=== PATIENT | female | born 1990 | race Caucasian/White ===

== ENCOUNTER 2019-05-12 16:12 | Emergency (ER) | payer SELFPAY ==
--- OUTSIDE RECORDS SUMMARY | 2019-05-12 16:14 | XMS REPORT ---
:1990 Author Organization [facility] Address [address] [place] [address] Care Team Providers Name Role Phone Unavailable Unavailable Unavailable Problems This patient has no known problems. Allergies, Adverse Reactions, Alerts This patient has no known allergies or adverse reactions. Medications This patient has no known medications. Encounters Start End Encounter Admission Attending Care Care Encounter Date/Time Date/Time Type Type Clinicians Facility Department ID 2018-11-29 2018-11-29 Emergency E [id number] 16:42:00 16:42:00
--- NOTE | 2019-05-12 18:08 | ER ---
Nurse's Notes [facility] Name: Mini Marin Age: 28 yrs Sex: Female : 1990 Arrival Date: 05/12/2019 Time: 16:16 Bed 8 Private MD: Diagnosis: Acute bronchitis, unspecified Presentation: 05/11 16:36 Chief complaint: Patient states: sore throat, body aches, fatigue and subjective fever ss x 2-3 days. Coronavirus screen: The patient has NOT traveled to a country currently being monitored by the [facility] within the last 14 days. Proceed with normal triage procedures. Ebola Screen: Patient denies exposure to infectious person. Patient denies travel to an Ebola-affected area in the 21 days before illness onset. Initial Sepsis Screen: Does the patient meet any 2 criteria? No. Patient's initial sepsis screen is negative. Does the patient have a suspected source of infection? No. Patient's initial sepsis screen is negative. Risk Assessment: Do you want to hurt yourself or someone else? Patient reports no desire to harm self or others. 16:36 Method Of Arrival: Ambulatory ss 16:36 Acuity: DANIEL 4 ss 16:36 Note coworker recently diagnosed for the flu. ss Historical: - Allergies: 16:39 NSAIDS; ss 16:39 Ceclor; ss 16:39 Sulfa (Sulfonamide Antibiotics); ss - Home Meds: 16:39 Lexapro Oral [Active]; ss - PMHx: 16:39 Anxiety; Depression; ss - PSHx: 16:39 Gastric Bypass; Cholecystectomy; ss - Immunization history:: Adult Immunizations up to date. - Social history:: Smoking status: Patient reports the use of cigarette tobacco products, denies chronic smoking, but will smoke occasionally. Screenin:05 Abuse screen: Denies threats or abuse. Denies injuries from another. Nutritional ph screening: No deficits noted. Tuberculosis screening: No symptoms or risk factors identified. Fall Risk None identified. Assessment: 17:04 General: Appears in no apparent distress. comfortable, Behavior is calm, cooperative, ph appropriate for age, Reports fever for 2-3 days. Pain: Complains of pain in body aches. Neuro: Level of Consciousness is awake, alert, obeys commands, Oriented to person, place, time, situation. Cardiovascular: Capillary refill < 3 seconds in bilateral fingers Patient's skin is warm and dry. Respiratory: Airway is patent Respiratory effort is even, unlabored. EENT: Reports nasal congestion pain when swallowing. Derm: Skin is intact, is healthy with good turgor, Skin is pink, warm \T\ dry. Musculoskeletal: Circulation, motion, and sensation intact. Range of motion: intact in all extremities. Vital Signs: 16:35 BP 116 / 80; Pulse 67; Resp 16; Temp 98.1(O); Pulse Ox 100% on R/A; Weight 58.06 kg; Height 5 ft. 2 in. (157.48 cm); Pain 6/10; 16:35 Body Mass Index 23.41 (58.06 kg, 157.48 cm) ED Course: 16:16 Patient arrived in ED. mr 16:19 [facility]C [facility]. snw 16:19 Harvinder Alfredo MD is Attending Physician. snw 16:35 Sheridan Newell, RN is Primary Nurse. ph 16:35 Arm band placed on right wrist. ss 16:38 Triage completed. ss 17:05 Patient has correct armband on for positive identification. Bed in low position. Call ph light in reach. Side rails up X 1. Pulse ox on. NIBP on. Door closed. Noise minimized. Warm blanket given. 17:10 Flu and/or RSV swab sent to lab. Strep swab sent to lab. em1 Administered Medications: No medications were administered Outcome: 18:07 Discharge ordered by . snw 18:48 Patient left the ED. ph Signatures: Christiana Navarro FNP-C STRIPER MACHINE-Csnw Kenia OatesGarrick em1 Marisol Panda, RN RN Sheridan Newell RN RN ph
--- NOTE | 2019-05-12 18:08 | EDPHYS ---
Physician Documentation [facility] Name: Mnii Marin Age: 28 yrs Sex: Female : 1990 Arrival Date: 05/12/2019 Time: 16:16 Bed 8 Private MD: ED Physician Harvinder Alfredo HPI: 05/11 17:05 This 28 yrs old Female presents to ER via Ambulatory with complaints of Flu snw Symptoms. 17:05 The patient or guardian reports cough, with no sputum, flu symptoms, arthralgias, snw low-grade fever, myalgias. Onset: The symptoms/episode began/occurred acutely. Associated signs and symptoms: Pertinent positives: fever, nausea, rhinorrhea, sore throat. Severity of symptoms: At their worst the symptoms were moderate. The patient has not experienced similar symptoms in the past, but friend has similar symptoms, coworker dx with influenza. The patient has not recently seen a physician. Historical: - Allergies: 16:39 NSAIDS; ss 16:39 Ceclor; ss 16:39 Sulfa (Sulfonamide Antibiotics); ss - Home Meds: 16:39 Lexapro Oral [Active]; ss - PMHx: 16:39 Anxiety; Depression; ss - PSHx: 16:39 Gastric Bypass; Cholecystectomy; ss - Immunization history:: Adult Immunizations up to date. - Social history:: Smoking status: Patient reports the use of cigarette tobacco products, denies chronic smoking, but will smoke occasionally. ROS: 16:55 Constitutional: Positive for body aches, fatigue, fever, malaise. snw 17:00 Eyes: Negative for injury, pain, redness, and discharge. snw 17:00 Neck: Negative for injury, pain, and swelling, Cardiovascular: Negative for chest pain, palpitations, and edema. 17:00 Back: Negative for injury and pain, : Negative for injury, bleeding, discharge, and swelling, MS/Extremity: Negative for injury and deformity, Skin: Negative for injury, rash, and discoloration, Neuro: Negative for headache, weakness, numbness, tingling, and seizure, Psych: Negative for depression, anxiety, suicide ideation, homicidal ideation, and hallucinations. 17:00 ENT: Positive for nasal discharge, sinus congestion, sore throat. 17:00 Respiratory: Positive for cough, with no reported sputum. 17:00 Abdomen/GI: Positive for nausea, Negative for vomiting. Exam: 16:55 Constitutional: This is a well developed, well nourished patient who is awake, alert, snw and in no acute distress. Head/Face: Normocephalic, atraumatic. Eyes: Pupils equal round and reactive to light, extra-ocular motions intact. Lids and lashes normal. Conjunctiva and sclera are non-icteric and not injected. Cornea within normal limits. Periorbital areas with no swelling, redness, or edema. ENT: Nares patent. Clear nasal discharge, no septal abnormalities noted. Tympanic membranes are normal and external auditory canals are clear. Oropharynx with mild redness, no swelling, or masses, exudates, or evidence of obstruction, uvula midline. Mucous membranes moist. Neck: Trachea midline, no thyromegaly or masses palpated, and no cervical lymphadenopathy. Supple, full range of motion without nuchal rigidity, or vertebral point tenderness. No Meningismus. Chest/axilla: Normal chest wall appearance and motion. Nontender with no deformity. No lesions are appreciated. Cardiovascular: Regular rate and rhythm with a normal S1 and S2. No gallops, murmurs, or rubs. Normal PMI, no JVD. No pulse deficits. Respiratory: Lungs have equal breath sounds bilaterally, clear to auscultation and percussion. No rales, rhonchi or wheezes noted. No increased work of breathing, no retractions or nasal flaring. Abdomen/GI: Soft, non-tender, with normal bowel sounds. No distension or tympany. No guarding or rebound. No evidence of tenderness throughout. Back: No spinal tenderness. No costovertebral tenderness. Full range of motion. Skin: Warm, dry with normal turgor. Normal color with no rashes, no lesions, and no evidence of cellulitis. MS/ Extremity: Pulses equal, no cyanosis. Neurovascular intact. Full, normal range of motion. Neuro: Awake and alert, GCS 15, oriented to person, place, time, and situation. Cranial nerves II-XII grossly intact. Motor strength 5/5 in all extremities. Sensory grossly intact. Cerebellar exam normal. Normal gait. Psych: Awake, alert, with orientation to person, place and time. Behavior, mood, and affect are within normal limits. Vital Signs: 16:35 BP 116 / 80; Pulse 67; Resp 16; Temp 98.1(O); Pulse Ox 100% on R/A; Weight 58.06 kg; ss Height 5 ft. 2 in. (157.48 cm); Pain 6/10; 16:35 Body Mass Index 23.41 (58.06 kg, 157.48 cm) ss MDM: 16:42 Patient medically screened. snw 18:08 Data reviewed: vital signs, nurses notes. Data interpreted: Pulse oximetry: on room air snw is 100 %. Interpretation: normal. Counseling: I had a detailed discussion with the patient and/or guardian regarding: the historical points, exam findings, and any diagnostic results supporting the discharge/admit diagnosis, lab results, the need for outpatient follow up, to return to the emergency department if symptoms worsen or persist or if there are any questions or concerns that arise at home. Special discussion: Based on the history and exam findings, there is no indication for further emergent testing or inpatient evaluation. I discussed with the patient/guardian the need to see the primary care provider for further evaluation of the symptoms. 03 16:42 Order name: Flu; Complete Time: 18:08 snw 05/11 16:42 Order name: Strep; Complete Time: 17:41 snw 05/11 17:33 Order name: Throat Culture EDMS Administered Medications: No medications were administered Disposition: 18:30 Co-signature as Attending Physician, Harvinder Alfredo MD I agree with the assessment and kdr plan of care. Disposition: 05/12/19 18:07 Discharged to Home. Impression: Acute bronchitis, unspecified. - Condition is Stable. - Discharge Instructions: Acute Bronchitis, Adult, Rehydration, Adult. - Prescriptions for Zyrtec 10 mg Oral Tablet - take 1 tablet by ORAL route once daily As needed; 20 tablet. Tessalon Perles 100 mg Oral Capsule - take 1 capsule by ORAL route every 8 hours As needed; 15 capsule. Prednisone 20 mg Oral Tablet - take 2 tablet by ORAL route once daily for 5 days; 10 tablet. - Work release form, Medication Reconciliation Form, Thank You Letter, Antibiotic Education, Prescription Opioid Use form. - Follow up: Private Physician; When: 2 - 3 days; Reason: Recheck today's complaints, Continuance of care, Re-evaluation by your physician. Follow up: Emergency Department; When: As needed; Reason: Worsening of condition. Signatures: Dispatcher [employer] EDMS Harvinder Alfredo MD MD [facility] Christiana Navarro, ADAMA-Barbra GALAN-Marisol Castro, RN RN ss Sheridan Newell RN RN ph Corrections: (The following items were deleted from the chart) 18:48 18:07 05/12/2019 18:07 Discharged to Home. Impression: Acute bronchitis, unspecified. ph Condition is Stable. Discharge Instructions: Acute Bronchitis, Adult, Rehydration, Adult. Prescriptions for Zyrtec 10 mg Oral Tablet - take 1 tablet by ORAL route once daily As needed; 20 tablet, Tessalon Perles 100 mg Oral Capsule - take 1 capsule by ORAL route every 8 hours As needed; 15 capsule, Prednisone 20 mg Oral Tablet - take 2 tablet by ORAL route once daily for 5 days; 10 tablet. and Forms are Work release form, Medication Reconciliation Form, Thank You Letter, Antibiotic Education, Prescription Opioid Use. Follow up: Private Physician; When: 2 - 3 days; Reason: Recheck today's complaints, Continuance of care, Re-evaluation by your physician. Follow up: Emergency Department; When: As needed; Reason: Worsening of condition. snw
[2019-05-12 18:57] VITALS: BP 116/80; TEMP 98.1; O2SAT 100
== END 2019-05-12 18:48 | disposition home or self-care (01) ==
LOC: ER 16:12
DX: J20.9 Acute bronchitis, unspecified (principal); Z88.2 Allergy status to sulfonamides; Z88.6 Allergy status to analgesic agent; F41.8 Other specified anxiety disorders; F17.210 Nicotine dependence, cigarettes, uncomplicated
CPT/HCPCS: 87070; 87081; 87804; 99283

== ENCOUNTER 2019-06-10 11:02 | Emergency (ER) | payer SELFPAY ==
--- OUTSIDE RECORDS SUMMARY | 2019-06-10 11:07 | XMS REPORT ---
:1990 [facility] Address [address] [place] [address] Care Team Providers Name Role Phone Unavailable Unavailable Unavailable Problems This patient has no known problems. Allergies, Adverse Reactions, Alerts This patient has no known allergies or adverse reactions. Medications This patient has no known medications. Encounters Start End Encounter Admission Attending Care Care Encounter Date/Time Date/Time Type Type Clinicians Facility Department ID 2018-11-29 2018-11-29 Emergency E [id number] 16:42:00 16:42:00
[2019-06-10 11:32] LABS: Absolute Lymphocytes (CBC) 1.4 K/uL (0.7-4.9); Basophils % 0.6 % (0-1.3); Hematocrit 28.9 % (36.0-45.0); MPV 9.1 fL (7.6-11.3); RBC Red Blood Cell Count 4.45 M/uL (3.86-4.86)
[2019-06-10 11:53] LABS: ALT/SGPT 25 U/L (12-78); AST/SGOT 28 U/L (15-37); Albumin 2.8 g/dL (3.4-5.0); Alkaline Phosphatase 104 U/L (45-117); BUN Blood Urea Nitrogen 9 mg/dL (7-18); Bicarbonate 29 mmol/L (21-32); Bilirubin Direct 0.1 mg/dL (0-0.2); Bilirubin Total 0.2 mg/dL (0.2-1.0); Glucose Level 79 mg/dL (74-106); Lipase 94 U/L (73-393); Potassium 3.5 mmol/L (3.5-5.1); Protein, Total 7.1 g/dL (6.4-8.2); Sodium Level 140 mmol/L (136-145)
[2019-06-10 12:16] LABS: Urine Blood NEGATIVE (NEG); Urine Glucose NEGATIVE (NEG); Urine Protein NEGATIVE (NEG)
[2019-06-10] MEDS ORDERED: ONDANSETRON 4 MG/2 ML VIAL ONE ×2 (12:16→15:47)
[2019-06-10] MEDS ORDERED: MORPHINE 4 MG/ML SYR ONE ×2 (12:16→15:47)
[2019-06-10 12:22] LABS: Urine Bacteria 20-50 /HPF (<20); Urine RBC <5 /HPF (NONE SEEN)
[2019-06-10 12:23] LABS: Urine Culture Reflex Order NOT NEEDED
[2019-06-10 12:49] LABS: Platelet Estimate ADEQ; Urine White Blood Cell Casts OK
[2019-06-10 12:50] LABS: Anisocytosis 2+; Blood Morphology Comment NOTED (NOT SEEN); Hypochromasia 2+; Ovalocytes 1+; Rouleau NOTED
--- NOTE | 2019-06-10 13:59 | RAD REPORT ---
EXAM DESCRIPTION: CTAbdomen Pelvis W Contrast - 06/10/2019 1:46 pm CLINICAL HISTORY: Abdominal pain. RLQ Abd Pain;Abd pain COMPARISON: No comparisons TECHNIQUE: Biphasic CT imaging of the abdomen and pelvis was performed with 100 ml non-ionic IV cont rast. All CT scans are performed using dose optimization technique as appropriate and may include automated exposure control or mA/KV adjustment according to patient size. FINDINGS: The lung bases are clear.Cholecystectomy. Postsurgical changes of a gastric bypass noted. The liver, spleen, pancreas, adrenal glands and kidneys are within normal limits. No bowel obstruction, free air, free fluid or abscess. The appendix is normal. No evidence of signi ficant lymphadenopathy. No suspicious bony findings. IMPRESSION: No acute intra-abdominal or pelvic finding.
--- NOTE | 2019-06-10 15:58 | ER ---
Nurse's Notes [facility] Name: Mini Marin Age: 28 yrs Sex: Female : 1990 Arrival Date: 06/10/2019 Time: 11:04 Bed 14 Private MD: Diagnosis: Abdominal and pelvic pain Presentation: 06/09 11:08 Chief complaint: Patient states: RLQ sharp, stabbing abdominal pain since yesterday jl7 morning; tried to have intercourse last night and it made me cry out in pain and it's just getting worse. I feel like maybe it's my ovaries or something. Denies fever, denies respiratory symptoms. Coronavirus screen: Patient denies fever greater than 100.4F, cough, shortness of breath, or difficulty breathing. Proceed with normal triage process. Ebola Screen: No symptoms or risks identified at this time. Initial Sepsis Screen: Does the patient meet any 2 criteria? No. Patient's initial sepsis screen is negative. Does the patient have a suspected source of infection? No. Patient's initial sepsis screen is negative. Risk Assessment: Do you want to hurt yourself or someone else? Patient reports no desire to harm self or others. Onset of symptoms was June 09, 2019. 11:08 Method Of Arrival: Ambulatory jl7 11:08 Acuity: DANIEL 3 jl7 Triage Assessment: 11:11 General: Appears in no apparent distress. uncomfortable, Behavior is calm, cooperative, jl7 appropriate for age. Pain: Complains of pain in right lower quadrant Pain currently is 7 out of 10 on a pain scale. at worst was 10 out of 10 on a pain scale. GI: Last BM was June 08, 2019. Reports nausea, Patient currently denies diarrhea, vomiting. 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 - Social history:: Smoking status: Patient reports the use of cigarette tobacco products, denies chronic smoking, but will smoke occasionally. Screenin:19 Abuse screen: Denies threats or abuse. Nutritional screening: No deficits noted. tw2 Tuberculosis screening: No symptoms or risk factors identified. Fall Risk None identified. Assessment: 11:20 General: Appears uncomfortable, slender, well groomed, Behavior is calm, cooperative, tw2 appropriate for age. Pain: Complains of pain in abdomen and right lower quadrant. Neuro: Level of Consciousness is awake, alert, obeys commands, Oriented to person, place, time, situation. Cardiovascular: Heart tones S1 S2 Patient's skin is warm and dry. Respiratory: Airway is patent Respiratory effort is even, unlabored, Respiratory pattern is regular, symmetrical, Breath sounds are clear bilaterally. GI: Abdomen is flat, Bowel sounds present X 4 quads. Abd is soft X 4 quads Reports upper abdominal pain, nausea. : No signs and/or symptoms were reported regarding the genitourinary system. EENT: No signs and/or symptoms were reported regarding the EENT system. Derm: No signs and/or symptoms reported regarding the dermatologic system. Musculoskeletal: Range of motion: intact in all extremities. 12:39 Reassessment: Patient appears in no apparent distress at this time. No changes from tw2 previously documented assessment. Patient and/or family updated on plan of care and expected duration. Pain level reassessed. Patient is alert, oriented x 3, equal unlabored respirations, skin warm/dry/pink. 13:35 Reassessment: No changes from previously documented assessment. Patient and/or family ll1 updated on plan of care and expected duration. Pain level reassessed. Patient is alert, oriented x 3, equal unlabored respirations, skin warm/dry/pink. 14:35 Reassessment: Patient appears in no apparent distress at this time. No changes from ll1 previously documented assessment. Patient and/or family updated on plan of care and expected duration. Pain level reassessed. Patient is alert, oriented x 3, equal unlabored respirations, skin warm/dry/pink. Vital Signs: 11:08 BP 115 / 93; Pulse 99; Resp 19; Temp 98.7; Pulse Ox 100% ; Weight 62.14 kg; Pain 7/10; jl7 11:27 BP 120 / 79; Pulse 88; Resp 17; Pulse Ox 98% on R/A; tw2 12:39 BP 116 / 78; Pulse 86; Resp 17; Pulse Ox 100% on R/A; tw2 13:00 BP 123 / 84; Pulse 79; Resp 17; Pulse Ox 100% ; ll1 14:12 BP 114 / 80; Pulse 70; Resp 17; Pulse Ox 100% ; ll1 15:24 BP 106 / 68; Pulse 88; Resp 17; Pulse Ox 99% ; ll1 16:00 BP 117 / 46; Pulse 71; Resp 17; Pulse Ox 100% ; ll1 16:15 Temp 98.4; Pain 4/10; ll1 ED Course: 11:04 Patient arrived in ED. mr 11:10 Triage completed. jl7 11:11 Neno Julian PA is PHCP. jr8 11:11 Rebekah Garcia MD is Attending Physician. jr8 11:11 Arm band placed on right wrist. jl7 11:12 Bed in low position. Call light in reach. tw2 11:18 Rebeka Tang, YURIY is Primary Nurse. tw2 11:25 Urine collected: clean catch specimen, clear. dh3 11:30 Initial lab(s) drawn, by tx, sent to lab. Inserted saline lock: 20 gauge in right dh3 antecubital area, using aseptic technique. Blood collected. 13:45 CT Abd/Pelvis - PO and IV Contrast In Process Unspecified. EDMS 15:37 US Transvaginal Study (Probe) In Process Unspecified. EDMS 15:57 Paresh Kumar MD is Referral Physician. jr8 16:15 No provider procedures requiring assistance completed. IV discontinued, intact, ll1 bleeding controlled, No redness/swelling at site. Pressure dressing applied. Administered Medications: 12:16 Drug: Zofran (Ondansetron) 4 mg Route: IVP; Site: right antecubital; tw2 15:45 Follow up: Response: No adverse reaction ll1 12:16 Drug: morphine 4 mg Route: IVP; Site: right antecubital; tw2 15:45 Follow up: Response: No adverse reaction; RASS: Alert and Calm (0) ll1 15:49 Drug: morphine 4 mg {Note: RASS 0.} Route: IVP; Site: right antecubital; ll1 16:10 Follow up: Response: No adverse reaction; RASS: Alert and Calm (0) ll1 15:49 Drug: Zofran (Ondansetron) 4 mg Route: IVP; Site: right antecubital; ll1 18:52 Follow up: Response: No adverse reaction ll1 Outcome: 15:57 Discharge ordered by . marlon 16:18 Patient left the ED. ll1 16:29 Discharged to home ambulatory, with family. ll1 16:29 Condition: stable 16:29 Discharge instructions given to patient, Instructed on discharge instructions, follow up and referral plans. medication usage, Demonstrated understanding of instructions, follow-up care, medications, Prescriptions given X 1. Signatures: Dispatcher [employer] EDTN ИванKenia mr IeshaNeno PA PA jr8 Rebeka Tang, RN RN tw2 Rome Elizabeth RN RN jl7 Gina López 3 Allen Godoy, RN RN ll1
--- NOTE | 2019-06-10 15:58 | EDPHYS ---
Physician Documentation [facility] Name: Mini Marin Age: 28 yrs Sex: Female : 1990 Arrival Date: 06/10/2019 Time: 11:04 Bed 14 Private MD: ED Physician Rebekah Garcia HPI: 06/09 11:32 This 28 yrs old Female presents to ER via Ambulatory with complaints of jr8 Abdominal Pain. 11:32 The patient presents with abdominal pain right lower quadrant. Onset: The jr8 symptoms/episode began/occurred acutely, yesterday. The symptoms do not radiate. Associated signs and symptoms: Pertinent positives: nausea. The symptoms are described as stabbing. Modifying factors: The symptoms are alleviated by nothing, the symptoms are aggravated by movement, pressure. Severity of pain: At its worst the pain was moderate in the emergency department the pain is unchanged. The patient has not experienced similar symptoms in the past. The patient has not recently seen a physician. 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 - Social history:: Smoking status: Patient reports the use of cigarette tobacco products, denies chronic smoking, but will smoke occasionally. ROS: 11:32 Eyes: Negative for injury, pain, redness, and discharge, ENT: Negative for injury, jr8 pain, and discharge, Neck: Negative for injury, pain, and swelling, Cardiovascular: Negative for chest pain, palpitations, and edema, Respiratory: Negative for shortness of breath, cough, wheezing, and pleuritic chest pain, Back: Negative for injury and pain, MS/Extremity: Negative for injury and deformity, Skin: Negative for injury, rash, and discoloration, Neuro: Negative for headache, weakness, numbness, tingling, and seizure. 11:32 Abdomen/GI: Positive for abdominal pain, nausea, Negative for vomiting, diarrhea, constipation, abdominal cramps, abdominal distension. Exam: 11:32 Eyes: Pupils equal round and reactive to light, extra-ocular motions intact. Lids and jr8 lashes normal. Conjunctiva and sclera are non-icteric and not injected. Cornea within normal limits. Periorbital areas with no swelling, redness, or edema. ENT: Nares patent. No nasal discharge, no septal abnormalities noted. Tympanic membranes are normal and external auditory canals are clear. Oropharynx with no redness, swelling, or masses, exudates, or evidence of obstruction, uvula midline. Mucous membranes moist. Neck: Trachea midline, no thyromegaly or masses palpated, and no cervical lymphadenopathy. Supple, full range of motion without nuchal rigidity, or vertebral point tenderness. No Meningismus. Cardiovascular: Regular rate and rhythm with a normal S1 and S2. No gallops, murmurs, or rubs. Normal PMI, no JVD. No pulse deficits. Respiratory: Lungs have equal breath sounds bilaterally, clear to auscultation and percussion. No rales, rhonchi or wheezes noted. No increased work of breathing, no retractions or nasal flaring. Back: No spinal tenderness. No costovertebral tenderness. Full range of motion. Skin: Warm, dry with normal turgor. Normal color with no rashes, no lesions, and no evidence of cellulitis. MS/ Extremity: Pulses equal, no cyanosis. Neurovascular intact. Full, normal range of motion. Neuro: Awake and alert, GCS 15, oriented to person, place, time, and situation. Cranial nerves II-XII grossly intact. Motor strength 5/5 in all extremities. Sensory grossly intact. Cerebellar exam normal. Normal gait. 11:32 Abdomen/GI: Inspection: abdomen appears normal, Bowel sounds: active, all quadrants, Palpation: soft, in all quadrants, moderate abdominal tenderness, in the right lower quadrant, voluntary guarding, is elicited in the right lower quadrant, involuntary guarding, is not appreciated, no appreciated organomegaly, Indicators: McBurney's point is tender, Ratliff's sign is negative, Rovsing's sign is negative, Obturator sign is negative, Psoas sign is positive, Liver: tenderness, is not appreciated. Vital Signs: 11:08 BP 115 / 93; Pulse 99; Resp 19; Temp 98.7; Pulse Ox 100% ; Weight 62.14 kg; Pain 7/10; jl7 11:27 BP 120 / 79; Pulse 88; Resp 17; Pulse Ox 98% on R/A; tw2 12:39 BP 116 / 78; Pulse 86; Resp 17; Pulse Ox 100% on R/A; tw2 13:00 BP 123 / 84; Pulse 79; Resp 17; Pulse Ox 100% ; ll1 14:12 BP 114 / 80; Pulse 70; Resp 17; Pulse Ox 100% ; ll1 15:24 BP 106 / 68; Pulse 88; Resp 17; Pulse Ox 99% ; ll1 16:00 BP 117 / 46; Pulse 71; Resp 17; Pulse Ox 100% ; ll1 16:15 Temp 98.4; Pain 4/10; ll1 MDM: 11:18 Patient medically screened. jr8 15:52 Data reviewed: vital signs, nurses notes, lab test result(s), radiologic studies, CT jr8 scan, ultrasound. Data interpreted: Pulse oximetry: on room air is 99 %. Interpretation: normal. Counseling: I had a detailed discussion with the patient and/or guardian regarding: the historical points, exam findings, and any diagnostic results supporting the discharge/admit diagnosis, lab results, radiology results, the need for outpatient follow up, a family practitioner, to return to the emergency department if symptoms worsen or persist or if there are any questions or concerns that arise at home. Response to treatment: the patient's symptoms have mildly improved after treatment. Special discussion: Based on the patient's Hx, exam, and Dx evaluation, there is no indication for emergent surgery or inpatient Tx. It is understood by the patient/guardian that if the Sx's persist or worsen they need to return immediately for re-evaluation. ED course: Discussed with patient if pain gets worse to come back. No signs for torsion, PID, bowel process, appendicitis, or other surgically emergent findings. Labs stable. Nothing to indicate pain that she is feeling. Could be muscle. Recommend close observation and return precautions. If worse to come back. Patient good with this . ED course: Checked EXPEDITER SERVICE ORDER. Patient on Buprenorphine-Naloxone. High risk. Will not prescribe pain medication . 06/09 11:19 Order name: Basic Metabolic Panel; Complete Time: 12:29 8 06/09 11:19 Order name: CBC with Diff; Complete Time: 13:27 jr8 06/09 11:19 Order name: Creatinine for Radiology; Complete Time: 12:29 8 06/09 11:19 Order name: Hepatic Function; Complete Time: 12:29 8 06/09 11:19 Order name: Lipase; Complete Time: 12:29 06/09 11:19 Order name: Urine Microscopic Only; Complete Time: 12:29 8 06/09 11:32 Order name: CT Abd/Pelvis - PO and IV Contrast; Complete Time: 14:07 rust 06/09 11:41 Order name: Urine Dipstick--Ancillary (enter results); Complete Time: 12:29 mo 06/09 11:41 Order name: Urine --Ancillary (enter results); Complete Time: 12:29 mo 06/09 12:50 Order name: CBC Smear Scan; Complete Time: 13:27 [facility] 06/09 14:15 Order name: US Transvaginal Study (Probe); Complete Time: 16:07 rust 06/09 11:19 Order name: IV Saline Lock; Complete Time: 11:38 06/09 11:19 Order name: Labs collected and sent; Complete Time: 11:38 06/09 11:19 Order name: Urine Test (obtain specimen); Complete Time: 11:38 rust 06/09 11:19 Order name: Urine Dipstick-Ancillary (obtain specimen); Complete Time: 11:38 Administered Medications: 12:16 Drug: Zofran (Ondansetron) 4 mg Route: IVP; Site: right antecubital; tw2 15:45 Follow up: Response: No adverse reaction ll1 12:16 Drug: morphine 4 mg Route: IVP; Site: right antecubital; tw2 15:45 Follow up: Response: No adverse reaction; RASS: Alert and Calm (0) ll1 15:49 Drug: morphine 4 mg {Note: RASS 0.} Route: IVP; Site: right antecubital; ll1 16:10 Follow up: Response: No adverse reaction; RASS: Alert and Calm (0) ll1 15:49 Drug: Zofran (Ondansetron) 4 mg Route: IVP; Site: right antecubital; ll1 18:52 Follow up: Response: No adverse reaction 1 Disposition: 16:21 Co-signature as Attending Physician, Rebekah Garcia MD. ma2 Disposition: 06/10/19 15:57 Discharged to Home. Impression: Abdominal and pelvic pain. - Condition is Stable. - Discharge Instructions: Abdominal Pain, Adult. - Prescriptions for Zofran 4 mg Oral Tablet - take 1 tablet by ORAL route every 12 hours As needed; 20 tablet. - Medication Reconciliation Form, Thank You Letter, Antibiotic Education, Prescription Opioid Use form. - Follow up: Paresh Kumar MD; When: 5 - 6 days; Reason: Recheck today's complaints, Continuance of care, Re-evaluation by your physician. - Problem is new. - Symptoms have improved. Signatures: Dispatcher [employer] EDMS Neno Julian PA PA jr8 Rebeka Tang RN RN tw2 Rome Elizabeth RN RN jl7 Rebekah Garcia MD MD ma2 Allen Godoy RN RN ll1 Corrections: (The following items were deleted from the chart) 16:18 15:57 06/10/2019 15:57 Discharged to Home. Impression: Abdominal and pelvic pain. ll1 Condition is Stable. Forms are Medication Reconciliation Form, Thank You Letter, Antibiotic Education, Prescription Opioid Use. Follow up: Paresh Kumar; When: 5 - 6 days; Reason: Recheck today's complaints, Continuance of care, Re-evaluation by your physician. Problem is new. Symptoms have improved. jr8
--- NOTE | 2019-06-10 16:05 | RAD REPORT ---
EXAM DESCRIPTION: US - Transvaginal Study Probe - 06/10/2019 3:37 pm CLINICAL HISTORY: r/o torsion ;Abd pain Pelvic pain. COMPARISON: No comparisons FINDINGS: The uterus is normal in size, shape and echotexture. The uterus measures 7.9 x 5.7 x 4.4 c m. The endometrial stripe measures 8 mm, normal. Both ovaries are normal in size, shape and echotexture. The right ovary measures 1.9 x 2.7 x 1.8 cm. The left ovary measures 2.1 x 2.8 x 3.1 cm. No ovarian or parovarian lesions. No adnexal masses. Normal Doppler blood flow was demonstrated to both ovaries. No significant pelvic ascites. IMPRESSION: Unremarkable study.
[2019-06-10 16:27] VITALS: TEMP 98.7
[2019-06-10 16:36] VITALS: BP 117/46; O2SAT 100
== END 2019-06-10 16:18 | disposition home or self-care (01) ==
LOC: ER 11:02
DX: R10.2 Pelvic and perineal pain (principal); F17.210 Nicotine dependence, cigarettes, uncomplicated; F34.1 Dysthymic disorder; Z88.2 Allergy status to sulfonamides; Z88.6 Allergy status to analgesic agent; Z88.8 Allergy status to other drugs, medicaments and biological substances
CPT/HCPCS: 36415; 74177; 76830; 80048; 80076; 81003; 81015; 81025; 83690; 85025; 96374; 96375; 99284; J2405; Q9967

== ENCOUNTER 2019-10-09 07:05 | Emergency (ER) | payer SELFPAY ==
--- OUTSIDE RECORDS SUMMARY | 2019-10-09 07:07 | XMS REPORT | Clinical Summary ---
:1990 Author Organization [facility] [employer] Address [address] [place] [address] Care Team Providers Name Role Phone Asked, Pcp Primary Care Provider Unavailable Allergies Active Allergy Reactions Severity Noted Date Comments Cefaclor 12/07/2016 Sulfa (Sulfonamide Antibiotics) 7 Medications Medication Sig Dispensed Refills Start Date End Date Status traMADol (ULTRAM) 50 Take 1 tablet (50 15 tablet 0 10/05/2018 10/10/2018 mg tablet mg total) by mouth every 6 (six) hours as needed for moderate pain for up to 15 doses. penicillin v Take 1 tablet 28 tablet 0 10/05/2018 10/12/2018 E xpired potassium (VEETID) (500 mg total) by 500 MG tablet mouth 4 (four) times a day for 7 days. Active Problems Not on file Encounters Date Type Specialty Care Team Description 03/27/2019 Emergency Emergency Medicine Jhoan Wing MD after 10/08/2018 Family History Medical History Relation Name Comments Diabetes Father Hypertension Father No Known Problems Mother Relation Name Status Comments Father Mother Social History Tobacco Use Types Packs/Day Years Used Date Never Smoker Smokeless Tobacco: Never Used Alcohol Use Drinks/Week oz/Week Comments No Sex Assigned at Date Recorded Not on file Job Start Date Occupation Industry Not on file Not on file Not on file Travel History Travel Start Travel End No recent travel history available. 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[employer] Pulse 87 03/27/2019 2:22 PM [employer]IDENT [employer]PERATING OFFICER Temperature 36.4 C (97.5 F) 03/27/2019 2:22 PM [employer]IDENT [employer]IE[employer]PERATING OFFICER Respiratory Rate 15 03/27/2019 2:22 PM [employer]IDENT [employer]IE[employer]PERATING OFFICER Oxygen Saturation 100% 03/27/2019 2:22 PM [employer]IDENT [employer]PER[employer] OFFICER Inhaled Oxygen Concentration - - Weight - - Height 154.9 cm (5' 1") 03/27/2019 2:29 PM [employer]IDENT [employer]PERATING OFFIC[employer] Body Mass Index - - Plan of Treatment Health Maintenance Due Date Last Done Comments CERVICAL CANCER SCREENING 2009 INFLUENZA VACCINE 10/09/2019 Results Not on fileafter 10/08/2018
--- OUTSIDE RECORDS SUMMARY | 2019-10-09 07:09 | XMS REPORT | Continuity of Care Document ---
:1990 Author Organization [facility] Care Team Providers Name Role Phone [facility] Unavailable Un available Problems Problem Status Onset Classification Date Comments Sourc e Date Reported STOMACH PAINS Active [facility] Panic attacks Active Problem 11/16/2013 eCW: John Ochoa MD Palpitations Active Problem 11/16/2013 eCW: Maggie Ochoa MD Low Back Pain Active Problem 11/16/2013 eCW: John Ochoa MD anxiety Active Problem 11/16/2013 eCW: Fabrice ie Don york MD generalized GERD Active Diagnosis 12/03/2012 eCW: Fabrice ie (gastroesophagea Safia montoya MD l reflux disease) Medications Medication Details Route Status Patient Ordering Order Source Instructions Provider Date Xanax 1 tablet Orally Active 0.25 MG Orally Ochoa eCW: daily as needed 014 John Ochoa MD BusPIRone HCl 1 tablet Orally Active 15 MG Orally Ochoa eCW: Twice a day 014 John Ochoa MD Robaxin 1 tablet Orally Active 500 mg Orally Ochoa eCW: TID for spasm 014 John Ochoa MD BuSpar 1 tablet orally Active 15 mg orally Ochoa eCW: BID 013 John Ochoa MD Xanax 1 tablet Orally Active 0.25 MG Orally Ochoa eCW: every 8 hours 013 John as needed MD Don potassium 40 mEq, PO No Longer [facility] chloride 20 Route: PO, Active 012 Hospital mEq oral Drug form: tablet, ERTAB, extended ONCE, release Priority: STAT, Start date: 06/27/11 9:29:00, Stop date: 06/27/11 9:29:00 NS (Bolus) IV 1,000 mL, IV No Longer [facility] 1,000 mL Rate: Active 012 Hospital 1,000 ml/hr, Infuse over: 1 hr, Route: IV, Dosing Weight 87 kg, Total Volume: 1,000, Start date: 06/27/11 8:57:00, Duration: 30 day, Stop date: 07/27/11 8:56:00 K-Dur 20 40 mEq, 30 PO No Longer [facility] mL, Route: [address] PO, Drug form: ERTAB, ONCE, Start date: 06/27/11 8:56:00, Stop date: 06/27/11 8:56:00 ondansetron 4 mg, 2 IVP No Longer [facility] mL, Route: [address] IVP, Drug form: INJ, ONCE, Priority: STAT, Start date: 06/27/11 7:24:00, Stop date: 06/27/11 7:24:00 Saline Flush 5 ml, IVP No Longer [facility] 0.9% Route: [address] IVP, Drug Form: INJ, PRN, PRN Line Flush, Start date: 06/27/11 7:24:00, Duration: 30 day, Stop date: 07/27/11 7:23:00 Sodium 1,000 mL, [facility] Chloride 0.9% Rate: [address] (Bolus) IV 1,000 1,000 mL ml/hr, Infuse over: 1 hr, Route: IV, Dosing Weight 87.7 kg, Total Volume: 1,000, Bolus Dose, Priority: STAT, Start date: 06/27/11 7:24:00, Duration: 1 doses or times, Stop date: 06/27/11 8:23:00 NuvaRing 1 ring Vaginal Active 0.12-0.015 Ochoa eCW: MG/24HR Vaginal John Ochoa MD Vitamin D 1 tablet Orally Active 1000 UNIT Ochoa eCW: Orally Once a John Ochoa MD Vitamin B-12 1 tablet Orally Active 1000 MCG Orally Ochoa eC W: Once a day John Ochoa MD Allergies, Adverse Reactions, Alerts Substance Category Reaction Severity Reaction Status Date Comments S ource type Reported Cephalexin Adverse Info Not Adverse Active eC W: Reaction Available Reaction 4 Fabrice Ochoa MD [facility] drug Allergy Active [facility] Immunizations No Data Provided for This Section Results Order Name Results Value Reference Date Interpretation Comments Eve rce Range CHEMISTRY U Preg Negative Negative 06/26 Normal [facility] (06/27/2011 08:24:00) [facility] URINALYSIS UA RBC 0-2 /HPF 0 - 2 06/26 Normal [facility] (06/27/2011 08:24:00) [facility] URINALYSIS UA Sq Epi Occasional /LPF Few 06/26 Normal [facility] (06/27/2011 08:24:00) [facility] URINALYSIS UA WBC 0-2 /HPF None Seen 06/26 Normal [facility] (06/27/2011 08:24:00) [facility] URINALYSIS UA Bacteria None Seen None Seen 06/26 Normal [facility] (06/27/2011 08:24:00) [facility] URINALYSIS Micro? Performed 06/26 Normal [facility] (06/27/2011 08:24:00) [facility] URINALYSIS UA Protein Negative Negative 06/26 Normal [facility] (06/27/2011 08:24:00) [facility] URINALYSIS UA Glucose Negative Negative 06/26 Normal [facility] (06/27/2011 08:24:00) [facility] URINALYSIS UA Spec Grav <=1.030 06/26 NA [facility] /2011 Hospital URINALYSIS UA pH 6.0 5.0 - 8.0 06/26 Normal [facility] URINALYSIS UA Ketones 15 mg/dL Negative 06/26 ABN [facility] *ABN* /2011 [facility] (06/27/2011 08:24:00) URINALYSIS UA Color Yellow Yellow 06/26 NA [facility] *NA* /2011 [facility] (06/27/2011 08:24:00) URINALYSIS UA Turbidity Clear Clear 06/26 Normal [facility] (06/27/2011 08:24:00) [facility] URINALYSIS UA Nitrite Negative Negative 06/26 Normal [facility] (06/27/2011 08:24:00) [facility] URINALYSIS UA Bili Negative Negative 06/26 NA [facility] *NA* [facility] (06/27/2011 08:24:00) URINALYSIS UA 0.2 0.1 - 1.0 06/26 Normal [facility] Urobilinogen /2011 Hospital URINALYSIS UA Leuk Est Negative Negative 06/26 Normal [facility] (06/27/2011 08:24:00) /2011 [facility] URINALYSIS UA Blood Small Negative 06/26 ABN [facility] *ABN* /2011 Hospital (06/27/2011 08:24:00) Microbiolog Culture: 06/26 [facility] CHEMISTRY Lipase Lvl 107 73 - 393 06/26 Normal [facility] CHEMISTRY Amylase Lvl 33 25 - 115 06/26 Normal [facility] CHEMISTRY Globulin 3.5 2.0 - 4.0 06/26 Normal [facility] CHEMISTRY B/C Ratio 11 6 - 25 06/26 Normal [facility] CHEMISTRY AGAP 11.3 10.0 - 06/26 Normal [facility] 20.0 [facility] CHEMISTRY A/G Ratio 1.1 0.7 - 1.6 06/26 Normal [facility] CHEMISTRY Alk Phos 59 39 - 136 06/26 Normal [facility] CHEMISTRY Calcium Lvl 9.6 8.5 - 10.5 06/26 Normal [facility] CHEMISTRY Chloride Lvl 109 95 - 109 06/26 Normal [facility] CHEMISTRY CO2 26 24 - 32 06/26 Normal [facility] CHEMISTRY ALT 31 0 - 65 06/26 Normal [facility] CHEMISTRY Total 7.2 6.4 - 8.4 06/26 Normal [facility] CHEMISTRY Albumin Lvl 3.7 3.5 - 5.0 06/26 Normal [facility] CHEMISTRY Glucose Lvl 80 70 - 99 06/26 Normal <sup>1</sup>I K at nterpretive Hospital Data: Adult reference range values reflect the clinical guidelines of the [place] [employer]. CHEMISTRY BUN 9 7 - 22 06/26 Normal [facility] CHEMISTRY Creatinine 0.8 0.5 - 1.4 06/26 Normal [facility] CHEMISTRY Potassium 3.3 3.5 - 5.1 06/26 LOW [facility] CHEMISTRY Sodium Lvl 143 135 - 145 06/26 Normal [facility] CHEMISTRY AST 12 0 - 37 06/26 Normal [facility] /2011 Hospital CHEMISTRY Bili Total 0.5 0.2 - 1.3 06/26 Normal [facility] /2011 Hospital HEMATOLOGY INR 1.02 0.85 - 06/26 Normal <sup>2</sup>I [facility] 1.17 /2011 n[facility] Hospital Data: RECOMMENDED RANGES FOR PROTIME INR: 2.0-3.0 for most medical and surgical thromboemboli c states. 2.5-3.5 for artificial heart valves and recurrent embolism. INR SHOULD BE USED ONLY FOR PATIENTS ON STABLE ANTICOAGULANT THERAPY. HEMATOLOGY PTT 31.2 22.9 - 06/26 Normal <sup>3</sup>I [facility] 35.8 /2011 [facility] Data: Heparin Therapeutic Range: 57 - 92 Seconds HEMATOLOGY PT 13.4 12.0 - 06/26 Normal [facility] 14.7 /2011 Hospital HEMATOLOGY RDW 13.3 11.5 - 06/26 Normal [facility] 14.5 /2011 Hospital HEMATOLOGY MCHC 34.3 32.0 - 06/26 Normal [facility] 36.0 /2011 Hospital HEMATOLOGY MCH 28.6 27.0 - 06/26 Normal [facility] 31.0 /2011 Hospital HEMATOLOGY Platelet 181 133 - 450 06/26 Normal [facility] /2011 Hospital HEMATOLOGY MPV 10.2 7.4 - 10.4 06/26 Normal [facility] /2011 Hospital HEMATOLOGY Hgb 13.7 12.0 - 06/26 Normal [facility] 16.0 /2011 Hospital HEMATOLOGY Hct 40.0 36.0 - 06/26 Normal [facility] 48.0 /2011 Hospital HEMATOLOGY MCV 83.4 81.0 - 06/26 Normal [facility] 99.0 /2011 Hospital HEMATOLOGY RBC 4.80 4.20 - 06/26 Normal [facility] 5.40 /2011 Hospital HEMATOLOGY WBC 5.3 3.7 - 10.4 06/26 Normal [facility] /2011 Hospital HEMATOLOGY Eosinophils 0.1 0.0 - 0.5 06/26 Normal [facility] # /2011 Hospital HEMATOLOGY Lymphocytes 1.7 1.0 - 5.5 06/26 Normal [facility] # /2011 Hospital HEMATOLOGY Monocytes # 0.3 0.0 - 0.8 06/26 Normal [facility] /2011 Hospital HEMATOLOGY Basophils # 0.0 0.0 - 0.2 06/26 Normal [facility] /2011 Hospital HEMATOLOGY Monocytes 5.8 2.0 - 12.0 06/26 Normal [facility] /2011 Hospital HEMATOLOGY Eosinophils 1.2 0.0 - 4.0 06/26 Normal MH [facility] /2011 [facility] HEMATOLOGY Segs 60.7 45.0 - 06/26 Normal [facility] 75.0 /2011 [facility] HEMATOLOGY Lymphocytes 32.2 20.0 - 06/26 Normal MH [facility] 40.0 /2011 [facility] HEMATOLOGY Basophils 0.1 0.0 - 1.0 06/26 Normal MH [facility] /2011 [facility] HEMATOLOGY Segs-Bands # 3.2 1.5 - 8.1 06/26 Normal [facility] /2011 Hospital Pathology Reports No Data Provided for This Section Diagnostic Reports No Data Provided for This Section Consultation Notes No Data Provided for This Section Discharge Summaries No Data Provided for This Section History and Physicals No Data Provided for This Section Vital Signs Vital Sign Value Date Comments Source Weight 156 10/21/2013 eCW: John montoya MD Height 62 10/21/2013 eCW: John montoya MD Heart Rate 88 10/21/2013 eCW: John montoya MD Diastolic (mm Hg) 86 10/21/2013 eCW: Orlando Ochoa MD Systolic (mm Hg) 120 10/21/2013 eCW: John Ochoa MD Weight 152 11/27/2012 eCW: John montoya MD Height 62 11/27/2012 eCW: John montoya MD Heart Rate 83 11/27/2012 eCW: John montoya MD Diastolic (mm Hg) 84 11/27/2012 eCW: Orlando Ochoa MD Systolic (mm Hg) 110 11/27/2012 eCW: John Ochoa MD Weight 87.727 06/27/2011 [facility] Height 157.48 cm 06/27/2011 [facility] Encounters Location Location Encounter Encounter Reason Attending ADM DC Stat us Source Details Type Number For Provider Date Date Visit [facility] [id number] STOMACH PEDRO 06/26 06/26 Activ e [facility] Unknown [id number] 11/27 11/27 eCW: MD Don -[id number] /2012 [facility] [id number] MD John Ochoa Unknown [id number] 11/27 11/27 eCW: MD Don [id number] /[facility] [id number] MD John Ochoa CHK/UP [id number] 10/21 10/21 eCW: MD Don [id number] /[facility] [id number] MD Don Procedures No Data Provided for This Section Assessment and Plan No Data Provided for This Section Plan of Care No Data Provided for This Section Social History Social History Date Source Social History ElementQualifiersDate Reported 10/21/2013 eCW: John Ochoa MD Tobacco Use: . Are you a: former smoker, How many ye ars smoked? 1, How many packs per day? .2 Oct 21, 2013 Alcohol: . never Oct 21, 2013 Family History Value Date Source QualifierDescriptionCommentDate Reported 11/16/2013 eCW: John Ochoa MD Father type II diabetes, hypertension Oct 21, 2013 QualifierDescriptionCommentDate Reported 12/03/2012 eCW: John Ochoa MD Father type II diabetes, hypertension Nov 27, 2012 Advance Directives No Data Provided for This Section Functional Status No Data Provided for This Section
--- OUTSIDE RECORDS SUMMARY | 2019-10-09 07:10 | XMS REPORT | Continuity of Care Document ---
:1990 Author Organization [facility] Address [address] [place] [address] Care Team Providers Name Role Phone OTHER, NAME IN NOTES Primary Care Physician Unavailable Allergies, Adverse Reactions, Alerts Allergen Type Severity Reaction Last Verified Status Updated Sulfa Allergy Unknown July 26, No Active Antibiotics 2019 ([id number]) Medications No known medications. Problems No problem information available. Procedures No procedure information available. Relevant Diagnostic Tests and/or Laboratory Data No known relevant diagnostic tests and/or laboratory data. Health Concerns Health Concerns may be documented in an alternate section. Chief Complaint and Reason for Visit Chief Complaint General Complaint Reason for Visit [id number] Encounters Encounter Location(s) Arrival/Admit Date Discharge/Depart Date Provider(s) Departed Clancy July 27, 2019 July 27, 2019 4:24pm ELVIN STACY, Emergency Room [facility] 3:29pm KAYA Rodriguez MD Ctr Assessments No Assessments Information Available Functional Status No Functional Status information available Goals Goals may be documented in an alternate section. Immunizations No Immunization Information Available Mental Status No Mental Status Information Available Medical Equipment No Medical Equipment Information available Plan of Treatment rx, see DDS or oromaxillary surgeon/manager internet Future Tests Future scheduled test information is unavailable Pending Tests Pending diagnostic test information is unavailable Future Visits Future appointment information is unavailable Referrals to Other Providers Reason for Referral Start Provider Provider Contact Provider Address Referral Date Information OTHER, ENTER NAME IN NOTES Future Procedures Future procedure information is unavailable Future Medications Future medication information is unavailable Patient Instructions Temporomandibular Joint Syndrome Social History Smoking Status Status Date of Observation Never smoked tobacco (finding) July 27, 2019 3:34pm Observation Status Observation Response Date of Response Hx Physical Abuse No July 27, 2019 3:34p m Assigned Sex Female Vital Signs Vital Reading Result Collection Date/Time Weight 138 [lb_av] July 27, 2019 3:34p m BMI (Body Mass Index) 25.2 kg/m2 July 27, 2019 3:3 4pm
--- OUTSIDE RECORDS SUMMARY | 2019-10-09 07:10 | XMS REPORT | Continuity of Care Document ---
:1990 Author Organization Formerly [facility] t Address [address] [place] [address] Care Team Providers Name Role Phone Asked, Pcp Primary Care Physician Unavailable Maciej DE LUNA, Guillermo Attending Clinician Problems Condition Condition Condition Status Onset Resolution Last Treating Co mments Source Name Details Category Date Date Treatment Clinician Date STOMACH Diagnosis Active 2012-06-18 Me moria PAINS 4-19 10:30:00 l STOMACH 07:00: Tarun PAINS 00 Active 06/27/2011 [facility] Panic Problem Active 2013-11-16 Memor ia attacks 02:28:14 l Panic Tarun attacks Active Problem 11/16/2013 eCW: John Ochoa MD Palpitatio Problem Active 2013-11-16 M emoria ns 02:28:14 l [place] Palpitatio ns Active Problem 4 eCW: John Ochoa MD Low Back Problem Active 2013-11-16 Mem oria Pain 02:28:14 l Low Back Neo n Pain Active Problem 11/16/2013 eCW: John Ochoa MD anxiety Problem Active 2013-11-16 Andrea hao disorder, 02:28:14 l generalize anxiety Her tripp d disorder, generalize d Active Problem 11/16/2013 eCW: John Ochoa MD GERD Diagnosis Active 2012-12-03 Mem oria (gastroeso 04:12:17 l phageal GERD Tarun reflux (gastroeso disease) phageal reflux disease) Active Diagnosis 12/03/2012 eCW: John Ochoa MD Allergies, Adverse Reactions, Alerts Allergy Allergy Status Severity Reaction(s) Onset Inactive Treating Comm ents Source Name Type Date Date Clinician Sulfa Propensi Active 2016-03 [place] (Sulfona ty to 0-25 Methodi mide adverse 00:00: st Antibiot reaction 00 ics) s to drug Cefaclor Propensi Active [place] to 9-30 Methodi adverse 00:00: st reaction 00 s to drug Cephalex Cephalex Active Info Not Andrea hao in in Available 10-21 l 00:00: Tarun 00 Ceclor Ceclor Active Memoria l Tarun Family History Family Member Diagnosis Comments Start Date Stop Date Source Natural father Diabetes [facility]odist Natural father Hypertension [employer] [facility] Natural mother No Known Problems [facility] Unknown Family Family History 2012-12-03 2012-12-03 Memori al [place] Member 04:12:17 04:12:17 Social History Social Habit Start Date Stop Date Quantity Comments Source Sex Assigned At [employer] [place] M ethodist Alcohol intake 2019-03-27 2019-03-27 Current [facility]odist 00:00:00 00:00:00 non-drinker of alcohol (finding) TobaccoUse: 2013-10-21 2013-10-21 [facility] 00:00:00 00:00:00 Smoking Status Start Date Stop Date Source Never smoker [facility] Medications Ordered Filled Start Stop Current Ordering Indication Dosage Frequency Signature Comments Components Source Medication Medication Date Date Medication? Clinician (SIG) Name Name penicillin 2019- No 500mg Q.25D Take 1 [place] potassium 10-0505 tablet Metho di (VEETID) 00:00: 23:59 ([address] 500 MG 00 :00 total) by tablet mouth 4 (four) times a day for 7 days. traMADol 2019- No 50mg Q6H Take 1 [place] (ULTRAM) 50 10-0503 tablet (50 M ethodi mg tablet 00:00: 23:59 mg total) st 00 :00 by mouth every 6 (six) hours as needed for moderate pain for up to 15 doses. NuvaRing Yes John 1 ring Memor ia 11-16 Ochoa l 02:28: Tarun 14 Xanax Yes Pachie 1 tablet Memori a 8-14 Ochoa l 00:00: BusPIRone Yes [place] 1 tablet Me moria HCl 8-14 Ochoa l 00:00: Robaxin Yes [place] 1 tablet Andrea hao 8-14 Ochoa l 00:00: Vitamin D Yes [place]achie 1 tablet Me moria 9-26 Ochoa l 04:12: 17 Vitamin Yes [place]achie 1 tablet Andrea hao B-12 9-26 Ochoa l 04:12: BuSpar Yes [place]achie 1 tablet Memor ia 6-25 Ochoa l 00:00: Xanax Yes Pachie 1 tablet Memori a 1-17 Ochoa l 00:00: potassium No Mahad 40 mEq, Me moria chloride 20 4-19 Sapp Route: PO, l mEq oral 14:29: [place]ms[place] Drug form: H ermann tablet, 00 ERTAB, extended ONCE, release Priority: STAT, Start date: 06/27/11 9:29:00, Stop date: 06/27/11 9:29:00 NS (Bolus) No Mahad 1,000 mL, Memoria IV 1,000 mL 4-19 Sapp Rate: l 13:57: Imsais 1,000 Tarun 00 ml/hr, Infuse over: 1 hr, Route: IV, Dosing Weight 87 kg, Total Volume: 1,000, Start date: 06/27/11 8:57:00, Duration: 30 day, Stop date: 07/27/11 8:56:00 K-Dur 20 No Mahad 40 mEq, 30 Memoria 4-19 Sapp mL, Route: l 13:56: Imsais PO, Drug [place] 00 form: ERTAB, ONCE, Start date: 06/27/11 8:56:00, Stop date: 06/27/11 8:56:00 ondansetron No Mahad 4 mg, 2 Memoria 4-19 Sapp mL, Route: l 12:24: [place] IVP, Drug Neo n 00 form: INJ, ONCE, Priority: STAT, Start date: 06/27/11 7:24:00, Stop date: 06/27/11 7:24:00 Saline 2012-0 No Mahad 5 ml, Memoria Flush 0.9% 06-26 Sapp Route: l 12:24: Imsais IVP, Drug Neo n 00 Form: INJ, PRN, PRN Line Flush, Start date: 06/27/11 7:24:00, Duration: 30 day, Stop date: 07/27/11 7:23:00 Sodium 2012-0 No Mahad 1,000 mL, Mem oria Chloride 06-26 Sapp Rate: l 0.9% 12:24: Imsais 1,000 Tarun (Bolus) IV 00 ml/hr, 1,000 mL Infuse over: 1 hr, Route: IV, Dosing Weight 87.7 kg, Total Volume: 1,000, Bolus Dose, Priority: STAT, Start date: 06/27/11 7:24:00, Duration: 1 doses or times, Stop date: 06/27/11 8:23:00 Vital Signs Vital Name Observation Time Observation Value Comments Source Body height 2019-03-27 14:29:00 154.9 cm [place] [facility] Systolic blood 2019-03-27 14:22:31 137 mm[Hg] [place] [facility] pressure Diastolic blood 2019-03-27 14:22:31 82 mm[Hg] [facility] on [facility] pressure Heart rate 2019-03-27 14:22:31 87 /min [facility] Body temperature 2019-03-27 14:22:31 36.39 Samira [facility] Respiratory rate 2019-03-27 14:22:31 15 /min [facility] Oxygen saturation in 2019-03-27 14:22:31 100 /min [facility] Arterial blood by Pulse oximetry Weight 2013-10-21 18:30:00 [facility] [place] Height 2013-10-21 18:30:00 [facility] Tarun Heart Rate 2013-10-21 18:30:00 [facility] [place] Diastolic (mm Hg) 2013-10-21 18:30:00 [facility] orial [place] Systolic (mm Hg) 2013-10-21 18:30:00 Andrea rial [place] Weight 2012-11-27 14:15:00 [facility] Tarun Height 2012-11-27 14:15:00 [facility] Tar[place] Heart Rate 2012-11-27 14:15:00 [facility] [place] Diastolic (mm Hg) 2012-11-27 14:15:00 Mem orial [place] Systolic (mm Hg) 2012-11-27 14:15:00 Andrea nikia Tarun Weight 2011-06-27 12:09:00 [facility] [place] Height 2011-06-27 12:09:00 157.48 cm [facility] Procedures This patient has no known procedures. Plan of Care Planned Activity Planned Date Details Comments Source Future Scheduled 2019-10-09 INFLUENZA VACCINE [place] [facility] Test 00:00:00 [code = INFLUENZA VACCINE] Future Scheduled 2009 Screening for [facility] Test 00:00:00 malignant neoplasm of cervix (procedure) [code = 001274810] Encounters Start End Encounter Admission Attending Care Care Encounter Source Date/Time Date/Time Type Type Clinicians Facility Department ID 2018-11-29 2018-11-29 Emergency E [facility] [id number] Memoria 16:42:00 16:42:00 l [facility] 2013-10-21 2013-10-21 Outpatient John Lopez SErnie [id number] [facility]inic 13:30:00 13:30:00 MD Don Ochoa MD alWo bee [facility] 2012-11-27 2012-11-27 Outpatient John Lopez S. [id number] eClinic 09:15:00 09:15:00 MD Don Ochoa MD alWo [facility] Results Test Description Test Time Test Comments Results Result Sour e Comments CHEMISTRY 2011-06-27 Negative [facility] 13:24:00 (06/27/2011 [place] 08:24:00) URINALYSIS 2011-06-27 0-2 /HPF [facility] 13:24:00 (06/27/2011 [place] 08:24:00) URINALYSIS 2011-06-27 Occasional /LPF [facility] 13:24:00 (06/27/2011 Tarun 08:24:00) URINALYSIS 2011-06-27 0-2 /HPF [facility] 13:24:00 (06/27/2011 [place] 08:24:00) URINALYSIS 2011-06-27 None Seen [facility] 13:24:00 (06/27/2011 [place] 08:24:00) URINALYSIS 2011-06-27 Performed [facility] 13:24:00 (06/27/2011 [place] 08:24:00) URINALYSIS 2011-06-27 Negative [facility] 13:24:00 (06/27/2011 [place] 08:24:00) URINALYSIS 2011-06-27 Negative [facility] 13:24:00 (06/27/2011 [place] 08:24:00) URINALYSIS 2011-06-27 13:24:00 Test Item Value Reference Range Interpretation Comme nts UA pH (test code = UA pH) 6.0 1 5.0-8.0 N [facility] ZyrtitkHIZIATXIIZ0459-00-54 13:24:0015 mg/dL *ABN*(06/27/2011 08:24:00) [facility] NofsmimRZDRDRMAOJ8554-99-69 13:24:00Yellow *NA*(06/27/2011 08:24:00) [facility] AfanthcTQDBVQPOYB5716-83-05 13:24:00Clear (06/27/2011 08:24:00)[facility] AxndysxPVDVBVJKNM2762-18-80 13:24:00Negative (06/27/2011 08:24:00)[facility] SvntvmhHRQJIZUNGC7185-59-38 13:24:00Negative *NA*(06/27/2011 08:24:00)[facility] EvvhdnoUPQCIPAGRZ3590-40-02 13:24:000.2[facility] FfwftwoQLJABUPFOT7646-44-59 13:24:00Negative (06/27/2011 08:24:00)[facility] XqdkdriZUXCVWEOAC2183-92-19 13:24:00Small *ABN*(06/27/2011 08:24:00)[facility] VoxttqjGOPABPEQM1958-61-34 12:30:26975Tnonjcwv AhvulthMUSRODHIV9396-62-29 12:30:0033[facility] [place] VBGBNTUAT1517-50-66 12:30:003.5[facility] JlsksjcZFZTCQRKS1737-44-80 12:30:0011 [facility] DxovgltAOOHGIDDG5762-81-82 12:30:0011.3[facility] HermannCHEMISTRY 2011-06-27 12:30:001.1[facility] LiskakmPZTTCUURE0290-16-90 12:30:0059[facility] NvlgdetAKAXIDWVW6073-58-66 12:30:009.6[facility] AgcwconTEUVVSASA9338-52-07 12:30:54879Dzfkpuib GzyveubYKZWVVIXD8923-01-56 12:30:0026[facility] [place] WWLLTUIDJ6787-82-20 12:30:0031[facility] VhlwynwWVEGNFOAK0561-46-03 12:30:007.2 Memorial LggbfwiHUCMJGUJE7172-91-77 12:30:003.7[facility] HermannCHEMISTRY 2011-06-27 12:30:0080[facility] FfeuovbSDEBYRBHN2453-49-60 12:30:009[facility] KgxfmrgIVUZDHDXY2687-38-39 12:30:000.8[facility] AwiltqsYGXWOGOIA4545-83-79 12:30:003.3[facility] QnnfpeaSFQBTCPVT3644-75-48 12:30:13180Vxxlszgc [place] LNPYUGAQU2901-67-01 12:30:0012[facility] GzfeqrbBTGJUNNAF0105-81-76 12:30:000.5 [facility] GcqwvmbICPFYQLEBW1303-17-31 12:30:001.02[facility] HermannHEMATOLOGY 2011-06-27 12:30:00 Test Item Value Reference Range Interpretation Comments PTT (test code = PTT) 31.2 s 22.9-35.8 N [facility] EdykabjEHVTLIKJPF8206-66-26 12:30:00 Test Item Value Reference Range Interpretation Comments PT (test code = PT) 13.4 s 12.0-14.7 N [facility] LbymprnPYPCEFKJAJ5480-09-09 12:30:0013.3[facility] HermannHEMATOLOGY 2011-06-27 12:30:0034.3[facility] UlpvggtZXANJABQZV6562-46-14 12:30:00 Test Item Value Reference Range Interpretation Comments MCH (test code = MCH) 28.6 pg 27.0-31.0 N [facility] SmvvyouALXSISGTRM4084-81-10 12:30:20309Ozqsuaqv HermannHEMATOLOGY 2011-06-27 12:30:0010.2[facility] KtrwkxeSKGIIUTDOI8622-26-53 12:30:0013.7[facility] EqhztdjUNHNIGISZP4532-10-46 12:30:0040.0[facility] TcapicfUKKPPYMANO3379-96-80 12:30:0083.4[facility] UejasehQBOWJOUCPU1754-09-57 12:30:004.80[facility] [place] IMKRNEAKBP3514-55-86 12:30:005.3[facility] CqvjpbzZIBWDEERUC0277-33-46 12:30:000.1 Memorial HrrsamjHSKHGIMBHA3756-47-89 12:30:001.7[facility] HermannHEMATOLOGY 2011-06-27 12:30:000.3[facility] ByrahnxTTTRYPMNHY5617-69-03 12:30:000.0[facility] OjulmlwUOIOSRHNAW0288-13-52 12:30:005.8[facility] FjctamfSOHQFYYAIV9366-29-13 12:30:001.2[facility] TagzwhcLMZUGKWWAX4631-40-66 12:30:0060.7[facility] [place] IMSKIQQMFK1070-21-01 12:30:0032.2[facility] EvnzqxeVLTSCSRYIE7946-77-50 12:30:00 0.1[facility] EyrxnxfCAPMWBKUVK2802-23-29 12:30:003.2[facility] [place]
[2019-10-09 07:42] LABS: Absolute Lymphocytes (CBC) 1.8 K/uL (0.7-4.9); Basophils % 0.7 % (0-1.3); MPV 9.3 fL (7.6-11.3); RBC Red Blood Cell Count 4.69 M/uL (3.86-4.86)
[2019-10-09 07:58] LABS: ALT/SGPT 24 U/L (12-78); AST/SGOT 25 U/L (15-37); Albumin 3.1 g/dL (3.4-5.0); Alkaline Phosphatase 85 U/L (45-117); BUN Blood Urea Nitrogen 5 mg/dL (7-18); Bicarbonate 29 mmol/L (21-32); Bilirubin Direct 0.2 mg/dL (0-0.2); Bilirubin Total 0.4 mg/dL (0.2-1.0); Glucose Level 89 mg/dL (74-106); Lipase 76 U/L (73-393); Potassium 3.4 mmol/L (3.5-5.1); Protein, Total 7.4 g/dL (6.4-8.2); Sodium Level 140 mmol/L (136-145)
[2019-10-09] MEDS ORDERED: ONDANSETRON 4 MG/2 ML VIAL ONE (08:11)
[2019-10-09] MEDS ORDERED: MAGNE/ALUM HYDROXD 30 ML UCUP ONE (08:11)
[2019-10-09] MEDS ORDERED: PANTOPRAZOLE 40 MG INJ ONE (08:11)
[2019-10-09] MEDS ORDERED: LIDOCAINE VISCOUS 2% SOLN 15 ML UDC ONE (08:11)
[2019-10-09] MEDS ORDERED: MORPHINE 4 MG/ML SYR ONE (09:26)
--- NOTE | 2019-10-09 11:11 | RAD REPORT ---
EXAM DESCRIPTION: CTAbdomen Pelvis W Contrast - 10/09/2019 10:32 am CLINICAL HISTORY: Abdominal pain. César n Y history with ulcer..Epigastric pain ;Abd pain COMPARISON: Abdomen Pelvis W Contrast dated 06/10/2019 TECHNIQUE: Biphasic CT imaging of the abdomen and pelvis was performed with 100 ml non-ionic IV cont rast. All CT scans are performed using dose optimization technique as appropriate and may include automated exposure control or mA/KV adjustment according to patient size. FINDINGS: The lung bases are clear.Cholecystectomy clips. Postsurgical changes seen about the stomac h. The liver, spleen, pancreas, adrenal glands and kidneys are within normal limits. Slightly prominent common bile duct is seen measuring 9 mm. This appears unchanged since comparative study. No bowel obstruction, free air, free fluid or abscess. The appendix is normal. No evidence of signi ficant lymphadenopathy. No suspicious bony findings. IMPRESSION: No acute intra-abdominal or pelvic finding. If further assessment of the biliary tree is clinically desired, consider followup MRCP evaluation.
--- NOTE | 2019-10-09 11:19 | EDPHYS ---
Physician Documentation [facility] Name: Mini Marin Age: 29 yrs Sex: Female : 1990 Arrival Date: 10/09/2019 Time: 07:07 Bed 17 Private MD: None, None ED Physician Thomas Kim HPI: 10/08 08:12 This 29 yrs old Female presents to ER via Ambulatory with complaints of jr8 Abdominal Pain. 08:12 The patient presents with abdominal pain in the epigastric area. Onset: The jr8 symptoms/episode began/occurred acutely, yesterday. The symptoms do not radiate. Associated signs and symptoms: Pertinent positives: nausea. The symptoms are described as stabbing. Modifying factors: The symptoms are alleviated by nothing, the symptoms are aggravated by nothing. Severity of pain: At its worst the pain was moderate. It is unknown whether or not the patient has had similar symptoms in the past. The patient has not recently seen a physician. 08:13 Patient with history of Marginal ulceration from César n Y surgery in past and status jr8 post cholecystectomy. Stated that she started with epigastric pain yesterday that is getting worse. Currently off PPIs for about a year now. Has had no problems since gallbladder removal . Historical: - Allergies: 07:16 Ceclor; ss 07:16 NSAIDS; ss 07:16 Sulfa (Sulfonamide Antibiotics); ss - PMHx: 07:16 Anxiety; Depression; ss - PSHx: 07:16 Gastric Bypass; Cholecystectomy; ss - Immunization history:: Adult Immunizations up to date. - Social history:: Smoking status: Patient denies any tobacco usage or history of. ROS: 08:12 Eyes: Negative for injury, pain, redness, and discharge, ENT: Negative for injury, jr8 pain, and discharge, Neck: Negative for injury, pain, and swelling, Cardiovascular: Negative for chest pain, palpitations, and edema, Respiratory: Negative for shortness of breath, cough, wheezing, and pleuritic chest pain, Back: Negative for injury and pain, MS/Extremity: Negative for injury and deformity, Skin: Negative for injury, rash, and discoloration, Neuro: Negative for headache, weakness, numbness, tingling, and seizure. 08:12 Abdomen/GI: Positive for abdominal pain, nausea, Negative for vomiting, diarrhea, constipation, abdominal cramps, abdominal distension, anorexia, dysphagia, hematemesis, black/tarry stool, rectal pain, rectal bleeding, bowel incontinence, flatulence. Exam: 08:12 Eyes: Pupils equal round and reactive to light, extra-ocular motions intact. Lids and jr8 lashes normal. Conjunctiva and sclera are non-icteric and not injected. Cornea within normal limits. Periorbital areas with no swelling, redness, or edema. ENT: Nares patent. No nasal discharge, no septal abnormalities noted. Tympanic membranes are normal and external auditory canals are clear. Oropharynx with no redness, swelling, or masses, exudates, or evidence of obstruction, uvula midline. Mucous membranes moist. Neck: Trachea midline, no thyromegaly or masses palpated, and no cervical lymphadenopathy. Supple, full range of motion without nuchal rigidity, or vertebral point tenderness. No Meningismus. Cardiovascular: Regular rate and rhythm with a normal S1 and S2. No gallops, murmurs, or rubs. Normal PMI, no JVD. No pulse deficits. Respiratory: Lungs have equal breath sounds bilaterally, clear to auscultation and percussion. No rales, rhonchi or wheezes noted. No increased work of breathing, no retractions or nasal flaring. Back: No spinal tenderness. No costovertebral tenderness. Full range of motion. Skin: Warm, dry with normal turgor. Normal color with no rashes, no lesions, and no evidence of cellulitis. MS/ Extremity: Pulses equal, no cyanosis. Neurovascular intact. Full, normal range of motion. Neuro: Awake and alert, GCS 15, oriented to person, place, time, and situation. Cranial nerves II-XII grossly intact. Motor strength 5/5 in all extremities. Sensory grossly intact. Cerebellar exam normal. Normal gait. 08:12 Abdomen/GI: Inspection: abdomen appears normal, Bowel sounds: active, all quadrants, Palpation: soft, in all quadrants, moderate abdominal tenderness, in the epigastric area, mass, is not appreciated, rebound tenderness, is not appreciated, voluntary guarding, is not appreciated, involuntary guarding, is not appreciated, no appreciated organomegaly, Indicators: McBurney's point is not tender, Ratliff's sign is negative, Rovsing's sign is negative, Liver: tenderness, is not appreciated. Vital Signs: 07:13 BP 139 / 86; Pulse 86; Resp 18; Temp 98.5(O); Pulse Ox 100% on R/A; Weight 63.96 kg; ss Height 5 ft. 2 in. (157.48 cm); Pain 9/10; 08:15 BP 116 / 80; Pulse 81; Resp 16; Pulse Ox 99% on R/A; hb 09:15 BP 119 / 83; Pulse 83; Resp 15; Pulse Ox 100% on R/A; Pain 8/10; hb 10:39 BP 124 / 65; Pulse 62; Resp 16; Pulse Ox 100% ; ah 11:31 BP 105 / 73; Pulse 65; Resp 15; Pulse Ox 98% ; ah 07:13 Body Mass Index 25.79 (63.96 kg, 157.48 cm) ss MDM: 07:09 Patient medically screened. jr8 11:17 Data reviewed: vital signs, nurses notes, lab test result(s), radiologic studies, CT jr8 scan. Data interpreted: Pulse oximetry: on room air is 100 %. Interpretation: normal. Counseling: I had a detailed discussion with the patient and/or guardian regarding: the historical points, exam findings, and any diagnostic results supporting the discharge/admit diagnosis, lab results, radiology results, the need for outpatient follow up, a family practitioner, a hand tacker, to return to the emergency department if symptoms worsen or persist or if there are any questions or concerns that arise at home. Response to treatment: the patient's symptoms have mildly improved after treatment. Special discussion: Based on the patient's Hx, exam, and Dx evaluation, there is no indication for emergent surgery or inpatient Tx. It is understood by the patient/guardian that if the Sx's persist or worsen they need to return immediately for re-evaluation. ED course: Will start patient back on PPI and to have her f/u with GI for endoscopy. Counseled on dietary modifications for now as well. If worse knows to come back . 10/08 07:17 Order name: Basic Metabolic Panel 8 10/08 07:17 Order name: CBC with Diff 10/08 07:17 Order name: Hepatic Function; Complete Time: 08:10/08 07:17 Order name: Lipase; Complete Time: 08:10/08 07:18 Order name: Basic Metabolic Panel; Complete Time: 08:01 EDMS 10/08 09:26 Order name: Urine Dipstick--Ancillary (enter results) 10/08 07:17 Order name: IV Saline Lock; Complete Time: 07:33 [facility] 10/08 07:17 Order name: Labs collected and sent; Complete Time: 07:33 8 10/08 08:04 Order name: CT Abd/Pelvis - PO and IV Contrast; Complete Time: 11:16 [facility] 10/08 09:26 Order name: Urine --Ancillary (enter results) 10/08 09:10 Order name: Urine Test (obtain specimen); Complete Time: 09:25 8 10/08 09:10 Order name: Urine Dipstick-Ancillary (obtain specimen); Complete Time: 09:25 Administered Medications: 08:07 Drug: GI Cocktail without - (Maalox Suspension 30 ml, Lidocaine Liquid 2 % 15 hb ml) Route: PO; 09:00 Follow up: Response: No adverse reaction hb 08:07 Drug: Zofran (Ondansetron) 4 mg Route: IVP; Site: right antecubital; hb 09:00 Follow up: Response: No adverse reaction hb 08:08 Drug: ProTONIX 40 mg Route: IVP; Site: right antecubital; hb 09:00 Follow up: Response: No adverse reaction hb 09:18 Drug: morphine 4 mg Route: IVP; Site: right antecubital; hb Disposition: 10/09/19 11:18 Discharged to Home. Impression: Epigastric pain, Gastritis and duodenitis. - Condition is Stable. - Discharge Instructions: Abdominal Pain, Adult, Peptic Ulcer. - Prescriptions for pantoprazole 40 mg Oral tablet,delayed release (DR/EC) - take 1 tablet by ORAL route once daily; 30 tablet. Tylenol- Codeine #3 300-30 mg Oral Tablet - take 2 tablets by ORAL route every 6 hours As needed; 12 tablet. Zofran 4 mg Oral Tablet - take 1 tablet by ORAL route every 12 hours As needed; 20 tablet. - Medication Reconciliation Form, Thank You Letter, Antibiotic Education, Prescription Opioid Use form. - Follow up: Mahad Cordoba MD; When: 2 - 3 days; Reason: Recheck today's complaints, Continuance of care, Re-evaluation by your physician. - Problem is new. - Symptoms have improved. Addendum: 10/14/2019 03:24 Co-signature as Attending Physician, Thomas Kim MD. m Signatures: Dispatcher [employer] EDMarisol Felix, RN RN Neno Van PA PA [id number] Kamryn Lanza RN RN Naida Desai RN RN Thomas Kim MD MD [email or web address] Corrections: (The following items were deleted from the chart) 10/08 11:33 11:18 10/09/2019 11:18 Discharged to Home. Impression: Epigastric pain; Gastritis and ah duodenitis. Condition is Stable. Forms are Medication Reconciliation Form, Thank You Letter, Antibiotic Education, Prescription Opioid Use. Follow up: Mahad Cordoba; When: 2 - 3 days; Reason: Recheck today's complaints, Continuance of care, Re-evaluation by your physician. Problem is new. Symptoms have improved. jr8
--- NOTE | 2019-10-09 11:19 | ER ---
Nurse's Notes [facility] Name: Mini Marin Age: 29 yrs Sex: Female : 1990 Arrival Date: 10/09/2019 Time: 07:07 Bed 17 Private MD: None, None Diagnosis: Epigastric pain;Gastritis and duodenitis Presentation: 10/08 07:13 Chief complaint: Patient states: RUQ pain that began 1.5 days ago. Pt reports it feels ss similar to when she had a gallbladder and would have "attacks". Denies N/V/D. Coronavirus screen: Client denies travel out of the [place] in the last 14 days. At this time, the client does not indicate any symptoms associated with coronavirus-19. Ebola Screen: Patient denies exposure to infectious person. Patient denies travel to an Ebola-affected area in the 21 days before illness onset. Initial Sepsis Screen: Does the patient meet any 2 criteria? No. Patient's initial sepsis screen is negative. Does the patient have a suspected source of infection? No. Patient's initial sepsis screen is negative. Risk Assessment: Do you want to hurt yourself or someone else? Patient reports no desire to harm self or others. Onset of symptoms was October 08, 2019. 07:13 Method Of Arrival: Ambulatory ss 07:13 Acuity: DANIEL 3 ss Historical: - Allergies: 07:16 Ceclor; ss 07:16 NSAIDS; ss 07:16 Sulfa (Sulfonamide Antibiotics); ss - PMHx: 07:16 Anxiety; Depression; ss - PSHx: 07:16 Gastric Bypass; Cholecystectomy; ss - Immunization history:: Adult Immunizations up to date. - Social history:: Smoking status: Patient denies any tobacco usage or history of. Screenin:31 Abuse screen: Denies threats or abuse. Denies injuries from another. Nutritional hb screening: No deficits noted. Tuberculosis screening: No symptoms or risk factors identified. Fall Risk None identified. Assessment: 07:31 General: Appears in no apparent distress. Pain: Pain currently is 9 out of 10 on a pain hb scale. Neuro: Level of Consciousness is awake, alert, obeys commands, Oriented to person, place, time, situation. Cardiovascular: Capillary refill < 3 seconds Patient's skin is warm and dry. Respiratory: Respiratory effort is even, unlabored, Respiratory pattern is regular, symmetrical. GI: Reports upper abdominal pain, nausea. : No signs and/or symptoms were reported regarding the genitourinary system. EENT: No signs and/or symptoms were reported regarding the EENT system. Derm: Skin is pink, warm \\T\\ dry. Musculoskeletal: No signs and/or symptoms reported regarding the musculoskeletal system. 09:00 Reassessment: Ambulated to bathroom without assistance with steady gait. Urine specimen hb provided. Assisted back to bed. Bed locked in low position. Call light within reach. 09:28 Reassessment: Pt reports pain 8/10, LINDA Lazcano notified, morphine administered as ordered. hb 10:35 Reassessment: Pt returned from radiology at this time via WC. ah 10:39 Reassessment: Pt states that pain is better at this time. No needs voiced. 11:31 Reassessment: Pt given discharge instructions and education on prescriptions. pt voiced understanding. Vital Signs: 07:13 BP 139 / 86; Pulse 86; Resp 18; Temp 98.5(O); Pulse Ox 100% on R/A; Weight 63.96 kg; ss Height 5 ft. 2 in. (157.48 cm); Pain 9/10; 08:15 BP 116 / 80; Pulse 81; Resp 16; Pulse Ox 99% on R/A; hb 09:15 BP 119 / 83; Pulse 83; Resp 15; Pulse Ox 100% on R/A; Pain 8/10; hb 10:39 BP 124 / 65; Pulse 62; Resp 16; Pulse Ox 100% ; ah 11:31 BP 105 / 73; Pulse 65; Resp 15; Pulse Ox 98% ; ah 07:13 Body Mass Index 25.79 (63.96 kg, 157.48 cm) ED Course: 07:07 Patient arrived in ED. mr 07:07 None, None is Private Physician. mr 07:09 Neno Julian PA is PHCP. jr8 07:09 Thomas Kim MD is Attending Physician. jr8 07:16 Triage completed. ss 07:16 Arm band placed on right wrist. ss 07:29 Marisol Panda, YURIY is Primary Nurse. ss 07:30 Initial lab(s) drawn, by me, sent to lab. Inserted saline lock: 20 gauge in right dh3 antecubital area, using aseptic technique. Blood collected. 07:31 Kamryn Lanza, RN is Primary Nurse. 07:31 Patient has correct armband on for positive identification. Placed in gown. Bed in low hb position. Call light in reach. Side rails up X 1. 09:27 Urine Dipstick--Ancillary (enter results) Sent. hb 09:27 Urine --Ancillary (enter results) Sent. hb 10:19 Radiology exam delayed due to test not completed at this time. diana 10:31 CT Abd/Pelvis - PO and IV Contrast In Process Unspecified. EDRI 10:36 CT completed. Patient tolerated procedure well. Patient moved back from CT. diana 11:18 Mahad Cordoba MD is Referral Physician. [facility] 11:32 No provider procedures requiring assistance completed. IV discontinued, intact, ah bleeding controlled, No redness/swelling at site. Pressure dressing applied. Administered Medications: 08:07 Drug: GI Cocktail without - (Maalox Suspension 30 ml, Lidocaine Liquid 2 % 15 hb ml) Route: PO; 09:00 Follow up: Response: No adverse reaction hb 08:07 Drug: Zofran (Ondansetron) 4 mg Route: IVP; Site: right antecubital; hb 09:00 Follow up: Response: No adverse reaction hb 08:08 Drug: ProTONIX 40 mg Route: IVP; Site: right antecubital; hb 09:00 Follow up: Response: No adverse reaction hb 09:18 Drug: morphine 4 mg Route: IVP; Site: right antecubital; hb Outcome: 11:18 Discharge ordered by MD. mason 11:32 Discharged to home ambulatory. 11:32 Condition: good 11:32 Discharge instructions given to patient, Instructed on discharge instructions, follow up and referral plans. medication usage, Demonstrated understanding of instructions, follow-up care, medications, Prescriptions given X 3. 11:33 Patient left the ED. Signatures: Dispatcher [employer] [facility] Kenia OatesMarisol, RN RN Neno Julian PA PA jr8 Kamryn Lanza, RN YURIY Gina L[facility]pez [facility] Smiley Faria md Naida Gibbons, RN RN
[2019-10-09 11:49] VITALS: TEMP 98.5
[2019-10-09 11:54] VITALS: BP 105/73; O2SAT 98
[2019-10-09 12:12] LABS: Blood Morphology Comment NOTED (NOT SEEN); Hypochromasia 2+; Ovalocytes 2+; Platelet Estimate DECR; Platelets, Giant PRESENT; White Blood Cell Scan OK
[2019-10-09 13:23] LABS: Urine Blood NEGATIVE (NEG); Urine Glucose NEGATIVE (NEG); Urine Protein NEGATIVE (NEG); Urine Specific Gravity 1.015 (1.005-1.030); Urine pH 5.5 (5.0-7.0)
== END 2019-10-09 11:33 | disposition home or self-care (01) ==
LOC: ER 07:05
DX: K29.70 Gastritis, unspecified, without bleeding (principal); K29.80 Duodenitis without bleeding; Z98.84 Bariatric surgery status; Z88.1 Allergy status to other antibiotic agents; Z88.2 Allergy status to sulfonamides; Z88.6 Allergy status to analgesic agent
CPT/HCPCS: 36415; 74177; 80048; 80076; 81003; 81025; 83690; 85025; 96374; 96375; 99284; C9113; J2405; Q9967

== ENCOUNTER 2019-10-26 02:37 | Emergency (ER) | payer SELFPAY ==
--- OUTSIDE RECORDS SUMMARY | 2019-10-26 02:38 | XMS REPORT | Clinical Summary ---
:1990 Author Organization [facility] Address [address] [place] [address] Care Team Providers Name Role Phone Asked, Pcp Primary Care Provider Unavailable Allergies Active Allergy Reactions Severity Noted Date Comments Cefaclor 12/07/2016 Sulfa (Sulfonamide Antibiotics) 7 Medications No known medications Active Problems Not on file Encounters Date Type Specialty Care Team Description 03/27/2019 Emergency Emergency Medicine Jhoan Wing MD after 10/25/2018 Family History Medical History Relation Name Comments [...] Comments Blood Pressure 137/82 03/27/2019 2:22 PM CODING COMPLIANCE SPECIALIST Pulse 87 03/27/2019 2:22 PM CODING COMPLIANCE SPECIALIST Temperature 36.4 C (97.5 F) 03/27/2019 2:22 PM CODING COMPLIANCE SPECIALIST Respiratory Rate 15 03/27/2019 2:22 PM CODING COMPLIANCE SPECIALIST Oxygen Saturation 100% 03/27/2019 2:22 PM CODING COMPLIANCE SPECIALIST Inhaled Oxygen Concentration - - Weight - - Height 154.9 cm (5' 1") 03/27/2019 2:29 PM CODING COMPLIANCE SPECIALIST Body Mass Index - - Plan of Treatment Health Maintenance Due Date Last Done Comments CERVICAL CANCER SCREENING 2009 INFLUENZA VACCINE 11/09/2019 Results Not on fileafter 10/25/2018
--- OUTSIDE RECORDS SUMMARY | 2019-10-26 02:40 | XMS REPORT | Continuity of Care Document ---
:1990 Author Organization [employer] Care Team Providers Name Role Phone [employer] Unavailable Un available Problems Problem Status Onset [...] mg orally Ochoa eCW: BID 013 John Ochao MD Xanax 1 tablet Orally Active 0.25 [...] PO No Longer Imsais Kathrine mL, Route: [address] PO, Drug form: ERTAB, ONCE, Start date: 06/27/11 8:56:00, Stop date: 06/27/11 8:56:00 ondansetron 4 mg, 2 IVP No Longer Imsais Kathrine mL, Route: [address] IVP, Drug form: INJ, ONCE, Priority: STAT, Start date: 06/27/11 7:24:00, Stop date: 06/27/11 7:24:00 Saline Flush 5 ml, IVP No Longer Imsais Kathrine 0.9% Route: [address] IVP, Drug Form: INJ, PRN, PRN Line Flush, Start date: 06/27/11 7:24:00, Duration: 30 day, Stop date: 07/27/11 7:23:00 Sodium 1,000 mL, [facility] Chloride 0.9% Rate: [address] (Bolus) IV 1,000 1,000 mL ml/hr, [...] Reaction Available Reaction 4 Fabrice Ochoa MD [facility] drug Allergy Active MH Kathrine allergy Hospital [...] mg/dL Negative 06/26 ABN Kathrine *ABN* /2011 [facility] (06/27/2011 08:24:00) URINALYSIS UA Color Yellow Yellow 06/26 NA Kathrine *NA* /2011 [facility] (06/27/2011 08:24:00) URINALYSIS UA Turbidity Clear Clear 06/26 Normal Kathrine (06/27/2011 08:24:00) Ho spital URINALYSIS UA Nitrite Negative Negative 06/26 Normal Kathrine (06/27/2011 08:24:00) Ho spital URINALYSIS UA Bili Negative Negative 06/26 NA Kathrine *NA* [facility] (06/27/2011 08:24:00) URINALYSIS UA 0.2 0.1 [...] values reflect the clinical guidelines of the [place] [employer]. CHEMISTRY BUN 9 7 - [...] 1.2 0.0 - 4.0 06/26 Normal MH Kathrien /2011 [facility] HEMATOLOGY Segs 60.7 45.0 - 06/26 Normal MH Kathrine 75.0 /2011 [facility] HEMATOLOGY Lymphocytes 32.2 20.0 - 06/26 Normal MH Kathrine 40.0 /2011 [facility] HEMATOLOGY Basophils 0.1 0.0 - 1.0 06/26 Normal MH Kathirne /2011 [facility] HEMATOLOGY Segs-Bands # 3.2 1.5 - [...] Provider Date Date Visit NAHED Kathrine Emergency [id number] STOMACH PEDRO 06/26 06/26 Activ e NAHED Kathrine PAINS IMSAIS /2011 [facility] Unknown [id number] 11/27 11/27 eCW: MD Don -[id number] /2012 [facility] [id number] MD John Ochoa Unknown [id number] 11/27 11/27 eCW: MD Don -[id number] /[facility] [id number] MD John Ochoa CHK/UP [id number] 10/21 10/21 eCW: MD Don -[id number] /2013 [facility] [id number] MD Don Procedures No Data Provided for [...]
--- OUTSIDE RECORDS SUMMARY | 2019-10-26 02:40 | XMS REPORT | Continuity of Care Document ---
:1990 Author Organization [facility] t Address [address] [place] [address] Care Team Providers Name Role Phone Asked, Pcp Primary Care Physician Unavailable Maciej DE LUNA, Guillermo Attending Clinician Problems Condition Condition Condition Status Onset Resolution Last Treating Co mments Source Name Details Category Date Date Treatment Clinician Date STOMACH Diagnosis Active 2012-06-18 Me moria PAINS 4-19 10:30:00 l STOMACH 07:00: Tarun PAINS 00 Active 06/27/2011 [facility] Panic Problem Active 2013-11-16 Memor ia attacks 02:28:14 l Panic [place] attacks Active Problem 11/16/2013 eCW: John Ochoa MD Palpitatio Problem Active 2013-11-16 M emoria ns 02:28:14 l Tarun Palpitatio ns Active Problem 4 eCW: John [...] Mem oria (gastroeso 04:12:17 l phageal GERD [place] reflux (gastroeso disease) phageal reflux disease) Active Diagnosis 12/03/2012 eCW: Jhon Ochoa MD Allergies, Adverse Reactions, Alerts Allergy Allergy Status Severity Reaction(s) Onset Inactive Treating Comm ents Source Name Type Date Date Clinician Sulfa Propensi Active 2016-03 Adair (Sulfona ty to 0-25 Methodi mide adverse 00:00: st Antibiot reaction 00 ics) s to drug Cefaclor Propensi Active [place] ty to 9-30 Methodi adverse 00:00: st reaction 00 s to drug Cephalex Cephalex Active Info Not Andrea hao in in Available 10-21 l 00:00: Ceclor Ceclor Active Memoria l Tarun Family History Family Member Diagnosis Comments Start Date Stop Date Source Natural father Diabetes [facility] Natural father Hypertension Adair Jainism Natural mother No Known Problems Lavelle tripp Jainism Unknown Family Family History 2012-12-03 2012-12-03 Memori al Tarun Member 04:12:17 04:12:17 Social History Social Habit Start Date Stop Date Quantity Comments Source Sex Assigned At [facility]ist Alcohol intake 2019-03-27 2019-03-27 [facility] 00:00:00 non-drinker of alcohol (finding) TobaccoUse: 2013-10-21 2013-10-21 [facility] 00:00:00 00:00:00 Smoking Status Start Date Stop Date Source Never smoker [facility] Medications Ordered Filled Start Stop Current Ordering Indication Dosage Frequency Signature Comments Components Source Medication Medication Date Date Medication? Clinician (SIG) Name Name NuWooing Yes Pachie 1 ring Memor ia 11-16 Ochoa l 02:28: Xanax Yes Pachie 1 tablet Memori a 10-21 Ochoa l 00:00: BusPIRone Yes Pachie 1 tablet Me moria HCl 10-21 Ochoa l 00:00: Robaxin Yes Pachie 1 tablet Andrea hao 10-21 Ochoa l 00:00: Vitamin D Yes Pachie 1 tablet Me moria 12-03 Ochoa l 04:12: Vitamin Yes Pachie 1 tablet Andrea hao B-12 12-03 Ochoa l 04:12: BuSpar Yes Pachie 1 tablet Memor ia 6-25 Ochoa l 00:00: Tarun 00 Xanax Yes Pachie 1 tablet Memori a 1-17 Ochoa l 00:00: [place] 00 potassium No Mahad 40 mEq, Me moria chloride 20 4-19 Sapp Route: PO, l mEq oral 14:29: Imsais Drug form: H ermann tablet, 00 ERTAB, extended ONCE, release Priority: STAT, Start date: 06/27/11 9:29:00, Stop date: 06/27/11 9:29:00 NS (Bolus) No Mahad 1,000 mL, Memoria IV 1,000 mL 4-19 Sapp Rate: l 13:57: Imsais 1,000 [place] 00 ml/hr, Infuse over: 1 hr, Route: IV, Dosing Weight 87 kg, Total Volume: 1,000, Start date: 06/27/11 8:57:00, Duration: 30 day, Stop date: 07/27/11 8:56:00 K-Dur 20 No Mahad 40 mEq, 30 Memoria 4-19 Sapp mL, Route: l 13:56: Imsais PO, Drug Roll[place] 00 form: ERTAB, ONCE, Start date: 06/27/11 8:56:00, Stop date: 06/27/11 8:56:00 ondansetron No Mahad 4 mg, 2 Memoria 4-19 Sapp mL, Route: l 12:24: Imsais IVP, Drug Neo n 00 form: INJ, ONCE, Priority: STAT, Start date: 06/27/11 7:24:00, Stop date: 06/27/11 7:24:00 Saline No Mahad 5 ml, Memoria Flush 0.9% 4-19 Sapp Route: l 12:24: Imsais IVP, Drug Neo n 00 Form: INJ, PRN, PRN Line Flush, Start date: 06/27/11 7:24:00, Duration: 30 day, Stop date: 07/27/11 7:23:00 Sodium No Mahad 1,000 mL, Mem oria Chloride 4-19 Sapp Rate: l 0.9% 12:24: Imsais 1,000 Tarun (Bolus) IV 00 ml/hr, 1,000 mL Infuse over: 1 hr, Route: IV, Dosing Weight 87.7 kg, Total Volume: 1,000, Bolus Dose, Priority: STAT, Start date: 06/27/11 7:24:00, Duration: 1 doses or times, Stop date: 06/27/11 8:23:00 Vital Signs Vital Name Observation Time Observation Value Comments Source Body height 2019-03-27 14:29:00 154.9 cm Doe Jainism Systolic blood 2019-03-27 14:22:31 137 mm[Hg] Evelinato n Jainism pressure Diastolic blood 2019-03-27 14:22:31 82 mm[Hg] Evelinat on Jainism pressure Heart rate 2019-03-27 14:22:31 87 /min Adair Jainism Body temperature 2019-03-27 14:22:31 36.39 Samira [place] Jainism Respiratory rate 2019-03-27 14:22:31 15 /min [place] Jainism Oxygen saturation in 2019-03-27 14:22:31 100 /min Adair Jainism Arterial blood by Pulse oximetry Weight 2013-10-21 18:30:00 [facility] [place]un Height 2013-10-21 18:30:00 [facility] [place] Heart Rate 2013-10-21 18:30:00 [facility] Tarun Diastolic (mm Hg) 2013-10-21 18:30:00 Mem orial Tarun Systolic (mm Hg) 2013-10-21 18:30:00 Andrea rial Tarun Weight 2012-11-27 14:15:00 [facility] [place] Height 2012-11-27 14:15:00 [facility] [place] Heart Rate 2012-11-27 14:15:00 [facility] [place] Diastolic (mm Hg) 2012-11-27 14:15:00 Mem orial [place] Systolic (mm Hg) 2012-11-27 14:15:00 Andrea rial Tarun Weight 2011-06-27 12:09:00 [facility] [place] Height 2011-06-27 12:09:00 [facility] This patient has no known procedures. Plan of Care Planned Activity Planned Date Details Comments Source Future Scheduled 2019-11-09 INFLUENZA VACCINE Evelinato n Jainism Test 00:00:00 [code = INFLUENZA VACCINE] Future Scheduled 2009 Screening for [facility] Test 00:00:00 malignant neoplasm of cervix (procedure) [code = 513355392] Encounters Start End Encounter Admission Attending Care Care Encounter Source Date/Time Date/Time Type Type Clinicians Facility Department ID 2018-11-29 2018-11-29 Emergency E [facility] [id number] Memoria 16:42:00 16:42:00 thais Chisholm Memchristine l 2013-10-21 2013-10-21 Outpatient John HermanErnie Avinajorge S. [id number] eClinic 13:30:00 13:30:00 MD [facility] 2012-11-27 2012-11-27 Outpatient John HermanErnie Avinajorge S. [id number] eClinic 09:15:00 09:15:00 MD Don Ochoa MD [facility] Results Test Description Test Time Test Comments Results Result [facility] e Comments CHEMISTRY 2011-06-27 Negative Memorial 13:24:00 (06/27/2011 Tarun 08:24:00) URINALYSIS 2011-06-27 0-2 /HPF Memorial 13:24:00 (06/27/2011 [place] 08:24:00) URINALYSIS 2011-06-27 Occasional /LPF Memorial 13:24:00 (06/27/2011 [place] 08:24:00) URINALYSIS 2011-06-27 0-2 /HPF Memorial 13:24:00 (06/27/2011 Tarun 08:24:00) URINALYSIS 2011-06-27 None Seen Memorial 13:24:00 (06/27/2011 [place] 08:24:00) URINALYSIS 2011-06-27 Performed Memorial 13:24:00 (06/27/2011 [place] 08:24:00) URINALYSIS 2011-06-27 Negative Memorial 13:24:00 (06/27/2011 Tarun 08:24:00) URINALYSIS 2011-06-27 Negative Memorial 13:24:00 (06/27/2011 Tarun 08:24:00) URINALYSIS 2011-06-27 13:24:00 Test Item Value Reference Range Interpretation Comme nts UA pH (test code = UA pH) 6.0 1 5.0-8.0 N [facility]EMYMI0761-83-19 13:24:0015 mg/dL *ABN*(06/27/2011 08:24:00) Memorial FwtjcyiQXLLNAIMSX2670-73-24 13:24:00Yellow *NA*(06/27/2011 08:24:00) Memorial SsmlsybHHVEAXLDYF8440-15-97 13:24:00Clear (06/27/2011 08:24:00)[facility] QmmaktrVWVMNRWDDS6932-34-63 13:24:00Negative (06/27/2011 08:24:00)[facility] MjitfneZXSNCLIVEA0600-85-42 13:24:00Negative *NA*(06/27/2011 08:24:00)[facility] NccjnvuNCNGTPUMSG8010-31-24 13:24:000.2[facility] YqcsnfwZZGRFQOJSE1457-77-16 13:24:00Negative (06/27/2011 08:24:00)[facility] MmhdvhyAATLPKWCTX1562-45-13 13:24:00Small *ABN*(06/27/2011 08:24:00)[facility] GbtiwsfFKYUMSQDM0547-45-38 12:30:93332Qpooavtv SbuhikkXNEVQCDFZ2995-80-70 12:30:0033[facility] Tarun RDTYAXNDJ2212-40-04 12:30:003.5[facility] ZlbzibeXHXKBQVDX0011-13-69 12:30:0011 Memorial HuranctYEOGOFHIX0348-83-92 12:30:0011.3[facility] HermannCHEMISTRY 2011-06-27 12:30:001.1[facility] XjgtwxdRVABJPEZH1238-39-84 12:30:0059[facility] PaxjmupCEFCPOSTF8899-80-75 12:30:009.6[facility] JyvtoftKDCBTYOJD1996-38-27 12:30:37921Qriwbivz SvsvpsbIZBXWUQXS8666-92-00 12:30:0026[facility] Tarun AMZLTGTGJ0455-31-77 12:30:0031[facility] QsgqjudFNWOGMCAJ5077-66-24 12:30:007.2 Memorial BxipdxqPLJFMNJHU3026-56-61 12:30:003.7[facility] HermannCHEMISTRY 2011-06-27 12:30:0080[facility] UetklmiOKXVWQCZQ5573-17-52 12:30:009[facility] UwuzlmqLDDXWPCQO6800-36-92 12:30:000.8[facility]orial VpgugmeQEFRXQNBB0518-48-83 12:30:003.3[facility]orial BdzoqzsQXQBSXXDV3119-26-05 12:30:47872Barlhlcf [place] CIVXYHTJX6383-65-12 12:30:0012[facility] XvosuhdTCITRLIQG5696-37-03 12:30:000.5 Memorial HkvktinJAUFQFTSTQ8576-18-88 12:30:001.02[facility] HermannHEMATOLOGY 2011-06-27 12:30:00 Test Item Value Reference Range Interpretation Comments PTT (test code = PTT) 31.2 s 22.9-35.8 N [facility] RgpfzffKPPCKBPEFV6213-46-56 12:30:00 Test Item Value Reference Range Interpretation Comments PT (test code = PT) 13.4 s 12.0-14.7 N Memorial VokagrmTOJNMPLMHD6130-90-63 12:30:0013.3[facility] HermannHEMATOLOGY 2011-06-27 12:30:0034.3[facility] WynshofDPZFJOVEYY5796-31-80 12:30:00 Test Item Value Reference Range Interpretation Comments MCH (test code = MCH) 28.6 pg 27.0-31.0 N [facility] GlzhihoVLTTEKATNW0941-33-42 12:30:30749Tyayqsse HermannHEMATOLOGY 2011-06-27 12:30:0010.2[facility] HeuageePOTHHZQFTI6887-81-79 12:30:0013.7[facility] VvmjgumOPZUUCUWHF2589-61-07 12:30:0040.0[facility] FmqmdfxWAIGESTQAZ4123-74-21 12:30:0083.4[facility] TajurfhFRDMJDKTNJ3140-02-87 12:30:004.80[facility] [place] JKPBOHOUFP2140-78-61 12:30:005.3[facility] YwfyiyrCIZFTOFFOV0759-58-20 12:30:000.1 Memorial PtoyyydAOUVBGUOVU2902-53-18 12:30:001.7[facility] HermannHEMATOLOGY 2011-06-27 12:30:000.3[facility] GsptaziGVMHJMUPGR2156-60-14 12:30:000.0[facility] XuqmsazULFDOKMZFW5268-92-85 12:30:005.8[facility] KqmrvxjCIOIVELRAV1732-90-86 12:30:001.2[facility] VeshnaxQHBRWKXBIB3612-37-42 12:30:0060.7[facility] [place] NTKUMZJUIM2484-42-44 12:30:0032.2[facility] FlrqoclPBIETQNETW5270-99-79 12:30:00 0.1[facility] NkjheouNPTMBLFTKH1599-30-71 12:30:003.2[facility] [place]
[2019-10-26] MEDS ORDERED: NA CHLORIDE 0.9% 1,000 ML ONE (03:07)
[2019-10-26] MEDS ORDERED: ONDANSETRON 4 MG/2 ML VIAL ONE ×2 (03:07→03:56)
[2019-10-26] MEDS ORDERED: FAMOTIDINE 20 MG/2 ML VIAL IV ONE (03:14)
[2019-10-26] MEDS ORDERED: MORPHINE 4 MG/ML SYR ONE (03:14)
[2019-10-26 03:24] LABS: ALT/SGPT 64 U/L (12-78); AST/SGOT 33 U/L (15-37); Albumin 3.4 g/dL (3.4-5.0); Alkaline Phosphatase 128 U/L (45-117); BUN Blood Urea Nitrogen 9 mg/dL (7-18); Bicarbonate 25 mmol/L (21-32); Bilirubin Direct 0.1 mg/dL (0-0.2); Bilirubin Total 0.3 mg/dL (0.2-1.0); Glucose Level 108 mg/dL (74-106); Lipase 128 U/L (73-393); Potassium 3.4 mmol/L (3.5-5.1); Protein, Total 7.6 g/dL (6.4-8.2); Sodium Level 144 mmol/L (136-145)
[2019-10-26 03:32] LABS: Absolute Lymphocytes (CBC) 0.6 K/uL (0.7-4.9); Basophils % 0.4 % (0-1.3); Hematocrit 27.6 % (36.0-45.0); Lymphocytes % 11.5 % (15.3-44.8); MPV 10.7 fL (7.6-11.3); RBC Red Blood Cell Count 4.41 M/uL (3.86-4.86)
[2019-10-26] MEDS ORDERED: MORPHINE 2 MG/ML SYR ONE (03:36)
[2019-10-26] MEDS ORDERED: NA CHLORIDE 0.9% 500 ML ONE (04:07)
[2019-10-26] MEDS ORDERED: NS KCL 20MEQ 1,000 ML IV ONE (04:07)
[2019-10-26 04:35] LABS: Blood Morphology Comment NOTED (NOT SEEN); Hypochromasia 1+; Ovalocytes 2+; Platelet Estimate ADEQ
[2019-10-26] MEDS ORDERED: PROMETHAZINE INJ 25 MG/ML AMP ONE ×2 (04:37→04:56)
[2019-10-26] MEDS ORDERED: NA CHLORIDE 0.9% 50 ML IV ONE (04:37)
--- NOTE | 2019-10-26 06:00 | ER ---
Nurse's Notes [facility] Name: Mini Marin Age: 29 yrs Sex: Female : 1990 Arrival Date: 10/26/2019 Time: 02:39 Bed 14 Private MD: Diagnosis: Abdominal tenderness;Anemia, unspecified;Hypokalemia;Noninfective gastroenteritis and colitis, unspecified Presentation: 10/25 02:46 Chief complaint: Patient states: i have abdominal pain and vomiting since morning. mg2 Coronavirus screen: Client denies travel out of the [place] in the last 14 days. vomiting. Ebola Screen: No symptoms or risks identified at this time. Initial Sepsis Screen: Does the patient meet any 2 criteria? No. Patient's initial sepsis screen is negative. Does the patient have a suspected source of infection? No. Patient's initial sepsis screen is negative. Risk Assessment: Do you want to hurt yourself or someone else? Patient reports no desire to harm self or others. Onset of symptoms was October 25, 2019. 02:46 Method Of Arrival: Ambulatory mg2 02:46 Acuity: DANIEL 3 mg2 Triage Assessment: 02:49 General: Appears in no apparent distress. comfortable, Behavior is calm, cooperative. mg2 Pain: Complains of pain in abdomen. EENT: No signs and/or symptoms were reported regarding the EENT system. Neuro: Level of Consciousness is awake, alert, obeys commands, Oriented to person, place, time, situation. Cardiovascular: Capillary refill < 3 seconds Patient's skin is warm and dry. Respiratory: Airway is patent Respiratory effort is even, unlabored, Respiratory pattern is regular, symmetrical. GI: Pt is actively vomiting Reports lower abdominal pain, upper abdominal pain. : No signs and/or symptoms were reported regarding the genitourinary system. Derm: Skin is intact, is healthy with good turgor, Skin is pink, warm \T\ dry. normal. Musculoskeletal: Circulation, motion, and sensation intact. Capillary refill < 3 seconds. 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 - Social history:: Smoking status: Patient denies any tobacco usage or history of. Patient/guardian denies using alcohol, street drugs, IV drugs. Screenin:50 Abuse screen: Denies threats or abuse. Denies injuries from another. Nutritional mg2 screening: No deficits noted. Tuberculosis screening: No symptoms or risk factors identified. Fall Risk IV access (20 points). Assessment: 02:50 General: see triage assessment. mg2 04:00 Reassessment: Patient and/or family updated on plan of care and expected duration. Pain mt2 level reassessed. Patient is alert, oriented x 3, equal unlabored respirations, skin warm/dry/pink. Patient states symptoms have not improved. General: Appears distressed, uncomfortable, Behavior is agitated. GI: Bowel sounds present X 4 quads. Abdomen is tender to palpation Reports nausea. 05:00 Reassessment: Patient and/or family updated on plan of care and expected duration. Pain mt2 level reassessed. Patient is alert, oriented x 3, equal unlabored respirations, skin warm/dry/pink. PT CONT TO DRY HEAVE. UNABLE TO TOLERATE PO CONTRAST. MD AWARE. Patient states symptoms have not improved. General: Appears distressed, uncomfortable, Behavior is agitated. Pain: Complains of pain in abdomen Pain currently is 5 out of 10 on a pain scale. 06:26 Reassessment: Patient and/or family updated on plan of care and expected duration. Pain mt2 level reassessed. Patient is alert, oriented x 3, equal unlabored respirations, skin warm/dry/pink. Patient denies pain at this time. General: Appears in no apparent distress. Behavior is cooperative. Pain: Denies pain. Vital Signs: 02:46 Pulse 88; Resp 18; Temp 98.8; Pulse Ox 100% on R/A; Weight 62.14 kg; Height 5 ft. 2 in. mg2 (157.48 cm); Pain 10/10; 03:00 BP 125 / 87; mg2 04:00 BP 129 / 101; Pulse 91; Resp 19; Pulse Ox 97% on R/A; Pain 10/10; mt2 05:00 BP 127 / 83; Pulse 94; Resp 19; Pulse Ox 97% on R/A; Pain 5/10; mt2 06:27 BP 129 / 75; Pulse 71; Resp 16; Temp 98.0(O); Pulse Ox 99% on R/A; Pain 0/10; mt2 02:46 Body Mass Index 25.06 (62.14 kg, 157.48 cm) mg2 ED Course: 02:39 Patient arrived in ED. mr 02:45 Jared Zarate, RN is Primary Nurse. mg2 02:48 Triage completed. mg2 02:49 Arm band placed on. mg2 02:50 Patient has correct armband on for positive identification. mg2 02:50 Inserted saline lock: 20 gauge in right antecubital area, using aseptic technique. ds4 Blood collected. 02:56 Ascencion Ojeda MD is Attending Physician. tessa 03:14 No provider procedures requiring assistance completed. IV discontinued, intact, mg2 bleeding controlled, No redness/swelling at site. Pressure dressing applied. 03:14 Inserted saline lock: 20 gauge in left antecubital area, using aseptic technique. mg2 04:22 Radiology exam delayed due to Patient nauseous and unable to drink oral contrast. Given kw1 a second dose of Zofran to help with nausea. Check back in [address] Ojeda. 05:37 Abdomen In Process Unspecified. EDMS 05:59 Paresh Kumar MD is Referral Physician. tessa Administered Medications: 02:59 Drug: Zofran (Ondansetron) 4 mg Route: IVP; Site: right antecubital; mg2 03:43 Follow up: Response: No adverse reaction mg2 03:02 Drug: NS 0.9% 1000 ml Route: IV; Rate: 1 bolus; Site: right antecubital; mg2 06:00 Follow up: Response: No adverse reaction; IV Status: Completed infusion mt2 03:13 Drug: morphine 2 mg Route: IVP; Site: left antecubital; mg2 03:14 Drug: Pepcid 20 mg Route: IVP; Site: left antecubital; mg2 03:43 Follow up: Response: No adverse reaction mg2 03:27 Drug: morphine 2 mg Route: IVP; Site: left antecubital; mg2 03:52 Follow up: Response: No adverse reaction mg2 03:48 Drug: Zofran (Ondansetron) 4 mg Route: IVP; Site: left antecubital; mg2 04:33 Follow up: Response: No adverse reaction; Nausea unchanged mt2 03:49 Not Given (Duplicate Order): Zofran (Ondansetron) 4 mg IVP once; over 2 minutes mg2 04:00 Drug: NS 0.9% 500 ml Route: IV; Rate: bolus; Site: left antecubital; mg2 06:29 Follow up: Response: No adverse reaction; IV Status: Completed infusion mt2 04:00 Drug: NS 0.9% with KCl 20 mEq/L 1000 ml Route: IV; Rate: 500 ml/hr; Site: left mg2 antecubital; 06:28 Follow up: Response: No adverse reaction; IV Status: Completed infusion mt2 04:33 Drug: Phenergan 12.5 mg Route: IVP; Site: left antecubital; mt2 05:24 Follow up: Response: No adverse reaction; Nausea unchanged mt2 04:49 Drug: Phenergan 12.5 mg Route: IVP; Site: left antecubital; mg2 05:24 Follow up: Response: No adverse reaction; Nausea unchanged mt2 Outcome: 05:59 Discharge ordered by MD. zarate 06:28 Discharged to home ambulatory. mt2 06:28 Condition: good 06:28 Discharge instructions given to patient, Instructed on discharge instructions, follow up and referral plans. medication usage, Demonstrated understanding of instructions, follow-up care, medications, Prescriptions given X 4. 06:29 Patient left the ED. mt2 Signatures: Dispatcher [employer] EDAscencion Fowler MD MD cha Rivera, Mary mr Eriberto Robles4 Bushra Bangura1 Jared Zarate RN RN mg2 Deanna Potter RN RN mt2
--- NOTE | 2019-10-26 06:00 | EDPHYS ---
Physician Documentation [facility] Name: Mini Marin Age: 29 yrs Sex: Female : 1990 Arrival Date: 10/26/2019 Time: 02:39 Bed 14 Private MD: OLIVER Physician Ascencion Ojeda HPI: 10/25 03:02 This 29 yrs old Female presents to ER via Ambulatory with complaints of tessa Abdominal Pain, Vomiting. 03:02 The patient presents to the emergency department with nausea, vomiting, abdominal pain, tessa of the right upper quadrant, left upper quadrant, right lower quadrant and left lower quadrant. Onset: The symptoms/episode began/occurred 1 day(s) ago. Possible causes: unknown. The symptoms are aggravated by nothing. The symptoms are alleviated by nothing. Associated signs and symptoms: The patient has no apparent associated signs or symptoms. Severity of symptoms: At their worst the symptoms were moderate in the emergency department the symptoms are unchanged. The patient has not experienced similar symptoms in the past. 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 - Social history:: Smoking status: Patient denies any tobacco usage or history of. Patient/guardian denies using alcohol, street drugs, IV drugs. ROS: 03:03 Constitutional: Negative for fever, chills, and weight loss, Eyes: Negative for injury, tessa pain, redness, and discharge, ENT: Negative for injury, pain, and discharge, Neck: Negative for injury, pain, and swelling, Cardiovascular: Negative for chest pain, palpitations, and edema, Respiratory: Negative for shortness of breath, cough, wheezing, and pleuritic chest pain, Back: Negative for injury and pain, : Negative for injury, bleeding, discharge, and swelling, MS/Extremity: Negative for injury and deformity, Skin: Negative for injury, rash, and discoloration, Neuro: Negative for headache, weakness, numbness, tingling, and seizure, Psych: Negative for depression, anxiety, suicide ideation, homicidal ideation, and hallucinations, Allergy/Immunology: Negative for hives, rash, and allergies, Endocrine: Negative for neck swelling, polydipsia, polyuria, polyphagia, and marked weight changes, Hematologic/Lymphatic: Negative for swollen nodes, abnormal bleeding, and unusual bruising. 03:03 Abdomen/GI: Positive for abdominal pain, nausea and vomiting. Exam: 03:03 Constitutional: This is a well developed, well nourished patient who is awake, alert, tessa and in no acute distress. Head/Face: Normocephalic, atraumatic. Eyes: Pupils equal round and reactive to light, extra-ocular motions intact. Lids and lashes normal. Conjunctiva and sclera are non-icteric and not injected. Cornea within normal limits. Periorbital areas with no swelling, redness, or edema. ENT: Nares patent. No nasal discharge, no septal abnormalities noted. Tympanic membranes are normal and external auditory canals are clear. Oropharynx with no redness, swelling, or masses, exudates, or evidence of obstruction, uvula midline. Mucous membranes moist. Neck: Trachea midline, no thyromegaly or masses palpated, and no cervical lymphadenopathy. Supple, full range of motion without nuchal rigidity, or vertebral point tenderness. No Meningismus. Chest/axilla: Normal chest wall appearance and motion. Nontender with no deformity. No lesions are appreciated. Cardiovascular: Regular rate and rhythm with a normal S1 and S2. No gallops, murmurs, or rubs. Normal PMI, no JVD. No pulse deficits. Respiratory: Lungs have equal breath sounds bilaterally, clear to auscultation and percussion. No rales, rhonchi or wheezes noted. No increased work of breathing, no retractions or nasal flaring. Back: No spinal tenderness. No costovertebral tenderness. Full range of motion. Female : Normal external genitalia. Skin: Warm, dry with normal turgor. Normal color with no rashes, no lesions, and no evidence of cellulitis. MS/ Extremity: Pulses equal, no cyanosis. Neurovascular intact. Full, normal range of motion. Neuro: Awake and alert, GCS 15, oriented to person, place, time, and situation. Cranial nerves II-XII grossly intact. Motor strength 5/5 in all extremities. Sensory grossly intact. Cerebellar exam normal. Normal gait. 03:03 Abdomen/GI: Inspection: abdomen appears normal, Bowel sounds: normal, Palpation: mild abdominal tenderness, in all quadrants, Liver: no appreciated palpable abnormalities, Hernia: not appreciated. 03:03 Skin: Appearance: Color: pale, Temperature: normal temperature, Moisture: normal moisture, petechiae, not noted, ecchymosis, not noted, flushing, not noted, diaphoresis is not appreciated. Vital Signs: 02:46 Pulse 88; Resp 18; Temp 98.8; Pulse Ox 100% on R/A; Weight 62.14 kg; Height 5 ft. 2 in. mg2 (157.48 cm); Pain 10/10; 03:00 BP 125 / 87; mg2 04:00 BP 129 / 101; Pulse 91; Resp 19; Pulse Ox 97% on R/A; Pain 10/10; mt2 05:00 BP 127 / 83; Pulse 94; Resp 19; Pulse Ox 97% on R/A; Pain 5/10; mt2 06:27 BP 129 / 75; Pulse 71; Resp 16; Temp 98.0(O); Pulse Ox 99% on R/A; Pain 0/10; mt2 02:46 Body Mass Index 25.06 (62.14 kg, 157.48 cm) mg2 MDM: 02:56 Patient medically screened. tessa 03:04 Data reviewed: vital signs, nurses notes, lab test result(s), radiologic studies, CT tessa scan. 03:50 Differential diagnosis: Nonspecific abd pain, gastritis, pancreatitis, gastroenteritis, tessa bowel obstruction. Data interpreted: classroom monitor: rate is 88 beats/min, rhythm is regular, Pulse oximetry: on room air is 100 %. 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 ED course: improved, labs discussed, follow up emphasized . 05:35 Medication response: morphine markedly relieved the patient's pain. Symptoms have tessa improved, Awaiting: CT scan results, pt refused to drink, despite Zofran and phenergan. 10/25 02:48 Order name: Basic Metabolic Panel; Complete Time: 03:47 mg2 10/25 02:48 Order name: CBC with Diff; Complete Time: 05:24 mg2 10/25 02:48 Order name: Hepatic Function; Complete Time: 03:47 mg2 10/25 02:48 Order name: Lipase; Complete Time: 03:47 mg2 10/25 03:37 Order name: Manual Differential; Complete Time: 05:24 EDMS 10/25 05:37 Order name: Urine Dipstick--Ancillary (enter results) 10/25 05:18 Order name: Abdomen EDMS 10/25 05:37 Order name: Urine --Ancillary (enter results) 10/25 02:48 Order name: IV Saline Lock; Complete Time: 02:53 mg2 10/25 02:48 Order name: Labs collected and sent; Complete Time: 02:53 mg2 Administered Medications: 02:59 Drug: Zofran (Ondansetron) 4 mg Route: IVP; Site: right antecubital; mg2 03:43 Follow up: Response: No adverse reaction mg2 03:02 Drug: NS 0.9% 1000 ml Route: IV; Rate: 1 bolus; Site: right antecubital; mg2 06:00 Follow up: Response: No adverse reaction; IV Status: Completed infusion mt2 03:13 Drug: morphine 2 mg Route: IVP; Site: left antecubital; mg2 03:14 Drug: Pepcid 20 mg Route: IVP; Site: left antecubital; mg2 03:43 Follow up: Response: No adverse reaction mg2 03:27 Drug: morphine 2 mg Route: IVP; Site: left antecubital; mg2 03:52 Follow up: Response: No adverse reaction mg2 03:48 Drug: Zofran (Ondansetron) 4 mg Route: IVP; Site: left antecubital; mg2 04:33 Follow up: Response: No adverse reaction; Nausea unchanged mt2 03:49 Not Given (Duplicate Order): Zofran (Ondansetron) 4 mg IVP once; over 2 minutes mg2 04:00 Drug: NS 0.9% 500 ml Route: IV; Rate: bolus; Site: left antecubital; mg2 06:29 Follow up: Response: No adverse reaction; IV Status: Completed infusion mt2 04:00 Drug: NS 0.9% with KCl 20 mEq/L 1000 ml Route: IV; Rate: 500 ml/hr; Site: left mg2 antecubital; 06:28 Follow up: Response: No adverse reaction; IV Status: Completed infusion mt2 04:33 Drug: Phenergan 12.5 mg Route: IVP; Site: left antecubital; mt2 05:24 Follow up: Response: No adverse reaction; Nausea unchanged mt2 04:49 Drug: Phenergan 12.5 mg Route: IVP; Site: left antecubital; mg2 05:24 Follow up: Response: No adverse reaction; Nausea unchanged mt2 Disposition: 10/26/19 05:59 Discharged to Home. Impression: Abdominal tenderness, Anemia, unspecified, Hypokalemia, Noninfective gastroenteritis and colitis, unspecified. - Condition is Stable. - Discharge Instructions: Abdominal Pain, Adult, Anemia, Nonspecific, Potassium Content of Foods, Abdominal Pain, Adult, [id number], Hypokalemia. - Prescriptions for Pepcid 20 mg Oral Tablet - take 1 tablet by ORAL route every 12 hours for 10 days; 20 tablet. Zofran 4 mg Oral Tablet - take 1 tablet by ORAL route every 12 hours As needed; 20 tablet. Phenergan 25 mg Rectal Suppository - insert 1 suppository by RECTAL route every 6 hours As needed; 12 suppository. Bentyl 20 mg Oral Tablet - take 1 tablet by ORAL route every 6 hours As needed; 20 tablet. - Medication Reconciliation Form, Thank You Letter, Antibiotic Education, Prescription Opioid Use form. - Follow up: Private Physician; When: 2 - 3 days; Reason: Recheck today's complaints, Continuance of care, Re-evaluation by your physician. Follow up: Paresh Kumar; When: 2 - 3 days; Reason: Recheck today's complaints, Continuance of care, Re-evaluation by your physician. - Problem is new. - Symptoms have improved. Signatures: Dispatcher [employer] EDTX Ascencion Ojeda MD MD cha Gardose, Michele, RN RN mg2 Deanna Potter RN RN mt2 Corrections: (The following items were deleted from the chart) 05:18 03:01 Abdomen Pelvis W Con+CT.RAD.BRZ ordered. EDMS EDMS 06:04 05:52 Abdomen Pelvis W Con+CT.RAD.BRZ ordered. EDTX EDMS 06:29 05:59 10/26/2019 05:59 Discharged to Home. Impression: Abdominal tenderness; Anemia, mt2 unspecified; Hypokalemia; Noninfective gastroenteritis and colitis, unspecified. Condition is Stable. Discharge Instructions: Abdominal Pain, Adult, Anemia, Nonspecific, Potassium Content of Foods, Abdominal Pain, Adult, [id number], Hypokalemia. Prescriptions for Pepcid 20 mg Oral Tablet - take 1 tablet by ORAL route every 12 hours for 10 days; 20 tablet, Zofran 4 mg Oral Tablet - take 1 tablet by ORAL route every 12 hours As needed; 20 tablet, Phenergan 25 mg Rectal Suppository - insert 1 suppository by RECTAL route every 6 hours As needed; 12 suppository. and Forms are Medication Reconciliation Form, Thank You Letter, Antibiotic Education, Prescription Opioid Use. Follow up: Private Physician; When: 2 - 3 days; Reason: Recheck today's complaints, Continuance of care, Re-evaluation by your physician. Follow up: Paresh Kumar; When: 2 - 3 days; Reason: Recheck today's complaints, Continuance of care, Re-evaluation by your physician. Problem is new. Symptoms have improved. tessa
[2019-10-26 06:38] VITALS: BP 129/75; TEMP 98; O2SAT 99
[2019-10-26 07:41] LABS: Urine Blood NEGATIVE (NEG); Urine Glucose NEGATIVE (NEG); Urine Protein NEGATIVE (NEG); Urine Specific Gravity 1.025 (1.005-1.030); Urine pH 6.5 (5.0-7.0)
--- NOTE | 2019-10-26 17:23 | RAD REPORT ---
EXAM DESCRIPTION: CT ABDOMEN AND PELVIS WITHOUT CONTRAST CLINICAL HISTORY: ABD PAIN COMPARISON: 10/09/2011 TECHNIQUE: CT of the abdomen and pelvis without IV contrast. Evaluation of the solid organs and vasc ulature is suboptimal due to lack of IV contrast. Oral contrast administered. FINDINGS: Lung Bases: The visualized lung bases are clear. Bones: Mild degenerative endplate spondylosis. Abdomen: Liver: The liver has normal size and density. Gallbladder: Prior cholecystectomy. Spleen, Pancreas, and Adrenal Glands: The spleen, pancreas, and adrenal glands are unremarkable. Kidneys: The kidneys have normal size without evidence of hydronephrosis. No obstructing ureteral taat culi. Vasculature: The aorta and IVC have normal caliber and position. Stomach: Prior gastric bypass. Other: No free intraperitoneal air. No free fluid or lymphadenopathy. Pelvis: Bladder: Urinary bladder is unremarkable. Bowel: No dilated loops of large or small bowel. Mild wall thickening of the transverse colon. Appendix: Normal appendix. Pelvis: Uterus is not enlarged. IMPRESSION: 1. Mild wall thickening of the transverse colon. This could be seen with nonspecific col itis or may be related to under distention. This exam was performed according to our departmental dose-optimization program, which includes autom ated exposure control, adjustment of the mA and/or kV according to patient size and/or use of iterati ve reconstruction technique. Electronically signed by: Dav Cardoso 10/26/2019 5:50 AM CDT Due to temporary technical issues with the PACS/Fluency reporting system, reports are being signed by the in house radiologist without review as a courtesy to ensure prompt reporting. The interpreting r adiologist is fully responsible for the content of the report.
== END 2019-10-26 06:29 | disposition home or self-care (01) ==
LOC: ER 02:37
DX: K52.9 Noninfective gastroenteritis and colitis, unspecified (principal); E87.6 Hypokalemia; D64.9 Anemia, unspecified; F41.8 Other specified anxiety disorders; Z88.2 Allergy status to sulfonamides; Z88.6 Allergy status to analgesic agent
CPT/HCPCS: 36415; 74176; 80048; 80076; 81003; 81025; 83690; 85025; J2270; J2405; J2550; J7030; J7040

== ENCOUNTER 2020-03-14 09:37 | Emergency (ER) | payer OTHER, SELFPAY ==
--- OUTSIDE RECORDS SUMMARY | 2020-03-14 09:48 | XMS REPORT | Clinical Summary ---
:1990 Author Organization [facility] Address [address] [place] [address] Care Team Providers Name Role Phone Asked, Pcp Primary Care Provider Unavailable Allergies Active Allergy Reactions Severity Noted Date Comments Cefaclor 12/07/2016 Sulfa (Sulfonamide Antibiotics) 7 Medications No known medications Active Problems Not on file Encounters Date Type Specialty Care Team Description 03/27/2019 Emergency Emergency Medicine Jhoan Wing MD after 03/14/2019 Surgical History Surgery Date Site/Laterality Comments CHOLECYSTECTOMY YOLIS-EN-Y PROCEDURE Medical History Medical History Date Comments History of transfusion Family History Medical History Relation Name Comments Diabetes Father Hypertension Father No Known Problems Mother Relation Name Status Comments Father Mother Social History Tobacco Use Types Packs/Day Years Used Date Never Smoker Smokeless Tobacco: Never Used Alcohol Use Drinks/Week oz/Week Comments No Sex Assigned at Date Recorded Not on file Last Filed Vital Signs Vital Sign Reading Time Taken Comments Blood Pressure 137/82 03/27/2019 2:22 PM COACH Pulse 87 03/27/2019 2:22 PM COACH Temperature 36.4 C (97.5 F) 03/27/2019 2:22 PM COACH Respiratory Rate 15 03/27/2019 2:22 PM COACH Oxygen Saturation 100% 03/27/2019 2:22 PM COACH Inhaled Oxygen Concentration - - Weight - - Height 154.9 cm (5' 1") 03/27/2019 2:29 PM COACH Body Mass Index - - Plan of Treatment Health Maintenance Due Date Last Done Comments COVID-19 VACCINE (#1) 2004 CERVICAL CANCER SCREENING 2009 INFLUENZA VACCINE 10/09/2019 Results Not on fileafter 03/14/2019
--- OUTSIDE RECORDS SUMMARY | 2020-03-14 09:49 | XMS REPORT | Continuity of Care Document ---
:1990 Author Organization [facility] t Address [address] [place] [address] Care Team Providers Name Role Phone Asked, Pcp Primary Care Physician Unavailable Guillermo Wing MD Attending Clinician Problems Condition Condition Condition Status Onset Resolution Last Treating Co mments Source Name Details Category Date Date Treatment Clinician Date STOMACH Diagnosis Active 2012-06-18 Me moria PAINS 4-19 10:30:00 l STOMACH 07:00: [place] PAINS 00 Active 06/27/2011 [facility] Panic Problem Active 2013-11-16 Memor ia attacks [...] Mem oria (gastroeso 04:12:17 l phageal GERD [place] reflux (gastroeso disease) phageal reflux disease) Active Diagnosis 12/03/2012 eCW: John Ochoa MD Allergies, Adverse Reactions, Alerts Allergy Allergy Status Severity Reaction(s) Onset Inactive Treating Comm ents Source Name Type Date Date Clinician Sulfa Propensi Active 2016-03 [place] (Sulfona ty to 0-25 Methodi mide adverse 00:00: st Antibiot reaction 00 ics) s to drug Cefaclor Propensi Active [place] ty to 9-30 Methodi adverse 00:00: st reaction 00 s to drug Cephalex Cephalex Active Info Not Andrea hao in in Available 10-21 l 00:00: [place] 00 Ceclor Ceclor Active Santhosh Mcneil Family History Family Member Diagnosis Comments Start Date Stop Date Source Natural father Diabetes [facility] thodi Natural father Hypertension [place] [facility] Natural mother No Known Problems Lavelle roslynn Amish Unknown Family Family History 2012-12-03 2012-12-03 Doretha Tovar Member 04:12:17 04:12:17 Social History Social Habit Start Date Stop Date Quantity Comments Source Sex Assigned At [facility] ethodist Tobacco use and 2019-03-27 2019-03-27 Never used [facility] ethodist exposure 00:00:00 00:00:00 Alcohol intake 2019-03-27 2019-03-27 Current [facility] thodist 00:00:00 00:00:00 non-drinker of alcohol (finding) TobaccoUse: 2013-10-21 2013-10-21 [facility] yudy 00:00:00 00:00:00 Smoking Status Start Date Stop Date Source Never smoker [place] Methodis t Medications Ordered Filled Start Stop Current Ordering Indication Dosage Frequency Signature Comments Components Source Medication Medication Date Date Medication? Clinician (SIG) Name Name NuvaRing Yes Pachie 1 ring Memor ia 11-16 Ochoa l 02:28: [place] 14 Xanax Yes [place]achie 1 tablet Memori a 8-14 Ochoa l 00:00: [place] 00 BusPIRone Yes Pachie 1 tablet Me moria HCl 8-14 Ochoa l 00:00: Robaxin Yes [place]achie 1 tablet Andrea hao 8-14 Ochoa l 00:00: Vitamin D Yes Pachie 1 tablet Me moria 9-26 Ochoa l 04:12: Vitamin Yes Pachie 1 [...] 4-19 Sapp Rate: l 13:57: Imsais 1,000 [place] 00 ml/hr, Infuse over: 1 hr, Route: IV, Dosing Weight 87 kg, Total Volume: 1,000, Start date: 06/27/11 8:57:00, Duration: 30 day, Stop date: 07/27/11 8:56:00 K-Dur 20 No Mahad 40 mEq, 30 Memoria 4-19 Sapp mL, Route: l 13:56: Imsais PO, Drug [place] 00 form: ERTAB, ONCE, Start date: 06/27/11 8:56:00, Stop date: 06/27/11 8:56:00 ondansetron No Mahad 4 mg, 2 Memoria 4-19 Sapp mL, Route: l 12:24: Imsais IVP, Drug Neo n 00 form: INJ, ONCE, Priority: STAT, Start date: 06/27/11 7:24:00, Stop date: 06/27/11 7:24:00 Saline 2012-0 No Mahad 5 ml, Memoria Flush 0.9% -19 Sapp Route: l 12:24: Imsais IVP, Drug Neo n 00 Form: INJ, PRN, PRN Line Flush, Start date: 06/27/11 7:24:00, Duration: 30 day, Stop date: 07/27/11 7:23:00 Sodium 2012-0 No Mahad 1,000 mL, Mem oria Chloride - Sapp Rate: l 0.9% 12:24: Imsais 1,000 [place] (Bolus) IV 00 ml/hr, 1,000 mL Infuse over: 1 hr, Route: IV, Dosing Weight 87.7 kg, Total Volume: 1,000, Bolus Dose, Priority: STAT, Start date: 06/27/11 7:24:00, Duration: 1 doses or times, Stop date: 06/27/11 8:23:00 Vital Signs Vital Name Observation Time Observation Value Comments Source Body height 2019-03-27 14:29:00 154.9 cm [place] [facility] Systolic blood 2019-03-27 14:22:31 137 mm[Hg] Evelinato n Amish pressure Diastolic blood 2019-03-27 14:22:31 82 mm[Hg] Bill on Amish pressure Heart rate 2019-03-27 14:22:31 87 /min [facility] Body temperature 2019-03-27 14:22:31 36.39 Samira Evelina ton Amish Respiratory rate 2019-03-27 14:22:31 15 /min Evelina ton Amish Oxygen saturation in 2019-03-27 14:22:31 100 /min [facility] Arterial blood by Pulse oximetry Weight 2013-10-21 18:30:00 [facility] [place] Height 2013-10-21 18:30:00 [facility] [place] Heart Rate 2013-10-21 18:30:00 [facility] [place] Diastolic (mm Hg) 2013-10-21 18:30:00 Mem orial [place] Systolic (mm Hg) 2013-10-21 18:30:00 Andrea rial [place] Weight 2012-11-27 14:15:00 [facility] [place] Height 2012-11-27 14:15:00 [facility] [place] Heart Rate 2012-11-27 14:15:00 [facility] [place] Diastolic (mm Hg) 2012-11-27 14:15:00 Mem orial [place] Systolic (mm Hg) 2012-11-27 14:15:00 Andrea rial [place] Weight 2011-06-27 12:09:00 [facility] [place] Height 2011-06-27 12:09:00 157.48 cm [facility] Procedures This patient has no known procedures. Plan of Care Planned Activity Planned Date Details Comments Source Future Scheduled 2019-10-09 INFLUENZA VACCINE [place] Test 00:00:00 [code = INFLUENZA VACCINE] Future Scheduled 2009 Screening for [facility] thodist Test 00:00:00 malignant neoplasm of cervix (procedure) [code = 968386217] Future Scheduled 2004 COVID-19 VACCINE Doe [facility]ish Test 00:00:00 (#1) [code = COVID-19 VACCINE (#1)] Encounters Start End Encounter Admission Attending Care Care Encounter Source Date/Time Date/Time Type Type Clinicians Facility Department ID 2018-11-29 2018-11-29 Emergency E [facility] KM [id number] Memoria 16:42:00 16:42:00 thais [place] Memoria l 2013-10-21 2013-10-21 Outpatient John SErnie Lopez S. [id number] Memoria 13:30:00 13:30:00 MD Don Ochoa MD l [facility] [place] 2012-11-27 2012-11-27 Outpatient John S. Pachie S. [id number] Memoria 09:15:00 09:15:00 MD Don Ochoa MD l [facility] [place] Results Test Description Test Time Test Comments Results Result Sourc e Comments CHEMISTRY 2011-06-27 Negative [facility] 13:24:00 (06/27/2011 [place] 08:24:00) URINALYSIS 2011-06-27 0-2 /HPF [facility] 13:24:00 (06/27/2011 [place] 08:24:00) URINALYSIS 2011-06-27 Occasional /LPF [facility] 13:24:00 (06/27/2011 [place] 08:24:00) URINALYSIS 2011-06-27 0-2 /HPF [facility] 13:24:00 (06/27/2011 [place] 08:24:00) URINALYSIS 2011-06-27 None Seen [facility] 13:24:00 (06/27/2011 [place] 08:24:00) URINALYSIS 2011-06-27 Performed [facility] 13:24:00 (06/27/2011 [place] 08:24:00) URINALYSIS 2011-06-27 Negative [facility] 13:24:00 (06/27/2011 [place] 08:24:00) URINALYSIS 2011-06-27 Negative [facility] 13:24:00 (06/27/2011 [place] 08:24:00) URINALYSIS 2011-06-27 13:24:00 Test Item Value Reference Range Interpretation Comme nts UA pH (test code = UA pH) 6.0 1 5.0-8.0 N [facility] VihdaqbXVXHLQDNHG5240-98-81 13:24:0015 mg/dL *ABN*(06/27/2011 08:24:00) [facility] MmzekktDYVIXCKMUR6999-41-41 13:24:00Yellow *NA*(06/27/2011 08:24:00) [facility] KbduiknPNUBMKXBZO7777-04-12 13:24:00Clear (06/27/2011 08:24:00)[facility] LrwssocIKRJVJTOIF0159-89-42 13:24:00Negative (06/27/2011 08:24:00)[facility] DyokmchEKKHAQWLMG9439-12-29 13:24:00Negative *NA*(06/27/2011 08:24:00)[facility] DhnyatpPSVMVZGDUB0778-34-68 13:24:000.2[facility]orial MvavediDBMCLXYOTN8783-60-26 13:24:00Negative (06/27/2011 08:24:00)[facility] EnrntbtVBZQYTBLBP4370-99-00 13:24:00Small *ABN*(06/27/2011 08:24:00)[facility] MxypiqgMNQBRVCZR9572-17-78 12:30:69599Dzlhpvns NrldohbKMTDXXLRQ3927-12-38 12:30:0033[facility] [place] TMURWEADH8079-72-55 12:30:003.5[facility] UndvymtIZCKVIFVM6329-76-14 12:30:0011 [facility] PjsyavkZLMHUKGDT0122-57-36 12:30:0011.3[facility] HermannCHEMISTRY 2011-06-27 12:30:001.1[facility] EbcpfuoVVTFICWRE0148-09-11 12:30:0059[facility] JuuuetwMYPJXZYTY1939-81-53 12:30:009.6[facility]orial NpelfxuQCFHVMQVX8843-85-95 12:30:46282Qoefmgkz WiudqkzOLWKNGXOA0132-12-07 12:30:0026[facility] [place] AVLICTEMU7475-23-73 12:30:0031[facility] WuqbpyfMXUHNNVJK9628-85-61 12:30:007.2 Memorial NzpxjwvGYCIJNMJM3251-87-92 12:30:003.7[facility] HermannCHEMISTRY 2011-06-27 12:30:0080[facility] LnhutxeKXTQILUKX7245-76-95 12:30:009[facility] XtgowieSANWTPGGM2981-76-43 12:30:000.8[facility]orial VvcceapZXTDQWUKC6636-56-19 12:30:003.3[facility]orial JrmfplaYZUHHGJAP2241-20-54 12:30:81477Lmgukgad [place] LQJNPNNBX1852-70-57 12:30:0012[facility] VrlhwynPTACMTZXZ6704-35-31 12:30:000.5 Memorial PrlsqevZITNLYLMJF9038-23-79 12:30:001.02[facility] HermannHEMATOLOGY 2011-06-27 12:30:00 Test Item Value Reference Range Interpretation Comments PTT (test code = PTT) 31.2 s 22.9-35.8 N [facility] OsqjlucVXUWTXPCNO3152-15-52 12:30:00 Test Item Value Reference Range Interpretation Comments PT (test code = PT) 13.4 s 12.0-14.7 N [facility] NmdemgjAKWJRAXVBG5915-18-48 12:30:0013.3[facility] HermannHEMATOLOGY 2011-06-27 12:30:0034.3[facility]orial SbzmuorEYFTQEIKBI4592-83-01 12:30:00 Test Item Value Reference Range Interpretation Comments MCH (test code = MCH) 28.6 pg 27.0-31.0 N [facility] FhnyaeiTWBPBYZXFX9024-52-26 12:30:90740Epydvgsj HermannHEMATOLOGY 2011-06-27 12:30:0010.2[facility]orial UswyqjlZGCIMXNVLS1652-78-42 12:30:0013.7[facility] OhjxlmaRNVMMKIKVD1510-87-09 12:30:0040.0[facility]orial HemhvioVHEGWVYCAZ3363-44-85 12:30:0083.4Memorial VztzhvcOFTDOQOENR1254-56-96 12:30:004.80[facility] [place] ABNEBCFCXZ7273-76-29 12:30:005.3[facility]orial RggvmmpJEKRQNXOSD7128-27-35 12:30:000.1 Memorial UdbpddtLJZBRYQWXT4078-30-38 12:30:001.7[facility] HermannHEMATOLOGY 2011-06-27 12:30:000.3[facility]orial HgmtfnbQMPCHFHTTC3926-63-38 12:30:000.0[facility] QnjtygjANOWPAYFID0580-19-52 12:30:005.8[facility]orial KrjvoogPQOGNGSWLE9681-89-51 12:30:001.2[facility] QcjubbbRCBPKCRMWS5545-49-83 12:30:0060.7[facility] [place] BSUXAHXKYD2085-92-48 12:30:0032.2[facility] LwnsxbfTECOCVRBFI7361-61-74 12:30:00 0.1[facility]orial ZannqlbRWOTQLPJOG6982-60-46 12:30:003.2[facility] [place]
--- OUTSIDE RECORDS SUMMARY | 2020-03-14 09:49 | XMS REPORT | Continuity of Care Document ---
:1990 Author Organization [facility] Care Team Providers Name Role Phone [facility] Unavailable Un available Problems Problem Status Onset Classification Date Comments Sourc e Date Reported STOMACH PAINS Active [facility] Panic attacks Active Problem 11/16/2013 eCW: John Ochoa MD Palpitations Active Problem 11/16/2013 eCW: Maggie Ochoa MD Low Back Pain Active Problem 11/16/2013 eCW: John Ochoa MD anxiety Active Problem 11/16/2013 eCW: Don Reza MD generalized GERD Active Diagnosis 12/03/2012 eCW: Fabrice ie (gastroesophagea Safia montoya MD l reflux disease) Medications Medication Details Route Status Patient Ordering Order Source Instructions Provider Date Xanax 1 tablet Orally Active 0.25 MG Orally Ocoha eCW: daily as needed 014 John Ochoa [...] 1 tablet Orally Active 0.25 MG Orally [facility] eCW: every 8 hours 013 John as needed MD Don potassium 40 mEq, PO No Longer Imsais MH [facility] chloride 20 Route: PO, Active 012 [...] PO No Longer Imsais [place] mL, Route: [address] PO, Drug form: ERTAB, ONCE, Start date: 06/27/11 8:56:00, Stop date: 06/27/11 8:56:00 ondansetron 4 mg, 2 IVP No Longer Imsais [place] mL, Route: [address] IVP, Drug form: INJ, ONCE, Priority: STAT, Start date: 06/27/11 7:24:00, Stop date: 06/27/11 7:24:00 Saline Flush 5 ml, IVP No Longer Imsais [place] 0.9% Route: [address] IVP, Drug Form: INJ, PRN, PRN Line Flush, Start date: 06/27/11 7:24:00, Duration: 30 day, Stop date: 07/27/11 7:23:00 Sodium 1,000 mL, [facility] Chloride 0.9% Rate: [address] (Bolus) IV 1,000 1,000 mL ml/hr, [...] Reaction Available Reaction 4 Fabrice Ochoa MD Ceclor drug Allergy Active [facility] allergy [facility] Immunizations No Data Provided for This [...] Spec Grav <=1.030 06/26 NA Kathrine /2011 [facility] URINALYSIS UA pH 6.0 5.0 - 8.0 06/26 Normal [facility] URINALYSIS UA Ketones 15 mg/dL Negative 06/26 ABN Kathrine *ABN* /2011 [facility] (06/27/2011 08:24:00) URINALYSIS UA Color Yellow Yellow 06/26 NA Kathrine *NA* /2011 [facility] (06/27/2011 08:24:00) URINALYSIS UA Turbidity Clear Clear 06/26 Normal [place] (06/27/2011 08:24:00) [facility]ital URINALYSIS UA Nitrite Negative Negative 06/26 Normal [place] (06/27/2011 08:24:00) [facility]ital URINALYSIS UA Bili Negative Negative 06/26 NA [place] *NA* [facility] (06/27/2011 08:24:00) URINALYSIS UA 0.2 0.1 [...] values reflect the clinical guidelines of the [place] [employer]. CHEMISTRY BUN 9 7 - [...] - 4.0 06/26 Normal MH Kathrine /2011 [facility] HEMATOLOGY Segs 60.7 45.0 - 06/26 Normal MH Kathrine 75.0 /2011 [facility] HEMATOLOGY Lymphocytes 32.2 20.0 - 06/26 Normal MH [facility] 40.0 /2011 Hospital HEMATOLOGY Basophils 0.1 0.0 - 1.0 06/26 Normal MH Kathrine /2011 [facility] HEMATOLOGY Segs-Bands # 3.2 1.5 - [...] [facility] 157.48 [facility] 06/27/2011 [facility] Encounters Location Location Encounter Encounter Reason Attending ADM DC Stat us Source Details Type Number For Provider Date Date Visit NAHED [facility] [id number] STOMACH PEDRO 06/26 06/26 Activ e NAHED [facility] PAINS IMSAIS /2011 [facility] Unknown [id number] 11/27 11/27 eCW: MD Don -[id number] /2012 [facility] [id number] MD John Ochoa Unknown [id number] 11/27 11/27 eCW: MD Don -[id number] /[facility] [id number] MD John Ochoa [facility] [id number] 10/21 10/21 eCW: MD Don -[id number] /[facility] [id number] MD Don Procedures No Data Provided for [...]
--- OUTSIDE RECORDS SUMMARY | 2020-03-14 09:50 | XMS REPORT | Continuity of Care Document ---
:1990 Author Care Team Providers Name Role Phone MD MELIA Primary Care Physician Allergies, Adverse Reactions, Alerts Allergen Type Severity Reaction Last Verified Status Updated Sulfa Allergy Unknown July 26 Active Antibiotics 2019 ([id number]) Medications No known medications. Problems No problem information available. Procedures No procedure information available. Relevant Diagnostic Tests and/or Laboratory Data No known relevant diagnostic tests and/or laboratory data. Health Concerns Health Concerns may be documented in an alternate section. Advance Directives Advance Directive Response Recorded Date/Time Advance Directive on File No January 12, 2020 9:16pm Chief Complaint and Reason for Visit Chief Complaint General Complaint Reason for Visit [id number] Encounters Encounter Location(s) Arrival/Admit Date Discharge/Depart Date Provider(s) Departed [place] January 12, 2020 January 12, 2020 SYDNEY MENDIETA WASALONZO [facility] 9:10pm 10:04pm Ctr Assessments No Assessments Information Available Functional Status No Functional Status information available Goals Goals may be documented in an alternate section. Immunizations No Immunization Information Available Mental Status No Mental Status Information Available Medical Equipment No Medical Equipment Information available Insurance Providers Guarantor Nydia Marin Address [address] [place] [address] [facility] [address] Contact Info. Home Phone: Payer Policy Id Coverage Id Subscriber's Subscriber Id Effective E xpiration Name Date Date Self Pay Ronni Marin Nydia Plan of Treatment Future Tests Future scheduled test information is unavailable Pending Tests Test Name Date ordered Coronavirus COVID-19 PCR ([place]) January 12, 2020 9:38 pm Future Visits Future appointment information is unavailable Referrals to Other Providers Reason for Referral Start Provider Provider Contact Provider Address Referral Date Information OTHER, ENTER NAME IN NOTES Future Procedures Future procedure information is unavailable Future Medications Future medication information is unavailable Patient Instructions Upper Respiratory Infection, Adult, Easy -to-Read COVID-19 Frequently Asked Questions Social History Smoking Status Status Date of Observation Never smoked tobacco (finding) January 12, 2020 9:16 pm Observation Status Observation Response Date of Response Hx Physical Abuse No January 12, 2020 9 :16pm Assigned Sex Female Vital Signs No vital signs result information available.
[2020-03-14] MEDS ORDERED: ONDANSETRON 4 MG/2 ML VIAL ONE (10:24)
[2020-03-14] MEDS ORDERED: NA CHLORIDE 0.9% 500 ML ONE (10:25)
[2020-03-14] MEDS ORDERED: DICYCLOMINE HCL 10 MG CAP ONE (10:25)
[2020-03-14] MEDS ORDERED: ACETAMINOPHEN 500 MG TAB ONE (10:25)
[2020-03-14 10:27] LABS: Basophils % 0.9 % (0-1.3); Hematocrit 23.8 % (36.0-45.0); Lymphocytes % 22.7 % (15.3-44.8); MPV 9.7 fL (7.6-11.3); RBC Red Blood Cell Count 4.01 M/uL (3.86-4.86)
[2020-03-14 10:40] LABS: Urine Blood NEGATIVE (NEG); Urine Glucose NEGATIVE (NEG); Urine Protein NEGATIVE (NEG); Urine pH 5.5 (5.0-7.0)
[2020-03-14 10:58] LABS: Urine RBC NONE SEEN /HPF (NONE SEEN)
[2020-03-14 10:59] LABS: Urine Bacteria <20 /HPF (<20)
[2020-03-14 11:32] LABS: BUN Blood Urea Nitrogen 9 mg/dL (7-18); Bicarbonate 26 mmol/L (21-32); Glucose Level 88 mg/dL (74-106); HCG, Quantitative 85529 mIU/mL (1-3); Potassium 3.6 mmol/L (3.5-5.1); Sodium Level 137 mmol/L (136-145)
--- NOTE | 2020-03-14 12:11 | RAD REPORT ---
EXAM DESCRIPTION: US - 1St Trimest Single 1St Fetus - 03/14/2020 11:57 am CLINICAL HISTORY: with pelvic pain COMPARISON: None. FINDINGS: The uterus measures 10 x 6 x 7 centimeters. A normal appearing gestational sac is present within the endometrium. Within this is a yolk sac and pole with a crown-rump length 9 millimet ers. Cardiac activity 161 beats per minute Right and left ovary appear normal. The right and left adnexa unremarkable. No significant free fluid is seen. IMPRESSION: Single live intrauterine with an estimated gestational age 7 weeks 0 days RAAD 10/27/2020
[2020-03-14 12:22] LABS: Anisocytosis SLIGHT; Blood Morphology Comment NOTED (NOT SEEN); Elliptocytes 2+; Hypochromasia 2+; Platelet Estimate ADEQ; Poikilocytosis 2+; White Blood Cell Scan OK (OK)
[2020-03-14] MEDS ORDERED: NA CHLORIDE 0.9% 250 ML ONE (12:56)
[2020-03-14 13:01] LABS: RBC Red Blood Cell Count 4.03 M/uL (3.86-4.86)
[2020-03-14 13:43] LABS: Ferritin 1.5 ng/mL (8-388); Transferrin 321 mg/dL (200-360)
[2020-03-14 14:04] LABS: Iron < 5.0 ug/dL (50-170)
--- NOTE | 2020-03-14 15:07 | EDPHYS ---
Physician Documentation [facility] Name: Mini Marin Age: 29 yrs Sex: Female : 1990 Arrival Date: 03/14/2020 Time: 09:39 Bed 8 Private MD: ED Physician Ascencion Ojeda HPI: 03/14 10:00 This 29 yrs old Female presents to ER via Ambulatory with complaints of cp Abdominal Cramping, 8 Weeks . 10:00 The patient presents to the emergency department with abdominal pain, of the lower cp abdomen, that started yesterday, described as crampy, nausea. 10:00 The estimated gestational age is 8 weeks. course: care: private OB cp physician, Leakage of Fluid: none appreciated. Previous pregnancies: in previous pregnancies patient has had vaginal delivery, no complications. Associated signs and symptoms: Pertinent negatives: dysuria, fever, vaginal bleeding, vaginal discharge, vomiting. 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 - Social history:: Smoking status: Patient denies any tobacco usage or history of. ROS: 10:05 Constitutional: Negative for fever. cp 10:05 Eyes: Negative for injury, pain, redness, and discharge. cp 10:05 Cardiovascular: Negative for chest pain, palpitations. 10:05 Respiratory: Negative for cough, shortness of breath, wheezing. 10:05 Abdomen/GI: Positive for nausea, abdominal cramps, of the lower abdomen, Negative for vomiting, diarrhea, constipation. 10:05 : Negative for urinary symptoms, vaginal bleeding, vaginal discharge. 10:05 All other systems are negative. Exam: 10:10 Constitutional: The patient appears in no acute distress, alert, awake, well developed, cp well nourished. 10:10 Head/Face: Normocephalic, atraumatic. cp 10:10 Eyes: Periorbital structures: appear normal, Conjunctiva: normal, no exudate, no injection, Sclera: no appreciated abnormality, Lids and lashes: appear normal, bilaterally. 10:10 ENT: External ear(s): are unremarkable, Nose: is normal, Mouth: Lips: moist, Oral mucosa: moist, Posterior pharynx: Airway: no evidence of obstruction, patent. 10:10 Neck: ROM/movement: is normal, is supple, without pain, no range of motions limitations. 10:10 Chest/axilla: Inspection: normal, Palpation: is normal, no crepitus, no tenderness. 10:10 Cardiovascular: Rate: normal, Rhythm: regular. 10:10 Respiratory: the patient does not display signs of respiratory distress, Respirations: normal, no use of accessory muscles, no retractions, labored breathing, is not present, Breath sounds: are clear throughout, no decreased breath sounds, no stridor, no wheezing. 10:10 Abdomen/GI: Inspection: abdomen appears normal, Bowel sounds: active, all quadrants, Palpation: soft, in all quadrants, mild abdominal tenderness, in the right lower quadrant and left lower quadrant, rebound tenderness, is not appreciated, voluntary guarding, is not appreciated, involuntary guarding, is not appreciated. 10:10 Back: CVA tenderness, is absent. 10:10 Neuro: Orientation: to person, place \T\ time. Mentation: is normal, Motor: moves all fours, strength is normal. Vital Signs: 09:47 BP 115 / 71; Pulse 84; Resp 18; Pulse Ox 100% ; Weight 68.49 kg; Height 5 ft. 2 in. sv (157.48 cm); Pain 6/10; 11:18 BP 103 / 67; Pulse 65; Resp 17 S; Pulse Ox 100% on R/A; jd3 12:10 BP 108 / 53 Supine; Pulse 64; jd3 12:10 BP 107 / 65 Sitting; Pulse 64; jd3 12:10 BP 106 / 69 Standing; Pulse 67; Resp 16 S; Pulse Ox 99% on R/A; jd3 13:15 BP 107 / 58; Pulse 64; Resp 17 S; Pulse Ox 100% on R/A; jd3 14:36 BP 106 / 60; Pulse 72; Resp 16 S; Pulse Ox 100% on R/A; jd3 15:25 BP 113 / 67; Pulse 62; Resp 17 S; Pulse Ox 99% on R/A; jd3 09:47 Body Mass Index 27.62 (68.49 kg, 157.48 cm) sv MDM: 09:43 Patient medically screened. tessa 12:33 Physician consultation: Cecilio Jennings MD was called at 12:25, was contacted at 12:25, regarding consult, patient's condition, wants patient to be given 1 unit of blood and discharge patient for f/u in clinic. 15:05 Data reviewed: vital signs, nurses notes, lab test result(s), radiologic studies, cp ultrasound, I have discussed the patient's presentation/case with the attending Emergency Department Physician; and as a result, I will discharge patient. 15:05 Counseling: I had a detailed discussion with the patient and/or guardian regarding: the cp historical points, exam findings, and any diagnostic results supporting the discharge/admit diagnosis, lab results, radiology results, the need for outpatient follow up, an OB/Gyne specialist, to return to the emergency department if symptoms worsen or persist or if there are any questions or concerns that arise at home. 03/14 10:01 Order name: Quantitative Hcg; Complete Time: 11:36 cp 03/14 11:36 Interpretation: HCGQ [id number]; Reviewed. cp 03/14 10:01 Order name: Basic Metabolic Panel; Complete Time: 11:36 cp 03/14 10:01 Order name: CBC with Diff; Complete Time: 15:08 cp 03/14 10:50 Interpretation: Normal except: HGB 7.0; HCT 23.8; MCV 59.3; MCH 17.5; MCHC 29.6; PLT cp 133; RDW 18.4. 03/14 10:01 Order name: Urine Microscopic Only; Complete Time: 11:25 cp 03/14 10:23 Order name: Urine Dipstick--Ancillary (enter results); Complete Time: 10:50 bd 03/14 10:23 Order name: Urine --Ancillary (enter results); Complete Time: 10:50 bd 03/14 12:22 Order name: CBC Smear Scan; Complete Time: 15:08 EDMS 03/14 12:30 Order name: Ferritin; Complete Time: 15:08 cp 03/14 12:30 Order name: B12; Complete Time: 15:08 cp 03/14 12:30 Order name: Retic Count; Complete Time: 15:08 cp 03/14 10:01 Order name: Urine Test (obtain specimen); Complete Time: 10:30 cp 03/14 10:01 Order name: IV Saline Lock; Complete Time: 10:21 cp 03/14 10:01 Order name: Labs collected and sent; Complete Time: 10:21 cp 03/14 10:01 Order name: NPO; Complete Time: 10:07 cp 03/14 10:01 Order name: Urine Dipstick-Ancillary (obtain specimen); Complete Time: 10:30 cp 03/14 11:57 Order name: 1St Trimest Single 1St Fetus; Complete Time: 12:12 EDMS 03/14 12:30 Order name: TIBC; Complete Time: 15:08 cp 03/14 12:36 Order name: Type and Screen EDMS 03/14 12:37 Order name: Bb Add On bd 03/14 12:38 Order name: Packed RBC Leukored EDMS 03/14 13:15 Order name: ABO/RH no charge; Complete Time: 15:08 EDMS 03/14 11:25 Order name: Orthostatics; Complete Time: 12:16 cp 03/14 13:55 Order name: Transfuse; Complete Time: 14:38 cp Administered Medications: 10:20 Drug: Bentyl 20 mg Route: PO; jd3 11:20 Follow up: Response: No adverse reaction jd3 10:21 Drug: Tylenol 1000 mg Route: PO; jd3 11:20 Follow up: Response: No adverse reaction jd3 10:21 Drug: NS 0.9% 500 ml Route: IV; Rate: bolus; Site: right antecubital; jd3 11:20 Follow up: Response: No adverse reaction; IV Status: Completed infusion; IV Intake: jd3 500ml 10:21 Drug: Zofran (Ondansetron) 4 mg Route: IVP; Site: right antecubital; jd3 11:20 Follow up: Response: No adverse reaction jd3 Disposition: 03/15 06:53 Co-signature as Attending Physician, Ascencion Ojeda MD I agree with the assessment and tessa plan of care. Disposition: 03/14/20 15:06 Discharged to Home. Impression: related conditions, unspecified, first trimester, Lower abdominal pain, unspecified, Iron deficiency anemia. - Condition is Stable. - Discharge Instructions: Abdominal Pain During , Iron Deficiency Anemia, Adult, Iron-Rich Diet, Nausea, Adult. - Prescriptions for Diclegis 10- 10 mg Oral tablet,delayed release (DR/EC) - take 1 tablet by ORAL route as directed before each meal and 2 tablets at bedtime; 60 tablet. Ferrous Sulfate 325 mg (65 mg Iron) Oral Tablet - take 1 tablet by ORAL route every 12 hours; 60 tablet. - Medication Reconciliation Form, Thank You Letter, Antibiotic Education, Prescription Opioid Use form. - Follow up: Cecilio Jennings MD; When: 1 - 2 days; Reason: Recheck today's complaints. - Problem is new. - Symptoms have improved. Signatures: Dispatcher [employer] EDMS Ayanna Painter RN RN Ascencion Obregon MD MD cha Page, Corey, PA PA cp Ceferino Lazo RN RN jd3 Corrections: (The following items were deleted from the chart) 03/14 10:24 10:24 Urine Dipstick-Ancillary ordered. EDNJ EDMS 10:24 10:24 Urine --Ancillary ordered. EDNJ EDMS 11:57 11:25 Transvaginal Ob+US.RAD.BRZ ordered. EDMS EDMS 12:36 10:02 ABO/RH TYPING+BB.LAB.BRZ ordered. EDMS EDMS 12:36 11:25 ABO/RH TYPING+BB.LAB.BRZ reviewed. cp EDMS 12:36 12:29 TYPE AND SCREEN+BB.LAB.BRZ ordered. EDNJ EDMS 15:09 15:06 03/14/2020 15:06 Discharged to Home. Impression: Anemia in chronic diseases cp classified elsewhere; related conditions, unspecified, first trimester; Lower abdominal pain, unspecified. Condition is Stable. Forms are Medication Reconciliation Form, Thank You Letter, Antibiotic Education, Prescription Opioid Use. Follow up: Cecilio Jennings; When: 1 - 2 days; Reason: Recheck today's complaints. Problem is new. Symptoms have improved. cp 15:26 15:09 03/14/2020 15:06 Discharged to Home. Impression: related conditions, jd3 unspecified, first trimester; Lower abdominal pain, unspecified; Iron deficiency anemia. Condition is Stable. Discharge Instructions: Abdominal Pain During , Anemia, Nonspecific. Prescriptions for Diclegis 10-10 mg Oral tablet,delayed release (DR/EC) - take 1 tablet by ORAL route as directed before each meal and 2 tablets at bedtime; 60 tablet. and Forms are Medication Reconciliation Form, Thank You Letter, Antibiotic Education, Prescription Opioid Use. Follow up: Cecilio Jennings; When: 1 - 2 days; Reason: Recheck today's complaints. Problem is new. Symptoms have improved. cp
--- NOTE | 2020-03-14 15:07 | ER ---
Nurse's Notes [facility] Name: Mini Marin Age: 29 yrs Sex: Female : 1990 Arrival Date: 03/14/2020 Time: 09:39 Bed 8 Private MD: Diagnosis: related conditions, unspecified, first trimester;Lower abdominal pain, unspecified;Iron deficiency anemia Presentation: 03/14 09:47 Chief complaint: Patient states: low abd cramping started this morning. Denies vaginal sv bleeding or urinary symptoms. Pt is about 7.5 weeks . Coronavirus screen: Client denies travel out of the [place] in the last 14 days. At this time, the client does not indicate any symptoms associated with coronavirus-19. Ebola Screen: No symptoms or risks identified at this time. Risk Assessment: Do you want to hurt yourself or someone else? Patient reports no desire to harm self or others. Onset of symptoms was March 14, 2020. 09:47 Method Of Arrival: Ambulatory sv 09:47 Acuity: DANIEL 3 sv 10:29 Initial Sepsis Screen: Does the patient meet any 2 criteria? No. Patient's initial jd3 sepsis screen is negative. Does the patient have a suspected source of infection? No. Patient's initial sepsis screen is negative. Triage Assessment: 09:49 General: Appears in no apparent distress. uncomfortable, well groomed, well developed, sv Behavior is calm, cooperative, appropriate for age. Pain: Complains of pain in suprapubic area Pain currently is 6 out of 10 on a pain scale. Neuro: Level of Consciousness is awake, alert, obeys commands, Oriented to person, place, time, situation, Gait is steady. Respiratory: Respiratory effort is even, unlabored. GI: Reports cramping. : Denies vaginal bleeding. 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 - Social history:: Smoking status: Patient denies any tobacco usage or history of. Screenin:49 Abuse screen: Denies threats or abuse. Denies injuries from another. Nutritional sv screening: No deficits noted. Tuberculosis screening: No symptoms or risk factors identified. Fall Risk None identified. Assessment: 10:27 General: Appears in no apparent distress. uncomfortable, Behavior is calm, cooperative, jd3 appropriate for age. Pain: Complains of pain in abdomen Quality of pain is described as aching, crampy. Neuro: Level of Consciousness is awake, alert, obeys commands, Oriented to person, place, time, situation. Cardiovascular: Denies chest pain, Capillary refill < 3 seconds Patient's skin is warm and dry. Respiratory: Airway is patent Respiratory effort is even, unlabored, Respiratory pattern is regular, symmetrical, Denies cough, shortness of breath. GI: Abdomen is flat, non-distended, Abd is soft and non tender X 4 quads. Reports lower abdominal pain, upper abdominal pain, nausea, Patient currently denies constipation, diarrhea. : Denies burning with urination, discharge, vaginal bleeding. EENT: No signs and/or symptoms were reported regarding the EENT system. Derm: Skin is intact, Skin is dry, Skin is normal, Skin temperature is warm. Musculoskeletal: Circulation, motion, and sensation intact. Range of motion: intact in all extremities. 11:18 Reassessment: Patient appears in no apparent distress at this time. No changes from jd3 previously documented assessment. Patient and/or family updated on plan of care and expected duration. Pain level reassessed. Patient is alert, oriented x 3, equal unlabored respirations, skin warm/dry/pink. 12:10 Reassessment: Patient appears in no apparent distress at this time. Patient and/or jd3 family updated on plan of care and expected duration. Pain level reassessed. Patient is alert, oriented x 3, equal unlabored respirations, skin warm/dry/pink. 13:08 Reassessment: Patient appears in no apparent distress at this time. Patient and/or jd3 family updated on plan of care and expected duration. Pain level reassessed. Patient is alert, oriented x 3, equal unlabored respirations, skin warm/dry/pink. pt reporting anxiety with blood transfusion. verbal reassurance given. pt signed blood consent. 14:15 Reassessment: Patient appears in no apparent distress at this time. Patient and/or jd3 family updated on plan of care and expected duration. Pain level reassessed. Patient is alert, oriented x 3, equal unlabored respirations, skin warm/dry/pink. blood transfusion started. 15:24 Reassessment: Patient appears in no apparent distress at this time. Patient and/or jd3 family updated on plan of care and expected duration. Pain level reassessed. Patient is alert, oriented x 3, equal unlabored respirations, skin warm/dry/pink. pt reported understanding of discharge instructions. even and steady gait upon discharge. Patient states feeling better. Vital Signs: 09:47 BP 115 / 71; Pulse 84; Resp 18; Pulse Ox 100% ; Weight 68.49 kg; Height 5 ft. 2 in. sv (157.48 cm); Pain 6/10; 11:18 BP 103 / 67; Pulse 65; Resp 17 S; Pulse Ox 100% on R/A; jd3 12:10 BP 108 / 53 Supine; Pulse 64; jd3 12:10 BP 107 / 65 Sitting; Pulse 64; jd3 12:10 BP 106 / 69 Standing; Pulse 67; Resp 16 S; Pulse Ox 99% on R/A; jd3 13:15 BP 107 / 58; Pulse 64; Resp 17 S; Pulse Ox 100% on R/A; jd3 14:36 BP 106 / 60; Pulse 72; Resp 16 S; Pulse Ox 100% on R/A; jd3 15:25 BP 113 / 67; Pulse 62; Resp 17 S; Pulse Ox 99% on R/A; jd3 09:47 Body Mass Index 27.62 (68.49 kg, 157.48 cm) sv ED Course: 09:39 Patient arrived in ED. ag3 09:42 Ascencion Castellon PA is PHCP. cp 09:42 Ascencion Ojeda MD is Attending Physician. cp 09:47 Ceferino Lazo RN is Primary Nurse. jd3 09:48 Triage completed. sv 09:49 Arm band placed on. sv 09:49 Patient has correct armband on for positive identification. Bed in low position. sv 10:15 Initial lab(s) drawn, by me, sent to lab. Inserted saline lock: 20 gauge in left kj1 antecubital area, using aseptic technique. Blood collected. 11:57 1St Trimest Single 1St Fetus In Process Unspecified. EDMS 13:56 Bb Add On Sent. sv 15:04 Cecilio Jennings MD is Referral Physician. cp 15:23 No provider procedures requiring assistance completed. IV discontinued, intact, jd3 bleeding controlled, No redness/swelling at site. Pressure dressing applied. Administered Medications: 10:20 Drug: Bentyl 20 mg Route: PO; jd3 11:20 Follow up: Response: No adverse reaction jd3 10:21 Drug: Tylenol 1000 mg Route: PO; jd3 11:20 Follow up: Response: No adverse reaction jd3 10:21 Drug: NS 0.9% 500 ml Route: IV; Rate: bolus; Site: right antecubital; jd3 11:20 Follow up: Response: No adverse reaction; IV Status: Completed infusion; IV Intake: jd3 500ml 10:21 Drug: Zofran (Ondansetron) 4 mg Route: IVP; Site: right antecubital; jd3 11:20 Follow up: Response: No adverse reaction jd3 Intake: 11:20 IV: 500ml; Total: 500ml. jd3 Outcome: 15:06 Discharge ordered by MD. cp 15:23 Discharged to home ambulatory. jd3 15:23 Condition: stable 15:23 Discharge instructions given to patient, Instructed on discharge instructions, follow up and referral plans. medication usage, Demonstrated understanding of instructions, follow-up care, medications, Prescriptions given X 2. 15:26 Patient left the ED. jd3 Signatures: Dispatcher [employer] EDKS Ayanna Painter RN RN sv Page, Corey, PA PA cp Davies, Jonathon, RN RN Leda Ward3 Mariam Mckenna 1
== END 2020-03-14 15:26 | disposition home or self-care (01) ==
LOC: ER 09:37
PROC: 30233N1 Transfusion of Nonautologous Red Blood Cells into Peripheral Vein, Percutaneous Approach (ICD-10-PCS; principal; 2020-03-14)
DX: O99.011 Anemia complicating pregnancy, first trimester (principal); D50.9 Iron deficiency anemia, unspecified; Z3A.01 Less than 8 weeks gestation of pregnancy; Z88.1 Allergy status to other antibiotic agents; Z88.2 Allergy status to sulfonamides; Z88.6 Allergy status to analgesic agent
CPT/HCPCS: 96361; 85025; 80048; 36415; 86900; 86850; 81025; 85044; 86901; 84702; 82728; 82607; 83540; 84466; 76801; 96374; 99284; 36430; P9016; J7050; J7040; J2405; 81003; 81015

== ENCOUNTER 2020-04-18 07:02 | Emergency (ER) | payer OTHER ==
[2020-04-18] MEDS ORDERED: NA CHLORIDE 0.9% 1,000 ML ONE (08:05)
[2020-04-18 08:07] LABS: Absolute Lymphocytes (CBC) 1.4 K/uL (0.7-4.9); Basophils % 0.6 % (0-1.3); Hematocrit 26.6 % (36.0-45.0); Lymphocytes % 19.1 % (15.3-44.8); MPV 10.2 fL (7.6-11.3); RBC Red Blood Cell Count 4.25 M/uL (3.86-4.86)
[2020-04-18 08:23] LABS: ALT/SGPT 20 U/L (12-78); AST/SGOT 13 U/L (15-37); Albumin 2.8 g/dL (3.4-5.0); Alkaline Phosphatase 57 U/L (45-117); BUN Blood Urea Nitrogen 6 mg/dL (7-18); Bicarbonate 26 mmol/L (21-32); Bilirubin Direct < 0.1 mg/dL (0-0.2); Bilirubin Total 0.2 mg/dL (0.2-1.0); Glucose Level 85 mg/dL (74-106); Magnesium 1.8 mg/dL (1.8-2.4); Potassium 3.6 mmol/L (3.5-5.1); Protein, Total 6.7 g/dL (6.4-8.2); Sodium Level 139 mmol/L (136-145); Troponin (Emerg Dept Use Only) < 0.02 ng/mL (0.0-0.045)
[2020-04-18 08:25] LABS: Urine Blood NEGATIVE (NEG); Urine Glucose NEGATIVE (NEG); Urine Protein NEGATIVE (NEG)
[2020-04-18 08:38] LABS: Anisocytosis 2+; Blood Morphology Comment NOTED (NOT SEEN); Platelet Estimate ADEQ; White Blood Cell Scan OK (OK)
[2020-04-18 08:39] LABS: Hypochromasia 1+; Macrocytosis 1+
--- NOTE | 2020-04-18 09:09 | EDPHYS ---
Physician Documentation [facility] Name: Mini Marin Age: 29 yrs Sex: Female : 1990 Arrival Date: 04/18/2020 Time: 07:05 Bed 5 Private MD: OLIVER Physician Ascencion Ojeda HPI: 04/18 09:02 This 29 yrs old Female presents to ER via Ambulatory with complaints of 12 tessa Weeks , Dizziness. 09:02 The patient presents with dizziness, generalized weakness. Onset: The symptoms/episode tessa began/occurred 2 day(s) ago. Context: occurred at home. Modifying factors: The symptoms are alleviated by lying down, the symptoms are aggravated by movement of head, changing position. Associated signs and symptoms: The patient has no apparent associated signs or symptoms. Severity of symptoms: At their worst the symptoms were mild in the emergency department the symptoms have improved. Patient's baseline: Neuro: alert and fully oriented. The patient has not experienced similar symptoms in the past. Historical: - Allergies: 07:16 NSAIDS; hb 07:16 Ceclor; hb 07:16 Sulfa (Sulfonamide Antibiotics); hb - Home Meds: 07:16 Vitamin Oral tab 1 tab once daily [Active]; hb - PMHx: 07:16 Anxiety; Depression; Anemia; hb - PSHx: 07:16 Cholecystectomy; Gastric Bypass; hb - Immunization history:: Adult Immunizations up to date. - Social history:: Smoking status: Patient denies any tobacco usage or history of. - Family history:: not pertinent. ROS: 09:02 Constitutional: Negative for fever, chills, and weight loss, Eyes: Negative for injury, tessa pain, redness, and discharge, ENT: Negative for injury, pain, and discharge, Neck: Negative for injury, pain, and swelling, Cardiovascular: Negative for chest pain, palpitations, and edema, Respiratory: Negative for shortness of breath, cough, wheezing, and pleuritic chest pain, Abdomen/GI: Negative for abdominal pain, nausea, vomiting, diarrhea, and constipation, Back: Negative for injury and pain, : Negative for injury, bleeding, discharge, and swelling, MS/Extremity: Negative for injury and deformity, Skin: Negative for injury, rash, and discoloration, Psych: Negative for depression, anxiety, suicide ideation, homicidal ideation, and hallucinations, Allergy/Immunology: Negative for hives, rash, and allergies, Endocrine: Negative for neck swelling, polydipsia, polyuria, polyphagia, and marked weight changes, Hematologic/Lymphatic: Negative for swollen nodes, abnormal bleeding, and unusual bruising. : Neuro: Positive for dizziness. Exam: : Constitutional: This is a well developed, well nourished patient who is awake, alert, tessa and in no acute distress. Head/Face: Normocephalic, atraumatic. Eyes: Pupils equal round and reactive to light, extra-ocular motions intact. Lids and lashes normal. Conjunctiva and sclera are non-icteric and not injected. Cornea within normal limits. Periorbital areas with no swelling, redness, or edema. ENT: Nares patent. No nasal discharge, no septal abnormalities noted. Tympanic membranes are normal and external auditory canals are clear. Oropharynx with no redness, swelling, or masses, exudates, or evidence of obstruction, uvula midline. Mucous membranes moist. Neck: Trachea midline, no thyromegaly or masses palpated, and no cervical lymphadenopathy. Supple, full range of motion without nuchal rigidity, or vertebral point tenderness. No Meningismus. Chest/axilla: Normal chest wall appearance and motion. Nontender with no deformity. No lesions are appreciated. Cardiovascular: Regular rate and rhythm with a normal S1 and S2. No gallops, murmurs, or rubs. Normal PMI, no JVD. No pulse deficits. Respiratory: Lungs have equal breath sounds bilaterally, clear to auscultation and percussion. No rales, rhonchi or wheezes noted. No increased work of breathing, no retractions or nasal flaring. Abdomen/GI: Soft, non-tender, with normal bowel sounds. No distension or tympany. No guarding or rebound. No evidence of tenderness throughout. Back: No spinal tenderness. No costovertebral tenderness. Full range of motion. Skin: Warm, dry with normal turgor. Normal color with no rashes, no lesions, and no evidence of cellulitis. MS/ Extremity: Pulses equal, no cyanosis. Neurovascular intact. Full, normal range of motion. Neuro: Awake and alert, GCS 15, oriented to person, place, time, and situation. Cranial nerves II-XII grossly intact. Motor strength 5/5 in all extremities. Sensory grossly intact. Cerebellar exam normal. Normal gait. Psych: Awake, alert, with orientation to person, place and time. Behavior, mood, and affect are within normal limits. 09:02 Neuro: Orientation: is normal, appropriate for stated age, no acute changes, Mentation: is normal, appropriate for stated age, no acute changes, Memory: is normal, appropriate for stated age, no acute changes, Cranial nerves: grossly normal, is grossly normal based on the patient's age, no acute changes, Cerebellar function: is grossly normal, is grossly normal based on the patient's age, no acute changes, Motor: is normal, is grossly normal based on the patient's age, no acute changes, moves all fours, Sensation: is normal, no obvious gross deficits, appropriate no acute changes, Gait: is steady, at a normal pace, without difficulty, appropriate for age, Deep tendon reflexes are normal, Babinski testing is normal, seizure activity, is not displayed by the patient. Vital Signs: 07:13 BP 100 / 78; Pulse 89; Resp 16; Temp 97.8; Pulse Ox 100% on R/A; Pain 0/10; hb 09:26 BP 112 / 63; Pulse 80; Resp 14; Pulse Ox 100% on R/A; Pain 0/10; ss MDM: 07:29 Patient medically screened. [facility] 09:10 Differential diagnosis: cardiac arrhythmia, generalized weakness. Data reviewed: vital [facility] signs, nurses notes, lab test result(s), EKG. Data interpreted: monitoring coordinator: rate is 89 beats/min, Pulse oximetry: on room air is 100 %. Test interpretation: by ED physician or midlevel provider: ECG. Counseling: I had a detailed discussion with the patient and/or guardian regarding: the historical points, exam findings, and any diagnostic results supporting the discharge/admit diagnosis, lab results, radiology results, the need for outpatient follow up, for definitive care, an OB/Gyne specialist. 04/18 07:31 Order name: Basic Metabolic Panel [facility] 04/18 07:31 Order name: CBC with Diff [facility] 04/18 07:31 Order name: LFT's [facility] 04/18 07:31 Order name: Magnesium; Complete Time: 09:06 [facility] 04/18 07:31 Order name: Troponin (emerg Dept Use Only); Complete Time: 09:06 [facility] 04/18 07:31 Order name: Urine Culture tessa 04/18 07:31 Order name: EKG; Complete Time: 07:31 tessa 04/18 07:31 Order name: Basic Metabolic Panel; Complete Time: 09:06 EDMS 04/18 07:31 Order name: CBC with Automated Diff; Complete Time: 09:06 EDMS 04/18 07:31 Order name: Liver (Hepatic) Function; Complete Time: 09:06 EDMS 04/18 08:10 Order name: CBC Smear Scan; Complete Time: 09:06 EDMS 04/18 08:20 Order name: Urine Dipstick--Ancillary (enter results); Complete Time: 09:06 bd 04/18 08:20 Order name: Urine --Ancillary (enter results); Complete Time: 09:06 04/18 07:31 Order name: Cardiac monitoring; Complete Time: 08:17 [facility] 04/18 07:31 Order name: EKG - Nurse/Tech; Complete Time: 09:19 [facility] 04/18 07:31 Order name: IV Saline Lock; Complete Time: 08:17 [facility] 04/18 07:31 Order name: Labs collected and sent; Complete Time: 08:17 tessa 04/18 07:31 Order name: O2 Per Protocol; Complete Time: 08:17 [facility] 04/18 07:31 Order name: O2 Sat Monitoring; Complete Time: 08:17 [facility] 04/18 07:31 Order name: FHT's; Complete Time: 09:16 tessa 04/18 07:31 Order name: Urine Dipstick-Ancillary (obtain specimen); Complete Time: 08:16 [facility] Administered Medications: 08:16 Drug: NS 0.9% 1000 ml Route: IV; Rate: 1 bolus; Site: right antecubital; ss 08:30 Follow up: IV Status: Completed infusion; IV Intake: 1000ml ss Disposition: 04/18/20 09:08 Discharged to Home. Impression: Dizziness and giddiness, related conditions, unspecified, first trimester, related conditions, unspecified, second trimester, Anemia, unspecified. - Condition is Stable. - Discharge Instructions: Anemia, Nonspecific, Dizziness, First Trimester of , [id number], First Trimester of , Pelvic Rest, Dizziness, [id number]. - Prescriptions for Vitamin 27- 0.8 mg Oral Tablet - take 1 tablet by ORAL route once daily; 30 tablet. - Medication Reconciliation Form, Thank You Letter, Antibiotic Education, Prescription Opioid Use form. - Follow up: Private Physician; When: 2 - 3 days; Reason: Recheck today's complaints, Continuance of care, Re-evaluation by your physician. - Problem is new. - Symptoms have improved. Signatures: Dispatcher [employer] EDAL Ascencion Ojeda MD MD cha Smirch, Shelby, RN RN Kamryn Lanza RN RN Corrections: (The following items were deleted from the chart) 09:27 09:08 04/18/2020 09:08 Discharged to Home. Impression: Dizziness and giddiness; ss related conditions, unspecified, first trimester; related conditions, unspecified, second trimester; Anemia, unspecified. Condition is Stable. Forms are Medication Reconciliation Form, Thank You Letter, Antibiotic Education, Prescription Opioid Use. Follow up: Private Physician; When: 2 - 3 days; Reason: Recheck today's complaints, Continuance of care, Re-evaluation by your physician. Problem is new. Symptoms have improved. tessa
--- NOTE | 2020-04-18 09:09 | ER ---
Nurse's Notes [facility] Name: Mini Marin Age: 29 yrs Sex: Female : 1990 Arrival Date: 04/18/2020 Time: 07:05 Bed 5 Private MD: Diagnosis: Dizziness and giddiness; related conditions, unspecified, first trimester; related conditions, unspecified, second trimester;Anemia, unspecified Presentation: 04/18 07:13 Chief complaint: Dizziness x 2 days. Hx of anemia + blood transfusions. 12 week hb , RAAD 11/01. Coronavirus screen: At this time, the client does not indicate any symptoms associated with coronavirus-19. Ebola Screen: No symptoms or risks identified at this time. Initial Sepsis Screen: Does the patient meet any 2 criteria? HR > 90 bpm. No. Patient's initial sepsis screen is negative. Does the patient have a suspected source of infection? No. Patient's initial sepsis screen is negative. Risk Assessment: Do you want to hurt yourself or someone else? Patient reports no desire to harm self or others. Onset of symptoms was April 17, 2020. 07:13 Method Of Arrival: Ambulatory hb 07:13 Acuity: DANIEL 3 hb Historical: - Allergies: 07:16 NSAIDS; hb 07:16 Ceclor; hb 07:16 Sulfa (Sulfonamide Antibiotics); hb - Home Meds: 07:16 Vitamin Oral tab 1 tab once daily [Active]; hb - PMHx: 07:16 Anxiety; Depression; Anemia; hb - PSHx: 07:16 Cholecystectomy; Gastric Bypass; hb - Immunization history:: Adult Immunizations up to date. - Social history:: Smoking status: Patient denies any tobacco usage or history of. - Family history:: not pertinent. Screenin:28 Abuse screen: Denies threats or abuse. Denies injuries from another. Nutritional ss screening: No deficits noted. Tuberculosis screening: Never had TB. Fall Risk None identified. Assessment: 07:28 General: Appears comfortable, Behavior is calm, cooperative, quiet, Denies fever, ss feeling ill, fatigue, chills. Pain: Denies pain. Neuro: Level of Consciousness is awake, alert, obeys commands, Oriented to person, place, time, situation, Speech is normal, Facial symmetry appears normal, Pupils are PERRLA, Reports dizziness, since last night/ this morning. Cardiovascular: Capillary refill < 3 seconds is brisk in bilateral fingers. Respiratory: Airway is patent Respiratory effort is even, unlabored, Respiratory pattern is regular, symmetrical, Denies cough, shortness of breath. GI: Abdomen is non-distended, Patient currently denies abdominal pain, diarrhea, nausea, vomiting. : Denies burning with urination, urinary frequency. EENT: Nares are clear Oral mucosa is moist. Derm: Skin is intact, is healthy with good turgor, Skin is dry, Skin is pink, warm \T\ dry. normal. Musculoskeletal: Circulation, motion, and sensation intact. Range of motion: intact in all extremities, Swelling absent. 08:00 Reassessment: Patient appears in no apparent distress at this time. No changes from ss previously documented assessment. Patient and/or family updated on plan of care and expected duration. Pain level reassessed. 09:17 Reassessment: Patient appears in no apparent distress at this time. Patient and/or ss family updated on plan of care and expected duration. Pain level reassessed. Patient is alert, oriented x 3, equal unlabored respirations, skin warm/dry/pink. unable to obtain FHTs. Dr. Ojeda notified and states that patient is okay to go home as it may be too early to here with common doppler. Pt agrees with plan of care and states that they have a hard time in office finding heart tones this early. Patient states feeling better. Vital Signs: 07:13 BP 100 / 78; Pulse 89; Resp 16; Temp 97.8; Pulse Ox 100% on R/A; Pain 0/10; hb 09:26 BP 112 / 63; Pulse 80; Resp 14; Pulse Ox 100% on R/A; Pain 0/10; ss ED Course: 07:05 Patient arrived in ED. cf2 07:15 Triage completed. hb 07:16 Arm band placed on. hb 07:20 Marisol Panda, YURIY is Primary Nurse. ss 07:28 Patient has correct armband on for positive identification. Bed in low position. Call ss light in reach. Pulse ox on. NIBP on. 07:29 Ascencion Ojeda MD is Attending Physician. tessa 07:56 Inserted saline lock: 20 gauge in right antecubital area, using aseptic technique. hb Blood collected. 08:17 Urine collected: clean catch specimen, clear. 09:00 EKG done, by ED staff, reviewed by Ascencion Ojeda MD. [facility] 09:18 No provider procedures requiring assistance completed. IV discontinued, intact, ss bleeding controlled, No redness/swelling at site. Pressure dressing applied. Administered Medications: 08:16 Drug: NS 0.9% 1000 ml Route: IV; Rate: 1 bolus; Site: right antecubital; 08:30 Follow up: IV Status: Completed infusion; IV Intake: 1000ml ss Intake: 08:30 IV: 1000ml; Total: 1000ml. Outcome: 09:08 Discharge ordered by . tessa 09:26 Discharged to home ambulatory. 09:26 Condition: good 09:26 Discharge instructions given to patient, Instructed on discharge instructions, follow up and referral plans. Demonstrated understanding of instructions, follow-up care, Prescriptions given X 1. 09:27 Patient left the ED. Signatures: Ascencion Ojeda MD MD cha Smirch, Shelby RN RN Kamryn Lanza RN RN Gina López [facility] Brandon Gaitan [facility]
[2020-04-18 09:33] VITALS: TEMP 97.8; O2SAT 100
[2020-04-18 09:35] VITALS: BP 112/63
--- OUTSIDE RECORDS SUMMARY | 2020-04-19 02:51 | XMS REPORT | Clinical Summary ---
:1990 Author Organization [facility] Address [address] [place] [address] Care Team Providers Name Role Phone Asked, Pcp Primary Care Provider Unavailable Allergies Active Allergy Reactions Severity Noted Date Comments Cefaclor 12/07/2016 Sulfa (Sulfonamide Antibiotics) 7 Medications No known medications Active Problems Not on file Surgical History Surgery Date Site/Laterality Comments CHOLECYSTECTOMY [...] Not on file Last Filed Vital Signs Not on file Plan of Treatment Health Maintenance Due Date Last Done Comments COVID-19 VACCINE (1 of 2) 2004 HEPATITIS C SCREENING 2006 CERVICAL CANCER SCREENING 2009 INFLUENZA VACCINE 10/09/2019 Results Not on fileafter 04/18/2019
--- OUTSIDE RECORDS SUMMARY | 2020-04-19 02:51 | XMS REPORT | Continuity of Care Document ---
:1990 Author Organization [facility] Care Team Providers Name Role Phone [facility] Unavailable Un available Problems Problem Status Onset [...] 1 tablet Orally Active 15 MG Orally Ocoha eCW: Twice a day 014 John Ochoa MD Robaxin 1 tablet Orally Active 500 mg Orally Ochoa eCW: TID for spasm 014 John Ochoa MD BuSpar 1 tablet orally Active 15 mg orally Ochoa eCW: BID 013 John Ochoa MD Xanax 1 tablet Orally Active 0.25 MG Orally [facility] eCW: every 8 hours 013 John [...] PO No Longer Imsais Kathrine mL, Route: [address] PO, Drug form: ERTAB, ONCE, Start date: 06/27/11 8:56:00, Stop date: 06/27/11 8:56:00 ondansetron 4 mg, 2 IVP No Longer Imsais Kathrine mL, Route: [address] IVP, Drug form: INJ, ONCE, Priority: STAT, Start date: 06/27/11 7:24:00, Stop date: 06/27/11 7:24:00 Saline Flush 5 ml, IVP No Longer Imsais Kathrine 0.9% Route: [address] IVP, Drug Form: INJ, PRN, PRN Line Flush, Start date: 06/27/11 7:24:00, Duration: 30 day, Stop date: 07/27/11 7:23:00 Sodium 1,000 mL, IV [facility] Chloride 0.9% Rate: [address] (Bolus) IV 1,000 1,000 mL ml/hr, [...] Fabrice Ochoa MD Ceclor drug Allergy Active [facility] allergy [facility] Immunizations No Data Provided for This [...] Spec Grav <=1.030 06/26 NA Kathrine /2011 [facility] URINALYSIS UA pH 6.0 5.0 - 8.0 06/26 Normal [facility] URINALYSIS UA Ketones 15 mg/dL Negative 06/26 ABN Kathrine *ABN* /2011 [facility] (06/27/2011 08:24:00) URINALYSIS UA Color Yellow Yellow 06/26 NA Kathrine *NA* /2011 [facility] (06/27/2011 08:24:00) URINALYSIS UA Turbidity Clear Clear 06/26 Normal Kathrine (06/27/2011 08:24:00) [facility] URINALYSIS UA Nitrite Negative Negative 06/26 Normal Kathrine (06/27/2011 08:24:00) [facility] URINALYSIS UA Bili Negative Negative 06/26 NA Kathrine *NA* [facility] (06/27/2011 08:24:00) URINALYSIS UA 0.2 0.1 - 1.0 06/26 Normal Kathrine Urobilinogen /2011 Hospital URINALYSIS UA Leuk Est Negative Negative 06/26 Normal Kathrine (06/27/2011 08:24:00) /2011 [facility] URINALYSIS UA Blood Small Negative 06/26 ABN Kahtrine *ABN* /2011 Hospital (06/27/2011 08:24:00) Microbiolog Culture: [...] values reflect the clinical guidelines of the [place] [employer]. CHEMISTRY BUN 9 7 - [...] - 4.0 06/26 Normal MH Kathrine /2011 [facility] HEMATOLOGY Segs 60.7 45.0 - 06/26 Normal MH Kathrine 75.0 /2011 [facility] HEMATOLOGY Lymphocytes 32.2 20.0 - 06/26 Normal MH Kathrine 40.0 /2011 Hospital HEMATOLOGY Basophils 0.1 0.0 - 1.0 06/26 Normal MH Kathrine /2011 [facility] HEMATOLOGY Segs-Bands # 3.2 1.5 - [...] Provider Date Date Visit NAHED Kathrine Emergency [id number] STOMACH PEDRO 06/26 06/26 Activ e NAHED Kathrine PAINS IMSAIS /2011 [facility] Unknown [id number] 11/27 11/27 eCW: MD Don -[id number] /2012 [facility] [id number] MD John Ochoa Unknown [id number] 11/27 11/27 eCW: MD Don -[id number] /2012 [facility] [id number] MD John Ochoa CHK/UP [id number] 10/21 10/21 eCW: MD Don -[id number] /2013 [facility] [id number] MD Don Procedures No Data Provided for [...]
--- OUTSIDE RECORDS SUMMARY | 2020-04-19 02:52 | XMS REPORT | Summary of Care ---
:1990 Author Organization [facility] Address [address] [place] [id number] Care Team Providers Name Role Phone Pcp, Patient Does Not Have A Primary Care Provider +[id number] 0-0000 Reason for Visit Reason Comments Results lab results Encounter Details Date Type Department Care Team Description 04/12/2020 Telephone [facility] ([facility] results[facility]- [address] [place] [address] [place], [place] [phone] Allergies Active Allergy Reactions Severity Noted Date Comments Cefaclor Unknown - See comments 12/07/2016 Nsaids (Non-Steroidal Nausea and/or Vomiting 1 Anti-Inflammatory Drug) Sulfa (Sulfonamide Antibiotics) Unknown - See comments 01/01/2017 documented as of this encounter (statuses as of 04/13/2020) Medications Medication Sig Dispensed Refills Start Date End Date Status acetaminophen-codeine Take 1 tablet by 0 01/05/2020 Active 300-30 mg tablet mouth every 6 (six) hours as needed. amoxicillin 500 mg Take 500 mg by 0 01/05/2020 Active capsule mouth 3 (three) times daily. chlorhexidine 0.12 % SWISH AND SPIT 0 01/05/2020 Active mouthwash WITH FIFTEEN (15) MLS EVERY 12 HOURS FOR 14 DAYS. ferrous sulfate 325 mg TAKE ONE (1) 0 03/17/2020 Active (65 mg iron) tablet TABLET(S) BY MOUTH EVERY TWELVE HOURS. Take by mouth. 0 Acti ve vits62/FA/om3/dha/epa ( GUMMY ORAL) doxylamine Take by mouth. 0 Act andrew succinate/vit B6 (DICLEGIS ORAL) cholecalciferol, Take 1 tablet by 30 tablet 5 04/10/2020 Active vitamin D3, (VITAMIN mouth daily. D3) 25 mcg (1,000 unit) tabletIndications: Vitamin D deficiency ferrous sulfate (IRON, Take 1 tablet by 60 tablet 5 04/10/2020 Active FERROUS SULFATE,) 325 mouth 2 (two) mg (65 mg iron) times daily. tabletIndications: Anemia of mother in , antepartum ascorbic acid, vitamin Take 1 tablet by 60 tablet 5 04/10/2020 Active C, 500 mg mouth 2 (two) tabletIndications: times daily. Anemia of mother in , antepartum docusate (COLACE) 100 Take 1 capsule 60 capsule 5 04/10/2020 Active mg capsuleIndications: by mouth 2 (two) Anemia of mother in times daily. , antepartum documented as of this encounter (statuses as of 04/13/2020) Active Problems Problem Noted Date Anemia of mother in , antepartum 03/30/2020 History of gastric bypass 03/30/2020 Encounter for supervision of high risk in rst trimester, 03/30/2020 antepartum Missed menses 03/30/2020 Nausea and vomiting, intractability of vomiting not sp ecified, unspecified 03/30/2020 vomiting type Estimated Date of Delivery Comments Yes 10/31/2020 documented as of this encounter (statuses as of 04/13/2020) Social History Tobacco Use Types Packs/Day Years Used Date Former Smoker Cigarettes Quit: 2012 Smokeless Tobacco: Never Used Alcohol Use Drinks/Week oz/Week Comments Never Alcohol Habits Answer Date Recorded How often do you have a drink containing alcohol? Never 03/30/2020 How many drinks containing alcohol do you have on a typical Not asked 03/30/2020 day when you are drinking? How often do you have six or more drinks on one occasion? 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 documented as of this encounter Last Filed Vital Signs Not on filedocumented in this encounter Miscellaneous Notes Telephone Encounter - Ruby Connors MA - 04/13/2020 11:42 AM CSTReturned patient call, informed her of pap smear results. Patient verbalized understanding. Ruby Connors MA 04/13/2020 11:42 AM elephone Encounter - Kenya Cox - 04/12/2020 5:01 PM CSTPt returning nurse call for her lab results documented in this encounter Plan of Treatment Date Type Specialty Care Team Description 04/27/2020 Routine Obstetrics & Gynecology Ron Giordano MD Visit [address] [place] [phone] Health Maintenance Due Date Last Done Comments DTaP,Tdap,and Td Vaccines (1 - 09/17/2007 Tdap) INFLUENZA VACCINE (#1) 2019 Depression Screening 03/30/2021 03/30/2020 PAP SMEAR 03/30/2023 03/30/2020 PNEUMOCOCCAL 0-64 YEARS COMBINED Aged Out No longer eligible based on SERIES patient's age to complete this topic documented as of this encounter Results Not on filedocumented in this encounter Insurance Payer Benefit Plan / Subscriber ID Effective Dates Phone [facility]re [facility] STAR [id number] 2020-Present Medicaid COMM PLAN - MANAGED MEDICAID documented as of this encounter
--- OUTSIDE RECORDS SUMMARY | 2020-04-19 02:52 | XMS REPORT | Continuity of Care Document ---
:1990 Author Organization [facility] t Address [address] [place] [address] Care Team Providers Name Role Phone Asked, Pcp Primary Care Physician Unavailable Pasquale DE LUNA Attending Clinician 2, Lab Attending Clinician Unavailable Doctor Unassigned, Name Attending Clinician Unavailable Problems Condition Condition Condition Status Onset Resolution Last Treating Co mments Source Name Details Category Date Date Treatment Clinician Date STOMACH Diagnosis Active 2012-06-18 Me moria PAINS 4-19 10:30:00 l STOMACH 07:00: Tarun PAINS 00 Active 06/27/2011 [facility] Panic Problem Active 2013-11-16 Memor ia attacks 02:28:14 l Panic Novelty attacks Active Problem 11/16/2013 eCW: John Ochoa MD Palpitatio Problem Active 2013-11-16 M emoria ns 02:28:14 l Novelty Palpitatio ns Active Problem 4 eCW: John [...] Mem oria (gastroeso 04:12:17 l phageal GERD Novelty reflux (gastroeso disease) phageal reflux disease) Active Diagnosis 12/03/2012 eCW: John Ochoa MD Allergies, Adverse Reactions, Alerts Allergy Allergy Status Severity Reaction(s) Onset Inactive Treating Comm ents Source Name Type Date Date Clinician Sulfa Propensi Active 2016-03 [place] (Sulfona ty to 0-25 Methodi mide adverse 00:00: st Antibiot reaction 00 ics) s to drug Cefaclor Propensi Active [place] ty to 9-30 Methodi adverse 00:00: st reaction 00 s to drug Cephalex Cephalex Active Info Not Andrea hao in in Available 10-21 l 00:00: Tarun 00 Ceclor Ceclor Active Santhosh l Tarun Family History Family Member Diagnosis Comments Start Date Stop Date Source Natural father Diabetes [facility] Natural father Hypertension [place] Buddhist Natural mother No Known Problems Lavellevalentine al[place]uer Buddhist Unknown Family Family History 2013-11-16 2013-11-16 Doretha rodríguez Novelty Member 02:28:14 02:28:14 Social History Social Habit Start Date Stop Date Quantity Comments Source Sex Assigned At [facility] ethodist Tobacco use and 2019-03-27 2019-03-27 Never used [facility] ethodist exposure 00:00:00 00:00:00 Alcohol intake 2019-03-27 2019-03-27 Current [facility] 00:00:00 00:00:00 non-drinker of alcohol (finding) TobaccoUse: 2013-10-21 2013-10-21 [facility] 00:00:00 00:00:00 Smoking Status Start Date Stop Date Source Never smoker [place] Methodis t Medications Ordered Filled Start Stop Current Ordering Indication Dosage Frequency Signature Comments Components Source Medication Medication Date Date Medication? Clinician (SIG) Name Name NuvaRing Yes John Beth ring Memor ia 11-16 Ochoa l 02:28: Novelty 14 Xanax Yes Pachie 1 tablet Memori a 8-14 Ochoa l 00:00: BusPIRone Yes Pachie 1 tablet Me moria HCl 8-14 Ochoa l 00:00: Robaxin Yes Pachie 1 tablet Andrea hao 8-14 Ochoa l 00:00: Vitamin D Yes Pachie 1 tablet Me moria 9-26 Ochoa l 04:12: Vitamin Yes Pachie 1 tablet Andrea hao B-12 9-26 Ochoa l 04:12: 17 BuSpar Yes Pachie 1 tablet Memor ia [...] mL, Route: l 13:56: Imsais PO, Drug Novelty 00 form: ERTAB, ONCE, Start date: 06/27/11 [...] No Mahad 1,000 mL, Mem oria Chloride -19 Sapp Rate: l 0.9% 12:24: Imsais 1,000 Tarun (Bolus) IV 00 ml/hr, 1,000 mL Infuse over: 1 hr, Route: IV, Dosing Weight 87.7 kg, Total Volume: 1,000, Bolus Dose, Priority: STAT, Start date: 06/27/11 7:24:00, Duration: 1 doses or times, Stop date: 06/27/11 8:23:00 Vital Signs Vital Name Observation Time Observation Value Comments Source Weight 2013-10-21 18:30:00 [facility] Tarun Height 2013-10-21 18:30:00 [facility] Tar[facility] Heart Rate 2013-10-21 18:30:00 [facility] Novelty Diastolic (mm Hg) 2013-10-21 18:30:00 Mem orial Novelty Systolic (mm Hg) 2013-10-21 18:30:00 Andrea rial Novelty Heart Rate 2012-11-27 14:15:00 [facility] Tarun Diastolic (mm Hg) 2012-11-27 14:15:00 Mem orial Tarun Systolic (mm Hg) 2012-11-27 14:15:00 Andrea rial Tarun Weight 2012-11-27 14:15:00 [facility] [place] Height 2012-11-27 14:15:00 [facility] Tar[place] Weight 2011-06-27 12:09:00 [facility] Novelty Height 2011-06-27 12:09:00 157.48 cm [facility] Novelty Procedures This patient has no known procedures. Plan of Care Planned Activity Planned Date Details Comments Source Future Scheduled 2019-10-09 INFLUENZA VACCINE [facility] n [facility] Test 00:00:00 [code = INFLUENZA VACCINE] Future Scheduled 2009 Screening for Doe Me thodist Test 00:00:00 malignant neoplasm of cervix (procedure) [code = 774732022] Future Scheduled 2006 Hepatitis C Doe Met hodist Test 00:00:00 screening (procedure) [code = 349169470] Future Scheduled 2004 COVID-19 VACCINE (1 [place] [facility] Test 00:00:00 of 2) [code = COVID-19 VACCINE (1 of 2)] Encounters Start End Encounter Admission Attending Care Care Encounter Source Date/Time Date/Time Type Type Clinicians Facility Department ID 2020-04-12 2020-04-12 Telephone Fabiola Giordano [facility] [id number] 00:00:00 00:00:00 Eda [id number] [place] [id number] Professio [phone] nal 134 [facility] 2020-04-07 2020-04-07 Roll Or Tape 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 Operator 2, Adc Lab [facility] [id number] 13:07:55 13:22:55 Visit Eda [id number] [place] [id number] Professio [phone] nal 353 [facility] 2020-03-30 2020-03-30 Orders Doctor ELVIN [id number] 00:00:00 00:00:00 Only Unassigned, CRISTINA [id number] [place] [facility] [phone] [id number] 2018-11-29 2018-11-29 Emergency E [facility] [id number] Memoria 16:42:00 16:42:00 thais plascencia 2013-10-21 2013-10-21 Outpatient John Gray [id number] Memoria 13:30:00 13:30:00 MD Don Ochoa MD l [facility] Novelty 2012-11-27 2012-11-27 Outpatient John Gray [id number] Memoria 09:15:00 09:15:00 MD Don Ochoa MD l [facility] Novelty Results Test Description Test Time Test Comments Results Result Sourc e Comments CHEMISTRY 2011-06-27 Negative Memorial 13:24:00 (06/27/2011 Tarun 08:24:00) URINALYSIS 2011-06-27 0-2 /HPF Memorial 13:24:00 (06/27/2011 Novelty 08:24:00) URINALYSIS 2011-06-27 Occasional /LPF Memorial 13:24:00 (06/27/2011 Tarun 08:24:00) URINALYSIS 2011-06-27 0-2 /HPF Memorial 13:24:00 (06/27/2011 Tarun 08:24:00) URINALYSIS 2011-06-27 None Seen Memorial 13:24:00 (06/27/2011 Novelty 08:24:00) URINALYSIS 2011-06-27 Performed Memorial 13:24:00 (06/27/2011 Tarun 08:24:00) URINALYSIS 2011-06-27 Negative Memorial 13:24:00 (06/27/2011 Novelty 08:24:00) URINALYSIS 2011-06-27 Negative Memorial 13:24:00 (06/27/2011 Tarun 08:24:00) URINALYSIS 2011-06-27 13:24:00 Test Item Value Reference Range Interpretation Comme nts UA pH (test code = UA pH) 6.0 1 5.0-8.0 N [facility] WhcfpheNSIVQGJPXO4527-01-22 13:24:0015 mg/dL *ABN*(06/27/2011 08:24:00) [facility]pc[facility]OTL[facility]DKWKF6605-00-23 13:24:00Yellow *NA*(06/27/2011 08:24:00) [facility]AzbqejvYOJSAJGJKA1376-68-19 13:24:00Clear (06/27/2011 08:24:00)[facility] HospitalRpbokoqHGNIWVMJJM6259-32-70 13:24:00Negative (06/27/2011 08:24:00)[facility] WwdpdpiBLNGIHNJBQ6020-67-95 13:24:00Negative *NA*(06/27/2011 08:24:00)[facility] HospitalSvaqxubPAOOGQBIIM5904-68-99 13:24:000.2[facility] PazmbrgZWFRJDKRYV9068-33-67 13:24:00Negative (06/27/2011 08:24:00)[facility] HospitalLxmtobqDCOFVVBHYQ3494-70-65 13:24:00Small *ABN*(06/27/2011 08:24:00)[facility] HbeqccgEAXGQXHBJP0990-17-45 12:30:0013.7[facility]orial WosvmotPRCQKDMTBK2044-96-55 12:30:0040.0[facility] Novelty BUMHXYEEPM1842-04-04 12:30:0083.4[facility]orial NqqqoaiZMDMAKXFTV9463-81-76 12:30:00 4.80[facility]orial UjbebzdNFGSXJVXXI4648-21-80 12:30:005.3[facility]ann[facility]OLOGY 2011-06-27 12:30:000.1[facility]orial GmmndjtDDGACZJVJK5127-13-31 12:30:001.7[facility]orial KlnptihJLQBNRMYNS5014-85-89 12:30:000.3[facility] AlbosacRILSTGNTNA8118-59-27 12:30:000.0[facility] AdqzescDWQSVOQVRV0710-72-07 12:30:005.8[facility] Tarun HACUPHZQAH8434-35-24 12:30:001.2[facility] GsqzkifADCDVHPSWA2573-26-75 12:30:00 60.7Memorial XbleoicENOLODQHNJ8648-19-73 12:30:0032.2[facility] HermannHEMATOLOGY 2011-06-27 12:30:000.1[facility] QrlbkhhMCIPWEFMOH5251-22-00 12:30:003.2[facility] MbbgtevEXRMAZZNV0937-73-88 12:30:77005Lxfjddmn ElnzkqkFOXVEFBPB3488-80-86 12:30:0033[facility] YiwwgrsLRMTCUMEN0076-45-94 12:30:003.5[facility] Tarun KENEYUNPQ4621-16-00 12:30:0011[facility] SgwkmabSCPTCDPPP5427-96-58 12:30:0011.3 Memorial VjizoxgBUPMBDTQD4922-23-71 12:30:001.1[facility] HermannCHEMISTRY 2011-06-27 12:30:0059[facility] CannlicXDKZHHCIF9832-47-47 12:30:009.6[facility] AvtgiulMCLBBSNWG2984-15-16 12:30:52249Ptppsixm ViyodscWXMHCBYDG7353-80-60 12:30:0026[facility] UrynqomUXJVZQGOC0901-33-16 12:30:0031[facility] Novelty IULVFVJEL3114-21-95 12:30:007.2[facility] NaalrbcEFQBVYPCH0109-36-82 12:30:003.7 Memorial KsbmaeiYNAGGWRFD4950-56-73 12:30:0080[facility] HermannCHEMISTRY 2011-06-27 12:30:009[facility] UtzdqrcJVNVCTTJW2857-23-83 12:30:000.8[facility] CitbgzpMXCANONUO2703-17-98 12:30:003.3[facility]orial AzfsqfbBXSLWFWYF2566-37-48 12:30:30629Ekfpmqwm MbmkcsfKIREPDHAZ1562-24-34 12:30:0012[facility] Tarun TFHUQPSOQ1042-86-23 12:30:000.5[facility] SlyfksvGKYSOGDHBR4266-69-34 12:30:001.02 [facility] IozsdsdNIYJZLBWQY4637-32-38 12:30:00 Test Item Value Reference Range Interpretation Comments PTT (test code = PTT) 31.2 s 22.9-35.8 N [facility] WkvarhfHLJDKEBMAO0358-07-15 12:30:00 Test Item Value Reference Range Interpretation Comments PT (test code = PT) 13.4 s 12.0-14.7 N [facility] NqcxbdkEYESICFOYP3844-76-52 12:30:0013.3[facility]annHEMATOLOGY 2011-06-27 12:30:0034.3Memorial IqhxbgkWSMNQYTZHK7286-93-95 12:30:00 Test Item Value Reference Range Interpretation Comments MCH (test code = MCH) 28.6 pg 27.0-31.0 N [facility] TbptmppUQRDRLEVOE3056-30-23 12:30:01959Whkpqyfn HermannHEMATOLOGY 2011-06-27 12:30:0010.2[facility] Novelty
--- OUTSIDE RECORDS SUMMARY | 2020-04-19 02:52 | XMS REPORT | Summary of Care ---
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 [facility] Fabiola Giordano MD [address] [place] [phone] Bariatric surgery status (Primary Dx); Professional Office 2, Adc Lab Encounter for supervision of high risk p regnancy in first trimester, antepartum; Building Phlebotomy History of gastric bypass Lab Professional Office Building [address] [place] [address] , [address] [place] [address] Allergies Active Allergy Reactions Severity Noted Date Comments Cefaclor Unknown - See comments 12/07/2016 Nsaids (Non-Steroidal Nausea and/or Vomiting 1 Anti-Inflammatory Drug) Sulfa (Sulfonamide Antibiotics) Unknown - See comments 01/01/2017 documented as of this encounter (statuses as of 04/07/2020) Medications Medication Sig Dispensed Refills Start Date [...] 0 Act andrew succinate/vit B6 (DICLEGIS ORAL) documented as of this encounter (statuses as of 04/07/2020) Active Problems Problem Noted Date Anemia of mother in , antepartum 03/30/2020 History of gastric bypass 03/30/2020 Encounter for supervision of high risk in rst trimester, 03/30/2020 antepartum Missed menses 03/30/2020 Nausea and vomiting, intractability of vomiting not sp ecified, unspecified 03/30/2020 vomiting type Estimated Date of Delivery Comments Yes 10/31/2020 documented as of this encounter (statuses as of 04/07/2020) Social History Tobacco Use Types Packs/Day Years [...] with No / Unsure 04/07/2020 1:07 PM SPLITTER HAND someone who was confirmed or suspected to have Coronavirus / COVID-19? documented as of this encounter Last Filed Vital Signs Not on filedocumented in this encounter Nursing Notes Ayanna Orourke L - 04/07/2020 1:15 PM CST Venipuncture collection performed by clean technique on the right anticubitus. Total of 1 attempts were made. Slight pressure and a bandage/dressing were applied to the site(s). The patient experiencedno complications. The following specimens were processed according to instructions and sent to [facility] laboratories per lab order on 04/07/20: LT BLUE SST 8 RED 1 LAV 2 PPT DK GREEN (LiHep) DK GREEN (SodH) PERKINS DK BLUE (K2) DK BLUE (S) ACD Blood Culture NIPT/NTD Patient has been identified by name and was provided with cup, antiseptic towelette, and clean catchinstructions. 2 urine specimen(s) sent. Unpreserved 1 Urine Culture 1 Aptima tube Other urine documented in this encounter Plan of Treatment Date Type Specialty Care Team Description 04/27/2020 Routine Obstetrics & Gynecology Ron Giordano MD Visit [address] [phone] Name Type Priority Associated Diagnoses Order S chedule VITAMIN B12, LEVEL LAB Routine Encounter for supervis ion of Expected: 04/07/2020, high risk in first Expires: 04/07/2021 trimester, antep artum Bariatric surgery status Health Maintenance Due Date Last Done Comments VARICELLA VACCINES (1 of 2 - 1989 2-dose childhood series) SARS-CoV-2 (COVID-19) Vaccine (1 2004 of 2) DTaP,Tdap,and Td Vaccines (1 - 09/17/2007 Tdap) PAP SMEAR 2009 INFLUENZA VACCINE (#1) 2019 Depression Screening 03/30/2021 03/30/2020 PNEUMOCOCCAL 0-64 YEARS COMBINED Aged Out No longer eligible based on SERIES patient's age to complete this topic documented as of this encounter Results Not on filedocumented in this encounter Visit Diagnoses Diagnosis Bariatric surgery status - Primary Encounter for supervision of high risk p regnancy in first trimester, antepartum History of gastric bypass Bariatric surgery status documented in this encounter Insurance Payer Benefit Plan / Subscriber ID Effective Dates Phone Addre ss Type Group [facility] STAR [id number] 2020-Present Medicaid COMM PLAN - MANAGED MEDICAID documented as of this encounter
--- OUTSIDE RECORDS SUMMARY | 2020-04-19 02:52 | XMS REPORT | Summary of Care ---
:1990 Author Organization [facility] Address [address] [place] [address] Care Team Providers Name Role Phone Pcp, Patient Does Not Have A Primary Care Provider +1-000-00 0-0000 Encounter Details Date Type Department Care Team Description 03/30/2020 Orders Only [facility] Doctor Unassigned, No 301 [facility] Name [place] [id number] [place] [address] Allergies Not on Filedocumented as of this encounter (statuses as of 03/30/2020) Medications Not on filedocumented as of this encounter (statuses as of 03/30/2020) Active Problems Not on filedocumented as of this encounter (statuses as of 03/30/2020) Social History Tobacco Use Types Packs/Day Years Used Date Never Assessed Sex Assigned at Date Recorded Not on file documented as of this encounter Last Filed Vital Signs Not on filedocumented in this encounter Plan of Treatment Date Type Specialty Care Team Description 03/30/2020 Initial Obstetrics & Gynecology Ron Giordano MD Visit [address] [place] [phone] Health Maintenance Due Date Last Done Comments VARICELLA VACCINES (1 of 2 - 1989 2-dose childhood series) Depression Screening 2000 DTaP,Tdap,and Td Vaccines (1 - 09/17/2007 Tdap) PAP SMEAR 2009 INFLUENZA VACCINE (#1) 2019 PNEUMOCOCCAL 0-64 YEARS COMBINED Aged Out No longer eligible based on SERIES patient's age to complete this topic documented as of this encounter Procedures Procedure Name Priority Date/Time Associated Diagnosis Comme nts CONSENT/REFUSAL FOR Routine 03/30/2020 10:24 AM DIAGNOSIS AND TREATMENT INSURANCE ASSOCIATE ASSIGNMENT OF BENEFITS Routine 03/30/2020 10:24 AM INSURANCE ASSOCIATE documented in this encounter Results Not on filedocumented in this encounter Insurance Payer Benefit Plan / Subscriber ID Effective Dates Phone Addre ss Type Group [facility] [id number] 2020-Present Medicaid COMM PLAN - MANAGED MEDICAID documented as of this encounter
--- NOTE | 2020-04-19 11:57 | EKG ---
Test Date: 2020-04-18 Test Time: 08:59:57 Ebd Special Education Teacher: WARREN MEASUREMENT RESULTS: Intervals: Rate: 79 NE: 160 QRSD: 72 QT: 392 QTc: 449 Epps: P: 63 NE: 160 QRS: 61 T: 63 INTERPRETIVE STATEMENTS: Normal sinus rhythm Normal ECG No previous ECG available for comparison Electronically Signed On 04-19-20 11:54:06 HOG PUSHER by Ap Da Silva
== END 2020-04-18 09:27 | disposition home or self-care (01) ==
LOC: ER 07:02
DX: O99.011 Anemia complicating pregnancy, first trimester (principal); Z3A.12 12 weeks gestation of pregnancy; Z88.1 Allergy status to other antibiotic agents; Z88.2 Allergy status to sulfonamides; Z88.6 Allergy status to analgesic agent; Z98.84 Bariatric surgery status
CPT/HCPCS: 87088; 85025; 87086; 80048; 36415; 83735; 81025; 80076; 81003; 84484; J7030; 93005; 99284

== ENCOUNTER 2020-12-17 09:07 | Emergency (ER) | payer OTHER ==
[2020-12-17 09:50] LABS: Absolute Lymphocytes (CBC) 1.2 K/uL (0.7-4.9); Basophils % 0.7 % (0-1.3); Lymphocytes % 24.9 % (15.3-44.8); MPV 9.2 fL (7.6-11.3); RBC Red Blood Cell Count 4.55 M/uL (3.86-4.86)
[2020-12-17 09:59] LABS: Protime INR 0.98
[2020-12-17 10:05] LABS: BUN Blood Urea Nitrogen 7 mg/dL (7-18); Bicarbonate 28 mmol/L (21-32); Glucose Level 92 mg/dL (74-106); Potassium 3.5 mmol/L (3.5-5.1); Sodium Level 142 mmol/L (136-145)
[2020-12-17] MEDS ORDERED: MORPHINE 4 MG/ML SYR ONE (10:40)
[2020-12-17] MEDS ORDERED: ONDANSETRON 4 MG/2 ML VIAL ONE (10:40)
--- NOTE | 2020-12-17 10:53 | RAD REPORT ---
EXAM DESCRIPTION: CT - Abdomen Pelvis W Contrast - 12/17/2020 10:30 am CLINICAL HISTORY: lower abd pain, recent tubal surgery, vaginal blee;Abd pain COMPARISON: CT abdomen Pelvis W Contrast dated 10/09/2019; Abdomen Pelvis W Contrast dated 06/10/2019 TECHNIQUE: Biphasic, helical CT imaging of the abdomen and pelvis was performed following 100 ml non -ionic IV contrast. No oral contrast administered. All CT scans are performed using dose optimization technique as appropriate and may include automated exposure control or mA/KV adjustment according to patient size. FINDINGS: No suspicious findings in the lung bases. The liver, spleen, and pancreas show no suspicious findings. Cholecystectomy clips are present. No ab normal biliary tree dilatation. Symmetric renal function is seen with no hydronephrosis or suspicious renal mass. No pyelonephritis o r acute parenchymal process. No adrenal abnormalities. No gastric dilatation or wall thickening. Gastric surgical changes are noted. Moderate stool volume i s present in the colon. No appendicitis findings. An acute primary GI process is not seen. Colonic st ool volume is moderate. Air is present in the subcutaneous fatty tissues in the left mid abdomen. Small amount of air is pre sent within the abdominal wall. This all presumed to be related to laparoscopic access site. Small am ount of free intraperitoneal air is present all well within normal postsurgical limits. Punctate free air collection in the bladder is probably from procedure related bladder catheterization. No pneumatosis. No abscess or surgically emergent finding. No uterine abnormality is identifiable. Ce rvical detail is limited on CT imaging. No primary ovarian significant finding. There is a [address] right ovarian cyst or follicle. No fallopian tube dilatation or hydrosalpinx. No hernia, mass or bulky lymphadenopathy. No suspicious bony findings. IMPRESSION: No uterine, ovarian or adnexal suspicious finding. There is a 17 millimeter right ovaria n cyst or follicle present. Cervix detail is limited on CT imaging. No abscess or surgically emergent finding identified. Left abdominal wall air, left mid abdomen subcutaneous air and intraperitoneal air collections are pr esent all within normal limits for recent surgical procedure.
--- NOTE | 2020-12-17 11:15 | ER ---
Nurse's Notes [facility] Name: Mini Marin Age: 30 yrs Sex: Female : 1990 Arrival Date: 12/17/2020 Time: 09:10 Bed 15 Private MD: Diagnosis: Lower abdominal pain, unspecified;Abnormal uterine and vaginal bleeding, unspecified Presentation: 12/17 09:25 Coronavirus screen: Client denies travel out of the [place] in the last 14 days. Ebola ll1 Screen: Patient denies travel to an Ebola-affected area in the 21 days before illness onset. Risk Assessment: Do you want to hurt yourself or someone else? Patient reports no desire to harm self or others. Onset of symptoms was December 16, 2020. 09:25 Method Of Arrival: Ambulatory ll1 09:25 Acuity: DANIEL 3 ll1 09:25 Initial Sepsis Screen: Does the patient meet any 2 criteria? No. Patient's initial ll1 sepsis screen is negative. Does the patient have a suspected source of infection? Yes: Acute abdominal pain. 10:21 Chief complaint: Patient states: Heavy vaginal bleeding and abd pain for 2 days. Had ll1 "tubal removal" 2 days ago. Had a baby 2 months ago. No fever. Triage Assessment: 09:25 General: Appears uncomfortable, Behavior is calm, cooperative, appropriate for age. ll1 Pain: Complains of pain in abdomen Pain currently is 8 out of 10 on a pain scale. Quality of pain is described as aching, crampy. GI: Abdomen is round Bowel sounds present X 4 quads. Abd is soft and non tender X 4 quads. Reports lower abdominal pain, cramping, nausea. : Reports vaginal bleeding that is heavy flow. 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 - Social history:: Smoking status: Patient denies any tobacco usage or history of. - Family history:: not pertinent. - Hospitalizations: : No recent hospitalization is reported. Screenin:25 Abuse screen: Denies threats or abuse. Nutritional screening: No deficits noted. ll1 Tuberculosis screening: No symptoms or risk factors identified. 10:25 Fall Risk IV access (20 points). Total Hernandez Fall Scale indicates No Risk (0-24 pts). ll1 Assessment: 10:24 Reassessment: No changes from previously documented assessment. Patient and/or family ll1 updated on plan of care and expected duration. Pain level reassessed. to CT via wheelchair.. 11:25 Reassessment: No changes from previously documented assessment. Patient and/or family ll1 updated on plan of care and expected duration. Pain level reassessed. Patient is alert, oriented x 3, equal unlabored respirations, skin warm/dry/pink. 12:09 Reassessment: No changes from previously documented assessment. Patient and/or family ll1 updated on plan of care and expected duration. Pain level reassessed. Patient is alert, oriented x 3, equal unlabored respirations, skin warm/dry/pink. Patient states feeling better. Vital Signs: 09:25 BP 128 / 93; Pulse 82; Resp 17; Temp 98.4; Pulse Ox 100% ; Weight 73.94 kg; Height 5 ll1 ft. 2 in. (157.48 cm); Pain 8/10; 10:23 BP 113 / 81; Pulse 87; Resp 16; Pulse Ox 100% ; ll1 12:09 BP 124 / 87; Pulse 70; Resp 16; Pulse Ox 100% ; Pain 5/10; ll1 09:25 Body Mass Index 29.81 (73.94 kg, 157.48 cm) 1 ED Course: 09:10 Patient arrived in ED. mr 09:18 Chucky Suarez MD is Attending Physician. rn 09:23 Allen Godoy, YURIY is Primary Nurse. ll1 09:23 Arm band placed on Patient placed in an exam room, on a stretcher. ll1 09:25 Triage completed. ll1 09:25 Patient has correct armband on for positive identification. Bed in low position. Call ll1 light in reach. Side rails up X 1. Pulse ox on. NIBP on. 09:25 Inserted saline lock: 20 gauge in right antecubital area, using aseptic technique. ll1 Blood collected. 10:25 No provider procedures requiring assistance completed. ll1 10:30 CT Abd/Pelvis - IV Contrast Only In Process Unspecified. EDMS 12:10 IV discontinued, intact, bleeding controlled, No redness/swelling at site. Pressure ll1 dressing applied. Administered Medications: 10:20 Drug: morphine 4 mg {Note: rass 0.} Route: IVP; Site: right antecubital; ll1 12:10 Follow up: Response: No adverse reaction ll1 10:20 Drug: Zofran (Ondansetron) 4 mg Route: IVP; Site: right antecubital; ll1 12:10 Follow up: Response: No adverse reaction; RASS: Alert and Calm (0) ll1 Outcome: 11:15 Discharge ordered by . rn 12:10 Discharged to home ambulatory. ll1 12:10 Condition: stable 12:10 Discharge instructions given to patient, Instructed on discharge instructions, follow up and referral plans. Demonstrated understanding of instructions, follow-up care. 12:11 Patient left the ED. 1 Signatures: Dispatcher [employer] Kenia Parada Roman, MD MD rn Lewis, Lynsay, RN RN ll1
--- NOTE | 2020-12-17 11:15 | EDPHYS ---
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 09:27 The patient presents with abdominal pain in the lower abdomen. Onset: The rn symptoms/episode began/occurred yesterday. The symptoms do not radiate. Associated signs and symptoms: Pertinent positives: vaginal bleeding, Pertinent negatives: blood in stools, fever, shortness of breath. The symptoms are described as crampy, sharp. Modifying factors: The symptoms are alleviated by nothing, the symptoms are aggravated by movement, touching the area. Severity of pain: At its worst the pain was moderate in the emergency department the pain is unchanged. The patient has not experienced similar symptoms in the past. The patient has been recently seen by a physician:. Patient reports status post tubal surgery, states removal, laparoscopic, 2 days ago. Reports vaginal bleeding that began yesterday and not letting up. Reports about the amount of a heavy menstrual period. Denies any lightheadedness or shortness of breath. Reports lower abdominal pain.. 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 - Social history:: Smoking status: Patient denies any tobacco usage or history of. - Family history:: not pertinent. - Hospitalizations: : No recent hospitalization is reported. ROS: 09:27 Constitutional: Negative for fever, chills, and weight loss, Eyes: Negative for injury, rn pain, redness, and discharge, Neck: Negative for injury, pain, and swelling, Cardiovascular: Negative for chest pain, palpitations, and edema, Respiratory: Negative for shortness of breath, cough, wheezing, and pleuritic chest pain, Abdomen/GI: Positive for lower abdominal pain Back: Negative for injury and pain, : Positive for vaginal bleeding MS/Extremity: Negative for injury and deformity, Skin: Negative for injury, rash, and discoloration, Neuro: Negative for headache, weakness, numbness, tingling, and seizure. Exam: 09:27 Constitutional: This is a well developed, well nourished patient who is awake, alert, rn and in no acute distress. Ambulatory to room without distress Head/Face: Normocephalic, atraumatic. Eyes: Periorbital areas with no swelling, redness, or edema. Cardiovascular: Regular rate and rhythm. No pulse deficits. Respiratory: No increased work of breathing, no retractions or nasal flaring. Abdomen/GI: Soft, mild tenderness suprapubic and left lower quadrant. Skin: Warm, dry MS/ Extremity: Pulses equal, no cyanosis. Neuro: Awake and alert, GCS 15 Vital Signs: 09:25 BP 128 / 93; Pulse 82; Resp 17; Temp 98.4; Pulse Ox 100% ; Weight 73.94 kg; Height 5 ll1 ft. 2 in. (157.48 cm); Pain 8/10; 10:23 BP 113 / 81; Pulse 87; Resp 16; Pulse Ox 100% ; ll1 12:09 BP 124 / 87; Pulse 70; Resp 16; Pulse Ox 100% ; Pain 5/10; ll1 09:25 Body Mass Index 29.81 (73.94 kg, 157.48 cm) ll1 MDM: 09:18 Patient medically screened. rn 11:13 Differential diagnosis: appendicitis, diverticulitis, non-specific abd pain, rn Peritonitis, Ureterolithiasis, Operative infection, postoperative pain, subcutaneous air, seroma. Data reviewed: vital signs, nurses notes, lab test result(s), radiologic studies, CT scan, and as a result, I will discharge patient. Counseling: I had a detailed discussion with the patient and/or guardian regarding: the historical points, exam findings, and any diagnostic results supporting the discharge/admit diagnosis, lab results, radiology results, the need for outpatient follow up, to return to the emergency department if symptoms worsen or persist or if there are any questions or concerns that arise at home. Response to treatment: the patient's symptoms have markedly improved after treatment, and as a result, I will discharge patient. Special discussion: I discussed with the patient/guardian in detail that at this point there is no indication for admission to the hospital. It is understood, however, that if the symptoms persist or worsen the patient needs to return immediately for re-evaluation. ED course: CT without surgically emergent findings. Shows subcutaneous and intraperitoneal air as expected 2 days postop from laparoscopic surgery. Hemoglobin 10.8. Stable vital signs. Patient feels much better. Will call her despatching and receiving clerk tomorrow for follow-up. Return precautions given and understood.. 12/17 09: Order name: CBC with Diff; Complete Time: 10:05 rn 12/17 08: Order name: Basic Metabolic Panel; Complete Time: 10:33 rn 12/17 08: Order name: Protime (+inr); Complete Time: 10: rn 12/17 08:27 Order name: Ptt, Activated; Complete Time: 10: rn 12/17 08:27 Order name: CT Abd/Pelvis - IV Contrast Only; Complete Time: 11:06 rn 12/17 09:27 Order name: IV Start; Complete Time: 09:38 rn Administered Medications: 10:20 Drug: morphine 4 mg {Note: rass 0.} Route: IVP; Site: right antecubital; ll1 12:10 Follow up: Response: No adverse reaction ll1 10:20 Drug: Zofran (Ondansetron) 4 mg Route: IVP; Site: right antecubital; ll1 12:10 Follow up: Response: No adverse reaction; RASS: Alert and Calm (0) ll1 Disposition Summary: 12/17/20 11:15 Discharge Ordered Location: Home rn Problem: new rn Symptoms: have improved rn Condition: Stable rn Diagnosis - Lower abdominal pain, unspecified rn - Abnormal uterine and vaginal bleeding, unspecified rn Followup: rn - With: Private Physician - When: Tomorrow - Reason: Recheck today's complaints, Re-evaluation by your physician Discharge Instructions: - Discharge Summary Sheet rn - Abdominal Pain, Adult rn - Abnormal Uterine Bleeding rn Forms: - Medication Reconciliation Form rn - Thank You Letter rn - Antibiotic consultants intern - Prescription Opioid Use rn Signatures: Dispatcher [employer] EDChucky Srivastava MD MD rn Lewis, Lynsay, RN RN ll1
[2020-12-17 12:30] VITALS: BP 124/87; O2SAT 100
== END 2020-12-17 12:11 | disposition home or self-care (01) ==
LOC: ER 09:07
DX: N93.9 Abnormal uterine and vaginal bleeding, unspecified (principal); R10.30 Lower abdominal pain, unspecified; D64.9 Anemia, unspecified; F41.9 Anxiety disorder, unspecified; F32.A Depression, unspecified; Z98.51 Tubal ligation status; Z98.84 Bariatric surgery status; Z90.49 Acquired absence of other specified parts of digestive tract; Z88.1 Allergy status to other antibiotic agents; Z88.8 Allergy status to other drugs, medicaments and biological substances; Z88.2 Allergy status to sulfonamides
CPT/HCPCS: 85025; 80048; 36415; 85610; 85730; 74177; 96375; 96374; 99284; Q9967; J2405

== ENCOUNTER 2022-10-07 12:01 | Emergency (ER) | payer OTHER ==
--- OUTSIDE RECORDS SUMMARY | 2022-10-07 12:12 | XMS REPORT | Continuity of Care Document ---
:1990 Author Organization [facility] t Address [address] [facility] [place] [address] Care Team Providers Name Role Phone Asked, No Pcp Primary Care Physician Unavailable SOPHIA GIORDANO Attending Clinician Unavailable Oskar Nguyễn Attending Clinician Unavailable Ascencion Clifford RN Attending Clinician Unavailable Only, Ang Db Test Attending Clinician Unavailable Kendall Clark Attending Clinician KENDALL MCNEIL Attending Clinician Unavailable RICKY BERG Attending Clinician Unavailable Ricky Lyon Attending Clinician Zoraida Vega RN Attending Clinician Unavailable ELIZABETH URIBE Attending Clinician Unavailable Elizabeth Uribe MD Attending Clinician Doctor Unassigned, Barton Attending Clinician Unavailable MERLYN CARRILLO Attending Clinician Unavailable Merlyn Carrillo DO Attending Clinician ORALIA HUDSON Attending Clinician Unavailable Oralia Hudson DO Attending Clinician Sophia Giordano MD Attending Clinician Pob, Adc Lab Main Attending Clinician Unavailable Only, Adc Test Attending Clinician Unavailable Nirmal DE LUNA, Martha Caputo Attending Clinician Amanda DE LUNA, Elvin Velasquez Attending Clinician April Zavaleta MD Attending Clinician Brijesh Wetzel MD Attending Clinician 2, Adc Lab Attending Clinician Unavailable Ultrasound, Adc Mfm Attending Clinician Unavailable Belia Bach MD Attending Clinician Dora Attending Clinician Unavailable SOPHIA GIORDANO Admitting Clinician Unavailable Physician, No Primary or Family Admitting Clinician UnavailSophia Loaiza MD Admitting Clinician Martha Kinney MD Admitting Clinician Dora Admitting Clinician Unavailable Payers Payer Name Policy Type Policy Number Effective Date Expiration Date Herman akers [facility] STAR [id number] 2020 00:00:00 Problems Condition Condition Condition Status Onset Resolution Last Treating Co mments Source Name Details Category Date Date Treatment Clinician Date PUD PUD Disease Active Univers (peptic (peptic 5-17 ity of ulcer ulcer 00:00: [place] disease) disease) 00 Medica l Branch Sterilizat Sterilizat Disease Active 2020-03 Overview : Univers ion ion 0-01 Formattin ity of 00:00: g of this 00 note Medical might be Branch different from the original. Added automatic ally from request for surgery [id number] Obesity Obesity Disease Active Univers (BMI (BMI 8-17 ity of 30-39.9) 30-39.9) 00:00: [place] 00 Medical Branch Generalize Generalize Disease Active U nivers d anxiety d anxiety 5-04 ity of disorder disorder 00:00: [place] 00 Medical Branch History of History of Disease Active U nivers blood blood 3-03 it[place] of transfusio transfusio [place] Vitamin D Vitamin D Disease Active Uni vers deficiency deficiency 3-03 it y of 00:00: [place] 00 Medical Branch History of History of Disease Active U nivers gastric gastric 1- ity of bypass bypass 00:00: [place] 00 Medical Branch STOMACH STOMACH Diagnosis Active 2012-06-18 Memoria PAINS PAINS 4-19 10:30:00 l Active 07:00: [place] 06/27/2011 00 [facility] Palpitatio Palpitati Problem Active 2013-11-16 Memoria ns ons Active 02:28:14 l Problem [place] 11/16/2013 eCW: John Ochoa MD Low Back Low Back Problem Active 2013-11-16 Memoria Pain Pain 02:28:14 l Active [place] Problem 11/16/2013 eCW: John Ochoa MD anxiety anxiety Problem Active 2013-11-16 Me moria disorder, disorder, 02:28:14 l generalize generalize He rmann d d Active Problem 11/16/2013 eCW: John Ochoa MD GERD GERD Diagnosis Active 2012-12-03 Mem oria (gastroeso (gastroeso 04:12:17 l phageal phageal [place] reflux reflux disease) disease) Active Diagnosis 12/03/2012 eCW: John Ochoa MD Panic Panic Problem Active 2013-11-16 Memor ia attacks attacks 02:28:14 l Active [place] Problem 11/16/2013 eCW: John Ochoa MD Allergies, Adverse Reactions, Alerts Allergy Allergy Status Severity Reaction(s) Onset Inactive Treating Comm ents Source Name Type Date Date Clinician Sulfa DA Active U UNKNOWN [facility] (Sulfona 3-20 Clear mide 00:00: Evangelista Antibiot 00 Regiona ics) [facility] Nsaids Propensi Active Nausea Univers (Non-Eduardo ty to and/or 1- ity of roidal adverse Vomiting 00:00: [place] Anti-Inf reaction 00 Medica l lammator s Branch y Drug) Nsaids Propensi Active Nausea Univers (Non-Eduardo ty to and/or 1-21 ity of roidal adverse Vomiting 00:00: [place] Anti-Inf reaction 00 Medica l lammator s Branch y Drug) Nsaids Propensi Active Nausea Univers (Non-Eduardo ty to and/or 1-21 ity of roidal adverse Vomiting 00:00: [place] Anti-Inf reaction 00 Medica l lammator s Branch y Drug) NSAIDS Drug Active N/V Univers (NON-EDUARDO Class 1-21 ity of ROIDAL 00:00: [place] ANTI-INF 00 Medical LAMMATOR Branch Y DRUG) Sulfa Propensi Active 2016-03 Methodi (Sulfona ty to 0-25 st mide adverse 00:00: Hospita Antibiot reaction 00 l ics) s to drug Sulfa Propensi Active Hives 2016-03 Univers (Sulfona ty to 0-25 ity of mide adverse 00:00: [place] Antibiot reaction 00 Medica l ics) s Branch Sulfa Propensi Active Hives 2016-03 Univers (Sulfona ty to 0-25 ity of mide adverse 00:00: [place] Antibiot reaction 00 Medica l ics) s Branch SULFA Drug Active Hives 2016-03 Univers (SULFONA Class 0-25 ity of MIDE 00:00: [place] ANTIBIOT 00 Medical ICS) Branch Cefaclor Propensi Active Method i ty to 9-30 st adverse 00:00: Hospita reaction 00 l s to drug Cefaclor Propensi Active Hives Univer s ty to 9-30 ity of adverse 00:00: [place] reaction 00 Medical s Branch CEFACLOR DRUG Active Hives Univers INGREDI 9-30 ity of 00:00: [place] Medical Branch Cephalex Cephalex Active Info Not Andrea hao in in Available 8-14 l 00:00: [place] 00 Ceclor Ceclor Active Memoria l Tarun NO KNOWN Drug Active Univers ALLERGIE Class ity of S [facility] Family History Family Member Diagnosis Comments Start Date Stop Date Source Natural father Diabetes [facility] [place] [facility] Natural father Hypertension [facility] Social History Social Habit Start Date Stop Date Quantity Comments Source History of tobacco Cigarette Smoker University of use [facility] History SDOH University o f Alcohol Comment [facility] ical [place] [facility] Exposure to 2021-10-19 2021-10-29 Not sure University of SARS-CoV-2 (event) 00:00:00 10:15:00 [facility] Tobacco use and 2020-03-30 2020-03-30 Smokeless Universit y of exposure 00:00:00 00:00:00 tobacco non-user [place] Me dical Branch History SDOH 2020-03-30 2020-03-30 1 University o f Alcohol Frequency 00:00:00 00:00:00 [place] M edical Branch History SDOH 2020-03-30 2020-03-30 99 University o f Alcohol Std Drinks 00:00:00 00:00:00 [place] [facility] [place] History SDOH 2020-03-30 2020-03-30 1 University o f Alcohol Binge 00:00:00 00:00:00 [place] Medic al Branch Alcohol intake 2019-03-27 2019-03-27 Current Judaism 00:00:00 00:00:00 non-drinker of Hospital alcohol (finding) History of Social 2018-10-27 2018-10-[address] function 00:00:00 00:00:00 Hospital TobaccoUse: 2013-10-21 2013-10-21 [facility] yudy 00:00:00 00:00:00 [birth year] [facility] 00:00:00 00:00:00 [facility] Smoking Status Start Date Stop Date Source Ex-smoker 2020-03-30 00:00:00 2020-03-30 00:00:00 [facility] Never smoked tobacco [facility] Medications Ordered Filled Start Stop Current Ordering Indication Dosage Frequency Signature Comments Components Source Medication Medication Date Date Medication? Clinician (SIG) Name Name maalox:diph 2021- No 15mL 15 mL, Uni vers enhydrAMINE 07-24-17 Oral, ity of :lidocaine 17:30: 17:28 ONCE, 1 Real as 2 % viscous 00 :00 dose, On Medi tata 1:1:1 Tue Branch ([facility] 07/24/21 at [facility]) 1230, oral Routine suspension 15 mL ondansetron 2021- No 4mg 4 mg, Slow Univers (ZOFRAN 5-17 05-17 IV Push, ity of (PF)) 17:30: 16:51 ONCE, 1 [place] injection 4 00 :00 dose, On Medi tata mg Tue Branch 07/24/21 at 1230, KARL proMETHazin 0 Yes [id number] 25mg Take 1 Univers e 25 mg 5-17 tablet by ity of tablet 00:00: mouth [place] 00 every 6 Medical (six) Branch hours as needed for Nausea and Vomiting (N/V). proMETHazin 0 Yes [id number] 25mg Take 1 Univers e 25 mg 5-17 tablet by ity of tablet 00:00: mouth [place] 00 every 6 Medical (six) Branch hours as needed for Nausea and Vomiting (N/V). proMETHazin 0 Yes [id number] 25mg Take 1 Univers e 25 mg 5-17 tablet by ity of tablet 00:00: mouth [place] 00 every 6 Medical (six) Branch hours as needed for Nausea and Vomiting (N/V). proMETHazin Yes [id number] 25mg Take 1 Univers e 25 mg 5-17 tablet by ity of tablet 00:00: mouth [place] 00 every 6 Medical (six) Branch hours as needed for Nausea and Vomiting (N/V). proMETHazin 0 Yes [id number] 25mg Take 1 Univers e 25 mg 5-17 tablet by ity of tablet 00:00: mouth [place] 00 every 6 Medical (six) Branch hours as needed for Nausea and Vomiting (N/V). proMETHazin Yes [id number] 25mg Take 1 Univers e 25 mg 5-17 tablet by ity of tablet 00:00: mouth [place] 00 every 6 Medical (six) Branch hours as needed for Nausea and Vomiting (N/V). proMETHazin 0 Yes [id number] 25mg Take 1 Univers e 25 mg 5-17 tablet by ity of tablet 00:00: mouth [place] 00 every 6 Medical (six) Branch hours as needed for Nausea and Vomiting (N/V). diazePAM 2020-03- No 5mg 5 mg, Univers (VALIUM) 2-14 12-14 Oral, ity of tablet 5 mg 16:15: 15:12 [place]CE[place] 1 [place] :[place] dose, On Medical Tue Branch 02/20/21 at 1015, KARL HYDROcodone 2020-03- No 1{tbl} 1 tablet, Univers -acetaminop 2-14 12-14 Oral, ity of hen (NORCO 16:15: 15:12 ONCE, 1 Real as 5) 5-325 mg 00 :00 dose, On Medi tata tablet 1 Tue Branch tablet 02/20/21 at 1015, KARL cyclobenzap 2020-03 Yes [id number] 10mg Take 1 Univers rine 10 mg 2-14 tablet by ity of tablet 00:00: mouth 3 (three) Medical times Branch daily as needed for Muscle Spasms. cyclobenzap 2020-03 Yes [id number] 10mg Take 1 Univers rine 10 mg 2-14 tablet by ity of tablet 00:00: mouth 3 (three) Medical times Branch daily as needed for Muscle Spasms. cyclobenzap 2020-03 Yes [id number] 10mg Take 1 Univers rine 10 mg 2-14 tablet by ity of tablet 00:00: mouth 3 (three) Medical times Branch daily as needed for Muscle Spasms. cyclobenzap 2020-03 Yes [id number] 10mg Take 1 Univers rine 10 mg 2-14 tablet by ity of tablet 00:00: mouth 3 (three) Medical times Branch daily as needed for Muscle Spasms. cyclobenzap 2020-03 Yes [id number] 10mg Take 1 Univers rine 10 mg 2-14 tablet by ity of tablet 00:00: mouth 3 (three) Medical times Branch daily as needed for Muscle Spasms. cyclobenzap 2020-03 Yes [id number] 10mg Take 1 Univers rine 10 mg 2-14 tablet by ity of tablet 00:00: mouth 3 (three) Medical times Branch daily as needed for Muscle Spasms. cyclobenzap 2020-03 Yes [id number] 10mg Take 1 Univers rine 10 mg 2-14 tablet by ity of tablet 00:00: mouth 3 (three) Medical times Branch daily as needed for Muscle Spasms. cyclobenzap 2020-03 Yes [id number] 10mg Take 1 Univers rine 10 mg 2-14 tablet by ity of tablet 00:00: mouth 3 (three) Medical times Branch daily as needed for Muscle Spasms. 2020-03 Yes Take by Univer s vits62/FA/o 0-08 mouth. ity of m3/dha/epa 11:15: [place] ( 39 Medical GUMMY ORAL) Branch cyanocobala 2020-03 Yes 1 tablet Un nichole min, 0-08 ity of vitamin 11:15: [place] B-12, 39 Medical (VITAMIN Branch B-12 ORAL) 2020-03 Yes Take by Univer s vits62/FA/o 0-08 mouth. ity of m3/dha/epa 11:15: [place] ( 39 Medical GUMMY ORAL) Branch cyanocobala 2020-03 Yes 1 tablet Un nichole min, 0-08 ity of vitamin 11:15: [place] B-12, 39 Medical (VITAMIN Branch B-12 ORAL) 2020-03 Yes Take by Univer s vits62/FA/o 0-08 mouth. ity of m3/dha/epa 11:15: [place] ( 39 Medical GUMMY ORAL) Branch cyanocobala 2020-03 Yes 1 tablet Un nichole min, 0-08 ity of vitamin 11:15: [place] B-12, 39 Medical (VITAMIN Branch B-12 ORAL) 2020-03 Yes Take by Univer s vits62/FA/o 0-08 mouth. ity of m3/dha/epa 11:15: [place] ( 39 Medical GUMMY ORAL) Branch cyanocobala 2020-03 Yes 1 tablet Un nichole min, 0-08 ity of vitamin 11:15: [place] B-12, 39 Medical (VITAMIN Branch B-12 ORAL) 2020-03 Yes Take by Univer s vits62/FA/o 0-08 mouth. ity of m3/dha/epa 11:15: [place] ( 39 Medical GUMMY ORAL) Branch cyanocobala 2020-03 Yes 1 tablet Un nichole min, 0-08 ity of vitamin 11:15: [place] B-12, 39 Medical (VITAMIN Branch B-12 ORAL) 2020-03 Yes Take by Univer s vits62/FA/o 0-08 mouth. ity of m3/dha/epa 11:15: [place] ( 39 Medical GUMMY ORAL) Branch cyanocobala 2020-03 Yes 1 tablet Un nichole min, 0-08 ity of vitamin 11:15: [place] B-12, 39 Medical (VITAMIN Branch B-12 ORAL) 2020-03 Yes Take by Univer s vits62/FA/o 0-08 mouth. ity of m3/dha/epa 11:15: [place] ( 39 Medical GUMMY ORAL) Branch cyanocobala 2020-03 Yes 1 tablet Un nichole min, 0-08 ity of vitamin 11:15: [place] B-12, 39 Medical (VITAMIN Branch B-12 ORAL) 2020-03 Yes Take by Univer s vits62/FA/o 0-08 mouth. ity of m3/dha/epa 11:15: [place] ( 39 Medical GUMMY ORAL) Branch cyanocobala 2020-03 Yes 1 tablet Un nichole min, 0-08 ity of vitamin 11:15: [place] B-12, 39 Medical (VITAMIN Branch B-12 ORAL) 2020-03 Yes Take by Univer s vits62/FA/o 0-08 mouth. ity of m3/dha/epa 11:15: [place] ( 39 Medical GUMMY ORAL) Branch cyanocobala 2020-03 Yes 1 tablet Un nichole min, 0-08 ity of vitamin 11:15: [place] B-12, 39 Medical (VITAMIN Branch B-12 ORAL) 2020-03 Yes Take by Univer s vits62/FA/o 0-08 mouth. ity of m3/dha/epa 11:15: [place] ( 39 Medical GUMMY ORAL) Branch cyanocobala 2020-03 Yes 1 tablet Un nichole min, 0-08 ity of vitamin 11:15: [place] B-12, 39 Medical (VITAMIN Branch B-12 ORAL) 2020-03 Yes Take by Univer s vits62/FA/o 0-08 mouth. ity of m3/dha/epa 11:15: [place] ( 39 Medical GUMMY ORAL) Branch cyanocobala 2020-03 Yes 1 tablet Un nichole min, 0-08 ity of vitamin 11:15: [place] B-12, 39 Medical (VITAMIN Branch B-12 ORAL) 2020-03 Yes Take by Univer s vits62/FA/o 0-08 mouth. ity of m3/dha/epa 11:15: [place] ( 39 Medical GUMMY ORAL) Branch cyanocobala 2020-03 Yes 1 tablet Un nichole min, 0-08 ity of vitamin 11:15: [place] B-12, 39 Medical (VITAMIN Branch B-12 ORAL) cholecalcif 2020-03- No 1 tablet U nivers yuri, 0-08 10-08 ity of vitamin D3, 10:33: 00:00 [place] 25 mcg 00 :00 Medical (1,000 Branch unit) tablet HYDROcodone 2020-03- No [id number] 1{tbl} Take 1 U nivers -acetaminop 008 10-19 tablet by it y of hen 5-325 00:00: 04:59 mouth [place] mg tablet 00 :00 every 4 Medical (four) Branch hours as needed for Pain (scale 7-10) for up to 10 days. Indication s: acute pain polyethylen Yes [id number] 1{packe Take 1 Univers e glycol 8-27 t} Packet by ity of 3350 00:00: mouth [place] (MIRALAX) 00 daily. Medical 17 gram Branch powder polyethylen Yes [id number] 1{packe Take 1 Univers e glycol 8-27 t} Packet by ity of 3350 00:00: mouth [place] (MIRALAX) 00 daily. Medical 17 gram Branch powder polyethylen Yes [id number] 1{packe Take 1 Univers e glycol 8-27 t} Packet by ity of 3350 00:00: mouth [place] (MIRALAX) 00 daily. Medical 17 gram Branch powder polyethylen Yes [id number] 1{packe Take 1 Univers e glycol 8-27 t} Packet by ity of 3350 00:00: mouth [place] (MIRALAX) 00 daily. Medical 17 gram Branch powder polyethylen Yes [id number] 1{packe Take 1 Univers e glycol 8-27 t} Packet by ity of 3350 00:00: mouth [place] (MIRALAX) 00 daily. Medical 17 gram Branch powder polyethylen Yes [id number] 1{packe Take 1 Univers e glycol 8-27 t} Packet by ity of 3350 00:00: mouth [place] (MIRALAX) 00 daily. Medical 17 gram Branch powder polyethylen Yes [id number] 1{packe Take 1 Univers e glycol 8-27 t} Packet by ity of 3350 00:00: mouth [place] (MIRALAX) 00 daily. Medical 17 gram Branch powder polyethylen 2020-0 Yes [id number] 1{packe Take 1 Univers e glycol 8-27 t} Packet by ity of 3350 00:00: mouth [place] (MIRALAX) 00 daily. Medical 17 gram Branch powder polyethylen 2020-0 Yes [id number] 1{packe Take 1 Univers e glycol 8-27 t} Packet by ity of 3350 00:00: mouth [place] (MIRALAX) 00 daily. Medical 17 gram Branch powder polyethylen 2020-0 Yes [id number] 1{packe Take 1 Univers e glycol 8-27 t} Packet by ity of 3350 00:00: mouth [place] (MIRALAX) 00 daily. Medical 17 gram Branch powder polyethylen 2020-0 Yes [id number] 1{packe Take 1 Univers e glycol 8-27 t} Packet by ity of 3350 00:00: mouth [place] (MIRALAX) 00 daily. Medical 17 gram Branch powder polyethylen 2020-0 Yes [id number] 1{packe Take 1 Univers e glycol 8-27 t} Packet by ity of 3350 00:00: mouth [place] (MIRALAX) 00 daily. Medical 17 gram Branch powder SERTraline 0 Yes [id number] 25mg Take 1 U nivers 25 mg 8-03 tablet by ity of tablet 00:00: mouth [place] 00 daily. Medical Branch SERTraline 0 Yes [id number] 25mg Take 1 U nivers 25 mg 8-03 tablet by ity of tablet 00:00: mouth [place] 00 daily. Medical Branch SERTraline 0 Yes [id number] 25mg Take 1 U nivers 25 mg 8-03 tablet by ity of tablet 00:00: mouth [place] 00 daily. Medical Branch SERTraline 2020-0 Yes [id number] 25mg Take 1 U nivers 25 mg 8-03 tablet by ity of tablet 00:00: mouth [place] 00 daily. Medical Branch SERTraline 0 Yes [id number] 25mg Take 1 U nivers 25 mg 8-03 tablet by ity of tablet 00:00: mouth [place] 00 daily. Medical Branch SERTraline 0 Yes [id number] 25mg Take 1 U nivers 25 mg 8-03 tablet by ity of tablet 00:00: mouth [place] 00 daily. Medical Branch SERTraline 0 Yes [id number] 25mg Take 1 U nivers 25 mg 8-03 tablet by ity of tablet 00:00: mouth [place] 00 daily. Medical Branch SERTraline 0 Yes [id number] 25mg Take 1 U nivers 25 mg 8-03 tablet by ity of tablet 00:00: mouth [place] 00 daily. Medical Branch SERTraline 0 Yes [id number] 25mg Take 1 U nivers 25 mg 8-03 tablet by ity of tablet 00:00: mouth [place] 00 daily. Medical Branch SERTraline Yes [id number] 25mg Take 1 U nivers 25 mg 8-03 tablet by ity of tablet 00:00: mouth [place] 00 daily. Medical Branch SERTraline Yes [id number] 25mg Take 1 U nivers 25 mg 8-03 tablet by ity of tablet 00:00: mouth [place] 00 daily. Medical Branch SERTraline Yes [id number] 25mg Take 1 U nivers 25 mg 8-03 tablet by ity of tablet 00:00: mouth [place] 00 daily. Medical Branch cholecalcif Yes [id number] 1000U Take 1 Univers yuri, 2-01 tablet by ity of vitamin D3, 00:00: mouth [place] (VITAMIN 00 daily. Medical D3) 25 mcg Branch (1,000 unit) tablet ferrous Yes [id number] 325mg Take 1 Un nichole sulfate 2-01 tablet by ity of (IRON, 00:00: mouth 2 [place] FERROUS 00 (two) Medical SULFATE,) times Branch 325 mg (65 daily. mg iron) tablet ascorbic Yes [id number] 500mg Take 1 U nivers acid, 2-01 tablet by ity of vitamin C, 00:00: mouth 2 [place] 500 mg 00 (two) Medical tablet times Branch daily. docusate Yes [id number] 100mg Take 1 U nivers (COLACE) 2-01 capsule by ity o f 100 mg 00:00: mouth 2 [place] capsule 00 (two) Medical times Branch daily. cholecalcif Yes [id number] 1000U Take 1 Univers yuri, 2-01 tablet by ity of vitamin D3, 00:00: mouth [place] (VITAMIN 00 daily. Medical D3) 25 mcg Branch (1,000 unit) tablet ferrous Yes [id number] 325mg Take 1 Un nichole sulfate 2-01 tablet by ity of (IRON, 00:00: mouth 2 [place] FERROUS 00 (two) Medical SULFATE,) times Branch 325 mg (65 daily. mg iron) tablet ascorbic Yes [id number] 500mg Take 1 U nivers acid, 2-01 tablet by ity of vitamin C, 00:00: mouth 2 [place] 500 mg 00 (two) Medical tablet times Branch daily. docusate Yes [id number] 100mg Take 1 U nivers (COLACE) 2-01 capsule by ity o f 100 mg 00:00: mouth 2 [place] capsule 00 (two) Medical times Branch daily. cholecalcif Yes [id number] 1000U Take 1 Univers yuri, 2-01 tablet by ity of vitamin D3, 00:00: mouth [place] (VITAMIN 00 daily. Medical D3) 25 mcg Branch (1,000 unit) tablet ferrous Yes [id number] 325mg Take 1 Un nichole sulfate 2-01 tablet by ity of (IRON, 00:00: mouth 2 [place] FERROUS 00 (two) Medical SULFATE,) times Branch 325 mg (65 daily. mg iron) tablet ascorbic Yes [id number] 500mg Take 1 U nivers acid, 2-01 tablet by ity of vitamin C, 00:00: mouth 2 [place] 500 mg 00 (two) Medical tablet times Branch daily. docusate Yes [id number] 100mg Take 1 U nivers (COLACE) 2-01 capsule by ity o f 100 mg 00:00: mouth 2 [place] capsule 00 (two) Medical times Branch daily. cholecalcif Yes [id number] 1000U Take 1 Univers yuri, 2-01 tablet by ity of vitamin D3, 00:00: mouth [place] (VITAMIN 00 daily. Medical D3) 25 mcg Branch (1,000 unit) tablet ferrous Yes [id number] 325mg Take 1 Un nichole sulfate 2-01 tablet by ity of (IRON, 00:00: mouth 2 [place] FERROUS 00 (two) Medical SULFATE,) times Branch 325 mg (65 daily. mg iron) tablet ascorbic Yes [id number] 500mg Take 1 U nivers acid, 2-01 tablet by ity of vitamin C, 00:00: mouth 2 [place] 500 mg 00 (two) Medical tablet times Branch daily. docusate Yes [id number] 100mg Take 1 U nivers (COLACE) 2-01 capsule by ity o f 100 mg 00:00: mouth 2 [place] capsule 00 (two) Medical times Branch daily. cholecalcif Yes [id number] 1000U Take 1 Univers yuri, 2-01 tablet by ity of vitamin D3, 00:00: mouth [place] (VITAMIN 00 daily. Medical D3) 25 mcg Branch (1,000 unit) tablet ferrous Yes [id number] 325mg Take 1 Un nichole sulfate 2-01 tablet by ity of (IRON, 00:00: mouth 2 [place] FERROUS 00 (two) Medical SULFATE,) times Branch 325 mg (65 daily. mg iron) tablet ascorbic Yes [id number] 500mg Take 1 U nivers acid, 2-01 tablet by ity of vitamin C, 00:00: mouth 2 [place] 500 mg 00 (two) Medical tablet times Branch daily. docusate Yes [id number] 100mg Take 1 U nivers (COLACE) 2-01 capsule by ity o f 100 mg 00:00: mouth 2 [place] capsule 00 (two) Medical times Branch daily. cholecalcif Yes [id number] 1000U Take 1 Univers yuri, 2-01 tablet by ity of vitamin D3, 00:00: mouth [place] (VITAMIN 00 daily. Medical D3) 25 mcg Branch (1,000 unit) tablet ferrous Yes [id number] 325mg Take 1 Un nichole sulfate 2-01 tablet by ity of (IRON, 00:00: mouth 2 [place] FERROUS 00 (two) Medical SULFATE,) times Branch 325 mg (65 daily. mg iron) tablet ascorbic Yes [id number] 500mg Take 1 U nivers acid, 2-01 tablet by ity of vitamin C, 00:00: mouth 2 [place] 500 mg 00 (two) Medical tablet times Branch daily. docusate Yes [id number] 100mg Take 1 U nivers (COLACE) 2-01 capsule by ity o f 100 mg 00:00: mouth 2 [place] capsule 00 (two) Medical times Branch daily. cholecalcif Yes [id number] 1000U Take 1 Univers yuri, 2-01 tablet by ity of vitamin D3, 00:00: mouth [place] (VITAMIN 00 daily. Medical D3) 25 mcg Branch (1,000 unit) tablet ferrous Yes [id number] 325mg Take 1 Un nichole sulfate 2-01 tablet by ity of (IRON, 00:00: mouth 2 [place] FERROUS 00 (two) Medical SULFATE,) times Branch 325 mg (65 daily. mg iron) tablet ascorbic Yes [id number] 500mg Take 1 U nivers acid, 2-01 tablet by ity of vitamin C, 00:00: mouth 2 [place] 500 mg 00 (two) Medical tablet times Branch daily. docusate Yes [id number] 100mg Take 1 U nivers (COLACE) 2-01 capsule by ity o f 100 mg 00:00: mouth 2 [place] capsule 00 (two) Medical times Branch daily. cholecalcif Yes [id number] 1000U Take 1 Univers yuri, 2-01 tablet by ity of vitamin D3, 00:00: mouth [place] (VITAMIN 00 daily. Medical D3) 25 mcg Branch (1,000 unit) tablet ferrous Yes [id number] 325mg Take 1 Un nichole sulfate 2-01 tablet by ity of (IRON, 00:00: mouth 2 [place] FERROUS 00 (two) Medical SULFATE,) times Branch 325 mg (65 daily. mg iron) tablet ascorbic Yes [id number] 500mg Take 1 U nivers acid, 2-01 tablet by ity of vitamin C, 00:00: mouth 2 [place] 500 mg 00 (two) Medical tablet times Branch daily. docusate Yes [id number] 100mg Take 1 U nivers (COLACE) 2-01 capsule by ity o f 100 mg 00:00: mouth 2 [place] capsule 00 (two) Medical times Branch daily. cholecalcif Yes [id number] 1000U Take 1 Univers yuri, 2-01 tablet by ity of vitamin D3, 00:00: mouth [place] (VITAMIN 00 daily. Medical D3) 25 mcg Branch (1,000 unit) tablet ferrous Yes [id number] 325mg Take 1 Un nichole sulfate 2-01 tablet by ity of (IRON, 00:00: mouth 2 [place] FERROUS 00 (two) Medical SULFATE,) times Branch 325 mg (65 daily. mg iron) tablet ascorbic Yes [id number] 500mg Take 1 U nivers acid, 2-01 tablet by ity of vitamin C, 00:00: mouth 2 [place] 500 mg 00 (two) Medical tablet times Branch daily. docusate Yes [id number] 100mg Take 1 U nivers (COLACE) 2-01 capsule by ity o f 100 mg 00:00: mouth 2 [place] capsule 00 (two) Medical times Branch daily. cholecalcif Yes [id number] 1000U Take 1 Univers yuri, 2-01 tablet by ity of vitamin D3, 00:00: mouth [place] (VITAMIN 00 daily. Medical D3) 25 mcg Branch (1,000 unit) tablet ferrous Yes [id number] 325mg Take 1 Un nichole sulfate 2-01 tablet by ity of (IRON, 00:00: mouth 2 [place] FERROUS 00 (two) Medical SULFATE,) times Branch 325 mg (65 daily. mg iron) tablet ascorbic Yes [id number] 500mg Take 1 U nivers acid, 2-01 tablet by ity [place] vitamin C, [place] (two[place] Medical tablet times Branch daily. docusate Yes [id number] 100mg Take 1 U nivers (COLACE) 2-01 capsule by ity o f 100 mg 00:00: mouth 2 [place] capsule 00 (two) Medical times Branch daily. cholecalcif Yes [id number] 1000U Take 1 Univers yuri, 2-01 tablet by ity of vitamin D3, 00:00: mouth [place] (VITAMIN 00 daily. Medical D3) 25 mcg Branch (1,000 unit) tablet ferrous Yes [id number] 325mg Take 1 Un nichole sulfate 2-01 tablet by ity of (IRON, 00:00: mouth 2 [place] FERROUS 00 (two) Medical SULFATE,) times Branch 325 mg (65 daily. mg iron) tablet ascorbic Yes [id number] 500mg Take 1 U nivers acid, 2-01 tablet by ity of vitamin C, 00:00: [place] 500 [place] (two) Medical tablet times Branch daily. docusate Yes [id number] 100mg Take 1 U nivers (COLACE) 2-01 capsule by ity o f 100 mg 00:00: mouth 2 [place] capsule 00 (two) Medical times Branch daily. cholecalcif Yes [id number] 1000U Take 1 Univers yuri, 2- tablet by ity of vitamin D3, 00:00: mouth [place] (VITAMIN 00 daily. Medical D3) 25 mcg Branch (1,000 unit) tablet ferrous Yes [id number] 325mg Take 1 Un nichole sulfate 2- tablet by ity of (IRON, 00:00: mouth 2 [place] FERROUS 00 (two) Medical SULFATE,) times Branch 325 mg (65 daily. mg iron) tablet ascorbic Yes [id number] 500mg Take 1 U nivers acid, 2- tablet by [facility]y of vitamin C, 00:00[place] 500 [place] (two) Medical tablet times Branch daily. docusate Yes [id number] 100mg Take 1 U nivers (COLACE) 2- capsule by ity o f 100 mg 00:00: mouth 2 [place] capsule 00 (two) Medical times Branch daily. vaRing Yes [place] 1 ring Memor ia 11-16 [place] 02:28: vaR Yes [place] 1 ring Mem[facility] ia 11-16 [place] 02:28: vaR Yes [place] 1 ring Mem[facility] ia 11-16 [place] 02:28: vaRing Yes [place] 1 ring Mem[facility] ia 11-16 [place] 02:28: vaRing Yes [place] 1 ring Mem[facility] ia 11-16 [place] 02:28: vaRing Yes [place] 1 ring Mem[facility] ia 11-16 [place] 02:28: vaR Yes [place] 1 ring Mem[facility] ia 11-16 [place] 02:28: vaRing Yes [place] 1 ring Mem[facility] ia 11-16 [place] 02:28: Tar[place] 14 NuvaRing 2014-0 Yes [place] 1 ring Mem[facility] ia 9-09 [place] 02:28: Xanax 2013-0 Yes [place] 1 tablet Memori a 8-14 [place] 00:00: BusPIRone 2013-0 Yes [place] 1 tablet Me moria HCl 8-14 [place] 00:00: Robaxin 2013-0 Yes [place] 1 tablet Andrea hao 8-14 [place] 00:00: Xanax 2013-0 Yes [place] 1 tablet Memori a 8-14 [place] 00:00: BusPIRone 2013-0 Yes [place] 1 tablet Me moria HCl 8-14 [place] 00:00: Robaxin 2013-0 Yes [place] 1 tablet Andrea hao 8-14 [place] 00:00: Xanax 2013-0 Yes [place] 1 tablet Memori a 8-14 [place] 00:00: BusPIRone 2013-0 Yes [place] 1 tablet Me moria HCl 8-14 [place] 00:00: Robaxin 2013-0 Yes [place] 1 tablet Andrea hao 8-14 [place] 00:00: Xanax 2013-0 Yes [place] 1 tablet Memori a 8-14 [place] 00:00: BusPIRone 2013-0 Yes [place] 1 tablet Me moria HCl 8-14 [place] 00:00: Robaxin 2013-0 Yes [place] 1 tablet Andrea hao 8-14 [place] 00:00: Xanax 2013-0 Yes [place] 1 tablet Memori a 8-14 [place] 00:00: BusPIRone 2013-0 Yes [place] 1 tablet Me moria HCl 8-14 [place] 00:00: Robaxin 2013-0 Yes [place] 1 tablet Andrea hao 8-14 [place] 00:00: Xanax 2013-0 Yes [place] 1 tablet Memori a 8-14 [place] 00:00: BusPIRone 2013-0 Yes [place] 1 tablet Me moria HCl 8-14 [place] 00:00: Robaxin 2013-0 Yes [place] 1 tablet Andrea hao 8-14 [place] 00:00: Xanax 2014-0 Yes [place] 1 tablet Memori a 8-14 [place] 00:00: BusPIRone 0 Yes [place] 1 tablet Me moria HCl 8-14 [place] 00:00: Robaxin 0 Yes [place] 1 tablet Andrea hao 8-14 [place] 00:00: Xanax 0 Yes [place] 1 tablet Memori a 8-14 [place] 00:00: BusPIRone 0 Yes [place] 1 tablet Me moria HCl 8-14 [place] 00:00: Robaxin 0 Yes [place] 1 tablet Andrea hao 8-14 [place] 00:00: Xanax 0 Yes [place] 1 tablet Memori a 8-14 [place] 00:00: BusPIRone 0 Yes [place] 1 tablet Me moria HCl 8-14 [place] 00:00: Robaxin 0 Yes [place] 1 tablet Andrea hao 8-14 [place] 00:00: Vitamin D Yes [place] 1 tablet Me moria 9-26 [place] 04:12: Tarun Vitamin Yes [place] 1 tablet Andrea hao B-12 9-26 [place]cho[place] l 04:12: Tarun 17 Vitamin D Yes [place] 1 tablet Me moria 9-26 [place] 04:12: Tarun Vitamin Yes [place]ie 1 tablet Andrea hao B-12 9-26 [place] l 04:12: Tarun Vitamin D Yes [place] 1 tablet Me moria 9-26 [place] l 04:12: Tarun Vitamin Yes [place] 1 tablet Andrea hao B-12 9-26 [place] l 04:12: Tarun 17 Vitamin D Yes [place] 1 tablet Me moria 9-26 [place] l 04:12: Tarun 17 Vitamin D Yes [place]ie 1 tablet Me moria 9-26 [place] l 04:12: Tarun 17 Vitamin Yes [place]ie 1 tablet Andrea hao B-12 9-26 [place] 04:12: Tarun 17 Vitamin Yes [place]ie 1 tablet Andrea hao B-12 9-26 [place] 04:12: Tarun 17 Vitamin D Yes [place] 1 tablet Me moria 9-26 [place] 04:12: Vitamin Yes [place] 1 tablet Andrea hao B-12 -26 [place] 04:12: Vitamin D Yes [place] 1 tablet Me moria 9-26 [place] 04:12: Vitamin Yes [place] 1 tablet Andrea hao B-12 -26 [place] 04:12: Vitamin D Yes [place] 1 tablet Me moria 9-26 [place] 04:12: Vitamin Yes [place] 1 tablet Andrea hao B-12 26 [place] 04:12: Vitamin D Yes [place] 1 tablet Me moria 9-26 [place] 04:12: Vitamin Yes [place] 1 tablet Andrea hao B-12 -26 [place] 04:12: BuSpar Yes [place] 1 tablet Memor ia 6-25 [place] 00:00: BuSpar Yes [place] 1 tablet Memor ia 6-25 [place] 00:00: BuSpar Yes [place] 1 tablet Memor ia 6-25 [place] 00:00: BuSpar Yes [place] 1 tablet Memor ia 6-25 [place] 00:00: BuSpar Yes [place] 1 tablet Memor ia 6-25 [place] 00:00: BuSpar Yes [place] 1 tablet Memor ia 6-25 [place] 00:00: BuSpar Yes [place] 1 tablet Memor ia 6-25 [place] 00:00: BuSpar Yes [place] 1 tablet Memor ia 6-25 [place] 00:00: BuSpar Yes [place] 1 tablet Memor ia 6-25 [place] 00:00: Xanax Yes [place] 1 tablet Memori a 1-17 [place] 00:00: Xanax Yes [place] 1 tablet Memori a 1-17 [place] 00:00: Xanax Yes [place] 1 tablet Memori a 1-17 [place] 00:00: Xanax Yes [place] 1 tablet Memori a 1-17 [place] 00:00: Xanax Yes [place] 1 tablet Memori a 1-17 [place] 00:00: Xanax Yes [place] 1 tablet Memori a 1-17 [place] 00:00: Xanax Yes [place] 1 tablet Memori a 1-17 [place] 00:00: Xanax Yes [place] 1 tablet Memori a 1-17 [place] 00:00: Xanax Yes [place] 1 tablet Memori a 1-17 [place] 00:00: potassium No Mahad 40 mEq, Me moria chloride 20 4-19 Sapp Route: PO, l mEq oral 14:29: Imsais Drug form: H ermann tablet, 00 ERTAB, extended ONCE, release Priority: STAT, Start date: 06/27/11 9:29:00, Stop date: 06/27/11 9:29:00 potassium 0 No Mahad 40 mEq, Me moria chloride 20 4-19 Sapp Route: PO, l mEq oral 14:29: Imsais Drug form: H ermann tablet, 00 ERTAB, extended ONCE, release Priority: STAT, Start date: 06/27/11 9:29:00, Stop date: 06/27/11 9:29:00 potassium 0 No Mahad 40 mEq, Me moria chloride 20 4-19 Sapp Route: PO, l mEq oral 14:29: Imsais Drug form: H ermann tablet, 00 ERTAB, extended ONCE, release Priority: STAT, Start date: 06/27/11 9:29:00, Stop date: 06/27/11 9:29:00 potassium 0 No Mahad 40 mEq, Me moria chloride 20 4-19 Sapp Route: PO, l mEq oral 14:29: Imsais Drug form: H ermann tablet, 00 ERTAB, extended ONCE, release Priority: STAT, Start date: 06/27/11 9:29:00, Stop date: 06/27/11 9:29:00 potassium 0 No Mahad 40 mEq, Me moria chloride 20 4-19 Sapp Route: PO, l mEq oral 14:29: Heroicais Drug form: H ermann tablet, 00 ERTAB, extended ONCE, release Priority: STAT, Start date: 06/27/11 9:29:00, Stop date: 06/27/11 9:29:00 potassium 2011-0 No Mahad 40 mEq, Me moria chloride 20 4-19 Sapp Route: PO, l mEq oral 14:29: Heroicais Drug form: H ermann tablet, 00 ERTAB, extended ONCE, release Priority: STAT, Start date: 06/27/11 9:29:00, Stop date: 06/27/11 9:29:00 potassium 2011-0 No Mahad 40 mEq, Me moria chloride 20 4-19 Sapp Route: PO, l mEq oral 14:29: Heroicais Drug form: H ermann tablet, 00 ERTAB, extended ONCE, release Priority: STAT, Start date: 06/27/11 9:29:00, Stop date: 06/27/11 9:29:00 potassium 2011-0 No Mahad 40 mEq, Me moria chloride 20 - Sapp Route: PO, l mEq oral 14:29: Heroicais Drug form: H ermann tablet, 00 ERTAB, extended ONCE, release Priority: STAT, Start date: 06/27/11 9:29:00, Stop date: 06/27/11 9:29:00 potassium 2011-0 No Mahad 40 mEq, Me moria chloride 20 -19 Sapp Route: PO, l mEq oral 14:29: Heroics Drug form: H ermann tablet, 00 ERTAB, extended ONCE, release Priority: STAT, Start date: 06/27/11 9:29:00, Stop date: 06/27/11 9:29:00 NS (Bolus) No Mahad 1,000 mL, Memoria IV 1,000 mL 06-26 Sapp Rate: l 13:57: Imsais 1,000 Tarun 00 ml/hr, Infuse over: 1 hr, Route: IV, Dosing Weight 87 kg, Total Volume: 1,000, Start date: 06/27/11 8:57:00, Duration: 30 day, Stop date: 07/27/11 8:56:00 NS (Bolus) 2012-0 No Mahad 1,000 mL, Memoria IV 1,000 mL 4-19 Sapp Rate: l 13:57: Imsais 1,000 Vader 00 ml/hr, Infuse over: 1 hr, Route: IV, Dosing Weight 87 kg, Total Volume: 1,000, Start date: 06/27/11 8:57:00, Duration: 30 day, Stop date: 07/27/11 8:56:00 NS (Bolus) 0 No Mahad 1,000 mL, Memoria IV 1,000 mL 4-19 Sapp Rate: l 13:57: Imsais 1,000 Tarun 00 ml/hr, Infuse over: 1 hr, Route: IV, Dosing Weight 87 kg, Total Volume: 1,000, Start date: 06/27/11 8:57:00, Duration: 30 day, Stop date: 07/27/11 8:56:00 NS (Bolus) No Mahad 1,000 mL, Memoria IV 1,000 mL 4-19 Sapp Rate: l 13:57: Imsais 1,000 Vader 00 ml/hr, Infuse over: 1 hr, Route: IV, Dosing Weight 87 kg, Total Volume: 1,000, Start date: 06/27/11 8:57:00, Duration: 30 day, Stop date: 07/27/11 8:56:00 NS (Bolus) No Mahad 1,000 mL, Memoria IV 1,000 mL 4-19 Sapp Rate: l 13:57: Imsais 1,000 Tarun 00 ml/hr, Infuse over: 1 hr, Route: IV, Dosing Weight 87 kg, Total Volume: 1,000, Start date: 06/27/11 8:57:00, Duration: 30 day, Stop date: 07/27/11 8:56:00 NS (Bolus) No Mahad 1,000 mL, Memoria IV 1,000 mL 4-19 Sapp Rate: l 13:57: Imsais 1,000 Tarun 00 ml/hr, Infuse over: 1 hr, Route: IV, Dosing Weight 87 kg, Total Volume: 1,000, Start date: 06/27/11 8:57:00, Duration: 30 day, Stop date: 07/27/11 8:56:00 NS (Bolus) No Mahad 1,000 mL, Memoria IV 1,000 mL 4-19 Sapp Rate: l 13:57: Imsais 1,000 Tarun 00 ml/hr, Infuse over: 1 hr, Route: IV, Dosing Weight 87 kg, Total Volume: 1,000, Start date: 06/27/11 8:57:00, Duration: 30 day, Stop date: 07/27/11 8:56:00 NS (Bolus) No Mahad 1,000 mL, Memoria IV 1,000 mL 4-19 Sapp Rate: l 13:57: Imsais 1,000 Tarun 00 ml/hr, Infuse over: 1 hr, Route: IV, Dosing Weight 87 kg, Total Volume: 1,000, Start date: 06/27/11 8:57:00, Duration: 30 day, Stop date: 07/27/11 8:56:00 NS (Bolus) No Mahad 1,000 mL, Memoria [...] date: 06/27/11 8:56:00, Stop date: 06/27/11 8:56:00 K-Dur 20 No Mahad 40 mEq, 30 Memoria 4-19 Sapp mL, Route: l 13:56: Imsais PO, Drug Vader 00 form: ERTAB, ONCE, Start date: 06/27/11 8:56:00, Stop date: 06/27/11 8:56:00 K-Dur 20 No Mahad 40 mEq, 30 Memoria 4-19 Sapp mL, Route: l 13:56: Imsais PO, Drug Tarun 00 form: ERTAB, ONCE, Start date: 06/27/11 8:56:00, Stop date: 06/27/11 8:56:00 K-Dur 20 No Mahad 40 mEq, 30 Memoria 4-19 Sapp mL, Route: l 13:56: Imsais PO, Drug Tar[place] 00 form: ERTAB, ONCE, Start date: 06/27/11 8:56:00, Stop date: 06/27/11 8:56:00 K-Dur 20 No Mahad 40 mEq, 30 Memoria 4-19 Sapp mL, Route: l 13:56: Imsais PO, Drug Vader 00 form: ERTAB, ONCE, Start date: 06/27/11 8:56:00, Stop date: 06/27/11 8:56:00 K-Dur 20 No Mahad 40 mEq, 30 Memoria 4-19 Sapp mL, Route: l 13:56: Imsais PO, Drug [place] form: ERTAB, ONCE, Start date: 06/27/11 8:56:00, Stop date: 06/27/11 8:56:00 K-Dur No Mahad 40 mEq, 30 Memoria 4-19 Sapp mL, Route: l 13:56: Imsais PO, Drug Tarun 00 form: ERTAB, ONCE, Start date: 06/27/11 8:56:00, Stop date: 06/27/11 8:56:00 K-Dur 20 No Mahad 40 mEq, 30 Memoria 4-19 Sapp mL, Route: l 13:56: Imsais PO, Drug Vader form: ERTAB, ONCE, Start date: 06/27/11 8:56:00, Stop date: 06/27/11 8:56:00 K-Dur No Mahad 40 mEq, 30 Memoria 4-19 [...] doses or times, Stop date: 06/27/11 8:23:00 ondansetron 2012-0 No Mahad 4 mg, 2 Memoria 4-19 [...] Sapp Rate: l 0.9% 12:24: Imsais 1,000 Vader (Bolus) IV 00 ml/hr, 1,000 mL Infuse over: 1 hr, Route: IV, Dosing Weight 87.7 kg, Total Volume: 1,000, Bolus Dose, Priority: STAT, Start date: 06/27/11 7:24:00, Duration: 1 doses or times, Stop date: 06/27/11 8:23:00 ondansetron 2012-0 No Mahad 4 mg, 2 Memoria 4-19 [...] Sapp Rate: l 0.9% 12:24: Imsais 1,000 Vader (Bolus) IV 00 ml/hr, 1,000 mL Infuse over: 1 hr, Route: IV, Dosing Weight 87.7 kg, Total Volume: 1,000, Bolus Dose, Priority: STAT, Start date: 06/27/11 7:24:00, Duration: 1 doses or times, Stop date: 06/27/11 8:23:00 ondansetron 2012-0 No Mahad 4 mg, 2 Memoria 4-19 [...] Sapp Rate: l 0.9% 12:24: Imsais 1,000 Vader (Bolus) IV 00 ml/hr, 1,000 mL Infuse over: 1 hr, Route: IV, Dosing Weight 87.7 kg, Total Volume: 1,000, Bolus Dose, Priority: STAT, Start date: 06/27/11 7:24:00, Duration: 1 doses or times, Stop date: 06/27/11 8:23:00 ondansetron 2012-0 No Mahad 4 mg, 2 Memoria 4-19 [...] doses or times, Stop date: 06/27/11 8:23:00 ondansetron 2012-0 No Mahad 4 mg, 2 Memoria 4-19 [...] Sapp Rate: l 0.9% 12:24: Imsais 1,000 Vader (Bolus) IV 00 ml/hr, 1,000 mL Infuse over: 1 hr, Route: IV, Dosing Weight 87.7 kg, Total Volume: 1,000, Bolus Dose, Priority: STAT, Start date: 06/27/11 7:24:00, Duration: 1 doses or times, Stop date: 06/27/11 8:23:00 ondansetron 2012-0 No Mahad 4 mg, 2 Memoria 4-19 [...] Sapp Rate: l 0.9% 12:24: Imsais 1,000 Vader (Bolus) IV 00 ml/hr, 1,000 mL Infuse over: 1 hr, Route: IV, Dosing Weight 87.7 kg, Total Volume: 1,000, Bolus Dose, Priority: STAT, Start date: 06/27/11 7:24:00, Duration: 1 doses or times, Stop date: 06/27/11 8:23:00 ondansetron 2012-0 No Mahad 4 mg, 2 Memoria 4-19 [...] Sapp Rate: l 0.9% 12:24: Imsais 1,000 Vader (Bolus) IV 00 ml/hr, 1,000 mL Infuse over: 1 hr, Route: IV, Dosing Weight 87.7 kg, Total Volume: 1,000, Bolus Dose, Priority: STAT, Start date: 06/27/11 7:24:00, Duration: 1 doses or times, Stop date: 06/27/11 8:23:00 ondansetron 2012-0 No Mahad 4 mg, 2 Memoria 4-19 [...] Sapp Rate: l 0.9% 12:24: Imsais 1,000 Vader (Bolus) IV 00 ml/hr, 1,000 mL Infuse over: 1 hr, Route: IV, Dosing Weight 87.7 kg, Total Volume: 1,000, Bolus Dose, Priority: STAT, Start date: 06/27/11 7:24:00, Duration: 1 doses or times, Stop date: 06/27/11 8:23:00 Immunizations Ordered Filled Immunization Date Status Comments Sourc e Immunization Name Name TDAP 2020-08-15 Completed [facility] of 00:00:00 [facility] TDAP 2020-08-15 Completed [facility] 00:00:00 [facility] TDAP 2020-08-15 Completed University of 00:00:00 [facility] TDAP 2020-08-15 Completed University of 00:00:00 [facility] TDAP 2020-08-15 Completed [facility] 00:[facility]:00 [facility] [place] TDAP 2020-08-15 Completed University of 00:00:00 [facility] TDAP 2020-08-15 Completed University of 00:00:00 [facility] TDAP 2020-08-15 Completed University of 00:00:00 [facility] TDAP 2020-08-15 Completed University of 00:00:00 [facility] TDAP 2020-08-15 Completed University of 00:00:00 [facility] TDAP 2020-08-15 Completed University of 00:00:00 [facility] TDAP 2020-08-15 Completed University of 00:00:00 [facility] Vital Signs Vital Name Observation Time Observation Value Comments Source Systolic blood 2021-07-24 18:22:27 128 mm[Hg] Univer sity of pressure [facility] Diastolic blood 2021-07-24 18:22:27 84 mm[Hg] Unive rsity of [facility] Heart rate 2021-07-24 18:22:27 76 /min [facility] Respiratory rate 2021-07-24 18:22:27 18 /min [facility] Oxygen saturation in 2021-07-24 18:22:27 97 /min [facility] Arterial blood by [facility] Pulse oximetry Branch Body temperature 2021-07-24 16:00:00 37.44 Samira [facility] Body weight 2021-07-24 16:00:00 78.926 kg [facility] BMI 2021-07-24 16:00:00 31.83 kg/m2 [facility] Systolic blood 2021-02-20 15:02:00 149 mm[Hg] Univer sity of pressure [facility] Diastolic blood 2021-02-20 15:02:00 98 mm[Hg] Unive rsity of pressure [facility] Heart rate 2021-02-20 15:02:00 95 /min [facility] [place] Body temperature 2021-02-20 15:02:00 37.11 Samira Univ ersity of [facility] Respiratory rate 2021-02-20 15:02:00 22 /min Univ ersity of [facility] Body weight 2021-02-20 15:02:00 77.111 kg Universi ty [facility] BMI 2021-02-20 15:02:00 31.09 kg/m2 Universi ty of [facility] Oxygen saturation in 2021-02-20 15:02:00 100 /min [facility] Arterial blood by [facility] Pulse oximetry Branch Systolic blood 2020-12-22 18:11:00 118 mm[Hg] Univer sity of pressure [facility] Diastolic blood 2020-12-22 18:11:00 78 mm[Hg] Unive rsity of pressure [facility] Heart rate 2020-12-22 18:11:00 85 /min [facility] [place] Body temperature 2020-12-22 18:11:00 36.78 Samira Univ ersity of [facility] Respiratory rate 2020-12-22 18:11:00 16 /min Univ ersity of [facility] Body height 2020-12-22 18:11:00 157.5 cm [facility] [place] Body weight 2020-12-22 18:11:00 74.027 kg Universi ty of [facility] BMI 2020-12-22 18:11:00 29.85 kg/m2 [facility] Weight 2013-10-21 18:30:00 [facility] [place] Height 2013-10-21 18:30:00 [facility] [place] Heart Rate 2013-10-21 18:30:00 [facility] [place] Diastolic (mm Hg) 2013-10-21 18:30:00 Mem orial [place] Systolic (mm Hg) 2013-10-21 18:30:00 Anrdea montejo [facility] Weight 2012-11-27 14:15:00 [facility] [place] Height 2012-11-27 14:15:00 [facility] Vader Heart Rate 2012-11-27 14:15:00 [facility] [place] Diastolic (mm Hg) 2012-11-27 14:15:00 Triston Mcneil Systolic (mm Hg) 2012-11-27 14:15:00 Andrea Mcneil Weight 2011-06-27 12:09:00 Mer Mcneil Height 2011-06-27 12:09:00 157.48 cm [facility] Tarun Procedures Procedure Date / Time Performing Clinician Source Performed CONSENT/REFUSAL FOR 2021-10-17 15:01:05 [facility] ASSIGNMENT OF BENEFITS 2021-10-17 15:00:50 Doctor Unassigned, No [facility] Branch LIPASE 2021-07-24 16:50:00 Gerardo [facility] COMP. METABOLIC PANEL 2021-07-24 16:50:00 Merlyn Carrillo [facility] ([id number]) [facility] CBC WITH DIFF 2021-07-24 16:50:00 Gerardo [facility] CONSENT/REFUSAL FOR 2021-07-24 15:54:12 Doctor [facility]igned, [facility] POCT TEST 2021-02-20 15:12:00 Oralia Hudson [facility] URINALYSIS 2021-02-20 15:09:00 Oralia Hudson [facility] CONSENT/REFUSAL FOR 2021-02-20 14:58:42 Doctor Unassigned, [facility] NOTICE OF PRIVACY 2021-02-20 14:58:18 Doctor Unassigned, No [facility] PRACTICES [facility] STERILIZATION CONSENT 2020-12-29 05:01:00 Doctor Unassigned, No [facility] Plan of Care Planned Activity Planned Date Details Comments Source Future Scheduled 2022-08-22 [facility] 19:58:46 [code = INFLUENZA VACCINE] Future Scheduled 2022-08-22 COVID-[address] [facility] Test 19:58:46 (#1) [code = COVID-19 VACCINE (#1)] Future Scheduled 2022-08-22 [facility] Test 19:58:46 malignant neoplasm of cervix (procedure) [code = 442363087] Future Scheduled 2022-08-22 [facility]ZA [facility]ACCINE [facility] 19:58:46 [code = INFLUENZA VACCINE] Future Scheduled 2022-08-22 COVID-[address] [facility] Test 19:58:46 (#1) [code = COVID-19 VACCINE (#1)] Future Scheduled 2022-08-22 [facility] Test 19:58:46 malignant neoplasm of cervix (procedure) [code = 061768434] Future Scheduled 2022-04-19 [facility] Test 02:53:33 malignant neoplasm of cervix (procedure) [code = 828477213] Future Scheduled 2022-04-19 [facility]INE [facility] 02:53:33 [code = INFLUENZA VACCINE] Future Scheduled 2022-04-19 COVID-[address] [facility] Test 02:53:33 (#1) [code = COVID-19 VACCINE (#1)] Future Scheduled 2022-04-19 [facility] Test 02:53:33 malignant neoplasm of cervix (procedure) [code = 687478555] Future Scheduled 2022-04-19 [facility]INE [facility] 02:53:33 [code = INFLUENZA VACCINE] Future Scheduled 2022-04-19 COVID-[address] [facility] Test 02:53:33 (#1) [code = COVID-19 VACCINE (#1)] Encounters Start End Encounter Admission Attending Care Care Encounter Source Date/Time Date/Time Type Type Clinicians Facility Department ID 2021-01-09 Outpatient R SOPHIA GIORDANO [facility] [employer] [id number] Univers 03:14:36 ity [facility] 2021-01-08 Emergency [facility] [id number] Univers 15:59:13 ity [facility] 2021-01-08 Outpatient P [facility]RYN [id number] Univers 14:46:08 ity [facility] 2021-01-08 Outpatient P [facility] [id number] Univers 14:12:29 ity [facility] 2021-01-08 Outpatient P [facility] [id number] Univers 13:59:46 ity [facility] 2021-01-07 Outpatient P [facility] [id number] Univers 18:24:03 ity [facility] 2021-01-07 Outpatient P [facility] [id number] Univers 17:08:11 ity of [facility] 2021-01-07 Outpatient P [facility] CAMRYN [id number] Univers 17:03:46 ity of [facility] 2022-09-02 2022-09-02 Outpatient [facility] [id number] Gab 09:14:15 09:14:15 [id number] F [place] 2022-06-03 2022-06-03 Outpatient [facility] [id number] Gab 15:03:49 15:03:49 [id number] F [place] 2022-05-27 2022-05-27 Emergency EM [place], HCAC[facility] AERS [id number] [facility] 11:01:00 11:55:00 Oskar Lerma [facility] 2021-10-30 2021-10-30 Letter ELVIN Clifford [id number] Univers 00:00:00 00:00:00 (Out) [facility] CRISTINA [id number] it y of [facility] [id number] Real as [id number] [address] 2021-10-29 2021-10-29 Laboratory Only, Ang Db Test [facility] 1.2.8 40.114 [id number] Univers 10:15:00 10:30:00 Only Kendall Mcneil HEALTH [id number] ity of [place] [id number] Real as FILI?BLEA [id number] [address] MEDICAL OFFICE BUILDING 2021-10-29 2021-10-[address] [facility] [id number] Univers 10:15:00 10:23:56 KENDALL johnsony o f [facility] 2021-10-23 2021-10-[address] [facility] [id number] Univers 12:15:00 12:39:28 RICKY ity [facility] 2021-10-23 2021-10-23 Laboratory Only, Ang Db Test [facility] 1.2.8 40.114 [id number] Univers 12:15:00 12:30:00 Only Ricky Berg HEALTH 350.1.13.10 ity of [place] 4.2.7.2.686 Real as FILI?BLEA [phone] [address] MEDICAL OFFICE [facility] 2021-10-18 2021-10-18 Letter ELVIN Vega 1.2.840.114 [id number] Univers 00:00:00 00:00:00 (Out) Zoraida Pate CRISTINA 350.1.13.10 it y of [facility] 4.2.7.2.686 Real as [phone] [facility] [address] [place] 2021-10-17 2021-10-[address] [facility] [id number] Univers 10:00:00 10:27:55 ELIZABETH [facility] 2021-10-17 2021-10-17 Laboratory Only, Ang Db Test [facility] 1.2.8 40.114 [id number] Univers 10:00:00 10:15:00 Only Rony [facility] 350.1.13.10 ity of [place] 4.2.7.2.686 Real as FILI?BLEA [phone] [address] MEDICAL OFFICE [facility] 2021-10-17 2021-10-17 Orders Doctor OCONNOR 1.2.840.114 [id number] Univers 00:00:00 00:00:00 Only Unassigned, CRISTINA 350.1.13.10 ity of [place] [facility] 4.2.7.2.686 Real as [phone] [facility] [address] [place] 2021-07-24 2021-07-24 Emergency X GERARDO [facility] ERT [id number] Univers 11:01:00 13:30:00 MERLYN monroe [facility] 2021-07-24 2021-07-24 Emergency Gerardo [facility] 1.2.840.114 [id number] Univers 11:01:00 13:30:00 Merlyn KENN[place] 350.1.13.10 i ty of [place] [phone] [place] [id number] [place] 2021-02-20 2021-02-20 Emergency X TRISTAN [facility] ERT [id number] Univers 09:05:00 10:57:00 ORALIA monroe [facility] 2021-02-20 2021-02-20 Emergency [facility] 1.2.840.114 [id number] Univers 09:05:00 10:57:00 Oralia ADHIKARI 350.1.13.10 it[place] [phone] [facility] 084 [place] 2021-02-20 2021-02-20 Orders Doctor ELVIN 1.2.840.114 [id number] Univers 00:00:00 00:00:00 Only Unassigned, CRISTINA 350.1.13.10 ity of [facility] 4.2.7.2.686 Real as [phone] [facility] 009 [place] 2020-12-29 2020-12-29 Orders Doctor ELVIN 1.2.840.114 [id number] Univers 00:00:00 00:00:00 Only Unassigned, CRISTINA 350.1.13.10 ity of [facility] 4.2.7.2.686 Real as [id number] [facility] 009 [place] 2020-12-22 2020-12-22 Office Marilyn Giordanon [facility] 1.2.840.114 [id number] Univers 13:00:03 13:38:18 Visit Eda 350.1.13.10 i ty of [place] [facility] [phone] [place] 2020-12-22 2020-12-[address] [facility] [id number] Univers 13:00:00 13:00:00 ity of [facility] 2020-12-15 2020-12-15 Hospital Pasquale Sophia [facility] 1.2.840.114 [id number] Univers 07:33:00 11:13:00 Encounter Eda 350.1.13.10 [place] of [place] [phone] [address] 2020-12-15 2020-12-15 Surgery PasqualeMarilynn [facility] 1.2.840.114 [id number] Univers 08:30:00 10:16:00 Eda 350.1.13.10 i ty [place] [phone] [facility] 020 [place] 2020-12-14 2020-12-[address] [facility] [id number] Univers 13:00:00 13:00:00 ity of [facility] 2020-12-14 2020-12-14 Obstetrician/Gynecologist Saundra, Adc Lab Main [facility] 1.2.8 40.114 [id number] Univers 12:44:27 12:59:27 Visit Sophia Giordano 350.1.13.10 [place] of [place] [phone] [facility] 353 [facility] 2020-12-14 2020-12-14 Laboratory Only, Adc Test [facility] 1.2.840. 114 [id number] Univers 12:43:31 12:58:31 Only Sophia Giordano 350.1.13.10 it[place] [phone] [facility] 353 [place] 2020-12-08 2020-12-08 Routine Sophia Giordano [facility] 1.2.840.114 [id number] Univers 13:49:01 14:51:46 Eda 350.1.13.10 ity of Visit [place] [id number] [facility] 134 [facility] 2020-12-08 2020-12-08 Outpatient R SOPHIA GIORDANO [facility] [id number] Univers 14:00:00 14:00:00 ity of [facility] 2020-11-16 2020-11-16 Outpatient R SOPHIA [facility]ORDANO [facility] [id number] Univers 13:15:00 13:15:00 ity of [facility] 2020-11-15 2020-11-15 Patient Sophia Giordano [facility] Evangelista 1.2.840.114 [id number] Univers 00:00:00 00:00:00 Secure Bala 350.1.13.10 ity of [facility] 4[facility]2.7.2.686 [facility] [phone] [address] 2020-11-03 2020-11-03 Routine Sophia Giordano [facility] 1.2.840.114 [id number] Univers 15:48:48 16:28:54 Eda 350.1.13.10 ity of Visit [place] [id number] [place] 2020-11-03 2020-11-03 Outpatient R [address]OPHIA [facility]ORD[facility] [facility] [id number] Univers 16:00:00 16:00:00 ity of [facility] 2020-11-03 2020-11-03 Patient Sophia Giordano [facility] 1.2.840.114 [id number] Univers 00:00:00 00:00:00 Secure Msg Eda 350.1.13.10 it[place] of [place] [phone] [address] 2020-11-01 2020-11-01 Refill Martha Kinney [facility] 1.2.840.114 [id number] Univers 00:00:00 00:00:00 Cam [place] 350.1.13.10 it y of Pediatric 4.2.7.2.686 [facility] [id number] [address] 2020-10-24 2020-10-25 [facility] Martha Kinney [facility] 1.2.840.114 [id number] Univers 02:06:00 20:15:00 Encounter Harshal Adhikari 350.1.13.10 ity of [place] 4.2.7.2.686 [facility] [id number] [address] 2020-10-24 2020-10-24 Anesthesia Elvin Patel [facility] 1.2.840. 114 [id number] Univers 03:59:00 09:35:00 Event pAril Zavaleta 350.1.13.10 ity of [place] 4.2.7.2.686 [facility] [phone] [address] 2020-10-23 2020-10-23 Laboratory Only, Adc Test [facility] 1.2.840. 114 [id number] Univers 09:52:34 10:07:34 Only Lapjenny, Brijesh Adhikari 350.1.13.10 ity of [place] 4.2.7.2.686 [facility] [phone] [facility] [address] 2020-10-23 2020-10-[address] [facility] [id number] Univers 09:30:00 09:30:00 ity of [facility] 2020-10-23 2020-10-23 Orders Doctor ELVIN 1.2.840.114 [id number] Univers 00:00:00 00:00:00 Only Unassigned, CRISTINA 350.1.13.10 ity of [facility] 4.2.7.2.686 [facility] [id number] [facility] [address] 2020-10-18 2020-10-18 Hospital Sophia Giordano [facility] 1.2.840.114 [id number] Univers 07:55:00 11:20:00 Encounter Eda 350.1.13.10 ity of [place] 4.2.7.2.686 [facility] [phone] [facility] 083 [place] 2020-10-17 2020-10-17 Routine Sophia Giordano [facility] 1.2.840.114 [id number] Univers 09:52:16 10:43:00 Bala 350.1.13.10 i ty of Visit [facility] 4.2.7.2.686 [facility] [id number] [facility] [address] 2020-10-17 2020-10-17 Outpatient R SOPHIA [facility]ORDANO [facility] [id number] Univers 10:00:00 10:00:00 ity of [facility] 2020-10-16 2020-10-16 Hospital Sophia Giordano [facility] 1.2.840.114 [id number] Univers 08:12:00 08:13:00 Encounter Eda 350.1.13.10 ity of [place] 4.2.7.2.686 [facility] [phone] [facility] [address] 2020-10-13 2020-10-13 Patient Sophia Giordano [facility] 1.2.840.114 [id number] Univers 00:00:00 00:00:00 Secure Msg [place] 350.1.13.10 [place] [id number] [address] 2020-10-10 2020-10-10 Obstetrician/Gynecologist 2, Adc Lab [facility] 1.2.840.114 [id number] Univers 14:40:28 14:55:28 Visit Marilyn Giordanon Eda 350.1.13.10 it[place] of [place] [phone] [place] dical nal [address] [place] [address] 2020-10-10 2020-10-10 Routine Sophia Giordano [facility] 1.2.840.114 [id number] Univers 13:01:49 13:53:51 [place] 350.1.13.10 i ty of [place] [facility] [place] [phone] [address] 2020-10-10 2020-10-10 Outpatient R PASQUALE [facility]OPHIA [facility] [id number] Univers 13:00:00 13:00:00 ity of [facility] 2020-10-10 2020-10-10 Orders Doctor ELVIN 1.2.840.114 [id number] Univers 00:00:00 00:00:00 Only Unassigned, CRISTINA 350.1.13.10 ity of [place] [facility] 4.2.7.2.686 Real as [id number] [address] 2020-10-03 2020-10-03 Outpatient R PASQUALE [facility]OPHIA [facility] [id number] Univers 08:00:00 08:00:00 ity of [facility] 2020-09-18 2020-09-18 Outpatient R PASQUALE [facility] [id number] Univers 15:00:00 15:00:00 ity of [facility] 2020-09-14 2020-09-14 Outpatient R PASQUALE [facility] [id number] Univers 13:00:00 13:00:00 ity [facility] 2020-09-01 2020-09-01 Outpatient R PASQUALE [facility] [id number] Univers 14:30:00 14:30:00 ity of [facility] 2020-09-01 2020-09-01 Obstetrician/Gynecologist 2, Adc Lab [facility] 1.2.840.114 [id number] Univers 13:14:16 13:29:16 Visit Sophia Giordano 350.1.13.10 it[place] of [place] [phone] [place] dical nal [address] [facility] 2020-08-28 2020-08-28 Outpatient R SOPHIA [facility]ORD[facility]O [facility] [id number] Univers 11:00:00 11:00:00 ity of [facility] 2020-08-15 2020-08-15 Outpatient R SOPHIA [facility] [id number] Univers 16:00:00 16:00:00 ity of [facility] 2020-08-10 2020-08-10 Obstetrician/Gynecologist 2, [facility] 1.2.840.114 [id number] [facility] 13:06:27 13:21:27 Visit Sophia Giordano 350.1.13.[address] [facility] [place] [phone] [place] dical [place]al [address] [place] [address] 2020-08-10 2020-08-10 Outpatient R SOPHIA [facility]ORD[facility]O [facility] [id number] Univers 13:00:00 13:00:00 ity of [facility] 2020-07-31 2020-07-31 Outpatient R SOPHIA [facility] [id number] Univers 08:15:00 08:15:00 ity of [facility] 2020-07-21 2020-07-[address] [facility] [id number] Univers 08:00:00 08:00:00 ity of [facility] 2020-07-18 2020-07-18 [facility] Sophia Giordano [facility] 1.2.840.114 [id number] Univers 08:06:00 11:20:00 Drew Adhikari 350.1.13.10 it[place] of [place] [phone] [facility] [address] [place] 2020-07-11 2020-07-11 [facility] Sophia Giordano [facility] 1.2.840.114 [id number] Univers 14:33:00 20:35:00 Encounter [place] 350.1.13.10 ity of [place] [phone] [facility] 0[address] [place] 2020-07-11 2020-07-11 Outpatient R SOPHIA [facility] [id number] Univers 13:15:00 13:15:00 ity of [facility] 2020-07-03 2020-07-03 Outpatient R PASQUALE [facility] [id number] Univers 08:15:00 08:15:00 ity of [facility] 2020-06-16 2020-06-16 Obstetrician/Gynecologist Ultrasound, [facility] 1.2 .840.114 [id number] Univers 07:55:44 08:55:44 Visit Belia Bach 350.1.13.[address] [facility] [place]2.[place].2.[place] [facility] [id number] [place] dical [address] 2020-06-16 2020-06-[address] [facility] [id number] Univers 08:00:00 08:00:00 ity of [facility] 2020-06-05 2020-06-05 Outpatient R PASQUALE [facility] [id number] Univers 08:15:00 08:15:00 ity of [facility] 2020-05-26 2020-05-26 Orders Doctor OCONNOR 1.2.840.114 [id number] Univers 00:00:00 00:00:00 Only Unassigned, CRISTINA 350.1.13.10 ity of [place] [facility] 4.2.7.2.686 Real as [id number] [facility] [address] 2020-05-24 2020-05-24 Outpatient Dora [facility] G [id number] 021 [place] 10:58:00 10:58:00 [facility] 2020-05-08 2020-05-08 Outpatient R PASQUALE [facility] [id number] Univers 08:15:00 08:15:00 ity of [facility] 2020-05-08 2020-05-08 Orders Doctor ELVIN 1.2.840.114 [id number] Univers 00:00:00 00:00:00 Only Unassigned, CRISTINA 350.1.13.10 ity of [place] [facility] 4.2.7.2.686 Real as [id number] [address] 2020-04-27 2020-04-27 Outpatient R SOPHIA [facility] [id number] Univers 08:00:00 08:00:00 ity [facility] 2020-04-12 2020-04-12 Sophia Engel [facility] 1.2.840.114 [id number] 00:00:00 00:00:00 [place] 350.1.13.10 [place] 4.2.7.2.686 Professio [phone] [address] 2020-04-12 2020-04-12 Telephone Sophia Giordano [facility] 1.2.840.114 [id number] Univers 00:00:00 00:00:00 [place] 350.1.13.10 i ty of [place] [phone] Wa dical [address] 2020-04-07 2020-04-07 Obstetrician/Gynecologist 2, [facility] 1.2.840.114 [id number] 13:07:55 13:22:55 Visit [place] 350.1.13.10 [place] 4.2.7.2.686 Professio [phone] [address] 2020-04-07 2020-04-07 Obstetrician/Gynecologist 2, [facility] 1.2.840.114 [id number] [facility] 13:07:55 13:22:55 Visit Sophia Giordano 350.1.13.10 ity of [place] 4[place].2.[place] [id number] [place] dic[address] 2020-04-07 2020-04-[address] [facility] [id number] Univers 13:15:00 13:15:00 ity [facility] 2020-03-30 2020-03-30 Outpatient R SOPHIA [facility] [id number] Univers 10:30:00 10:30:00 ity of [facility] 2020-03-30 2020-03-30 Orders Doctor ELVIN 1.2.840.114 [id number] 00:00:00 00:00:00 Only Unassigned, CRISTINA 350.1.13.10 [facility] 4.2.7.2.686 [id number] 009 2020-03-30 2020-03-30 Orders Doctor ELVIN 1.2.840.114 [id number] Univers 00:00:00 00:00:00 Only Unassigned, CRISTINA 350.1.13.10 ity of [facility] 4.2.7.2.686 Real as [id number] [address] 2018-11-29 2018-11-29 Emergency E KM KM 7505 [facility] 16:42:00 16:42:00 thais Chisholm Memoria l 2013-10-21 2013-10-21 CHK/UP nullFlavo Pachie S. [id number] fc-9 Memoria 18:30:00 18:30:00 emil Ochoa MD [id number] l PLLC [id number] Fiona nn [id number] 2013-10-21 2013-10-21 CHK/UP nullFlavo Pachie S. c7d9e4 fc-9 Memoria 18:30:00 18:30:00 emil Ochoa MD [id number] l PLLC [id number] Fiona nn [id number] 2013-10-21 2013-10-21 Outpatient Pachie S. Pachie S. 890 51 Memoria 13:30:00 13:30:00 MD Don Ochoa MD l PLLC PLLC Tarun 2012-11-27 2012-11-27 Unknown nullFlavo Pachie S. 390af2 59-0 Memoria 14:15:00 14:15:00 emil Ochoa MD [id number] l PLLC [id number] Fiona [id number] 2012-11-27 2012-11-27 Unknown nullFlavo Pachie S. 246f26 c0-8 Memoria 14:15:00 14:15:00 emil Ochoa MD [id number] l PLLC [id number] [facility] 05696h 2012-11-27 2012-11-27 Unknown nullFlavo John Gray 246f26 c0-8 Memoria 14:15:00 14:15:00 emil Ochoa MD [id number] l [facility] [id number] [facility] 53333b 2012-11-27 2012-11-27 Unknown nullFlavo John Gray 390af2 59-0 Memoria 14:15:00 14:15:00 emil Ochoa MD [id number] l [facility] [id number] [facility] [id number] 2012-11-27 2012-11-27 Outpatient John Gray [id number] Memoria 09:15:00 09:15:00 MD Don Ochoa MD l [facility] 2011-06-27 2011-06-27 Emergency nullFlavo NAHED Chisholm [id number] [facility] 07:06:00 13:07:00 r 00 thais Mcneil 2011-06-27 2011-06-27 Emergency nullFlavo Kathrine [id number] Memoria 07:06:00 13:07:00 r 00 thais Mcneil Results Test Description Test Time Test Comments Results Result Comments Source VITAMIN D, 25 [place] 2022-06-04 05:21:58 Test Item Value Reference Range Interpretation Comme nts VITAMIN D, 25 OH 11 NG/ML SEE BELOW L EFFECTI VE 03/18/2022, PLEASE NOTE NEW (test code = 4958) METHODOLO GY IS ELECTROCHEMILUMINESCENCE BINDING ASSAY. NOTE: 25-HYDROXYVITAMIN D ASSAY INCLUDES 25-HYDROXYVITAMIN D2 AND D3. INTERPRET SCHUYLER RANGES PEDIATRIC (<17 YEARS) . . . . . . . . . . . NG/ML 20-100ADULT: IN SUFFICIENT . . . . . . . . . . . . . . NG/ML <20 SUBOPTIMAL . . . . . . . . . . . . . . . NG/ML 20-29 OPTIMAL . . . . . . . . . . . . . . . . . NG/ML 30-100 [facility] has importa nt pathology staff changes effective 05/08. New pathology staff will prov александр uninterrupted, excellent patient care an d clinical consultation. See URL: [email or web address] UNLESS OTHERWISE INDIC ATED, ALL TESTING PERFORMED AT [facility] [employer] [address] [place] [address] [id number] AUTOMATIC PRESSER: SHEA HENRIQUEZ M.D. CLIA NUMBER [id number] [facility] [place]. [id number] TSH, THIRD [id number] 05:21:34 Test Item Value Reference Range Interpretation Comments TSH, THIRD GENERATION (test code 3.050 UIU/ML 0.400-4.100 = 2821) LIPID [id number] 03:49:05 Test Item Value Reference Range Interpretation Comments CHOLESTEROL (test 167 MG/DL <200 code = 2210) TRIGLYCERIDES (test 89 MG/DL <150 code = 2232) HDL CHOLESTEROL (test 84 MG/DL >39 code = 2220) CALC LDL CHOL (test 66 MG/DL <100 NOTE: C ALCULATED LDL code = 2237) IS BASED ON JYOTI-MAURICIO METHOD WHICHINCLUDES ADJUSTABLE TRIGLYCERIDE:VL DL CHOLESTEROL RAT IO.THIS FACTOR VARIES B Y MEASURED TRIGLY CERIDE AND NON-HDLCHOL ESTEROL CONCENTRATIONS WITH INCREASED CALCU LATED LDL SEENIN HIGH ER TRIGLYCERIDE OR LOWER NON-HDL SPECIME NS. FOR MOREINFORMATION , SEE CLIENT ANNOUNCE MENT AT [email or web address] [email or web address] RATIO LDL/HDL 0.79 RATIO <3.22 (test code = 2238) COMPREHENSIVE METABOLIC [id number] 03:49:05 Test Item Value Reference Range Interpretation Comments GLUCOSE (test code = 96 MG/DL 70-99 2216) BUN (test code = 7 MG/DL 08-27) CREATININE (test 0.71 MG/DL 0.60-1.30 code = 2214) eGFR (2020 CKD-EPI) 115 >60 (test code = 66647) ML/MIN/1.73 CALC BUN/CREAT (test 10 RATIO 09-04 code = 2235) SODIUM (test code = 138 MEQ/L 867-385 7886) POTASSIUM (test code 3.8 MEQ/L 3.5-5.4 = 2228) CHLORIDE (test code 102 MEQ/L 95-107 = 2215) CARBON DIOXIDE (test 24 MEQ/L 19-31 code = 2206) CALCIUM (test code = 9.2 MG/DL 8.5-10.5 2208) PROTEIN, TOTAL (test 7.0 G/DL 6.1-8.3 code = 222) ALBUMIN (test code = 3.8 G/DL 3.5-5.2 2200) CALC GLOBULIN (test 3.2 G/DL 1.9-3.7 code = 2240) CALC A/G RATIO (test 1.2 RATIO 1.0-2.6 code = 2234) BILIRUBIN, TOTAL <0.2 MG/DL See_Comment [Automated message] (test code = 2206) The syste m which generated this result transmit suzette reference range : <=1.2. The refe rence range was not u sed to interpret th is result as normal/abnormal . ALKALINE PHOSPHATASE 101 U/L 40-114 (test code = 2203) AST (test code = 18 U/L 9-40 2217) ALT (test code = 12 U/L 5-40 2218) CBC W/AUTO DIFF WITH [id number] 02:50:38 Test Item Value Reference Range Interpretation Comments WBC (test code = 6.7 K/UL 3.5-11.0 1001) RBC (test code = 4.84 M/UL 3.80-5.40 1002) HEMOGLOBIN (test code 9.4 G/DL 11.5-15.5 L = 1003) HEMATOCRIT (test code 32.8 % 34.0-45.0 L = 1004) MCV (test code = 67.8 fL 80.0-99.0 L 1005) MCH (test code = 19.4 PG 25.0-33.0 L 1006) MCHC (test code = 28.7 G/DL 31.0-36.0 L 1007) RDW (test code = 15.6 % 11.5-15.0 H 1038) NEUTROPHILS (test 76.7 % code = 1008) LYMPHOCYTES (test 17.4 % code = 1010) MONOCYTES (test code 4.8 % = 1011) EOSINOPHILS (test 0.6 % code = 1012) BASOPHILS (test code 0.4 % = 1013) IMMATURE GRANULOCYTES 0.1 % (test code = 1036) NUCLEATED RBCS (test 0.0 /100 WBC'S See_Comment [Aut omated code = 1065) message] The sy stem which generated this result transmitted reference range : 0.0. The refere nce range was not u sed to interpret th is result as normal/abnormal . PLATELET COUNT (test 254 K/UL 130-400 code = 1015) ABSOLUTE NEUTROPHILS 5.12 K/UL 1.50-7.50 (test code = 1066) ABSOLUTE LYMPHOCYTES 1.16 K/UL 1.00-4.00 (test code = 1067) ABSOLUTE MONOCYTES 0.32 K/UL 0.20-1.00 (test code = 1068) ABSOLUTE EOSINOPHILS 0.04 K/UL 0.00-0.50 (test code = 1040) ABSOLUTE BASOPHILS 0.03 K/UL 0.00-0.20 (test code = 1069) ABS IMMATURE 0.01 K/UL 0.00-0.10 GRANULOCYTES (test code = 1020) ABS NUCLEATED RBCS 0.00 K/UL 0.00-0.11 (test code = 31639) INFLUENZA A B [id number] 11:36:00 Test Item Value Reference Range Interpretation Comments INFLUENZA A POC NEGATIVE NEGATIVE (test code = INFLAAG) INFLUENZA B POC NEGATIVE NEGATIVE Performed by certified (test code = turntable operator at [facility] INFLBAG) CtrID-NOW Influ lida A&B assay is a rapi d molecular in vitro diagno stic test utilizing an is othermal nucleic acidamp lification technology for the qualitative det ectionand discrimination of influenza A and B viral RNA. Coronavirus 2019 nCoV [id number] 11:34:00 Test Item Value Reference Range Interpretation Comments Coronavirus 2019 Negative Negative Performed b y certified nCoV Bedside (gun tester at [facility] code = CtrThe [place] I D NOW [id number]) utilizes isoth ermal [place] EnzymeAmplifica tion Reaction (NEAR) technology in the qualitat ivedetection of infectious d iseases. With NEAR technology,ampl ified target detection is ac hieved with the use offluor escently labeled molecul ar beacons, comparable to P CRtechniques -----Negative r esults should be treat ed as presumptive and , ifinconsistent with clinical signs and symptoms or necessaryfor patient management, margaux uld be tested with an alternativemole cular assay. Negative result s do not preclude [id number]-[id number] tion and should not be u sed as the sole basis forp atient management deci sions. Negative result s should beconsidered in the context of a patient's recent exposures,histo ry, presence of clinical sig ns and symptoms consis tentwith COVID-19. AG STREP GROUP A (THROAT)2022-05-27 11:33:00 Test Item Value Reference Range Interpretation Comments AG STREP GROUP A NEGATIVE Negative Performed b y certified (THROAT) (gun tester at [facility] code = STREPA) CtrID-NOW Str ep-A is a rapid, instrume nt-based, molecular invit ro diagnostic test utilizing isothermal nucleic acidamp lification technology for the qualitative det ection ofStreptococcus pyogenes COMP. METABOLIC PANEL ([id number])2021-07-24 17:14:27 Test Item Value Reference Range Interpretation Comments NA (test code = 136 mmol/L 135-145 7443195677) K (test code = 4.1 mmol/L 3.5-5.0 0551174273) CL (test code = 105 mmol/L 98-108 8437450791) CO2 TOTAL (test code = 25 mmol/L 23-31 3235118902) AGAP (test code = 2-16 7294909989) BUN (test code = 7 mg/dL 7-23 8441548616) GLUCOSE (test code = 74 mg/dL 70-110 0312092340) CREATININE (test code = 0.65 mg/dL 0.50-1.04 9192062148) TOTAL BILI (test code = 0.4 mg/dL 0.1-1.5 9751585992) CALCIUM (test code = 8.7 mg/dL 8.6-10.6 0974170833) T PROTEIN (test code = 6.5 g/dL 6.3-8.2 3265592433) ALBUMIN (test code = 3.8 g/dL 3.5-5.0 5659108425) ALK PHOS (test code = 118 U/L 34-122 0390705145) ALTv (test code = 55 U/L 5-35 H 2-6) AST(SGOT) (test code = 50 U/L 13-40 H 1652540028) eGFR (test code = mL/min/1.73m2 1278893947) JOSH (test code = JOSH) Association of Glomerular Filtration Rate (GFR) and Staging of Kidney Disease* + --+ --+ ------+| GFR (mL/min/1.73 m2) ?| With Kidney Damage ?| ?Without Kidney Damage+ --------+ --------+ +| ?>90 ?| ?Stage one ?| ? Normal ?+ ---+ ---+ -------+| ?60-89 ?| ?Stage two ?| ? Decreased GFR ? + --+ --+ ------+| ?30-59 ?| ?Stage three ?| ? Stage three ? + --+ --+ ------+| ?15-29 ?| ?Stage four ? | ? Stage four ?+ ---+ ---+ -------+| ?<15 (or dialysis) ? ?| ?Stage five ? | ? Stage five ?+ ---+ ---+ -------+ *Each stage assumes the associated GFR level has been in effect for at least three months. ?Stages 1 to 5, with or without kidney disease, indicate chronic kidney disease. Notes: Determination of stages one and two (with eGFR >59mL/min/1.73 m2) requires estimation of kidney damage for at least three months as defined by structural or functional abnormalities of the kidney, manifested by either:Pathological abnormalities or Markers of kidney damage (including abnormalities in the composition of the blood or urine or abnormalities in imaging tests). Lab Interpretation Abnormal (test code = 60214-2) [id number]13[facility]46 Test Item Value Reference Range Interpretation Comments LIPASE (test code = 3107605292) 56 U/L 0-220 Lab Interpretation (test code = Normal 41796-8) [facility] WITH [id number] 17:00:07 Test Item Value Reference Range Interpretation Comments WBC (test code = See_Comment [Automated 3090-2) message] The sy stem which generated this result transmitted reference range : 4.30 - 11.10 10*3/?L. The reference range was not used to interpret this result as normal/abnormal . RBC (test code = See_Comment [Automated 789-8) message] The sy stem which generated this result transmitted reference range : 3.93 - 5.25 10*6/?L. The reference range was not used to interpret this result as normal/abnormal . HGB (test code = 10.3 g/dL 11.6-15.0 L 718-7) HCT (test code = 34.2 % 35.7-45.2 L 4544-3) MCV (test code = 71.5 fL 80.6-95.5 L 787-2) MCH (test code = 21.5 pg 25.9-32.8 L 785-6) MCHC (test code = 30.1 g/dL 31.6-35.1 L 786-4) RDW-SD (test code = 40.9 fL 39.0-49.9 83068-6) RDW-CV (test code = 15.9 % 12.0-15.5 H 788-0) PLT (test code = See_Comment [Automated 777-3) message] The sy stem which generated this result transmitted reference range : 166 - 358 10*3/ ?L. The reference r lucía was not used to interpret this result as normal/abnormal . MPV (test code = 12.0 fL 9.5-12.9 01417-3) NRBC/100 WBC (test See_Comment [Automat ed code = [id number]) message] The system which generated this result transmitted reference range : 0.0 - 10.0 /100 WBCs. The refer ence range was not u sed to interpret th is result as normal/abnormal . NRBC x10^3 (test code <0.01 See_Comment [Auto mated = [id number]) message] The s ystem which generated this result transmitted reference range : 10*3/?L. The reference range was not used to interpret this result as normal/abnormal . GRAN MAT (NEUT) % 74.6 % (test code = 770-8) IMM GRAN % (test code 0.20 % = 6338126865) LYMPH % (test code = 18.4 % 736-9) MONO % (test code = 5.6 % 5905-5) EOS % (test code = 0.6 % 713-8) BASO % (test code = 0.6 % 706-2) GRAN MAT x10^3(ANC) 3.98 10*3/uL 1.88-7.09 (test code = 1289501562) IMM GRAN x10^3 (test <0.03 0.00-0.06 code = 9790834991) LYMPH x10^3 (test code 0.98 10*3/uL 1.32-3.29 L = 731-0) MONO x10^3 (test code 0.30 10*3/uL 0.33-0.92 L = 742-7) EOS x10^3 (test code = 0.03 10*3/uL 0.03-0.39 711-2) BASO x10^3 (test code 0.03 10*3/uL 0.01-0.07 = 704-7) Lab Interpretation Abnormal (test code = 84422-2) [facility] [id number] 15:12:00 Test Item Value Reference Range Interpretation Comments POCT PREG (test code = 1605) NEGATIVE On board controls acceptable with PRESENT C Line (test code = 3574) POCT PREG LOT # (test code = 3575) [id number] POCT PREG TEST DATE (test 04/09/2022 code = 3576) Lab Interpretation (test code = Normal 39527-9) [facility] ResourcesCHEMISTRY2012-04-19 13:24:00 Test Item Value Reference Range Interpretation Comments U Preg (test code = U Negative (06/27/2011 N Preg) 08:24:00) [facility]WwroqplDCCVHEHRBQ9207-48-98 13:24:00 Test Item Value Reference Range Interpretation Comments UA RBC (test 0-2 /HPF See_Comment N [Automated mes jefferson] code = UA RBC) (06/27/2011 The system ich 08:24:00) generated this result transmitted ref erence range: <=2. The reference range was not used to int erpret this result as normal/abnormal . [facility] HospitalBbuwibuPGEEMRVCTK7580-22-34 13:24:00 Test Item Value Reference Range Interpretation Comments UA Sq Epi (test code Occasional /LPF N = UA Sq Epi) (06/27/2011 08:24:00) [facility]FnnypylAZYWBJIHAW6328-03-69 13:24:00 Test Item Value Reference Range Interpretation Comments UA WBC (test code = UA 0-2 /HPF (06/27/2011 N WBC) 08:24:00) [facility] CenterShieidwBWBJCEBTJZ3487-12-92 13:24:00 Test Item Value Reference Range Interpretation Comments UA Bacteria (test code = None Seen (06/27/2011 N UA Bacteria) 08:24:00) [facility] CenterXmuyhotDJQHRBFDYM6997-89-02 13:24:00 Test Item Value Reference Range Interpretation Comments Micro? (test code = Performed (06/27/2011 N Micro?) 08:24:00) [facility] CenterQyqemcmZCRQWXPSUI3570-55-99 13:24:00 Test Item Value Reference Range Interpretation Comments UA Protein (test code Negative (06/27/2011 N = UA Protein) 08:24:00) [facility] CenterIvpmgozMUIVNUYLJN1923-92-29 13:24:00 Test Item Value Reference Range Interpretation Comments UA Glucose (test code Negative (06/27/2011 N = UA Glucose) 08:24:00) [facility] CenterDvzeuanTAOCDQOGDH8297-77-06 13:24:00 Test Item Value Reference Range Interpretation Comments UA Spec Grav (test *NA*(06/27/2011 code = UA Spec Grav) 08:24:00) [facility] CenterUhazajdFTGNVRTVIN0567-36-08 13:24:00 Test Item Value Reference Range Interpretation Comments UA pH (test code = UA pH) 6.0 1 5.0-8.0 N [facility] CenterObyvpdbPKSXBWVLBD0757-43-77 13:24:00 Test Item Value Reference Range Interpretation Comments UA Ketones (test code = 15 mg/dL A UA Ketones) *ABN*(06/27/2011 08:24:00) [facility] CenterSwdmkqoLDKKJUGQDG6943-41-83 13:24:00 Test Item Value Reference Range Interpretation Comments UA Color (test code = Yellow *NA*(06/27/2011 UA Color) 08:24:00) [facility] CenterDxohebhUFSGPGDIMX6011-39-38 13:24:00 Test Item Value Reference Range Interpretation Comments UA Turbidity (test code = Clear (06/27/2011 N UA Turbidity) 08:24:00) [facility] ZgkojnuRGUYQBGQSP9334-60-63 13:24:00 Test Item Value Reference Range Interpretation Comments UA Nitrite (test code Negative (06/27/2011 N = UA Nitrite) 08:24:00) [facility] HospitalOixrwxlHWBGTBKXXZ6437-37-55 13:24:00 Test Item Value Reference Range Interpretation Comments UA Bili (test code = Negative *NA*(06/27/2011 UA Bili) 08:24:00) [facility] HospitalFlicixfUQNEFYVATX6869-02-10 13:24:00 Test Item Value Reference Range Interpretation Comments UA Urobilinogen (test code = UA 0.2 0.1-1.0 N Urobilinogen) [facility] HospitalRjnoybbYRXZNAZVRI2974-53-72 13:24:00 Test Item Value Reference Range Interpretation Comments UA Leuk Est (test Negative (06/27/2011 N code = UA Leuk Est) 08:24:00) [facility] HospitalNymwtlzEMBUDERJFW9282-63-75 13:24:00 Test Item Value Reference Range Interpretation Comments UA Blood (test code = Small *ABN*(06/27/2011 A UA Blood) 08:24:00) [facility] HospitalFlbtyjoNbgdrthqyzdc0946-67-33 13:24:00 Test Item Value Reference Range Interpretation Comments Culture: Urine (test code = Culture: Urine) [facility] HospitalUqalkxrVVUXRCPYL3478-22-76 13:24:00Negative (06/27/2011 08:24:00) [facility] SlikfgqBXGBRDBSXJ9163-26-00 13:24:000-2 /HPF (06/27/2011 08:24:00) [facility] LqwgiikIMFQZEIFLP4612-42-08 13:24:00Occasional /LPF (06/27/2011 08:24:00)[facility] AthbtpzJTGSTADJYG4050-86-58 13:24:000-2 /HPF (06/27/2011 08:24:00)[facility] ZxwlxadYJGRYIXWJK1536-18-86 13:24:00None Seen (06/27/2011 08:24:00)[facility] YtjzkfqFJNKMKHQOD1488-66-47 13:24:00Performed (06/27/2011 08:24:00)[facility] YtcqeyuUGAJVPYBVA5433-69-98 13:24:00Negative (06/27/2011 08:24:00)[facility] EzardcoEDHASWOLFL4848-86-49 13:24:00Negative (06/27/2011 08:24:00)[facility] TkuhkrwJJVDPAWSIY2170-00-47 13:24:00 Test Item Value Reference Range Interpretation Comments UA pH (test code = UA pH) 6.0 1 5.0-8.0 N [facility] HyxrwgtWVCSGMZEZK0785-25-73 13:24:0015 mg/dL *ABN*(06/27/2011 08:24:00) [facility] WvupstgXCNBNFCRWW0522-21-82 13:24:00Yellow *NA*(06/27/2011 08:24:00) [facility] AbzizarSBUFMFBHCS5891-74-48 13:24:00Clear (06/27/2011 08:24:00)[facility] NzlrmcpLLCKKYEFDO8026-13-27 13:24:00Negative (06/27/2011 08:24:00)[facility] XetkfgcTIUGZJBUWY7060-52-94 13:24:00Negative *NA*(06/27/2011 08:24:00)[facility] QdudictVDAVMUOZXH8193-51-16 13:24:000.2[facility] CthsalcDORKXBQOQO0456-77-62 13:24:00Negative (06/27/2011 08:24:00)[facility] TlnhogqQIVCDGJSRE9345-59-81 13:24:00Small *ABN*(06/27/2011 08:24:00)[facility] DyhmpfjFHQYMEGVJ5270-48-55 13:24:00Negative (06/27/2011 08:24:00)[facility] CeemviaBEBFCZHGYG8453-28-51 13:24:000-2 /HPF (06/27/2011 08:24:00)[facility] PawfjggCYKUJZYXEY2275-06-63 13:24:00Occasional /LPF (06/27/2011 08:24:00)[facility] HermannURINALYSIS 2011-06-27 13:24:000-2 /HPF (06/27/2011 08:24:00)[facility] HermannURINALYSIS 2011-06-27 13:24:00None Seen (06/27/2011 08:24:00)[facility] HermannURINALYSIS 2011-06-27 13:24:00Performed (06/27/2011 08:24:00)[facility] HermannURINALYSIS 2011-06-27 13:24:00Negative (06/27/2011 08:24:00)[facility] HermannURINALYSIS 2011-06-27 13:24:00Negative (06/27/2011 08:24:00)[facility] HermannURINALYSIS 2011-06-27 13:24:00 Test Item Value Reference Range Interpretation Comments UA pH (test code = UA pH) 6.0 1 5.0-8.0 N [facility] WtrzgtpGXTIHJZPBK1417-10-88 13:24:0015 mg/dL *ABN*(06/27/2011 08:24:00) [facility] HospitalOlyapwuOSRWCSWCUW7736-54-30 13:24:00Yellow *NA*(06/27/2011 08:24:00) [facility] HospitalIqqopgaYXQLVBQUZS9878-99-50 13:24:00Clear (06/27/2011 08:24:00)[facility] AkndfziBPOMWAKUSH4779-00-73 13:24:00Negative (06/27/2011 08:24:00)[facility] UfdvpzfFMZCHALDGK8752-25-28 13:24:00Negative *NA*(06/27/2011 08:24:00)[facility]PccrcofUOKSLMDRBA3007-52-82 13:24:000.2[facility] JmhinyrXETPFRWWDQ3463-37-10 13:24:00Negative (06/27/2011 08:24:00)[facility] EeuprrrWLIUJGJCFD1292-34-77 13:24:00Small *ABN*(06/27/2011 08:24:00)[facility] HospitalEwzxerkXVTJADXWH5517-07-78 13:24:00 Test Item Value Reference Range Interpretation Comments U Preg (test code = U Negative (06/27/2011 N Preg) 08:24:00) [facility] HospitalAorctloECJDDDADBS8916-01-43 13:24:00 Test Item Value Reference Range Interpretation Comments UA RBC (test 0-2 /HPF See_Comment N [Automated mes jefferson] code = UA RBC) (06/27/2011 The system wh ich 08:24:00) generated this result transmitted ref erence range: <=2. The reference range was not used to int erpret this result as normal/abnormal . [facility]stRqdctxwLBLBALKDYR7729-09-60 13:24:00 Test Item Value Reference Range Interpretation Comments UA Sq Epi (test code Occasional /LPF N = UA Sq Epi) (06/27/2011 08:24:00) [facility] CenterOgrisczYPMGDADFZJ1195-19-46 13:24:00 Test Item Value Reference Range Interpretation Comments UA WBC (test code = UA 0-2 /HPF (06/27/2011 N WBC) 08:24:00) [facility]stQaddcghGFWXNQZRNT5068-90-76 13:24:00 Test Item Value Reference Range Interpretation Comments UA Bacteria (test code = None Seen (06/27/2011 N UA Bacteria) 08:24:00) [facility] CenterWibaekwPMFFNUZUXH7787-02-39 13:24:00 Test Item Value Reference Range Interpretation Comments Micro? (test code = Performed (06/27/2011 N Micro?) 08:24:00) [facility]stGnispbeFWFHPLKQLI2940-54-40 13:24:00 Test Item Value Reference Range Interpretation Comments UA Protein (test code Negative (06/27/2011 N = UA Protein) 08:24:00) [facility]stKaoxdevPFBFUOSAZC9974-84-69 13:24:00 Test Item Value Reference Range Interpretation Comments UA Glucose (test code Negative (06/27/2011 N = UA Glucose) 08:24:00) [facility]stApsghotHNQFSIITYT3381-29-45 13:24:00 Test Item Value Reference Range Interpretation Comments UA Spec Grav (test *NA*(06/27/2011 code = UA Spec Grav) 08:24:00) [facility]stUzilcmmPIATYUKPKX5630-51-45 13:24:00 Test Item Value Reference Range Interpretation Comments UA pH (test code = UA pH) 6.0 1 5.0-8.0 N [facility]stCwahbagEONNDMKLBL2070-75-44 13:24:00 Test Item Value Reference Range Interpretation Comments UA Ketones (test code = 15 mg/dL A UA Ketones) *ABN*(06/27/2011 08:24:00) [facility]stUipwpouVEBJXOEJZE1302-39-99 13:24:00 Test Item Value Reference Range Interpretation Comments UA Color (test code = Yellow *NA*(06/27/2011 UA Color) 08:24:00) [facility] EanujcbPTNLJPJSIE2629-35-93 13:24:00 Test Item Value Reference Range Interpretation Comments UA Turbidity (test code = Clear (06/27/2011 N UA Turbidity) 08:24:00) [facility] HospitalEqvhjbmAPTYPYGPFG5637-40-49 13:24:00 Test Item Value Reference Range Interpretation Comments UA Nitrite (test code Negative (06/27/2011 N = UA Nitrite) 08:24:00) [facility] HospitalNwwfjeiELNIMAKNOX6614-70-09 13:24:00 Test Item Value Reference Range Interpretation Comments UA Bili (test code = Negative *NA*(06/27/2011 UA Bili) 08:24:00) [facility] CenterYmbwqruFDUWTAQYGM9052-05-56 13:24:00 Test Item Value Reference Range Interpretation Comments UA Urobilinogen (test code = UA 0.2 0.1-1.0 N Urobilinogen) [facility] HospitalCjyoviwVSKDVAHFIW6385-34-32 13:24:00 Test Item Value Reference Range Interpretation Comments UA Leuk Est (test Negative (06/27/2011 N code = UA Leuk Est) 08:24:00) [facility] HospitalOzxjthbMWXRKUTBDE4523-74-04 13:24:00 Test Item Value Reference Range Interpretation Comments UA Blood (test code = Small *ABN*(06/27/2011 A UA Blood) 08:24:00) [facility] HospitalDfzrinoGrfxyzzvovnu8504-33-22 13:24:00 Test Item Value Reference Range Interpretation Comments Culture: Urine (test code = Culture: Urine) [facility] HospitalAddcjwbTRVGWOLUK6345-01-95 13:24:00 Test Item Value Reference Range Interpretation Comments U Preg (test code = U Negative (06/27/2011 N Preg) 08:24:00) [facility] HospitalPayoxtuUIWKPPBQDA8098-98-00 13:24:00 Test Item Value Reference Range Interpretation Comments UA RBC (test 0-2 /HPF See_Comment N [Automated mes jefferson] code = UA RBC) (06/27/2011 The system wh ich 08:24:00) generated this result transmitted ref erence range: <=2. The reference range was not used to int erpret this result as normal/abnormal . [facility] CenterVtbjfipMCBVXTASFG1095-91-74 13:24:00 Test Item Value Reference Range Interpretation Comments UA Sq Epi (test code Occasional /LPF N = UA Sq Epi) (06/27/2011 08:24:00) [facility] CenterWusibapXCTESLYLBZ3763-19-16 13:24:00 Test Item Value Reference Range Interpretation Comments UA WBC (test code = UA 0-2 /HPF (06/27/2011 N WBC) 08:24:00) [facility] CenterKtvmpzaQPDTJIPDKS1017-09-92 13:24:00 Test Item Value Reference Range Interpretation Comments UA Bacteria (test code = None Seen (06/27/2011 N UA Bacteria) 08:24:00) [facility] CenterFqlybyuYIMNLNLHFT5938-41-45 13:24:00 Test Item Value Reference Range Interpretation Comments Micro? (test code = Performed (06/27/2011 N Micro?) 08:24:00) [facility] CenterOogxtanDVUPFTBNCP2032-28-56 13:24:00 Test Item Value Reference Range Interpretation Comments UA Protein (test code Negative (06/27/2011 N = UA Protein) 08:24:00) [facility] CenterEyesoghMEJBSLIDUD0579-85-48 13:24:00 Test Item Value Reference Range Interpretation Comments UA Glucose (test code Negative (06/27/2011 N = UA Glucose) 08:24:00) [facility] CenterBljunwuCRBZGUQMPD4166-58-40 13:24:00 Test Item Value Reference Range Interpretation Comments UA Spec Grav (test *NA*(06/27/2011 code = UA Spec Grav) 08:24:00) [facility] CenterWxphctnBERGTLNILL6450-95-14 13:24:00 Test Item Value Reference Range Interpretation Comments UA pH (test code = UA pH) 6.0 1 5.0-8.0 N [facility] CenterGozgomxECZJHDQDLD3161-59-73 13:24:00 Test Item Value Reference Range Interpretation Comments UA Ketones (test code = 15 mg/dL A UA Ketones) *ABN*(06/27/2011 08:24:00) [facility] CenterDrgubokBCBZUUHVHT2589-66-17 13:24:00 Test Item Value Reference Range Interpretation Comments UA Color (test code = Yellow *NA*(06/27/2011 UA Color) 08:24:00) [facility] CenterIeqhfybQDOXLKAIDT0574-98-20 13:24:00 Test Item Value Reference Range Interpretation Comments UA Turbidity (test code = Clear (06/27/2011 N UA Turbidity) 08:24:00) [facility] HospitalRjifaxyBENPHGSNSR9301-01-35 13:24:00 Test Item Value Reference Range Interpretation Comments UA Nitrite (test code Negative (06/27/2011 N = UA Nitrite) 08:24:00) [facility] HospitalCczmzolFGOUFPBRHV9712-81-54 13:24:00 Test Item Value Reference Range Interpretation Comments UA Bili (test code = Negative *NA*(06/27/2011 UA Bili) 08:24:00) [facility] CenterRvbiaknMEVPEGUWQR2219-49-47 13:24:00 Test Item Value Reference Range Interpretation Comments UA Urobilinogen (test code = UA 0.2 0.1-1.0 N Urobilinogen) [facility] CenterIezxnmzZHANBQAALD7871-55-30 13:24:00 Test Item Value Reference Range Interpretation Comments UA Leuk Est (test Negative (06/27/2011 N code = UA Leuk Est) 08:24:00) [facility] HospitalUjlgiclDKDUPDOZBU9162-98-72 13:24:00 Test Item Value Reference Range Interpretation Comments UA Blood (test code = Small *ABN*(06/27/2011 A UA Blood) 08:24:00) [facility] CenterDoftjlrHfkpyizdykwr1197-70-31 13:24:00 Test Item Value Reference Range Interpretation Comments Culture: Urine (test code = Culture: Urine) [facility] CenterBkyeriqXIJSRWGOD6485-70-11 13:24:00 Test Item Value Reference Range Interpretation Comments U Preg (test code = U Negative (06/27/2011 N Preg) 08:24:00) [facility] HospitalEjcvcipUAHOEEHOQX7665-35-13 13:24:00 Test Item Value Reference Range Interpretation Comments UA RBC (test 0-2 /HPF See_Comment N [Automated mes jefferson] code = UA RBC) (06/27/2011 The system [facility] 08:24:00) generated this result transmitted ref erence range: <=2. The reference range was not used to int erpret this result as normal/abnormal . [facility] CenterWbpbufaFGHOZQHYQM7373-08-20 13:24:00 Test Item Value Reference Range Interpretation Comments UA Sq Epi (test code Occasional /LPF N = UA Sq Epi) (06/27/2011 08:24:00) [facility] CenterFazpwrxTSBOUSDFHC4015-77-48 13:24:00 Test Item Value Reference Range Interpretation Comments UA WBC (test code = UA 0-2 /HPF (06/27/2011 N WBC) 08:24:00) [facility] CenterLfeopgnDKVHPIQQBC9280-49-27 13:24:00 Test Item Value Reference Range Interpretation Comments UA Bacteria (test code = None Seen (06/27/2011 N UA Bacteria) 08:24:00) [facility] CenterWdesfvpQNEVVQJLTB0526-18-07 13:24:00 Test Item Value Reference Range Interpretation Comments Micro? (test code = Performed (06/27/2011 N Micro?) 08:24:00) [facility] CenterNasedyuPSADQHOHPT0797-82-31 13:24:00 Test Item Value Reference Range Interpretation Comments UA Protein (test code Negative (06/27/2011 N = UA Protein) 08:24:00) [facility] CenterUxpaoxtXRTGFTFVGO1746-14-89 13:24:00 Test Item Value Reference Range Interpretation Comments UA Glucose (test code Negative (06/27/2011 N = UA Glucose) 08:24:00) [facility] CenterXoarxteKLNRJMWCHS5434-97-52 13:24:00 Test Item Value Reference Range Interpretation Comments UA Spec Grav (test *NA*(06/27/2011 code = UA Spec Grav) 08:24:00) [facility] CenterQeknwxaFRHWDBJLRD1930-38-43 13:24:00 Test Item Value Reference Range Interpretation Comments UA pH (test code = UA pH) 6.0 1 5.0-8.0 N [facility] CenterQxdjildFZBFZQNIHS9579-71-82 13:24:00 Test Item Value Reference Range Interpretation Comments UA Ketones (test code = 15 mg/dL A UA Ketones) *ABN*(06/27/2011 08:24:00) [facility] CenterDkaybyuLDQVNVJOWQ4739-63-81 13:24:00 Test Item Value Reference Range Interpretation Comments UA Color (test code = Yellow *NA*(06/27/2011 UA Color) 08:24:00) [facility] CenterHlemigzDFAWNPZBAJ2182-13-89 13:24:00 Test Item Value Reference Range Interpretation Comments UA Turbidity (test code = Clear (06/27/2011 N UA Turbidity) 08:24:00) [facility] CenterNcfjgbwBEFRSCHSHX4753-66-62 13:24:00 Test Item Value Reference Range Interpretation Comments UA Nitrite (test code Negative (06/27/2011 N = UA Nitrite) 08:24:00) [facility] RboaqtqKXEZLSISLL3077-73-80 13:24:00 Test Item Value Reference Range Interpretation Comments UA Bili (test code = Negative *NA*(06/27/2011 UA Bili) 08:24:00) [facility] QjjwuseNGMCLJROHV1430-04-78 13:24:00 Test Item Value Reference Range Interpretation Comments UA Urobilinogen (test code = UA 0.2 0.1-1.0 N Urobilinogen) [facility]KnmckfiMAOQQBZNSA6329-75-28 13:24:00 Test Item Value Reference Range Interpretation Comments UA Leuk Est (test Negative (06/27/2011 N code = UA Leuk Est) 08:24:00) [facility] DoalvhfNVGOVDDOEU0688-40-62 13:24:00 Test Item Value Reference Range Interpretation Comments UA Blood (test code = Small *ABN*(06/27/2011 A UA Blood) 08:24:00) [facility] HospitalMwkegmjAjygcysprudn8343-47-09 13:24:00 Test Item Value Reference Range Interpretation Comments Culture: Urine (test code = Culture: Urine) [facility] IduznorBKLYVWJZZ0432-11-03 13:24:00Negative (06/27/2011 08:24:00) [facility] EarhelrXIIZFCXJLA2796-63-17 13:24:000-2 /HPF (06/27/2011 08:24:00) [facility] OrheaxmTDQTTUWZAH6484-31-28 13:24:00Occasional /LPF (06/27/2011 08:24:00)[facility] CqwfnmmZXCENTAKSX2418-47-18 13:24:000-2 /HPF (06/27/2011 08:24:00)[facility] WbqdcgxCZHICMALCG9388-82-14 13:24:00None Seen (06/27/2011 08:24:00)[facility] FvyabflUVPKDOAFVT6391-78-59 13:24:00Performed (06/27/2011 08:24:00)[facility] HlvkssdHVNWJOYSUZ7521-92-25 13:24:00Negative (06/27/2011 08:24:00)[facility] HjdsoipEUYPXSBDZK6508-42-26 13:24:00Negative (06/27/2011 08:24:00)[facility] GillttyNQLKHODSWR9523-16-19 13:24:00 Test Item Value Reference Range Interpretation Comments UA pH (test code = UA pH) 6.0 1 5.0-8.0 N [facility] OlofddmOADRWJTJYV2612-66-16 13:24:0015 mg/dL *ABN*(06/27/2011 08:24:00) [facility] QpxwyrlPLUVTQXXEG4316-70-21 13:24:00Yellow *NA*(06/27/2011 08:24:00) [facility] DlznnhyEVCJZCPVVT8203-64-08 13:24:00Clear (06/27/2011 08:24:00)[facility] IkqpxdtFTHFDAIIBP7347-09-64 13:24:00Negative (06/27/2011 08:24:00)[facility] FznedbgTVDNHAWUXZ8002-17-61 13:24:00Negative *NA*(06/27/2011 08:24:00)[facility] WbaxhcyYSMUEALKWU8126-34-49 13:24:000.2[facility] MyrqmtrKTVCRZSDIT2941-43-11 13:24:00Negative (06/27/2011 08:24:00)[facility] AmrfunlZSNOGKAEEJ8532-09-77 13:24:00Small *ABN*(06/27/2011 08:24:00)[facility] [id number] 13:24:00Negative (06/27/2011 08:24:00)[facility] YmkvilpVTVOHRKLZV2763-55-28 13:24:000-2 /HPF (06/27/2011 08:24:00)[facility] TkxyadyBCLEIHOQHA3445-91-19 13:24:00Occasional /LPF (06/27/2011 08:24:00)[facility] 2011-[facility]-27 13:24:000-2 /HPF (06/27/2011 08:24:00)[facility] 2011-06-27 13:24:00None Seen (06/27/2011 08:24:00)[facility] 2011-06-27 13:24:00Performed (06/27/2011 08:24:00)[facility] 2011-06-27 13:24:00Negative (06/27/2011 08:24:00)[facility] 2011-06-27 13:24:00Negative (06/27/2011 08:24:00)[facility] 2011-06-27 13:24:00 Test Item Value Reference Range Interpretation Comments UA pH (test code = UA pH) 6.0 1 5.0-8.0 N [facility] IgsjsxzPGOUOSDMQK4819-21-36 13:24:0015 mg/dL *ABN*(06/27/2011 08:24:00) [facility] DwnbcrkUTQSJHRQJO6382-31-63 13:24:00Yellow *NA*(06/27/2011 08:24:00) [facility] BtmgvnsHEJJDLIEXG3474-90-46 13:24:00Clear (06/27/2011 08:24:00)[facility] UktmciqBLFQJHTPNY1569-46-20 13:24:00Negative (06/27/2011 08:24:00)[facility] YbqtzeaQVELJQUJPW2907-23-53 13:24:00Negative *NA*(06/27/2011 08:24:00)[facility] XdkzzppLCWPVHELLL3339-76-73 13:24:000.2[facility] XcjtzezFRCGEOGOQB2137-48-22 13:24:00Negative (06/27/2011 08:24:00)[facility] QavkfzgHDSHNFVMMU7825-39-59 13:24:00Small *ABN*(06/27/2011 08:24:00)[facility] JvzvfpvCMJRLSUZH7934-97-05 13:24:00Negative (06/27/2011 08:24:00)[facility] CbedaheVGZZHUDAKV1701-90-77 13:24:000-2 /HPF (06/27/2011 08:24:00)[facility] KayddwqVQFYEXPZON5779-77-50 13:24:00Occasional /LPF (06/27/2011 08:24:00)[facility] 2011-[facility]-27 13:24:000-2 /HPF (06/27/2011 08:24:00)[facility]URINALYSIS 2011-06-27 13:24:00None Seen (06/27/2011 08:24:00[facility] 13:24:00Performed (06/27/2011 08:24:00)[facility] 13:24:00Negative (06/27/2011 08:24:00)[facility] 13:24:00Negative (06/27/2011 08:24:00)[facility] 2011-[facility]27 13:24:00 Test Item Value Reference Range Interpretation Comments UA pH (test code = UA pH) 6.0 1 5.0-8.0 N [facility]FvphwkgVLXLDYPBPV0100-06-88 13:24:0015 mg/dL *ABN*(06/27/2011 08:24:00) [facility]UaexvteQYEPRHWCJN2196-30-43 13:24:00Yellow *NA*(06/27/2011 08:24:00) [facility] HospitalOmlqgkbFKTRKSDYEE2779-48-76 13:24:00Clear (06/27/2011 08:24:00)[facility] HospitalShdedmzHFJOAWCIEP4104-06-80 13:24:00Negative (06/27/2011 08:24:00)[facility] HospitalJjwzlclUUHQAAVCHA6509-02-87 13:24:00Negative *NA*(06/27/2011 08:24:00)[facility] HospitalYwtekiaDEWBKUKCTA1397-08-88 13:24:000.2[facility] QdpwcexSGYZZQJDGD7707-87-94 13:24:00Negative (06/27/2011 08:24:00)[facility] FkjtuogRZENIEMAIE3953-36-36 13:24:00Small *ABN*(06/27/2011 08:24:00)[facility] HospitalCvkyrrrBXEWZGDXP1258-60-31 12:30:00 Test Item Value Reference Range Interpretation Comments Lipase Lvl (test code = Lipase Lvl) 107 73-393 N [facility] HospitalRtaswtnYLFDFXTQF6417-93-76 12:30:00 Test Item Value Reference Range Interpretation Comments Amylase Lvl (test code = Amylase Lvl) 33 25-115 N [facility] CenterZozcuajXFHWGOTMI0401-64-97 12:30:00 Test Item Value Reference Range Interpretation Comments Globulin (test code = Globulin) 3.5 2.0-4.0 N [facility] CenterUqhrjmrMTHMAIGND7758-01-31 12:30:00 Test Item Value Reference Range Interpretation Comments B/C Ratio (test code = B/C Ratio) 11 6-25 N [facility] CenterXxybqpaMSUBQJMXK9388-69-57 12:30:00 Test Item Value Reference Range Interpretation Comments AGAP (test code = AGAP) 11.3 10.0-20.0 N [facility] CenterHqpfozuZXXEUVIJY5811-68-18 12:30:00 Test Item Value Reference Range Interpretation Comments A/G Ratio (test code = A/G Ratio) 1.1 0.7-1.6 N [facility] CenterYezyeueGBOMEQYCC9611-26-87 12:30:00 Test Item Value Reference Range Interpretation Comments Alk Phos (test code = Alk Phos) 59 39-136 N [facility] CenterOigptctYVNIFUJMT8543-90-10 12:30:00 Test Item Value Reference Range Interpretation Comments Calcium Lvl (test code = Calcium Lvl) 9.6 8.5-10.5 N [facility] CenterYbnreasXBPCHMKPV2707-79-76 12:30:00 Test Item Value Reference Range Interpretation Comments Chloride Lvl (test code = Chloride Lvl) 109 95-109 N [facility] CenterByfdhxaEOETHEMGE1014-66-72 12:30:00 Test Item Value Reference Range Interpretation Comments CO2 (test code = CO2) 26 24-32 N [facility] CenterDdbnmxmDXLDAFRWW6177-40-12 12:30:00 Test Item Value Reference Range Interpretation Comments ALT (test code = ALT) 31 See_Comment N [Auto mated message] The system which ge nerated this result transmit suzette reference range : <=65. The reference range was not used to interpr et this result as mary l/abnormal. [facility] CenterRgtqojxMZUAMHWGN2753-58-50 12:30:00 Test Item Value Reference Range Interpretation Comments Total Protein (test code = Total 7.2 6.4-8.4 N Protein) [facility] CenterKcpphkvNZTHZSCST7562-26-31 12:30:00 Test Item Value Reference Range Interpretation Comments Albumin Lvl (test code = Albumin Lvl) 3.7 3.5-5.0 N [facility] CenterYopmzvuQSZZEGOBK7959-21-59 12:30:00 Test Item Value Reference Range Interpretation Comments Glucose Lvl (test code = Glucose Lvl) 80 70-99 N [facility] CenterIsdcyzmMFGXNTRIT8552-66-09 12:30:00 Test Item Value Reference Range Interpretation Comments BUN (test code = BUN) 9 7-22 N [facility] CenterKpxgzjgUACKDOJDA6883-58-12 12:30:00 Test Item Value Reference Range Interpretation Comments Creatinine Lvl (test code = Creatinine 0.8 0.5-1.4 N Lvl) [facility] CenterZssnbzgMPMDFUJYS8895-22-09 12:30:00 Test Item Value Reference Range Interpretation Comments Potassium Lvl (test code = Potassium 3.3 3.5-5.1 L Lvl) [facility] CenterEftomjeCIGYBNVHR9105-16-22 12:30:00 Test Item Value Reference Range Interpretation Comments Sodium Lvl (test code = Sodium Lvl) 143 135-145 N [facility] CenterZxeqzzyNDICOTIEK0209-85-80 12:30:00 Test Item Value Reference Range Interpretation Comments AST (test code = AST) 12 See_Comment N [Auto mated message] The system which ge nerated this result transmit suzette reference range : <=37. The reference range was not used to interpr et this result as mary l/abnormal. [facility] CenterLocvgvxEDATDZIQR5446-47-67 12:30:00 Test Item Value Reference Range Interpretation Comments Bili Total (test code = Bili Total) 0.5 0.2-1.3 N [facility]CctovtgALYVBDIMSR3569-55-05 12:30:00 Test Item Value Reference Range Interpretation Comments INR (test code = INR) 1.02 0.85-1.17 N [facility]AtqyytbCWAOZWNQFK7042-44-33 12:30:00 Test Item Value Reference Range Interpretation Comments PTT (test code = PTT) 31.2 s 22.9-35.8 N [facility]MpyhikkQJEWLTWKEF1902-39-26 12:30:00 Test Item Value Reference Range Interpretation Comments PT (test code = PT) 13.4 s 12.0-14.7 N [facility]MifuxckJNFNOVJFMX4802-49-80 12:30:00 Test Item Value Reference Range Interpretation Comments RDW (test code = RDW) 13.3 11.5-14.5 N [facility]HealthTlkdnnnZYRHSWABRL7056-74-00 12:30:00 Test Item Value Reference Range Interpretation Comments MCHC (test code = MCHC) 34.3 32.0-36.0 N [facility]WqdnbnqAVHSOJUPFL8327-48-01 12:30:00 Test Item Value Reference Range Interpretation Comments MCH (test code = MCH) 28.6 pg 27.0-31.0 N [facility]HealthAyoqhzcOMVZCFWMGR1806-21-86 12:30:00 Test Item Value Reference Range Interpretation Comments Platelet (test code = Platelet) 181 133-450 N [facility]HealthDmagyazCWACHVFCVH9323-60-21 12:30:00 Test Item Value Reference Range Interpretation Comments MPV (test code = MPV) 10.2 7.4-10.4 N [facility]HealthHsixuhaCEPPIVFMBF4043-88-21 12:30:00 Test Item Value Reference Range Interpretation Comments Hgb (test code = Hgb) 13.7 12.0-16.0 N [facility]HealthGphekepHPCDIJBNTC3216-42-69 12:30:00 Test Item Value Reference Range Interpretation Comments Hct (test code = Hct) 40.0 36.0-48.0 N [facility]HealthZeaeiakUOEDNMWTFN2829-44-38 12:30:00 Test Item Value Reference Range Interpretation Comments MCV (test code = MCV) 83.4 81.0-99.0 N [facility]IimpestXFJPOJWJOI3328-36-70 12:30:00 Test Item Value Reference Range Interpretation Comments RBC (test code = RBC) 4.80 4.20-5.40 N [facility]HealthNjoigimKIVTBXOSXE2840-66-40 12:30:00 Test Item Value Reference Range Interpretation Comments WBC (test code = WBC) 5.3 3.7-10.4 N [facility]HealthBwaxnprGWZOAYWHBX3594-31-93 12:30:00 Test Item Value Reference Range Interpretation Comments Eosinophils # (test code 0.1 See_Comment N [A utomated message] The = Eosinophils #) system whic h generated this result tra nsmitted reference range : <=0.5. The reference r lucía was not used to int erpret this result as normal/abnormal . [facility]QklxsraQIUPTRDEBO4296-48-61 12:30:00 Test Item Value Reference Range Interpretation Comments Lymphocytes # (test code = Lymphocytes 1.7 1.0-5.5 N #) [facility]OztsykxZLTSPMBAJE4255-56-53 12:30:00 Test Item Value Reference Range Interpretation Comments Monocytes # (test code 0.3 See_Comment N [Aut omated message] The = Monocytes #) system which generated this result tra nsmitted reference range : <=0.8. The reference r lucía was not used to int erpret this result as normal/abnormal . [facility]HealthHwuwxuuWZIRETVDIB5019-41-45 12:30:00 Test Item Value Reference Range Interpretation Comments Basophils # (test code 0.0 See_Comment N [Aut omated message] The = Basophils #) system which generated this result tra nsmitted reference range : <=0.2. The reference r lucía was not used to int erpret this result as normal/abnormal . [facility]AewkweqSQWXBNAWLL2879-19-72 12:30:00 Test Item Value Reference Range Interpretation Comments Monocytes (test code = Monocytes) 5.8 2.0-12.0 N [facility]HealthKwatduyKHTIEJJCSH6316-62-76 12:30:00 Test Item Value Reference Range Interpretation Comments Eosinophils (test code = 1.2 See_Comment N [A utomated message] The Eosinophils) system which ge nerated this result tra nsmitted reference range : <=4.0. The reference r lucía was not used to int erpret this result as normal/abnormal . [facility]HealthAkrubojZTWZYGHUWK1054-45-87 12:30:00 Test Item Value Reference Range Interpretation Comments Segs (test code = Segs) 60.7 45.0-75.0 N [facility]HealthIliuxvcNPVJPCFKCV7590-42-96 12:30:00 Test Item Value Reference Range Interpretation Comments Lymphocytes (test code = Lymphocytes) 32.2 20.0-40.0 N [facility]HealthEtwkjugUNVBMLXWWN0037-59-31 12:30:00 Test Item Value Reference Range Interpretation Comments Basophils (test code = 0.1 See_Comment N [Aut omated message] The Basophils) system which ge nerated this result tra nsmitted reference range : <=1.0. The reference r lucía was not used to int erpret this result as normal/abnormal . [facility]FpsmjblJWIZJMPUGY5349-03-85 12:30:00 Test Item Value Reference Range Interpretation Comments Segs-Bands # (test code = Segs-Bands #) 3.2 1.5-8.1 N [facility] CenterArbastbTSHRUWPRO3312-58-71 12:30:72332Odifbnrp [facility]CHEMISTRY 2011-06-27 12:30:0033[facility] EtbmajkEMGREGDIW2509-70-85 12:30:003.5[facility] EcljjjvOIFMLUJPC6582-44-94 12:30:0011[facility] IbxeuvlCMRTNXHOD6781-83-44 12:30:0011.3[facility] YrdsuooRLAKKQARR2222-87-02 12:30:001.1[facility] PKUMVMZFZ2124-58-56 12:30:0059[facility] HmfacetXISOYNZRO3963-13-62 12:30:009.6 [facility] TcchwwqJHJTIOHVV3975-13-04 12:30:04468Hbvkfbrw [facility]annCHEMISTRY 2011-06-27 12:30:0026[facility] UtxquccBRSLJBKFL3199-02-28 12:30:0031[facility] WqfvilkTSTMNTGMH9245-07-94 12:30:007.2[facility] YitgdfyCMZMBRFND8252-50-55 12:30:003.7[facility] CdlfaztRJLLMNTFK7898-54-36 12:30:0080[facility] JFTFIWDOO5911-49-73 12:30:009[facility] TbkpzsaVKZNPAJSY4002-44-61 12:30:000.8 [facility] UyzasrjNVLOFTTFS5028-78-51 12:30:003.3[facility] HermannCHEMISTRY 2011-06-27 12:30:95167Tlsslpmx BafznuzGYCUYODQT4891-64-49 12:30:0012[facility] RuaiimhBGVMJBOSM1698-27-06 12:30:000.5[facility] GgbzowcQYLXLVQFVP4850-47-01 12:30:001.02[facility] QhasitfKREZNOGBSK0147-99-52 12:30:00 Test Item Value Reference Range Interpretation Comments PTT (test code = PTT) 31.2 s 22.9-35.8 N [facility] BvrjjknCQKQTTJMGB9117-76-88 12:30:00 Test Item Value Reference Range Interpretation Comments PT (test code = PT) 13.4 s 12.0-14.7 N [facility] AxrilhbQZIBVPBMDO9856-27-08 12:30:0013.3[facility] HermannHEMATOLOGY 2011-06-27 12:30:0034.3[facility] CqurrfyPXDRLHJTGE8065-54-80 12:30:00 Test Item Value Reference Range Interpretation Comments MCH (test code = MCH) 28.6 pg 27.0-31.0 N [facility] DrbljreBVLBXGMDTN4912-52-64 12:30:47699Lqkypsyw HermannHEMATOLOGY 2011-06-27 12:30:0010.2[facility] HyogmolFMWOKYZZWS6797-59-02 12:30:0013.7[facility] KlwjtxyDSPYBOFIUE7820-91-70 12:30:0040.0[facility] MntwgtdTPIINLUZTZ1916-32-38 12:30:0083.4[facility] QblbmbaBGLPQVLAYF7636-89-26 12:30:004.80[facility] LQJRCNBWWY3000-20-54 12:30:005.3[facility] FnbzplbFPTUVCCLZA1542-66-17 12:30:000.1 [facility] TffzmuyTIUJZKFZBL4655-81-23 12:30:001.7[facility] HermannHEMATOLOGY 2011-06-27 12:30:000.3[facility] VfvtemqHKTBJCSOKP6813-80-13 12:30:000.0[facility] LqzcoqwJNIZJIQSAO1026-72-58 12:30:005.8[facility] MtoehjgWLMYBEUJDR3878-97-21 12:30:001.2[facility] JakkibdJLIFCLDHDN7582-91-20 12:30:0060.7[facility] UHGBDFTXCY7107-69-86 12:30:0032.2[facility] DqqjjcbIKSUXEXCTN8703-44-48 12:30:00 0.1[facility] VegirbcPIKCLSZCXR1172-41-11 12:30:003.2[facility] HermannCHEMISTRY 2011-06-27 12:30:88810Yamoqcqy HlzhuyfYQIFQXSSJ6998-13-03 12:30:0033[facility] FgxlhicMPOFUKLIK6480-18-69 12:30:003.5[facility] NmnxqdrRKPJQVSBM4297-26-96 12:30:0011[facility] MewpksmQRGKGCHEJ9693-09-65 12:30:0011.3[facility] GCBEKKODJ2305-10-78 12:30:001.1[facility] CzhmbvoDTIHSRJMN6965-97-11 12:30:0059 [facility] ImnrnipUTGWRGNEV2684-87-81 12:30:009.6[facility] HermannCHEMISTRY 2011-06-27 12:30:96027Yocosbvs EawgwfvLMYAYYYCG7394-65-47 12:30:0026[facility] CvadcuuMEDBDHOUT0107-53-48 12:30:0031[facility] LeqvwarVVZJTJLFP7149-77-51 12:30:007.2[facility] WjufhioUNUVKJMLL8385-51-90 12:30:003.7[facility] PUXMEJEQJ5336-41-40 12:30:0080[facility] WivdrobXOKMLIFSP9724-93-55 12:30:009 [facility] DkchqlrVJEKZBJLO1654-74-25 12:30:000.8[facility] HermannCHEMISTRY 2011-06-27 12:30:003.3[facility] FyufarsOVFXRYTWE3259-34-44 12:30:25977Yvqsiycy AwwmakoGLUEGWZLW9174-26-45 12:30:0012[facility] EhskejaVLKRXWWXR4659-90-07 12:30:000.5[facility] ZnvctttHOCJAQKEMB8490-28-84 12:30:001.02[facility] QYMXNGDCBT6532-71-64 12:30:00 Test Item Value Reference Range Interpretation Comments PTT (test code = PTT) 31.2 s 22.9-35.8 N [facility] HepkhpyMLBNNFEZQD2557-57-75 12:30:00 Test Item Value Reference Range Interpretation Comments PT (test code = PT) 13.4 s 12.0-14.7 N [facility] EmpktygGIGIZYLOJO2242-95-64 12:30:0013.3[facility] HermannHEMATOLOGY 2011-06-27 12:30:0034.3[facility] TmislvgGNZKXGQYQG5664-72-19 12:30:00 Test Item Value Reference Range Interpretation Comments MCH (test code = MCH) 28.6 pg 27.0-31.0 N [facility] YqbwqpwDSIIJNHLVQ8662-81-14 12:30:20650Fynisygq HermannHEMATOLOGY 2011-06-27 12:30:0010.2[facility] QgryyzfGRPNEIAJVX6021-50-64 12:30:0013.7[facility] TwrmlezBGOKVBNBEL5880-50-68 12:30:0040.0[facility] YsnndhdYGNKEFBSYB5826-00-49 12:30:0083.4[facility] LbvppoxOGHBLIFMFH4511-80-30 12:30:004.80[facility] VUHPMSJZWN0636-77-14 12:30:005.3[facility] GnnyubaFQLJBTOOOE1912-40-52 12:30:000.1 [facility] CnudqkzJYHZHUKDEP9445-20-23 12:30:001.7[facility] HermannHEMATOLOGY 2011-06-27 12:30:000.3[facility] KhpfmgzCOHOUZERFF5782-91-51 12:30:000.0[facility] PwkiphnTFUTXVMPFA4310-92-84 12:30:005.8[facility] AnugejnUMQOUAMOLG1221-31-55 12:30:001.2[facility] JhcbjjsVJRDRJNSRJ9340-74-18 12:30:0060.7[facility] XIAHMATNCV4104-98-32 12:30:0032.2[facility] VltirvvYSSDLDFGYS6465-75-88 12:30:00 0.1[facility] QnbcgqoOFQLRZUKLJ1972-28-37 12:30:003.2[facility] HermannCHEMISTRY 2011-06-27 12:30:00 Test Item Value Reference Range Interpretation Comments Lipase Lvl (test code = Lipase Lvl) 107 73-393 N [facility] NkoibsrHZDMKLUPG1714-36-27 12:30:00 Test Item Value Reference Range Interpretation Comments Amylase Lvl (test code = Amylase Lvl) 33 25-115 N [facility] AnfmmhcUGEFYESKT9519-53-60 12:30:00 Test Item Value Reference Range Interpretation Comments Globulin (test code = Globulin) 3.5 2.0-4.0 N [facility] ElcmpvpNAPYRHTOE4385-60-76 12:30:00 Test Item Value Reference Range Interpretation Comments B/C Ratio (test code = B/C Ratio) 11 6-25 N [facility] BasikjdFTAIIUGTY1420-84-47 12:30:00 Test Item Value Reference Range Interpretation Comments AGAP (test code = AGAP) 11.3 10.0-20.0 N [facility] CenterMroabipDGRLIQJNI7856-88-61 12:30:00 Test Item Value Reference Range Interpretation Comments A/G Ratio (test code = A/G Ratio) 1.1 0.7-1.6 N [facility] CenterGbkqryvHNLBIETLZ5911-19-77 12:30:00 Test Item Value Reference Range Interpretation Comments Alk Phos (test code = Alk Phos) 59 39-136 N [facility] CenterEcjwgkcTAHFBDXIP1207-26-35 12:30:00 Test Item Value Reference Range Interpretation Comments Calcium Lvl (test code = Calcium Lvl) 9.6 8.5-10.5 N [facility] CenterEpubxhqIYXCTVBBR9918-20-12 12:30:00 Test Item Value Reference Range Interpretation Comments Chloride Lvl (test code = Chloride Lvl) 109 95-109 N [facility] CenterDhpypdoOPEUYONNR4658-70-45 12:30:00 Test Item Value Reference Range Interpretation Comments CO2 (test code = CO2) 26 24-32 N [facility] CenterTpifksrOUORPNQJM3999-91-25 12:30:00 Test Item Value Reference Range Interpretation Comments ALT (test code = ALT) 31 See_Comment N [Auto mated message] The system which ge nerated this result transmit suzette reference range : <=65. The reference range was not used to interpr et this result as mary l/abnormal. [facility] CenterJbgiyuaVKRPVGOJF6134-02-20 12:30:00 Test Item Value Reference Range Interpretation Comments Total Protein (test code = Total 7.2 6.4-8.4 N Protein) [facility] CenterNjvbbkuNLLHXCLLX9618-97-34 12:30:00 Test Item Value Reference Range Interpretation Comments Albumin Lvl (test code = Albumin Lvl) 3.7 3.5-5.0 N [facility] CenterUmxncbkYAUSEGIBR4038-14-85 12:30:00 Test Item Value Reference Range Interpretation Comments Glucose Lvl (test code = Glucose Lvl) 80 70-99 N [facility] CenterYmndqraLRICSNHGO9153-79-85 12:30:00 Test Item Value Reference Range Interpretation Comments BUN (test code = BUN) 9 7-22 N [facility] CenterDpckycaGQXYEBETY8949-93-78 12:30:00 Test Item Value Reference Range Interpretation Comments Creatinine Lvl (test code = Creatinine 0.8 0.5-1.4 N Lvl) [facility] CenterPreymlaRCMWQEHSP6003-26-97 12:30:00 Test Item Value Reference Range Interpretation Comments Potassium Lvl (test code = Potassium 3.3 3.5-5.1 L Lvl) [facility] CenterWracujxHLUWYWGZB7618-52-56 12:30:00 Test Item Value Reference Range Interpretation Comments Sodium Lvl (test code = Sodium Lvl) 143 135-145 N [facility] CenterKvbmgfrTIAQFPYFH3233-03-69 12:30:00 Test Item Value Reference Range Interpretation Comments AST (test code = AST) 12 See_Comment N [Auto mated message] The system which ge nerated this result transmit suzette reference range : <=37. The reference range was not used to interpr et this result as mary l/abnormal. [facility] CenterDepiktiEVJABHARM7729-28-54 12:30:00 Test Item Value Reference Range Interpretation Comments Bili Total (test code = Bili Total) 0.5 0.2-1.3 N [facility]FdamjgcCPKKJYHNHT9581-48-05 12:30:00 Test Item Value Reference Range Interpretation Comments INR (test code = INR) 1.02 0.85-1.17 N [facility]OgufgklDYKHRLRYAY9619-04-59 12:30:00 Test Item Value Reference Range Interpretation Comments PTT (test code = PTT) 31.2 s 22.9-35.8 N [facility]HealthZltfstyBZNTOGBJOI6906-05-67 12:30:00 Test Item Value Reference Range Interpretation Comments PT (test code = PT) 13.4 s 12.0-14.7 N [facility]QkzfclyWZHKCFKVLT1765-32-44 12:30:00 Test Item Value Reference Range Interpretation Comments RDW (test code = RDW) 13.3 11.5-14.5 N [facility]TgrmpfqRBDNFYXQNF8665-16-91 12:30:00 Test Item Value Reference Range Interpretation Comments MCHC (test code = MCHC) 34.3 32.0-36.0 N [facility]HealthFysxyeaMIKFDWXXWN2928-91-79 12:30:00 Test Item Value Reference Range Interpretation Comments MCH (test code = MCH) 28.6 pg 27.0-31.0 N [facility]JzwnpepSGKPJBJXKE8951-53-37 12:30:00 Test Item Value Reference Range Interpretation Comments Platelet (test code = Platelet) 181 133-450 N [facility]HealthZygdmniVGPETTMFJZ2800-78-79 12:30:00 Test Item Value Reference Range Interpretation Comments MPV (test code = MPV) 10.2 7.4-10.4 N [facility]KdnmvecTUKAVCXEJD8952-88-78 12:30:00 Test Item Value Reference Range Interpretation Comments Hgb (test code = Hgb) 13.7 12.0-16.0 N [facility]TwpxjdtFVETHRDHCQ0382-11-52 12:30:00 Test Item Value Reference Range Interpretation Comments Hct (test code = Hct) 40.0 36.0-48.0 N [facility]HealthBslleysIOTJDEEZTS4267-58-53 12:30:00 Test Item Value Reference Range Interpretation Comments MCV (test code = MCV) 83.4 81.0-99.0 N [facility]HwvnpxyQQNVHBONFP2174-12-02 12:30:00 Test Item Value Reference Range Interpretation Comments RBC (test code = RBC) 4.80 4.20-5.40 N [facility]HealthZpztixpNSOVFAHIYS3454-85-10 12:30:00 Test Item Value Reference Range Interpretation Comments WBC (test code = WBC) 5.3 3.7-10.4 N [facility]HealthUzskygeYRSCGGFQEL3572-24-03 12:30:00 Test Item Value Reference Range Interpretation Comments Eosinophils # (test code 0.1 See_Comment N [A utomated message] The = Eosinophils #) system whic h generated this result tra nsmitted reference range : <=0.5. The reference r lucía was not used to int erpret this result as normal/abnormal . [facility]QffvdupTLSWZDSJFS4654-23-36 12:30:00 Test Item Value Reference Range Interpretation Comments Lymphocytes # (test code = Lymphocytes 1.7 1.0-5.5 N #) [facility]RmmpdtaPZTGSSXCXT5072-27-00 12:30:00 Test Item Value Reference Range Interpretation Comments Monocytes # (test code 0.3 See_Comment N [Aut omated message] The = Monocytes #) system which generated this result tra nsmitted reference range : <=0.8. The reference r lucía was not used to int erpret this result as normal/abnormal . [facility]HealthRcukjoyUWFJLRDDAY2057-69-96 12:30:00 Test Item Value Reference Range Interpretation Comments Basophils # (test code 0.0 See_Comment N [Aut omated message] The = Basophils #) system which generated this result tra nsmitted reference range : <=0.2. The reference r lucía was not used to int erpret this result as normal/abnormal . [facility]MilqvwjJQCPLEAWLM7086-21-67 12:30:00 Test Item Value Reference Range Interpretation Comments Monocytes (test code = Monocytes) 5.8 2.0-12.0 N [facility]HealthNueyspsTYONZSVYOR2829-64-43 12:30:00 Test Item Value Reference Range Interpretation Comments Eosinophils (test code = 1.2 See_Comment N [A utomated message] The Eosinophils) system which ge nerated this result tra nsmitted reference range : <=4.0. The reference r lucía was not used to int erpret this result as normal/abnormal . [facility]CtfcnkvADIDSNARZP7832-54-01 12:30:00 Test Item Value Reference Range Interpretation Comments Segs (test code = Segs) 60.7 45.0-75.0 N [facility]esgoxpKCFNHJJNPD8287-26-67 12:30:00 Test Item Value Reference Range Interpretation Comments Lymphocytes (test code = Lymphocytes) 32.2 20.0-40.0 N [facility]ppgbSZAFKMONJK5543-56-61 12:30:00 Test Item Value Reference Range Interpretation Comments Basophils (test code = 0.1 See_Comment N [Aut omated message] The Basophils) system which ge nerated this result tra nsmitted reference range : <=1.0. The reference r lucía was not used to int erpret this result as normal/abnormal . [facility]clndl[facility]ZX[facility]UCOU0784-39-86 12:30:00 Test Item Value Reference Range Interpretation Comments Segs-Bands # (test code = Segs-Bands #) 3.2 1.5-8.1 [facility]CV[facility]SIEX8884-46-20 12:30:00 Test Item Value Reference Range Interpretation Comments Lipase Lvl (test code = Lipase Lvl) 107 73-393 N [facility]ShormjwIQINGFLFU6182-77-86 12:30:00 Test Item Value Reference Range Interpretation Comments Amylase Lvl (test code = Amylase Lvl) 33 25-115 N [facility] CenterHxctjiwDIRHDVYLZ6648-50-28 12:30:00 Test Item Value Reference Range Interpretation Comments Globulin (test code = Globulin) 3.5 2.0-4.0 N [facility] CenterMrllbpiXUHBKJWRP1381-04-17 12:30:00 Test Item Value Reference Range Interpretation Comments B/C Ratio (test code = B/C Ratio) 11 6-25 N [facility] CenterXyfdvqvIHXDKFVFD2795-68-08 12:30:00 Test Item Value Reference Range Interpretation Comments AGAP (test code = AGAP) 11.3 10.0-20.0 N [facility] [id number] 12:30:00 Test Item Value Reference Range Interpretation Comments A/G Ratio (test code = A/G Ratio) 1.1 0.7-1.6 [facility]QsrgpoqBMUAZHCIY4110-04-82 12:30:00 Test Item Value Reference Range Interpretation Comments Alk Phos (test code = Alk Phos) 59 39-136 N [facility] CenterYcaifypJXINNWCZJ7295-43-73 12:30:00 Test Item Value Reference Range Interpretation Comments Calcium Lvl (test code = Calcium Lvl) 9.6 8.5-10.5 N [facility] CenterHmmdkzkZZFRJVCXV2536-95-06 12:30:00 Test Item Value Reference Range Interpretation Comments Chloride Lvl (test code = Chloride Lvl) 109 95-109 N [facility] CenterFkocdgpHHICKZYAB4551-26-43 12:30:00 Test Item Value Reference Range Interpretation Comments CO2 (test code = CO2) 26 24-32 N [facility] CenterHjujusfSOFSXMQVK7047-40-69 12:30:00 Test Item Value Reference Range Interpretation Comments ALT (test code = ALT) 31 See_Comment N [Auto mated message] The system which ge nerated this result transmit suzette reference range : <=65. The reference range was not used to interpr et this result as mary l/abnormal. [facility] CenterAxrvjjhQOABDJDSG6465-95-94 12:30:00 Test Item Value Reference Range Interpretation Comments Total Protein (test code = Total 7.2 6.4-8.4 N Protein) [facility] CenterTikkigsNVAARLQOQ9795-98-44 12:30:00 Test Item Value Reference Range Interpretation Comments Albumin Lvl (test code = Albumin Lvl) 3.7 3.5-5.0 N [facility] CenterKchfmlcPGZZPUQLH3978-68-37 12:30:00 Test Item Value Reference Range Interpretation Comments Glucose Lvl (test code = Glucose Lvl) 80 70-99 N [facility] CenterJrxqmoqUOBIBBSAZ8280-67-01 12:30:00 Test Item Value Reference Range Interpretation Comments BUN (test code = BUN) 9 7-22 N [facility] CenterGornotiDTLCGVWPE1669-69-15 12:30:00 Test Item Value Reference Range Interpretation Comments Creatinine Lvl (test code = Creatinine 0.8 0.5-1.4 N Lvl) [facility] CenterRihyrwkJJOFHKFZZ9050-49-51 12:30:00 Test Item Value Reference Range Interpretation Comments Potassium Lvl (test code = Potassium 3.3 3.5-5.1 L Lvl) [facility] CenterKgbqrpeVRFQYHOXK7355-39-89 12:30:00 Test Item Value Reference Range Interpretation Comments Sodium Lvl (test code = Sodium Lvl) 143 135-145 N [facility] CenterGfgeyioYXHTLNLCL0919-99-31 12:30:00 Test Item Value Reference Range Interpretation Comments AST (test code = AST) 12 See_Comment N [Auto mated message] The system which ge nerated this result transmit suzette reference range : <=37. The reference range was not used to interpr et this result as mary l/abnormal. [facility] CenterSjjyxdzUPIKMJBKE6043-99-99 12:30:00 Test Item Value Reference Range Interpretation Comments Bili Total (test code = Bili Total) 0.5 0.2-1.3 N [facility]anyqaRDXTBWQKAP7485-56-57 12:30:00 Test Item Value Reference Range Interpretation Comments INR (test code = INR) 1.02 0.85-1.17 N [facility]WmracnrFGBBSIAAKA0400-86-49 12:30:00 Test Item Value Reference Range Interpretation Comments PTT (test code = PTT) 31.2 s 22.9-35.8 N [facility]GttvbezAHOIJQCUWS3026-86-56 12:30:00 Test Item Value Reference Range Interpretation Comments PT (test code = PT) 13.4 s 12.0-14.7 N [facility]DxhdeiqABRHFSYMHD0903-41-66 12:30:00 Test Item Value Reference Range Interpretation Comments RDW (test code = RDW) 13.3 11.5-14.5 N [facility]BenfzyhSFLCITQPUA9725-77-49 12:30:00 Test Item Value Reference Range Interpretation Comments MCHC (test code = MCHC) 34.3 32.0-36.0 N [facility]NhbqjupYAQPYEVHPO9971-38-12 12:30:00 Test Item Value Reference Range Interpretation Comments MCH (test code = MCH) 28.6 pg 27.0-31.0 N [facility]MqlqwclSRVICDUIXM4438-65-39 12:30:00 Test Item Value Reference Range Interpretation Comments Platelet (test code = Platelet) 181 133-450 N [facility]IidvvtfAYPHJUGYOJ6597-82-68 12:30:00 Test Item Value Reference Range Interpretation Comments MPV (test code = MPV) 10.2 7.4-10.4 N [facility]EsvpnhyIWYNLMHTDH9008-68-29 12:30:00 Test Item Value Reference Range Interpretation Comments Hgb (test code = Hgb) 13.7 12.0-16.0 N [facility]EepxwgfJCMCCHBHCC5853-66-89 12:30:00 Test Item Value Reference Range Interpretation Comments Hct (test code = Hct) 40.0 36.0-48.0 N [facility]UxnibngTSFZCLVZLE7968-26-02 12:30:00 Test Item Value Reference Range Interpretation Comments MCV (test code = MCV) 83.4 81.0-99.0 N [facility]GremliiOWAORPVVAE0389-79-34 12:30:00 Test Item Value Reference Range Interpretation Comments RBC (test code = RBC) 4.80 4.20-5.40 N [facility]HealthLmoziloPRZNCSDSZS1216-40-64 12:30:00 Test Item Value Reference Range Interpretation Comments WBC (test code = WBC) 5.3 3.7-10.4 N [facility]FbvckswRSPIMAUNCX9598-71-40 12:30:00 Test Item Value Reference Range Interpretation Comments Eosinophils # (test code 0.1 See_Comment N [A utomated message] The = Eosinophils #) system whic h generated this result tra nsmitted reference range : <=0.5. The reference r lucía was not used to int erpret this result as normal/abnormal . [facility]MiadgihDLZFTPVOMO9424-19-93 12:30:00 Test Item Value Reference Range Interpretation Comments Lymphocytes # (test code = Lymphocytes 1.7 1.0-5.5 N #) [facility]UnmfzjrWQIKTTNTZI5968-52-18 12:30:00 Test Item Value Reference Range Interpretation Comments Monocytes # (test code 0.3 See_Comment N [Aut omated message] The = Monocytes #) system which generated this result tra nsmitted reference range : <=0.8. The reference r lucía was not used to int erpret this result as normal/abnormal . [facility]NzjhvboZDUOUZIQUD0089-89-39 12:30:00 Test Item Value Reference Range Interpretation Comments Basophils # (test code 0.0 See_Comment N [Aut omated message] The = Basophils #) system which generated this result tra nsmitted reference range : <=0.2. The reference r lucía was not used to int erpret this result as normal/abnormal . [facility]YivbsyvWTPTDLPKQQ1471-43-07 12:30:00 Test Item Value Reference Range Interpretation Comments Monocytes (test code = Monocytes) 5.8 2.0-12.0 N [facility]UrfwtobVUHMGSYVOU2148-08-64 12:30:00 Test Item Value Reference Range Interpretation Comments Eosinophils (test code = 1.2 See_Comment N [A utomated message] The Eosinophils) system which ge nerated this result tra nsmitted reference range : <=4.0. The reference r lucía was not used to int erpret this result as normal/abnormal . [facility]KwcdhpsVGEKENMRZX1171-43-43 12:30:00 Test Item Value Reference Range Interpretation Comments Segs (test code = Segs) 60.7 45.0-75.0 N [facility]GosousxJQLWNTHPJX2163-13-52 12:30:00 Test Item Value Reference Range Interpretation Comments Lymphocytes (test code = Lymphocytes) 32.2 20.0-40.0 N [facility]HealthTgojibuRFMSXSNKKC8200-25-70 12:30:00 Test Item Value Reference Range Interpretation Comments Basophils (test code = 0.1 See_Comment N [Aut omated message] The Basophils) system which ge nerated this result tra nsmitted reference range : <=1.0. The reference r lucía was not used to int erpret this result as normal/abnormal . [facility]HealthTtycallERBUYSHBUT4599-80-46 12:30:00 Test Item Value Reference Range Interpretation Comments Segs-Bands # (test code = Segs-Bands #) 3.2 1.5-8.1 N [facility] CenterAszonkhNDFPHOFRL7570-93-21 12:30:00 Test Item Value Reference Range Interpretation Comments Lipase Lvl (test code = Lipase Lvl) 107 73-393 N [facility] CenterQwopckwLZJIGMNKK8317-27-22 12:30:00 Test Item Value Reference Range Interpretation Comments Amylase Lvl (test code = Amylase Lvl) 33 25-115 N [facility] CenterZyllvanKCJHEATUZ0342-49-23 12:30:00 Test Item Value Reference Range Interpretation Comments Globulin (test code = Globulin) 3.5 2.0-4.0 N [facility] CenterPeppixaPTGEXLDQS4982-10-93 12:30:00 Test Item Value Reference Range Interpretation Comments B/C Ratio (test code = B/C Ratio) 11 6-25 N [facility] CenterWupfaavHRDIWTAMX1695-18-80 12:30:00 Test Item Value Reference Range Interpretation Comments AGAP (test code = AGAP) 11.3 10.0-20.0 N [facility] CenterWdsbawrGEDHLABNA7668-86-21 12:30:00 Test Item Value Reference Range Interpretation Comments A/G Ratio (test code = A/G Ratio) 1.1 0.7-1.6 N [facility] CenterHiemecmISGDCUHPU9554-42-16 12:30:00 Test Item Value Reference Range Interpretation Comments Alk Phos (test code = Alk Phos) 59 39-136 N [facility] CenterMwjwiogTQNTADOIB0981-32-09 12:30:00 Test Item Value Reference Range Interpretation Comments Calcium Lvl (test code = Calcium Lvl) 9.6 8.5-10.5 N [facility] CenterIhmqcbiQKIWMYWNX0743-30-55 12:30:00 Test Item Value Reference Range Interpretation Comments Chloride Lvl (test code = Chloride Lvl) 109 95-109 N [facility] CenterVpyqycwQXWOYZZRM5387-06-46 12:30:00 Test Item Value Reference Range Interpretation Comments CO2 (test code = CO2) 26 24-32 N [facility] CenterBvcaoifREATILQGZ9189-39-62 12:30:00 Test Item Value Reference Range Interpretation Comments ALT (test code = ALT) 31 See_Comment N [Auto mated message] The system which ge nerated this result transmit suzette reference range : <=65. The reference range was not used to interpr et this result as mary l/abnormal. [facility] CenterKtoakxcAACNHJDFD8466-52-17 12:30:00 Test Item Value Reference Range Interpretation Comments Total Protein (test code = Total 7.2 6.4-8.4 N Protein) [facility] CenterMrfhqhrYXTRMDHOV1252-58-38 12:30:00 Test Item Value Reference Range Interpretation Comments Albumin Lvl (test code = Albumin Lvl) 3.7 3.5-5.0 N [facility] CenterLhtobhyZEZHHDTFH4599-20-15 12:30:00 Test Item Value Reference Range Interpretation Comments Glucose Lvl (test code = Glucose Lvl) 80 70-99 N [facility] CenterHzeroxcWRSOMTUZN3680-54-91 12:30:00 Test Item Value Reference Range Interpretation Comments BUN (test code = BUN) 9 7-22 N [facility] CenterWlfjrwfAAIKLWMGP3754-65-10 12:30:00 Test Item Value Reference Range Interpretation Comments Creatinine Lvl (test code = Creatinine 0.8 0.5-1.4 N Lvl) [facility] CenterLqrmuuvWTOHCKPKH1758-42-13 12:30:00 Test Item Value Reference Range Interpretation Comments Potassium Lvl (test code = Potassium 3.3 3.5-5.1 L Lvl) [facility] CenterGewaxdpEGBQBDSPK3106-24-68 12:30:00 Test Item Value Reference Range Interpretation Comments Sodium Lvl (test code = Sodium Lvl) 143 135-145 N [facility] CenterDlvjxrzIRHEWANNH3213-37-62 12:30:00 Test Item Value Reference Range Interpretation Comments AST (test code = AST) 12 See_Comment N [Auto mated message] The system which ge nerated this result transmit suzette reference range : <=37. The reference range was not used to interpr et this result as mary l/abnormal. [facility] CenterFimyasvDQWQIDJTZ9286-74-36 12:30:00 Test Item Value Reference Range Interpretation Comments Bili Total (test code = Bili Total) 0.5 0.2-1.3 N [facility]GdyvqtqUKGTHWLLXB2536-75-76 12:30:00 Test Item Value Reference Range Interpretation Comments INR (test code = INR) 1.02 0.85-1.17 N [facility]OqlmhpcHONOIMMLWQ2911-76-03 12:30:00 Test Item Value Reference Range Interpretation Comments PTT (test code = PTT) 31.2 s 22.9-35.8 N [facility]MbgcjztBCUTKSCEFM3961-87-66 12:30:00 Test Item Value Reference Range Interpretation Comments PT (test code = PT) 13.4 s 12.0-14.7 N [facility]IdjuyefLUQNSIPABL5412-98-72 12:30:00 Test Item Value Reference Range Interpretation Comments RDW (test code = RDW) 13.3 11.5-14.5 N [facility]KbyawgmNWUUUYEHOV7279-87-18 12:30:00 Test Item Value Reference Range Interpretation Comments MCHC (test code = MCHC) 34.3 32.0-36.0 N [facility]LcpsulfHTJDBYVHPW4926-78-62 12:30:00 Test Item Value Reference Range Interpretation Comments MCH (test code = MCH) 28.6 pg 27.0-31.0 N [facility]HealthTrbmocuIESGUMVANV8281-66-90 12:30:00 Test Item Value Reference Range Interpretation Comments Platelet (test code = Platelet) 181 133-450 N [facility]FkbgkffLVZMUFHRUP2752-28-80 12:30:00 Test Item Value Reference Range Interpretation Comments MPV (test code = MPV) 10.2 7.4-10.4 N [facility]YqqyjzbPOWMMGJODN6362-30-39 12:30:00 Test Item Value Reference Range Interpretation Comments Hgb (test code = Hgb) 13.7 12.0-16.0 N [facility]UlemstdNDZUMXFCHW5845-82-82 12:30:00 Test Item Value Reference Range Interpretation Comments Hct (test code = Hct) 40.0 36.0-48.0 N [facility]JhnzvurZKHZYAXAMD7666-98-99 12:30:00 Test Item Value Reference Range Interpretation Comments MCV (test code = MCV) 83.4 81.0-99.0 N [facility]DbjvvukYEXAHTXPGN7217-38-86 12:30:00 Test Item Value Reference Range Interpretation Comments RBC (test code = RBC) 4.80 4.20-5.40 N [facility]LwbacscOKXBJGJVVI3381-10-03 12:30:00 Test Item Value Reference Range Interpretation Comments WBC (test code = WBC) 5.3 3.7-10.4 N [facility]LlyavyaDCOYDOCVOM1877-57-01 12:30:00 Test Item Value Reference Range Interpretation Comments Eosinophils # (test code 0.1 See_Comment N [A utomated message] The = Eosinophils #) system whic h generated this result tra nsmitted reference range : <=0.5. The reference r lucía was not used to int erpret this result as normal/abnormal . [facility]HdcfkxqMAILWFXSIL8301-90-12 12:30:00 Test Item Value Reference Range Interpretation Comments Lymphocytes # (test code = Lymphocytes 1.7 1.0-5.5 N #) [facility]NgowkosMYSOYHOKSA6186-06-55 12:30:00 Test Item Value Reference Range Interpretation Comments Monocytes # (test code 0.3 See_Comment N [Aut omated message] The = Monocytes #) system which generated this result tra nsmitted reference range : <=0.8. The reference r lucía was not used to int erpret this result as normal/abnormal . [facility]IfpwtaxQQCDVTMMLJ7024-43-83 12:30:00 Test Item Value Reference Range Interpretation Comments Basophils # (test code 0.0 See_Comment N [Aut omated message] The = Basophils #) system which generated this result tra nsmitted reference range : <=0.2. The reference r lucía was not used to int erpret this result as normal/abnormal . [facility]EvgssfaSHIAINKFXL2018-13-56 12:30:00 Test Item Value Reference Range Interpretation Comments Monocytes (test code = Monocytes) 5.8 2.0-12.0 N [facility]BsfceyyXFRIOHOURD9379-94-12 12:30:00 Test Item Value Reference Range Interpretation Comments Eosinophils (test code = 1.2 See_Comment N [A utomated message] The Eosinophils) system which ge nerated this result tra nsmitted reference range : <=4.0. The reference r lucía was not used to int erpret this result as normal/abnormal . [facility]SqkxntgZZAFGOHHJX2276-86-59 12:30:00 Test Item Value Reference Range Interpretation Comments Segs (test code = Segs) 60.7 45.0-75.0 N [facility]UaoriigYANGRSPZNL0780-84-54 12:30:00 Test Item Value Reference Range Interpretation Comments Lymphocytes (test code = Lymphocytes) 32.2 20.0-40.0 N [facility]QasdmypRVITNKIXQA6851-79-46 12:30:00 Test Item Value Reference Range Interpretation Comments Basophils (test code = 0.1 See_Comment N [Aut omated message] The Basophils) system which ge nerated this result tra nsmitted reference range : <=1.0. The reference r lucía was not used to int erpret this result as normal/abnormal . [facility]JfbwpevGIVRQTYUWK2425-66-60 12:30:00 Test Item Value Reference Range Interpretation Comments Segs-Bands # (test code = Segs-Bands #) 3.2 1.5-8.1 N [facility] NontrzoLDAXTEJFWF4081-44-40 12:30:92427Ktyxnluz HermannHEMATOLOGY 2011-06-27 12:30:0010.2[facility] OuxpvriYNFCSSHIPI1893-34-40 12:30:0013.7[facility] IlibccnAVKCGUEYJI4380-46-49 12:30:0040.0[facility] HgsvzpvCSWWOWCNNK5513-51-14 12:30:0083.4[facility] DafnvwhETMYGLIBTI2928-00-81 12:30:004.80[facility] QIOOTAVDQF0782-34-73 12:30:005.3[facility] AnqwsnaRCSDAZHKGQ3529-12-23 12:30:000.1 [facility] GmjexgxTJPUQXNIEC5598-48-79 12:30:001.7[facility]annHEMATOLOGY 2011-06-27 12:30:000.3[facility] WzynbhwGFWYYYBGEZ9319-02-52 12:30:000.0[facility] BaswnzrJKIIFYUXYC5145-85-26 12:30:005.8[facility] DzcstwsQDKIRCYQHG9125-83-11 12:30:001.2[facility] XxekfgmZBXNGAFSJJ8303-86-29 12:30:0060.7[facility] SGVIVZWFZT6887-49-02 12:30:0032.2[facility] AzssmluBHHCMBFUHR2167-30-44 12:30:00 0.1[facility] AbfljksJZUCRZKUMT9985-05-39 12:30:003.2[facility] HermannCHEMISTRY 2011-06-27 12:30:55301Pvjwfzwm TmuiqtpCUEBQGSMM2952-05-17 12:30:0033[facility] OzizdjeBMVENAKVK7679-13-49 12:30:003.5[facility] UgazwzkSIDOLPIWF8714-81-47 12:30:0011[facility] YiphoxrEGEUGCSIU6374-97-75 12:30:0011.3[facility] LZOFVRTCX0173-17-85 12:30:001.1[facility] GiakizsMSMEEJDOB9722-36-26 12:30:0059 [facility] ZhgpzjqXNGQGCMUS4333-72-41 12:30:009.6[facility] HermannCHEMISTRY 2011-06-27 12:30:91517Irymdisi IpslgthSDRVFJASA2402-13-82 12:30:0026[facility] GzuwccvMLAUJXIIU9676-66-74 12:30:0031[facility] XtypjdpPOIUZJJAG4804-25-92 12:30:007.2[facility] DamhgauPMQWVHFNY8294-60-12 12:30:003.7[facility] MNMCBEYGE6072-24-20 12:30:0080[facility] JvmqbldRCFVOCOXM5425-39-11 12:30:009 [facility] FiadszaTIJFLQQLE2719-04-16 12:30:000.8[facility] HermannCHEMISTRY 2011-06-27 12:30:003.3[facility] RpgvwhaGOHFBTMBT0619-41-63 12:30:88523Egxynjof WywplozBCOGLYQAE1420-63-52 12:30:0012[facility] LllnzrxBXDVOOKFF8749-87-60 12:30:000.5[facility] LlzxlscBQMPHEKFUW2539-84-38 12:30:001.02[facility] HHVSEXVRJU4942-97-63 12:30:00 Test Item Value Reference Range Interpretation Comments PTT (test code = PTT) 31.2 s 22.9-35.8 N [facility] QgmbphuPMLMIFNCNO6035-35-95 12:30:00 Test Item Value Reference Range Interpretation Comments PT (test code = PT) 13.4 s 12.0-14.7 N [facility] VkavnhgCRGMRXTQNI9069-73-74 12:30:0013.3[facility]annHEMATOLOGY 2011-06-27 12:30:0034.3[facility] SkxdodlWTBEHNHFBT8483-63-90 12:30:00 Test Item Value Reference Range Interpretation Comments MCH (test code = MCH) 28.6 pg 27.0-31.0 N [facility] JuiocmiYGRCFEAOAX5017-35-83 12:30:04702Hldxxpcz HermannHEMATOLOGY 2011-06-27 12:30:0010.2[facility] PewwhckUDGNSEITUD8924-11-98 12:30:0013.7[facility] EkskrwgXKPLYHZXJC9815-97-93 12:30:0040.0[facility] RrxvxezOBERLWZBVZ0166-65-47 12:30:0083.4[facility] PgnmaaiIAZSZQMQEZ7647-99-03 12:30:004.80[facility] NCGEJHKMDQ9904-05-03 12:30:005.3[facility] FpvdjsqWMCEMCLIDO7586-68-08 12:30:000.1 [facility] OcnnvzcCDJSXWZHGJ6534-15-48 12:30:001.7[facility]annHEMATOLOGY 2011-06-27 12:30:000.3[facility] FbnczodZGRXFEOEBB4331-96-08 12:30:000.0[facility] YbfaipaDKPCRKRZXE0467-14-68 12:30:005.8[facility] NtcisvfACOQTZVHRU4605-93-27 12:30:001.2[facility] BvjlubjYIZWHXRWMC2410-67-12 12:30:0060.7[facility] FRUMFVCSRS5155-64-95 12:30:0032.2[facility] QqszxifRUFPFTCONF9614-09-38 12:30:00 0.1[facility] NbdjdpoKSDBDKOANU6097-48-13 12:30:003.2[facility] HermannCHEMISTRY 2011-06-27 12:30:92039Ibbdfaxh VnmdrjxAKZXJYJEV0101-69-33 12:30:0033[facility] UzjstujJXUNAAOUR8781-99-14 12:30:003.5[facility] OspvgkcOXWNQXQXT4147-46-33 12:30:0011[facility] LxjipkxQGIYHHLAL8492-05-83 12:30:0011.3[facility] URFYFXMDA3337-20-70 12:30:001.1[facility] JnfmonqPCHSFZEXG5894-91-95 12:30:0059 [facility] DwnymsjOHGJIBEMW8579-35-60 12:30:009.6[facility] HermannCHEMISTRY 2011-06-27 12:30:67095Ewvbhszy UqnrvzyNYFEQGQNP1759-71-35 12:30:0026[facility] CphxdteEZBSGAHTP7746-05-16 12:30:0031[facility] OglylbzHTLKQGGYX8634-62-77 12:30:007.2[facility] JlvjxdqCBLKULAMJ7698-33-28 12:30:003.7[facility] QOIXYYYOV0722-88-21 12:30:0080[facility] UprfznmHHPLLMNGR3202-72-75 12:30:009 [facility] MfdqxsyHYMHSIGMS9265-79-72 12:30:000.8[facility] HermannCHEMISTRY 2011-06-27 12:30:003.3[facility] XyqyyvhOSPODEUNF6096-28-04 12:30:30552Erkjjelt TizcxnyAUSHMZCWI2104-09-18 12:30:0012[facility] WwtvuvjCBOLSYEYT2201-69-83 12:30:000.5[facility] SmelutqIVSNKCTPQG2217-83-81 12:30:001.02[facility] AXVTRGSFAM0917-82-94 12:30:00 Test Item Value Reference Range Interpretation Comments PTT (test code = PTT) 31.2 s 22.9-35.8 N [facility] XdhkjbyIRTONYKOAD1220-56-16 12:30:00 Test Item Value Reference Range Interpretation Comments PT (test code = PT) 13.4 s 12.0-14.7 N [facility] GotnbydRMJGXZEHUJ5848-38-64 12:30:0013.3[facility]annHEMATOLOGY 2011-06-27 12:30:0034.3[facility] WyahonxIGTWGIEPDB3332-80-35 12:30:00 Test Item Value Reference Range Interpretation Comments MCH (test code = MCH) 28.6 pg 27.0-31.0 N [facility] UaflsnoCRIFNWUWEG9356-37-14 12:30:50695Fmlalfqk HermannHEMATOLOGY 2011-06-27 12:30:0010.2[facility] WpadbpuHFEGLQZAMQ2610-26-89 12:30:0013.7[facility] ZyqebkoZAKBLLDUKD9799-10-76 12:30:0040.0[facility] FwkfvbqZIJEWKCCCS5214-22-27 12:30:0083.4[facility] KfynnxbYPOSCGXNUI2446-90-27 12:30:004.80[facility] TXKESDKXHW1660-88-20 12:30:005.3[facility] GjjxyziCQWEXSVGZM7998-65-45 12:30:000.1 [facility] IpqdiopDGCUIPIEAX9666-36-33 12:30:001.7[facility]annHEMATOLOGY 2011-06-27 12:30:000.3[facility] AttohkxMSGSWMLNBO5298-76-95 12:30:000.0[facility] AovbpfwJDQBTXHLAJ2321-71-50 12:30:005.8[facility] RczqzkuDBCYWLYYFN0518-68-98 12:30:001.2[facility] RwnreggFSJMQQWNJC8798-08-42 12:30:0060.7[facility] ELYVCTQTHD8975-15-63 12:30:0032.2[facility] SkofpahSKHLDXLOAS1181-40-89 12:30:00 0.1[facility] NcveewdVTCRTWBSXJ9248-33-97 12:30:003.2[facility] HermannCHEMISTRY 2011-06-27 12:30:25146Xsnewguc VrglsdvQFKOLERVY8300-96-48 12:30:0033[facility] StmuycoLRPHJAYGA4245-99-74 12:30:003.5[facility] GmqjaafOXSODHMOX6216-65-48 12:30:0011[facility] GadxtxfXXSNUGILH5105-12-84 12:30:0011.3[facility] ZFVEZEOVY0760-02-73 12:30:001.1[facility] ObvsphuSTIRXHJHM2775-59-18 12:30:0059 [facility] KodydsfCAMHCZFXT8237-24-00 12:30:009.6[facility] HermannCHEMISTRY 2011-06-27 12:30:77255Tbianhak TbvnzsvEIFZKARAY9478-05-07 12:30:0026[facility] NrgawjpMUVCYAPBR8137-84-43 12:30:0031[facility] HmzsiflTWTKMPOCW4668-56-63 12:30:007.2[facility] ZsamghpEQGCPBYPX0711-41-49 12:30:003.7[facility] TEZDRPOAK5461-69-39 12:30:0080[facility] AixgievPKKUYBLMC5807-61-67 12:30:009 [facility] TudsninQULKTMBKH4181-97-65 12:30:000.8[facility] HermannCHEMISTRY 2011-06-27 12:30:003.3[facility] IrestykYURMQNWML1927-13-84 12:30:13755Hiolrklp QhahuwwNGEZHBJQO4882-45-01 12:30:0012[facility] SuycpuwWAGHCZPHL2199-13-46 12:30:000.5[facility] GbzfbysYIRHIJULDY6189-89-12 12:30:001.02[facility] JUIFGGRVXK3722-79-45 12:30:00 Test Item Value Reference Range Interpretation Comments PTT (test code = PTT) 31.2 s 22.9-35.8 N [facility] WkewnfaLMDYSWOQUL8790-71-67 12:30:00 Test Item Value Reference Range Interpretation Comments PT (test code = PT) 13.4 s 12.0-14.7 N [facility] BilhyrfIGZHZYKQKI0058-19-96 12:30:0013.3[facility]ann[facility] 12[facility]30:[facility].3[facility] [id number] 12:30:00 Test Item Value Reference Range Interpretation Comments MCH (test code = MCH) 28.6 pg 27.0-31.0 N [facility] Notes Date/Time Note Provider Source 2022-05-27 11:08:00-00:00 [facility] ([facility] PROVIDER REPORT REPORT#:[id number] REPORT STATUS: Signed DATE:05/27/22 TIME: 110 PATIENT: NYDIA BOO UNIT #: [id number] ROOM/BED: AGE: 31 SEX: F PCP PHYS: No Primary or Family Ph ysician SERVICE AUTHOR: Oskar Nguyễn MD * ALL edits or amendments must be made on the [employer] document * HPI-Sore Throat General Initial Greet Date/Time 05/27/22 1108 Presentation Chief Complaint Sore throat Free Text HPI Notes Free Text HPI Notes Here with a sore throat and some nasal congestio n. Her 3 kids have similar symptoms. Review of Systems ROS Statements All systems rev neg except as marked. Focused Review of Systems Ears/Nose/Throat Reports: Nasal congestion, Sore throat. Past Medical History - Adult Stated Complaint SORE THROAT X'S 1 DAY Allergies Coded Allergies: Sulfa (Sulfonamide Antibiotics) (UNKNOWN 05/27/ 3) HAD A REACTION A CHILD Home Medications Reported Medications No Known Home Medications Calculated Suicide Risk (nurs) No risk Pt reports no significant: Past medical history, Past surgical history Smoking status for patients 13 years old or olde r: Former Smoker Physical Exam Vital Signs Vital Signs First Documented: Result Date Time Pulse Ox 100 05/27 1103 B/P 152/93 05/27 1103 B/P Mean 112 05/27 1103 O2 Delivery Room air 05/27 1103 Temp 36.8 05/27 1103 Pulse 94 05/27 1103 Resp 20 05/27 1103 Last Documented: Result Date Time Pulse Ox 100 05/27 1103 B/P 152/93 05/27 1103 B/P Mean 112 05/27 1103 O2 Delivery Room air 05/27 1103 Temp 36.8 05/27 1103 Pulse 94 05/27 1103 Resp 05/27 1103 Review of Vital Signs Reviewed Focused PE General/Const General/Const Awake, Alert, No acute distress Ears/Nose/Throat Ears/Nose/Throat Atraumatic, Airway patent, Muc ous membranes moist Text/Dict Notes Moderate erythema no swelling. Status post tonsi llectomy Resp/Chest Respiratory/Chest Atraumatic, Breath sounds NL, Breath sounds = bilat, No respiratory distress Cardiovascular Cardiovascular Heart rate NL, Regular rhythm Interpretation Diagnostics Lab Results Interpretation Results Laboratory Tests: 05/27 05/27 05/27 1126 1125 1124 Serology POC Influenza A Ag (NEGATIVE) NEGATIVE POC Influenza B Ag (NEGATIVE) NEGATIVE SARS CoV-2 RNA Rapid NEAL (Negative) Negative Group A Strep Screen (Negative) NEGATIVE Patient Discharge Departure Vital Signs/Condition Vital Signs First Documented: Result Date Time Pulse Ox 100 05/27 1103 B/P 152/93 05/27 1103 B/P Mean 112 05/27 1103 O2 Delivery Room air 05/27 1103 Temp 36.8 05/27 1103 Pulse 94 05/27 1103 Resp 20 05/27 1103 Last Documented: Result Date Time Pulse Ox 100 05/27 1103 B/P 152/93 05/27 1103 B/P Mean 112 05/27 1103 O2 Delivery Room air 05/27 1103 Temp 36.8 05/27 1103 Pulse 94 05/27 1103 Resp 20 05/27 1103 All vital signs available at the time of this en try have been reviewed. Clinical Impression Clinical Impression Primary Impression: Viral pharyngitis Disposition Decision Discharge )( Discharged to Home Yes )( Time 1145 )( Date 05/27/22 Discharge/Care Plan (Auto) Prescriptions Current Visit Scripts No Known Home Medications Patient Instructions ED Pharyngitis, Viral Discharge Note I have spoken with the patie nt and/or caregivers. I have explained the patient's condition, diagnoses and eriberto atment plan based on the information available to me at this time. I have answered the patient's and/ or caregiver's questions and addressed any concerns. The patient and/or careg nichole have as good an understanding of the patient 's diagnosis, condition and treatment plan as can be expected at this point. The vital signs have bee n stable. The patient's condition is stable and appr opriate for discharge from the emergency department. The patient will pursue further outpatient evalu ation with the primary care physician or other designated or consulting phys ician as outlined in the discharge instructions. The patient and/or caregivers are agreeable to this plan of care and follow-up instructions have been exp lained in detail. The patient and/or caregivers have received these instructio ns in written format and have expressed an understanding of the discharge inst ructions. The patient and/or caregivers are aware that any significant change in condition or worsening of symptoms should prompt an immediate return to [facility] or the closest emergency department or a call to 911. Electronically Signed by Oskar Nguyễn MD on 0 05/27/22 at 1145 RPT #:[id number] END OF REPORT"
[2022-10-07 12:30] LABS: Absolute Lymphocytes (CBC) 1.1 K/uL (0.7-4.9); Hematocrit 29.2 % (36.0-45.0); Lymphocytes % 15.9 % (15.3-44.8); MCV 63.7 fL (80-100); RBC Red Blood Cell Count 4.58 M/uL (3.86-4.86)
[2022-10-07 12:40] LABS: Specific Gravity < 1.005 (1.005-1.030)
[2022-10-07] MEDS ORDERED: ONDANSETRON 4 MG/2 ML VIAL ONE (12:40)
[2022-10-07] MEDS ORDERED: FAMOTIDINE 20 MG/2 ML VIAL IV ONE (12:40)
[2022-10-07] MEDS ORDERED: MAGNES/ALUMIN/SIMET 30ML UCUP ONE (12:40)
[2022-10-07] MEDS ORDERED: KETOROLAC 30 MG/ML INJ ONE (12:40)
[2022-10-07 12:41] LABS: Specific Gravity < 1.005 (1.005-1.030); Urine Bacteria None Seen /HPF (<20); Urine Bilirubin NEGATIVE (Negative); Urine Blood 1+ (Negative); Urine Clarity Clear (Clear); Urine Color Colorless (Yellow); Urine Glucose NEGATIVE (Negative); Urine Protein NEGATIVE (Negative); Urine RBC None Seen /HPF (None Seen); Urine Urobilinogen Normal (Normal); Urine pH 5.5 (5.0-7.0)
[2022-10-07 12:47] LABS: Albumin 3.3 g/dL (3.4-5.0); Bilirubin Total 0.3 mg/dL (0.2-1.0); Potassium 3.3 mEq/L (3.5-5.1); Protein, Total 7.7 g/dL (6.4-8.2)
[2022-10-07] MEDS ORDERED: MORPHINE 4 MG/ML SYR ONE (14:12)
--- NOTE | 2022-10-07 14:25 | RAD REPORT ---
EXAM DESCRIPTION: CTAbdomen Pelvis W Contrast - 10/07/2022 1:47 pm CLINICAL HISTORY: RUQ GOOD pain h/y gastric bypass COMPARISON: Abdomen Pelvis W Contrast dated 12/17/2020; Abdomen Pelvis W Contrast dated 10/09/2019 ; Abdomen Pelvis W Contrast dated 06/10/2019 TECHNIQUE: CT of the abdomen and pelvis was performed. All CT scans are performed using dose optimization technique as appropriate and may include automated exposure control or mA/KV adjustment according to patient size. FINDINGS: Lower chest: Mild circumferential thickened distal esophagus which could reflect esophagit is. Liver: No acute abnormality or suspicious lesions. Biliary: Cholecystectomy. Similar intra and extrahepatic biliary duct dilatation which may be related to the postcholecystectomy state. Common bile duct measures 9 millimeters. Stomach: César-en-Y gastric bypass . Duodenum: No significant focal abnormality. Pancreas: No significant abnormality. Spleen: No significant abnormality. Adrenal: No suspicious lesions. Kidney/ureter: No hydronephrosis. No renal calculi. Retroperitoneum: No retroperitoneal adenopathy. Vascular: No aneurysm. Bowel: No significant focal abnormality. Peritoneum: No ascites or free air. Bladder: Grossly unremarkable. Reproductive: No adnexal masses. Bones: No acute fracture. Other: n/a IMPRESSION: No acute intra-abdominal or pelvic finding. César-en-Y gastric bypass without complicatin g features identified by CT. Cholecystectomy. Extrahepatic biliary duct dilatation is similar and may be related to the postcholecystectomy state. Correlate with LFTs.
--- NOTE | 2022-10-07 14:58 | ER ---
Nurse's Notes [facility] [place], [place] Name: Mini Marin Age: 32 yrs Sex: Female : 1990 Arrival Date: 10/07/2022 Time: 12:01 Bed 12 Private MD: Diagnosis: Abdominal pain, Generalized;Upper abdominal pain, unspecified Presentation: 10/07 12:26 Chief complaint: Patient states: RUQ abdominal pain, nausea/vomiting x 2 days. jl7 Coronavirus screen: At this time, the client does not indicate any symptoms associated with coronavirus-19. Ebola Screen: No symptoms or risks identified at this time. Initial Sepsis Screen: Does the patient meet any 2 criteria? No. Patient's initial sepsis screen is negative. Does the patient have a suspected source of infection? No. Patient's initial sepsis screen is negative. Risk Assessment: Do you want to hurt yourself or someone else? Patient reports no desire to harm self or others. Onset of symptoms was October 05, 2022. 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 - Social history:: Smoking status: Patient denies any tobacco usage or history of. Screenin:00 [facility] ED Fall Risk Assessment (Adult) History of falling in the last 3 months, jl7 including since admission No falls in past 3 months (0 pts) Confusion or Disorientation No (0 pts) Intoxicated or Sedated No (0 pts) Impaired Gait No (0 pts) Mobility Assist Device Used No (0 pt) Altered Elimination No (0 pt) Score/Fall Risk Level 0 - 2 = Low Risk Oriented to surroundings, Maintained a safe environment. Abuse screen: Denies threats or abuse. Denies injuries from another. Nutritional screening: No deficits noted. Tuberculosis screening: No symptoms or risk factors identified. Assessment: 12:30 General: Appears in no apparent distress. uncomfortable, Behavior is calm, cooperative, jl7 appropriate for age. Pain: Complains of pain in right upper quadrant Pain currently is 8 out of 10 on a pain scale. Neuro: Level of Consciousness is awake, alert, obeys commands, Oriented to person, place, time, situation. Cardiovascular: Patient's skin is warm and dry. Respiratory: Airway is patent Respiratory effort is even, unlabored, Respiratory pattern is regular, symmetrical. GI: Abdomen is non-distended, Reports upper abdominal pain, nausea, vomiting. Derm: Skin is pink, warm \\T\\ dry. 13:00 Reassessment: Patient appears in no apparent distress at this time. Reports pain jl7 decreased to 5/10 at this time. 14:00 Reassessment: Pt reports increased pain, tearful, rated 8/10. ERD notified, see MAR for jl7 orders. 14:30 Reassessment: Pt reports decreased pain, rated 3/10 at this time. jl7 14:50 Reassessment: ERD at bedside discussing results and POC. jl7 Vital Signs: 12:26 BP 125 / 73; Pulse 87; Resp 17; Temp 98.8; Pulse Ox 100% ; Weight 68.95 kg; Height 5 jl7 ft. 2 in. ; 13:00 Pain 5/10; jl7 14:52 BP 121 / 73; Pulse 83; Resp 15; Pulse Ox 100% ; Pain 3/10; jl7 12:26 Body Mass Index 27.80 (68.95 kg, 157.48 cm) jl7 13:00 Pain Scale: Adult jl7 14:52 Pain Scale: Adult jl7 ED Course: 12:02 Patient arrived in ED. am2 12:04 Demian Chun MD is Attending Physician. jr11 12:25 CBC with Diff Sent. em1 12:25 CMP Sent. em1 12:25 Lipase Sent. em1 12:25 Initial lab(s) drawn, by me, sent to lab. Inserted saline lock: 20 gauge in right em1 antecubital area, using aseptic technique. Blood collected. 12:26 Rome Elizabeth RN is Primary Nurse. jl7 12:27 Triage completed. jl7 12:27 Arm band placed on right wrist. jl7 12:33 Urinalysis w/ reflexes Sent. em1 12:33 Test, Urine Sent. em1 13:30 Patient has correct armband on for positive identification. Bed in low position. Call jl7 light in reach. Side rails up X 1. 13:49 CT Abd/Pelvis - IV Contrast Only In Process Unspecified. EDMS 14:00 Provided Education on: use of call honeycutt. jl7 14:00 Pulse ox on. NIBP on. jl7 15:14 No provider procedures requiring assistance completed. IV discontinued, intact, jl7 bleeding controlled, No redness/swelling at site. Pressure dressing applied. Administered Medications: 12:32 Drug: Ondansetron IVP 4 mg Route: IVP; Site: right antecubital; jl7 13:00 Follow up: Response: No adverse reaction jl7 12:35 Drug: Famotidine IVP 20 mg Route: IVP; Site: right antecubital; jl7 13:00 Follow up: Response: No adverse reaction jl7 12:38 Drug: TORadol - Ketorolac IVP 15 mg Route: IVP; Site: right antecubital; jl7 13:00 Follow up: Pain 5/10 Adult; Response: No adverse reaction; Pain is decreased jl7 12:38 Drug: GI Cocktail without - (Maalox PO Suspension 30 ml, Lidocaine Mucous jl7 Membrane Liquid 2 % 15 ml) {Note: no viscous lidocaine, only maalox.} Route: PO; 13:00 Follow up: Response: No adverse reaction jl7 14:04 Drug: morphine IVP or IV 4 mg Route: IVP; Infused Over: 4 mins; Site: right antecubital;jl7 14:30 Follow up: Response: No adverse reaction; Pain is decreased jl7 Medication: 12:30 VIS not applicable for this client. jl7 Outcome: 14:57 Discharge ordered by . radha 15:14 Discharged to home ambulatory, with family. jl7 15:14 Condition: stable 15:14 Discharge instructions given to patient, Instructed on discharge instructions, follow up and referral plans. medication usage, Demonstrated understanding of instructions, follow-up care, medications, Prescriptions given X 3. 15:15 Patient left the ED. jl7 Signatures: Dispatcher [employer] EDMS Garrick Cardoso em1 Rome Elizabeth RN RN jl7 Elizabeth Diaz am2 Demian Chun MD MD jr11
--- NOTE | 2022-10-07 14:58 | EDPHYS ---
Physician Documentation [facility] Name: Mini Marin Age: 32 yrs Sex: Female : 1990 Arrival Date: 10/07/2022 Time: 12:01 Bed 12 Private MD: ED Physician Demian Chun HPI: 10/07 12:15 This 32 yrs old Female presents to ER via Unassigned with complaints of Abdominal Pain jr11 - RUQ, Nausea/Vomiting. 12:15 Patient is a 32-year-old female with history of right upper quadrant pain midepigastric jr11 pain that started 24 to 48 hours ago, this pain has been there causing some nausea no vomiting. 6 out of 10, moderate to severe in intensity. Patient has not tried anything to help herself with the pain, denies any lower abdominal pain, has a history of a gastric bypass and also cholecystectomy. Denies urinary complaints. Patient otherwise at baseline.. 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 - Social history:: Smoking status: Patient denies any tobacco usage or history of. ROS: 12:15 All other systems are negative. jr11 Exam: 12:15 Constitutional: This is a well developed, well nourished patient who is awake, alert, jr11 and in no acute distress. Head/Face: Normocephalic, atraumatic. Eyes: Extra-ocular motions intact. Lids and lashes normal. Conjunctiva and sclera are non-icteric and not injected. Cornea within normal limits. Periorbital areas with no swelling, redness, or edema. ENT: Nares patent. No nasal discharge, no septal abnormalities noted. Oropharynx with no redness, swelling, or masses, exudates, or evidence of obstruction, uvula midline. Mucous membranes moist. Neck: Trachea midline, no thyromegaly or masses palpated, and no cervical lymphadenopathy. Supple, full range of motion without nuchal rigidity, or vertebral point tenderness. No Meningismus. Chest/axilla: Normal chest wall appearance and motion. Nontender with no deformity. No lesions are appreciated. Respiratory: Lungs have equal breath sounds bilaterally, clear to auscultation and percussion. No rales, rhonchi or wheezes noted. No increased work of breathing, no retractions or nasal flaring. Abdomen/GI: TTP GOOD to RUQ, no peritoneal signs Back: No spinal tenderness. No costovertebral tenderness. Full range of motion. Skin: Warm, dry with normal turgor. Normal color with no rashes, no lesions, and no evidence of cellulitis. MS/ Extremity: Pulses equal, no cyanosis. Neurovascular intact. Full, normal range of motion. Neuro: Awake and alert, GCS 15, oriented to person, place, time, and situation. No gross motor or sensory deficits. Vital Signs: 12:26 BP 125 / 73; Pulse 87; Resp 17; Temp 98.8; Pulse Ox 100% ; Weight 68.95 kg; Height 5 jl7 ft. 2 in. ; 13:00 Pain 5/10; jl7 14:52 BP 121 / 73; Pulse 83; Resp 15; Pulse Ox 100% ; Pain 3/10; jl7 12:26 Body Mass Index 27.80 (68.95 kg, 157.48 cm) jl7 13:00 Pain Scale: Adult jl7 14:52 Pain Scale: Adult jl7 MDM: 12:11 Patient medically screened. jr11 12:15 Differential diagnosis: Nonspecific abd pain, gastritis, pancreatitis, diverticulitis, jr11 viral gastroenteritis, gastroenteritis. Data reviewed: vital signs, nurses notes. 14:56 ED course: Patient with known biliary dilatation, patient also with known anemia, she jr11 is on iron supplements,. She is currently on her menses. Patient feeling significantly better, did have to give a dose of IV morphine which we monitored for. CT scan image interpreted by me did not show any free air, no concern for perforation, no significant acute abnormality. Patient comfortable with medicine for symptomatic management and follow-up GI. ER warnings given all results explained.. 10/07 12:12 Order name: CBC with Diff jr11 10/07 12:12 Order name: CMP; Complete Time: 13:25 [facility] 10/07 12:12 Order name: Lipase; Complete Time: 13:25 [facility] 10/07 12:12 Order name: Test, Urine; Complete Time: 13:25 [facility] 10/07 12:12 Order name: Urinalysis w/ reflexes; Complete Time: 13:25 [facility] 10/07 12:38 Order name: CBC Smear Scan EDNE 10/07 13:04 Order name: Test, Serum; Complete Time: 13:45 10/07 12:12 Order name: CT Abd/Pelvis - IV Contrast Only; Complete Time: 14:44 [facility] 10/07 12:12 Order name: IV Saline Lock; Complete Time: 12:25 [facility] 10/07 12:12 Order name: Labs collected and sent; Complete Time: 12:25 [facility] Administered Medications: 12:32 Drug: Ondansetron IVP 4 mg Route: IVP; Site: right antecubital; jl7 13:00 Follow up: Response: No adverse reaction jl7 12:35 Drug: Famotidine IVP 20 mg Route: IVP; Site: right antecubital; jl7 13:00 Follow up: Response: No adverse reaction jl7 12:38 Drug: TORadol - Ketorolac IVP 15 mg Route: IVP; Site: right antecubital; jl7 13:00 Follow up: Pain 5/10 Adult; Response: No adverse reaction; Pain is decreased jl7 12:38 Drug: GI Cocktail without - (Maalox PO Suspension 30 ml, Lidocaine Mucous jl7 Membrane Liquid 2 % 15 ml) {Note: no viscous lidocaine, only maalox.} Route: PO; 13:00 Follow up: Response: No adverse reaction jl7 14:04 Drug: morphine IVP or IV 4 mg Route: IVP; Infused Over: 4 mins; Site: right antecubital;jl7 14:30 Follow up: Response: No adverse reaction; Pain is decreased jl7 Disposition Summary: 10/07/22 14:57 Discharge Ordered Location: Home [facility] Condition: Stable jr11 Diagnosis - Abdominal pain, Generalized jr11 - Upper abdominal pain, unspecified jr11 Followup: jr11 - With: Private Physician - When: 2 - 3 days - Reason: If symptoms return Discharge Instructions: - Discharge Summary Sheet jr11 - Abdominal Pain, Adult jr11 Forms: - Work release form jl7 - Medication Reconciliation Form jr11 - Thank You Letter jr11 - Antibiotic Education jr11 - Prescription Opioid Use jr11 - Patient Portal Instructions jr11 Prescriptions: - Pepcid 20 mg Oral Tablet - take 1 tablet by ORAL route every 12 hours for 5 days; 10 tablet; Refills: 0, jr11 Product Selection Permitted - Protonix 40 mg Oral Tablet - take 1 tablet by ORAL route once daily; 30 tablet; Refills: 0, Product jr11 Selection Permitted - Zofran 4 mg Oral Tablet - take 1 tablet by ORAL route every 12 hours As needed; 20 tablet; Refills: 0, jr11 Product Selection Permitted Signatures: Dispatcher [employer] [place] Peter RN RN jl7 Demian Chun MD MD jr11
[2022-10-07 15:54] VITALS: TEMP 98.8; O2SAT 100
[2022-10-07 15:56] VITALS: BP 121/73
[2022-10-07 16:39] LABS: Platelet Estimate ADEQ; White Blood Cell Scan OK (OK)
[2022-10-07 16:40] LABS: Anisocytosis 1+; Blood Morphology Comment NOTED (NOT SEEN); Hypochromasia 2+; Ovalocytes 1+; Poikilocytosis 1+; Polychromasia 1+
== END 2022-10-07 15:15 | disposition home or self-care (01) ==
LOC: ER 12:01
DX: R10.84 Generalized abdominal pain (principal); Z88.1 Allergy status to other antibiotic agents; Z88.2 Allergy status to sulfonamides; Z88.6 Allergy status to analgesic agent
CPT/HCPCS: 85025; 81001; 36415; 84703; 81025; 83690; 80053; 74177; 96375; 96374; 99284; Q9967; J2405